=== PATIENT | male | born 1960 | race African-American/Black ===

== ENCOUNTER 2016-08-05 10:38 | Inpatient (IN) | payer MEDICARE, OTHER ==
[~2016-08-05] VITALS: Ht 167.6 cm; Wt 117.5 kg
[~2016-08-05 10:38] MED LIST: ALBUTEROL SULF8.5 GM INH; ALLOPURINOL100 M1 ORAL; AMLODIPINE BESYL5 MG ORAL; APRESOLINE10 MG ORAL; APRESOLINE50 MG ORAL; ASPIR 8181 MG ORAL; ASPIRIN81 MG ORAL; ATORVASTATIN CA40 MG ORAL; AZITHROMYCIN250 MG ORAL; BRETHINE5 MG ORAL; CATAPRES0.1 MG ORAL; CATAPRES0.2 MG ORAL; CLONIDINE0.1 MG ORAL; DULERA 100 MCG/13 GM INH; HYDROCHLOROTHIA25 MG ORAL; HYDROMORPHO2 MG/1 M5 IVP; IBUPROFEN600 MG ORAL; LEVAQUIN500 MG ORAL; LEVAQUIN750 MG ORAL; LIPITOR80 MG ORAL; MEDROL DOSEPAK4 MG ORAL; MONTELUKAST SOD10 MG ORAL; NORCO 5-325 TA1 EACH ORAL; NORVASC5 MG ORAL; PERCOCET 10-321 EACH ORAL; PREDNISONE20 MG ORAL; PREDNISONE50 MG ORAL; PRILOSEC20 MG ORAL; PROAIR HFA8.5 GM INH; SINGULAIR4 M2 ORAL; SPIRIVA18 MCG INH; THEOPHYLLINE A100 MG ORAL; VENTOLIN HFA18 GM INH; ZITHROMAX250 MG ORAL
[2016-08-05] MEDS ORDERED: Albuterol ud Inhalation ONE (10:48)
[2016-08-05 10:49] VITALS: BP 114/77
[2016-08-05] MEDS ORDERED: PredniSONE 20mg tab ORAL ONE (11:15)
[2016-08-05] MEDS: Albuterol ud Inhalation HHN SCH ×3 (11:16→12:08)
[2016-08-05] MEDS: Ipratropium 0.02% Inh Soln 2.5ml UD HHN SCH ×3 (11:16→12:08)
[2016-08-05] MEDS ORDERED: Azithromycin 500 MG in NS 250 ML IVPB STA (11:38)
[2016-08-05] MEDS ORDERED: Albuterol ud Inhalation HHN ONE (11:45)
[2016-08-05] MEDS ORDERED: Azithromycin Inj IV ONE ×2 (12:00→12:37)
[2016-08-05] MEDS ORDERED: NS 250 ML ONE (12:01)
[2016-08-05 12:05] LABS: BASOPHILS % (AUTO) 0.9 % (0.0-2.0); EOSINOPHILS % (AUTO) 0.3 % (0.0-3.0); LYMPHOCYTES % (AUTO) 11.7 % (20.0-45.0); MEAN CORPUSCULAR HEMOGLOBIN 28.8 PG (27.0-31.0); MEAN CORPUSCULAR VOLUME 93 FL (80-99); MEAN PLATELET VOLUME 9.3 FL (6.5-10.1); NEUTROPHILS % (AUTO) 79.1 % (45.0-75.0); PLATELET COUNT 229 K/UL (150-450); RED BLOOD COUNT 4.42 M/UL (4.70-6.10); RED CELL DISTRIBUTION WIDTH 14.3 % (11.6-14.8); WHITE BLOOD COUNT 8.7 K/UL (4.8-10.8)
[2016-08-05 12:32] LABS: ALBUMIN/GLOBULIN RATIO 1.8 (1.0-2.7); CALCIUM 9.3 mg/dL (8.6-10.2); CREATININE 1.9 mg/dL (0.7-1.2); GLOMERULAR FILTRATION RATE 44.8 mL/min (>60); POTASSIUM 4.2 mEQ/L (3.4-4.9); TOTAL PROTEIN 7.2 g/dL (6.6-8.7); TROPONIN I < 0.30 ng/mL (<=0.30)
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
[2016-08-05 12:43] LABS: CKMB 5.6 ng/mL (< 6.7)
[2016-08-05] MEDS ORDERED: LORazepam Inj 2mg/ml 1ml IV PRN (13:00)
[2016-08-05] MEDS ORDERED: Promethazine/Codeine 5ml UD ORAL PRN (13:00)
[2016-08-05] MEDS ORDERED: Ketorolac 30mg Inj IV PRN (13:00)
[2016-08-05] MEDS ORDERED: Morphine Sulfate 2mg/ml Inj IVP PRN (13:00)
[2016-08-05] MEDS ORDERED: Nitroglycerin Subl 0.4mg tab (Bottle Of 25) SL PRN (13:00)
--- NOTE | 2016-08-05 14:27 | Diagnostic Imaging Report ---
Indication: Chest pain Technique: One view of the chest Comparison: 06/11/2016 Findings: Inspiration is suboptimal. There is some atelectasis at the right lung base. Lungs and pleural spaces are otherwise clear. There is some central bronchial wall thickening. The heart size is upper limits of normal. Impression: Somewhat hypoventilatory exam with bibasilar atelectasis No definite acute process Mild central bronchial wall thickening, could indicate chronic bronchitis changes
[2016-08-05] MEDS: HydrALAZINE 10mg Tab ORAL SCH ×2 (14:57→21:55)
[2016-08-05] MEDS: NovoLOG Insulin Flexpen SUBQ SCH ×2 (15:56→22:03)
[2016-08-05 16:00] VITALS: BP 132/86
[2016-08-05] MEDS: DuoNeb 0.5-3(2.5)mg/3ml neb HHN PRN ×2 (16:11→21:14)
[2016-08-05] MEDS: Solu-MEDROL 125mg Inj IV SCH (17:39)
[2016-08-05] MEDS: HYDROmorphone 1mg/ml Carpuject IVP PRN ×2 (17:39→22:16)
[2016-08-05] MEDS ORDERED: Theophylline ER 100mg ORAL SCH (18:00)
[2016-08-05 20:14] VITALS: BP 150/91
[2016-08-05] MEDS: Theophylline ER 100mg ORAL SCH (21:55)
[2016-08-05] MEDS: Heparin 5000 units/ml inj SUBQ SCH (21:58)
[2016-08-06] VITALS (7 sets, daily range): BP systolic 144–169; BP diastolic 89–109
[2016-08-06] MEDS: Solu-MEDROL 125mg Inj IV SCH ×4 (00:25→18:17)
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
[2016-08-06] MEDS: HydrALAZINE 10mg Tab ORAL SCH ×2 (06:11→14:05)
[2016-08-06] MEDS: NovoLOG Insulin Flexpen SUBQ SCH ×4 (06:20→21:16)
[2016-08-06] MEDS: DuoNeb 0.5-3(2.5)mg/3ml neb HHN PRN ×2 (06:36→18:43)
[2016-08-06] MEDS: Theophylline ER 100mg ORAL SCH (09:05)
[2016-08-06] MEDS: Heparin 5000 units/ml inj SUBQ SCH ×2 (09:07→21:17)
--- NOTE | 2016-08-06 11:49 | Consultation ---
History of Present Illness General Date patient seen: Aug 06, 2016 Chief Complaint: Dyspnea/Respdistress Reason for Consultation: Dyspnea Present Illness HPI 55 year old male with hx of asthma, RHONDA, morbid obesity BIBA for acute asthma exacberation. SOB, chest tightness worse over 2 days associated with URI symptoms. Denies assoc fever/chills, chest pain, abd pain. No improvement with home albuterol. Patient was in respiratory failure in ER and was put on BIPAP and transferred to [facility]. Patient still seems short of breath. Allergies: Coded Allergies: MORPHINE (Unverified Allergy, Intermediate, Itching, 11/25/15) TETRACYCLINE (Verified Allergy, Unknown, 11/25/15) Medication History Scheduled Albuterol Sulfate (Ventolin Hfa), 2 PUFFS INH EVERY 6 HOURS, (Reported) Amlodipine Besylate (Norvasc), 5 MG ORAL BID Aspirin* (Aspirin*), 81 MG ORAL DAILY Azithromycin* (Zithromax*), 250 MG ORAL once daily Clonidine Hcl* (Catapres*), 0.1 MG ORAL Q8H Clonidine Hcl* (Catapres*), 0.2 MG ORAL Q8HR, (Reported) Hydralazine HCl (Hydralazine HCl), 10 MG ORAL EVERY 8 HOURS, (Reported) Hydralazine HCl (Hydralazine HCl), 100 MG ORAL Q8HR Hydrochlorothiazide* (Hydrochlorothiazide*), 100 MG ORAL BID, (Reported) Mometasone/Formoterol (Dulera 100 Mcg/5 Mcg Inhaler), 2 PUFFS INH EVERY 12 HOURS , (Reported) Montelukast Sodium (Singulair), 4 MG ORAL DAILY Omeprazole (Prilosec), 20 MG ORAL DAILY, (Reported) Prednisone* (Prednisone*), 60 MG ORAL DAILY Terbutaline Sulfate (Terbutaline Sulfate), 2.5 MG ORAL BID, (Reported) Theophylline (Theodur*), 100 MG ORAL TWICE A DAY, (Reported) Tiotropium Mcclure* (Spiriva*), 1 PUFF INH DAILY, (Reported) Scheduled PRN Clonidine HCl (Clonidine HCl), 0.1 MG ORAL Q6H PRN for SBP>160 Discontinued Medications Albuterol Sulfate* (Albuterol Sulfate Mdi*), 2 PUFF INH Q4H PRN for For Cough Discontinued Reason: Therapy completed Patient History Healthcare decision maker self Resuscitation status Full Code Advanced Directive on File Past Medical/Surgical History Past Medical/Surgical History: (1) Lumbar degenerative disc disease (2) Fibula fracture (3) Asthma (4) COPD (chronic obstructive pulmonary disease) (5) BPH (benign prostatic hyperplasia) (6) HTN (hypertension) Social History Social History: (1) Non-smoker Review of Systems All Other Systems: negative except mentioned in HPI Physical Exam General Appearance: morbidly obese Lines, tubes and drains: peripheral HEENT: normocephalic, atraumatic Neck: non-tender, normal alignment Respiratory/Chest: chest wall non-tender, lungs clear Cardiovascular/Chest: normal peripheral pulses, normal rate Abdomen: normal bowel sounds, non tender Genitourinary/Rectal: normal genital exam, heme negative stool Extremities: normal range of motion, normal inspection 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 normal, no motor/sensory deficits Last 24 Hour Vital Signs Date Time Temp Pulse Resp B/P Pulse Ox O2 Delivery O2 Flow Rate FiO2 08/06/16 09:06 94 144/97 08/06/16 08:00 97.0 94 20 144/97 94 Room Air 08/06/16 08:00 97 08/06/16 06:45 87 18 98 Room Air 21 08/06/16 06:34 21 08/06/16 06:34 95 25 Room Air 21 08/06/16 06:11 169/100 08/06/16 04:00 97.2 88 20 155/95 95 Room Air 08/06/16 03:51 82 08/06/16 01:00 87 17 99 Facial 30 08/06/16 00:00 97.7 93 20 150/90 92 Room Air 08/05/16 23:48 92 08/05/16 21:55 150/91 08/05/16 21:40 90 20 98 Room Air 21 08/05/16 21:14 21 08/05/16 21:14 90 20 95 Room Air 21 08/05/16 20:14 98.1 92 13 150/91 93 Room Air 08/05/16 20:00 92 08/05/16 18:11 97.9 08/05/16 17:38 132/86 08/05/16 16:22 89 08/05/16 16:21 88 18 98 Room Air 21 08/05/16 16:11 21 08/05/16 16:11 85 21 95 Room Air 21 08/05/16 16:00 97.9 93 15 132/86 96 Room Air 08/05/16 15:36 98.0 08/05/16 14:57 151/96 08/05/16 12:56 97.5 94 16 126/70 98 Bi-pap 30 08/05/16 12:10 85 16 99 Bi-pap 30 08/05/16 12:10 30 08/05/16 12:00 15 99 Facial 30 Intake and Output 08/05/16 08/06/16 19:00 07:00 Intake Total 150 ml 150 ml Output Total 600 ml Balance -450 ml 150 ml Intake Oral 0 ml IV Total 150 ml 150 ml Output Urine Total 600 ml # Voids 1 3 # Bowel Movements 1 Laboratory Tests Test 08/05/16 11:43 White Blood Count 8.7 K/UL (4.8-10.8) Red Blood Count 4.42 M/UL (4.70-6.10) L Hemoglobin 12.7 G/DL (14.2-18.0) L Hematocrit 41.0 % (42.0-52.0) L Mean Corpuscular Volume 93 FL (80-99) Mean Corpuscular Hemoglobin 28.8 PG (27.0-31.0) Mean Corpuscular Hemoglobin Concent 31.0 G/DL (32.0-36.0) L Red Cell Distribution Width 14.3 % (11.6-14.8) Platelet Count 229 K/UL (150-450) Mean Platelet Volume 9.3 FL (6.5-10.1) Neutrophils (%) (Auto) 79.1 % (45.0-75.0) H Lymphocytes (%) (Auto) 11.7 % (20.0-45.0) L Monocytes (%) (Auto) 8.0 % (1.0-10.0) Eosinophils (%) (Auto) 0.3 % (0.0-3.0) Basophils (%) (Auto) 0.9 % (0.0-2.0) Sodium Level 141 mEQ/L (135-145) Potassium Level 4.2 mEQ/L (3.4-4.9) Chloride Level 99 mEQ/L (98-107) Carbon Dioxide Level 26 mEQ/L (20-30) Anion Gap 16 (5-15) H Blood Urea Nitrogen 27 mg/dL (7-23) H Creatinine 1.9 mg/dL (0.7-1.2) H Estimat Glomerular Filtration Rate 44.8 mL/min (>60) Glucose Level 113 mg/dL (74-106) H Calcium Level 9.3 mg/dL (8.6-10.2) Total Bilirubin 0.2 mg/dL (0.0-1.2) Aspartate Amino Transf (AST/SGOT) 21 U/L (5-40) Alanine Aminotransferase (ALT/SGPT) 14 U/L (3-41) Alkaline Phosphatase 53 U/L (40-129) Total Creatine Kinase 401 U/L (38-174) H Creatine Kinase MB 5.6 ng/mL (< 6.7) Creatine Kinase MB Relative Index 1.3 Troponin I < 0.30 ng/mL (<=0.30) Total Protein 7.2 g/dL (6.6-8.7) Albumin 4.7 g/dL (3.5-5.2) Globulin 2.5 g/dL Albumin/Globulin Ratio 1.8 (1.0-2.7) Microbiology Date/Time Source Procedure Growth Status 08/05/16 16:00 Sputum Gram Stain - Final Resulted 08/05/16 16:00 Sputum Sputum Culture Pending Resulted Height (Feet): 5 Height (Inches): 6.00 Weight (Pounds): 259 Medications Current Medications Medications (Trade) Dose Ordered Sig/Alexis Route PRN Reason Start Time Stop Time Status Last Admin Dose Admin Albuterol/ Ipratropium (DuoNeb 0.5-3(2.5)mg/3ml) 3 ml EVERY 4 HOURS PRN HHN dyspnea 08/05/16 13:00 08/10/16 12:59 08/06/16 06:36 Amlodipine Besylate (Norvasc) 5 mg BID ORAL 08/05/16 18:00 09/04/16 17:59 08/06/16 09:06 Clonidine HCl (Catapres) 0.1 mg Q6H PRN ORAL SBP>160 08/05/16 13:00 09/04/16 12:59 Dextrose (Dextrose 50%) STAT PRN IV Hypoglycemia 08/05/16 13:00 09/04/16 12:59 Heparin Sodium (Porcine) (Heparin 5000 units/ml) 5,000 units EVERY 12 HOURS SUBQ 08/05/16 21:00 09/04/16 20:59 08/06/16 09:07 Hydralazine HCl (Apresoline) 10 mg EVERY 8 HOURS ORAL 08/05/16 14:00 09/04/16 13:59 08/06/16 06:11 Hydromorphone HCl (Dilaudid) 1 mg Q4H PRN IVP Severe Pain (Pain Scale 7-10) 08/05/16 17:00 08/12/16 16:59 08/05/16 22:16 Insulin Aspart (NovoLOG) BEFORE MEALS AND HS SUBQ 08/05/16 16:30 09/04/16 16:29 08/05/16 22:03 Ketorolac Tromethamine (Toradol 30mg) 30 mg EVERY 8 HOURS PRN IV moderate pain 4-6 08/05/16 13:00 08/10/16 12:59 08/05/16 14:59 Lorazepam (Ativan 2mg/ml 1ml) 0.5 mg Q4H PRN IV For Anxiety 08/05/16 13:00 08/12/16 12:59 Methylprednisolone Sodium Succinate (Solu-MEDROL) 60 mg EVERY 6 HOURS IV 08/05/16 18:00 09/04/16 17:59 08/06/16 06:13 Nitroglycerin (Ntg) 0.4 mg Q5M X 3 DOSES PRN SL Prn Chest Pain 08/05/16 13:00 09/04/16 12:59 Ondansetron HCl (Zofran) 4 mg Q6H PRN IVP Nausea & Vomiting 08/05/16 13:00 09/04/16 12:59 Piperacillin Sod/ Tazobactam Sod/ Dextrose (Zosyn/D5W 50ml) 50 ml @ 100 mls/hr EVERY 8 HOURS IV 08/05/16 14:00 08/10/16 13:59 08/06/16 06:10 Promethazine HCl/ Codeine (Phenergan with Codeine) 5 ml EVERY 6 HOURS PRN ORAL cough 08/05/16 13:00 09/04/16 12:59 Temazepam (Restoril) 15 mg HSPRN PRN ORAL Insomnia 08/05/16 13:00 08/12/16 12:59 Theophylline 100 mg 100 mg EVERY 12 HOURS ORAL 08/05/16 21:00 09/04/16 20:59 08/06/16 09:05 Assessment/Plan Problem List: (1) Acute asthma exacerbation ICD Codes: J45.901 - Asthma with exacerbation SNOMED: 392321492 Qualifiers: Qualified Codes: J45.51 - Severe persistent asthma with (acute) exacerbation (2) Respiratory distress ICD Codes: R06.00 - Dyspnea, unspecified SNOMED: 896444616 (3) COPD exacerbation ICD Codes: J44.1 - Obstructive chronic bronchitis with exacerbation SNOMED: 402249618 Assessment/Plan Iv steoids IV antibiotics respiratory treatmet bipap prn and night time ADDIS SANCHEZ Aug 06, 2016 11:49
[2016-08-06] MEDS: HYDROmorphone 1mg/ml Carpuject IVP PRN ×3 (11:58→21:12)
--- NOTE | 2016-08-06 13:15 | General Progress Note ---
Assessment/Plan Problem List: (1) Hypertension ICD Codes: I10 - Hypertension SNOMED: 87448209 (2) Lumbar spondylosis ICD Codes: M47.816 - Spondylosis without myelopathy or radiculopathy, lumbar region SNOMED: 798548060 (3) Anemia ICD Codes: D64.9 - Anemia, unspecified SNOMED: 334842239 (4) Asthma ICD Codes: J45.909 - Asthma SNOMED: 135722073 (5) Acute asthma exacerbation ICD Codes: J45.901 - Asthma with exacerbation SNOMED: 819237529 (6) Intractable back pain ICD Codes: M54.9 - Intractable back pain SNOMED: 439067689 (7) Dyspnea ICD Codes: R06.00 - Dyspnea, unspecified SNOMED: 905970352 (8) COPD (chronic obstructive pulmonary disease) ICD Codes: J44.9 - Chronic obstructive pulmonary disease, unspecified SNOMED: 07138812 Status: progressing Assessment/Plan afebrile vitals stable asthma exacerbation on nebs wheezing Subjective ROS Limited/Unobtainable: Yes Constitutional: Reports: no symptoms Allergies: Coded Allergies: MORPHINE (Unverified Allergy, Intermediate, Itching, 11/25/15) TETRACYCLINE (Verified Allergy, Unknown, 11/25/15) Objective Last 24 Hour Vital Signs Date Time Temp Pulse Resp B/P Pulse Ox O2 Delivery O2 Flow Rate FiO2 08/06/16 12:28 98.2 08/06/16 12:01 160/109 08/06/16 12:00 98.2 96 20 160/109 96 Nasal Cannula 2.0 08/06/16 09:06 94 144/97 08/06/16 08:00 97.0 94 20 144/97 94 Room Air 08/06/16 08:00 97 08/06/16 06:45 87 18 98 Room Air 21 08/06/16 06:34 21 08/06/16 06:34 95 25 Room Air 21 08/06/16 06:11 169/100 08/06/16 04:00 97.2 88 20 155/95 95 Room Air 08/06/16 03:51 82 08/06/16 01:00 87 17 99 Facial 30 08/06/16 00:00 97.7 93 20 150/90 92 Room Air 08/05/16 23:48 92 08/05/16 21:55 150/91 08/05/16 21:40 90 20 98 Room Air 21 08/05/16 21:14 21 08/05/16 21:14 90 20 95 Room Air 21 08/05/16 20:14 98.1 92 13 150/91 93 Room Air 08/05/16 20:00 92 08/05/16 17:38 132/86 08/05/16 16:22 89 08/05/16 16:21 88 18 98 Room Air 08/05/16 16:11 21 08/05/16 16:11 85 21 95 Room Air 21 08/05/16 16:00 97.9 93 15 132/86 96 Room Air 08/05/16 15:36 98.0 08/05/16 14:57 151/96 Intake and Output 08/05/16 08/06/16 19:00 07:00 Intake Total 150 ml 150 ml Output Total 600 ml Balance -450 ml 150 ml Intake Oral 0 ml IV Total 150 ml 150 ml Output Urine Total 600 ml # Voids 1 3 # Bowel Movements 1 Height (Feet): 5 Height (Inches): 6.00 Weight (Pounds): 259 EENT: PERRL/EOMI Neck: supple Cardiovascular: normal rate Respiratory/Chest: lungs clear Abdomen: soft Luis Botello MD Aug 06, 2016 13:15
--- NOTE | 2016-08-06 16:16 | Consultation ---
Consult Note Consult Note Chief Complaint: Dyspnea/Respdistress 55 YOM BIBEMS for acute asthma exacberation. SOB, chest tightness worse over 2 days associated with URI symptoms. Denies assoc fever/chills, chest pain, abd pain. No improvement with home albuterol. Allergies: Coded Allergies: MORPHINE (Unverified Allergy, Intermediate, Itching, 11/25/15) TETRACYCLINE (Verified Allergy, Unknown, 11/25/15) Patient interviewed and examined- Moderately short of breath Assessment/Plan Status; chronic renal insufficiency , Cr 1.9 acute asthma exacerbation COPD RHONDA accelerated HTN diastolic CHF morbid obesity mild anemia Plan: Steroids- Breathing treatment- BP control- Monitor renal parameters- Avoid nephrotoxics ELIEL MANRIQUE Aug 06, 2016 16:16
[2016-08-06] MEDS ORDERED: Nitroglycerin Subl 0.4mg tab (Bottle Of 25) SL PRN (18:00)
[2016-08-06] MEDS ORDERED: Promethazine/Codeine 5ml UD ORAL PRN (18:00)
[2016-08-06] MEDS ORDERED: LORazepam Inj 2mg/ml 1ml IV PRN (18:00)
[2016-08-06] MEDS ORDERED: Theophylline ER 100mg ORAL SCH (21:00)
[2016-08-06] MEDS: HydrALAZINE 25mg tab ORAL SCH (21:17)
[2016-08-06] MEDS ORDERED: HydrALAZINE 25mg tab ORAL SCH (22:00)
[2016-08-06 23:05] LABS: APPEARANCE,URINE CLEAR; KETONES,URINE NEGATIVE (NEGATIVE); LEUKOCYTE ESTERASE ,URINE 1+ (NEGATIVE); NITRITE,URINE NEGATIVE (NEGATIVE); PH,URINE 5 (4.5-8.0); PROTEIN,URINE 3+ (NEGATIVE); UROBILINOGEN,URINE NORMAL MG/DL (0.0-1.0)
[2016-08-07 00:14] VITALS: BP 163/99
[2016-08-07 00:16] LABS: BACTERIA,URINE OCCASIONAL /HPF; RBC,URINE 15-20 /HPF (0 - 0); SQUAMOUS EPITHELIAL CELL,UR OCCASIONAL /LPF (NONE/OCC)
[2016-08-07] MEDS: Solu-MEDROL 125mg Inj IV SCH ×4 (01:00→22:30)
[2016-08-07] MEDS: HYDROmorphone 1mg/ml Carpuject IVP PRN ×4 (01:12→23:53)
[2016-08-07 04:06] VITALS: BP 155/114
[2016-08-07] MEDS: NovoLOG Insulin Flexpen SUBQ SCH ×5 (06:18→22:31)
[2016-08-07] MEDS: HydrALAZINE 25mg tab ORAL SCH ×3 (06:19→22:48)
[2016-08-07] MEDS: DuoNeb 0.5-3(2.5)mg/3ml neb HHN PRN ×2 (07:36→14:47)
[2016-08-07 08:10] LABS: MEAN CORPUSCULAR HEMOGLOBIN 29.3 PG (27.0-31.0); MEAN CORPUSCULAR HGB CONC 31.3 G/DL (32.0-36.0); MEAN CORPUSCULAR VOLUME 94 FL (80-99); MEAN PLATELET VOLUME 9.2 FL (6.5-10.1); PLATELET COUNT 275 K/UL (150-450); RED BLOOD COUNT 4.33 M/UL (4.70-6.10); RED CELL DISTRIBUTION WIDTH 14.7 % (11.6-14.8)
[2016-08-07 08:19] LABS: CRP QUANT < 0.3 mg/dL (< 0.5); MAGNESIUM 2.3 mg/dL (1.7-2.5); URIC ACID 8.4 mg/dL (3.0-7.5)
[2016-08-07 08:30] VITALS: BP 149/87
[2016-08-07 08:35] LABS: CALCIUM 9.1 mg/dL (8.6-10.2); CHOLESTEROL/HDL RATIO 3.8 (3.3-4.4); CREATININE 2.1 mg/dL (0.7-1.2); POTASSIUM 5.5 mEQ/L (3.4-4.9); TOTAL PROTEIN 6.8 g/dL (6.6-8.7)
[2016-08-07 08:46] LABS: HEMOGLOBIN A1C 5.2 % (< 6.0)
[2016-08-07] MEDS: Heparin 5000 units/ml inj SUBQ SCH ×2 (09:30→11:43)
[2016-08-07 10:18] LABS: BAND NEUTROPHILS % (MANUAL) 1 % (0-8); BASOPHILS % (MANUAL) 0 % (0-2); EOSINOPHILS % (MANUAL) 0 % (0-3); LYMPHOCYTES % (MANUAL) 8 % (20-45); NEUTROPHILS % (MANUAL) 88 % (45-75); PLATELET ESTIMATE ADEQUATE; PLATELET MORPHOLOGY NORMAL; TOTAL CELLS COUNTED 100
[2016-08-07 10:20] LABS: ANISOCYTOSIS 1+
--- NOTE | 2016-08-07 11:26 | Pulmonology Progress Note ---
Assessment/Plan Problems: (1) Acute asthma exacerbation (2) Respiratory distress (3) COPD exacerbation Assessment/Plan decrease solumedrol to q 8 check sputum one dose of lasix continue antibiotics increase theophyline check K in am Subjective ROS Limited/Unobtainable: No Interval Events: still short of breath, uses bipap at night Allergies: Coded Allergies: MORPHINE (Unverified Allergy, Intermediate, Itching, 11/25/15) TETRACYCLINE (Verified Allergy, Unknown, 11/25/15) Objective Last 24 Hour Vital Signs Date Time Temp Pulse Resp B/P Pulse Ox O2 Delivery O2 Flow Rate FiO2 08/07/16 10:00 74 08/07/16 09:30 85 124/64 08/07/16 08:30 97.2 88 20 149/87 96 Nasal Cannula 2.0 08/07/16 07:46 89 18 98 Nasal Cannula 2.0 08/07/16 07:36 21 08/07/16 07:35 88 20 93 Room Air 08/07/16 07:35 88 20 Room Air 08/07/16 06:19 155/114 08/07/16 04:30 89 20 95 Facial 30 08/07/16 04:06 98.5 89 21 155/114 97 Bi-pap 08/07/16 04:00 85 08/07/16 01:10 89 27 95 Facial 30 08/07/16 00:14 98.2 86 20 163/99 96 Bi-pap 08/06/16 22:00 91 28 93 Facial 30 08/06/16 21:30 86 145/92 08/06/16 21:17 165/95 08/06/16 20:00 97.7 96 22 165/95 92 Nasal Cannula 2.0 08/06/16 20:00 95 08/06/16 19:21 87 18 98 Nasal Cannula 2.0 08/06/16 19:00 90 20 98 Nasal Cannula 2.0 08/06/16 18:18 94 153/89 08/06/16 17:00 2.0 08/06/16 16:01 97.9 94 14 153/89 90 Room Air 08/06/16 14:05 160/109 08/06/16 13:36 97 08/06/16 12:28 98.2 08/06/16 12:01 160/109 08/06/16 12:00 97 08/06/16 12:00 98.2 96 20 160/109 96 Nasal Cannula 2.0 Intake and Output 08/06/16 08/07/16 19:00 07:00 Intake Total 480 ml 580 ml Output Total 750 ml 350 ml Balance -270 ml 230 ml Intake Oral 430 ml 480 ml IV Total 50 ml 100 ml Output Urine Total 750 ml 350 ml # Voids 2 # Bowel Movements 1 General Appearance: WD/WN HEENT: normocephalic, atraumatic Respiratory/Chest: chest wall non-tender, lungs clear Cardiovascular: normal peripheral pulses, normal rate Abdomen: normal bowel sounds, soft, non tender Genitourinary: normal external genitalia Extremities: no cyanosis 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 Lymphatic: no neck adenopathy Microbiology Date/Time Source Procedure Growth Status 08/05/16 16:00 Sputum Gram Stain - Final Complete 08/05/16 16:00 Sputum Sputum Culture - Final NORMAL UPPER RESPIRATORY BEVERLY PRESENT Complete Laboratory Tests 08/06/16 21:30: Urine Color Pale yellow, Urine Appearance Clear, Urine pH 5, Urine Specific Prue 1.020, Urine Protein 3+H, Urine Glucose (UA) Negative, Urine Ketones Negative, Urine Occult Blood 4+H, Urine Nitrite Negative, Urine Bilirubin Negative, Urine Urobilinogen Normal, Urine Leukocyte Esterase 1+H, Urine RBC 15- 20H, Urine WBC 5-10H, Urine Squamous Epithelial Cells Occasional, Urine Bacteria Occasional 08/07/16 07:30: White Blood Count 13.0H, Red Blood Count 4.33L, Hemoglobin 12.7L, Hematocrit 40.4L, Mean Corpuscular Volume 94, Mean Corpuscular Hemoglobin 29.3, Mean Corpuscular Hemoglobin Concent 31.3L, Red Cell Distribution Width 14.7, Platelet Count 275, Mean Platelet Volume 9.2, Neutrophils (%) (Auto) , Lymphocytes (%) (Auto) , Monocytes (%) (Auto) , Eosinophils (%) (Auto) , Basophils (%) (Auto) , Differential Total Cells Counted 100, Neutrophils % ( Manual) 88H, Lymphocytes % (Manual) 8L, Monocytes % (Manual) 3, Eosinophils % ( Manual) 0, Basophils % (Manual) 0, Band Neutrophils 1, Platelet Estimate Adequate, Platelet Morphology Normal, Anisocytosis 1+, Sodium Level 141, Potassium Level 5.5H, Chloride Level 100, Carbon Dioxide Level 26, Anion Gap 15 , Blood Urea Nitrogen 37H, Creatinine 2.1H, Estimat Glomerular Filtration Rate 40.0, Glucose Level 140H, Hemoglobin A1c 5.2, Uric Acid 8.4H, Calcium Level 9.1 , Phosphorus Level 5.0H, Magnesium Level 2.3, Total Bilirubin 0.3, Gamma Glutamyl Transpeptidase 22, Aspartate Amino Transf (AST/SGOT) 18, Alanine Aminotransferase (ALT/SGPT) 15, Alkaline Phosphatase 50, Total Creatine Kinase 303H, C-Reactive Protein, Quantitative < 0.3, Pro-B-Type Natriuretic Peptide 176H, Total Protein 6.8, Albumin 4.6, Globulin 2.2, Albumin/Globulin Ratio 2.0, Triglycerides Level 133, Cholesterol Level 278H, LDL Cholesterol 178H, HDL Cholesterol 73H, Cholesterol/HDL Ratio 3.8 Current Medications Medications (Trade) Dose Ordered Sig/Alexis Route PRN Reason Start Time Stop Time Status Last Admin Dose Admin Albuterol/ Ipratropium (DuoNeb 0.5-3(2.5)mg/3ml) 3 ml Q4H PRN HHN dyspnea 08/06/16 18:00 08/11/16 17:59 08/07/16 07:36 Amlodipine Besylate (Norvasc) 5 mg BID ORAL 08/06/16 18:00 09/05/16 17:59 08/07/16 09:30 Clonidine HCl (Catapres) 0.1 mg Q4H PRN ORAL SBP>160 08/06/16 18:00 09/05/16 17:59 Dextrose (Dextrose 50%) STAT PRN IV Hypoglycemia 08/06/16 18:00 09/05/16 17:59 Heparin Sodium (Porcine) (Heparin 5000 units/ml) 5,000 units EVERY 12 HOURS SUBQ 08/06/16 21:00 09/05/16 20:59 08/07/16 09:30 Hydralazine HCl (Apresoline) 25 mg EVERY 8 HOURS ORAL 08/06/16 22:00 09/05/16 21:59 08/07/16 06:19 Hydromorphone HCl (Dilaudid) 1 mg Q4H PRN IVP Severe Pain (Pain Scale 7-10) 08/06/16 18:00 08/13/16 17:59 08/07/16 06:17 Insulin Aspart (NovoLOG) BEFORE MEALS AND HS SUBQ 08/06/16 21:00 09/05/16 20:59 08/07/16 06:18 Lorazepam (Ativan 2mg/ml 1ml) 0.5 mg Q4H PRN IV For Anxiety 08/06/16 18:00 08/13/16 17:59 Methylprednisolone Sodium Succinate (Solu-MEDROL) 60 mg EVERY 6 HOURS IV 08/06/16 18:00 09/05/16 17:59 08/07/16 06:18 Nitroglycerin (Ntg) 0.4 mg Q5M X 3 DOSES PRN SL Prn Chest Pain 08/06/16 18:00 09/05/16 17:59 Ondansetron HCl (Zofran) 4 mg Q6H PRN IVP Nausea & Vomiting 08/06/16 18:00 09/05/16 17:59 Piperacillin Sod/ Tazobactam Sod/ Dextrose (Zosyn/D5W 50ml) 50 ml @ 100 mls/hr EVERY 8 HOURS IV 08/06/16 22:00 08/11/16 21:59 08/07/16 06:17 Promethazine HCl/ Codeine (Phenergan with Codeine) 5 ml Q6H PRN ORAL cough 08/06/16 18:00 09/05/16 17:59 Temazepam (Restoril) 15 mg HSPRN PRN ORAL Insomnia 08/07/16 21:00 08/14/16 20:59 Theophylline (Oscar-Dur) 100 mg EVERY 12 HOURS ORAL 08/06/16 21:00 09/05/16 20:59 08/06/16 21:13 ADDIS SANCHEZ Aug 07, 2016 11:26
[2016-08-07 12:03] VITALS: BP 148/78
[2016-08-07] MEDS ORDERED: Tubing IV Secondary IV ONE (14:57)
[2016-08-07] MEDS ORDERED: NS 275ml ONE (14:57)
[2016-08-07 16:00] VITALS: BP 145/95
--- NOTE | 2016-08-07 16:26 | General Progress Note ---
Assessment/Plan Problem List: (1) Hypertension ICD Codes: I10 - Hypertension SNOMED: 30000816 (2) Lumbar spondylosis ICD Codes: M47.816 - Spondylosis without myelopathy or radiculopathy, lumbar region SNOMED: 781596303 (3) Anemia ICD Codes: D64.9 - Anemia, unspecified SNOMED: 135387042 (4) Asthma ICD Codes: J45.909 - Asthma SNOMED: 693180735 (5) Acute asthma exacerbation ICD Codes: J45.901 - Asthma with exacerbation SNOMED: 653443985 (6) Intractable back pain ICD Codes: M54.9 - Intractable back pain SNOMED: 750211862 (7) Dyspnea ICD Codes: R06.00 - Dyspnea, unspecified SNOMED: 803383846 (8) COPD (chronic obstructive pulmonary disease) ICD Codes: J44.9 - Chronic obstructive pulmonary disease, unspecified SNOMED: 76270768 Status: progressing Assessment/Plan still wheezing asthma exacerbation continue w present mangement Subjective HEENT: Reports: no symptoms Respiratory: Reports: SOB with excertion, wheezing Allergies: Coded Allergies: MORPHINE (Unverified Allergy, Intermediate, Itching, 11/25/15) TETRACYCLINE (Verified Allergy, Unknown, 11/25/15) Objective Last 24 Hour Vital Signs Date Time Temp Pulse Resp B/P Pulse Ox O2 Delivery O2 Flow Rate FiO2 08/07/16 16:00 98.1 86 22 145/95 95 Nasal Cannula 2.0 08/07/16 14:57 90 18 98 Nasal Cannula 2.0 08/07/16 14:47 28 08/07/16 14:46 87 18 Nasal Cannula 2.0 08/07/16 12:03 97.2 87 20 148/78 95 Nasal Cannula 2.0 08/07/16 10:00 74 08/07/16 09:30 85 124/64 08/07/16 08:30 97.2 88 20 149/87 96 Nasal Cannula 2.0 08/07/16 07:46 89 18 98 Nasal Cannula 2.0 08/07/16 07:36 21 08/07/16 07:35 88 20 93 Room Air 21 08/07/16 07:35 88 20 Room Air 21 08/07/16 06:19 155/114 08/07/16 04:30 89 20 95 Facial 30 08/07/16 04:06 98.5 89 21 155/114 97 Bi-pap 08/07/16 04:00 85 08/07/16 01:10 89 27 95 Facial 30 08/07/16 00:14 98.2 86 20 163/99 96 Bi-pap 08/06/16 22:00 91 28 93 Facial 30 08/06/16 21:30 86 145/92 08/06/16 21:17 165/95 08/06/16 20:00 97.7 96 22 165/95 92 Nasal Cannula 2.0 08/06/16 20:00 95 08/06/16 19:21 87 18 98 Nasal Cannula 2.0 28 08/06/16 19:00 90 20 98 Nasal Cannula 2.0 28 08/06/16 18:18 94 153/89 08/06/16 17:00 2.0 Intake and Output 08/06/16 08/07/16 19:00 07:00 Intake Total 480 ml 580 ml Output Total 750 ml 350 ml Balance -270 ml 230 ml Intake Oral 430 ml 480 ml IV Total 50 ml 100 ml Output Urine Total 750 ml 350 ml # Voids 2 # Bowel Movements 1 Laboratory Tests 08/06/16 21:30: Urine Color Pale yellow, Urine Appearance Clear, Urine pH 5, Urine Specific Gaffney 1.020, Urine Protein 3+H, Urine Glucose (UA) Negative, Urine Ketones Negative, Urine Occult Blood 4+H, Urine Nitrite Negative, Urine Bilirubin Negative, Urine Urobilinogen Normal, Urine Leukocyte Esterase 1+H, Urine RBC 15- 20H, Urine WBC 5-10H, Urine Squamous Epithelial Cells Occasional, Urine Bacteria Occasional 08/07/16 07:30: White Blood Count 13.0H, Red Blood Count 4.33L, Hemoglobin 12.7L, Hematocrit 40.4L, Mean Corpuscular Volume 94, Mean Corpuscular Hemoglobin 29.3, Mean Corpuscular Hemoglobin Concent 31.3L, Red Cell Distribution Width 14.7, Platelet Count 275, Mean Platelet Volume 9.2, Neutrophils (%) (Auto) , Lymphocytes (%) (Auto) , Monocytes (%) (Auto) , Eosinophils (%) (Auto) , Basophils (%) (Auto) , Differential Total Cells Counted 100, Neutrophils % ( Manual) 88H, Lymphocytes % (Manual) 8L, Monocytes % (Manual) 3, Eosinophils % ( Manual) 0, Basophils % (Manual) 0, Band Neutrophils 1, Platelet Estimate Adequate, Platelet Morphology Normal, Anisocytosis 1+, Sodium Level 141, Potassium Level 5.5H, Chloride Level 100, Carbon Dioxide Level 26, Anion Gap 15 , Blood Urea Nitrogen 37H, Creatinine 2.1H, Estimat Glomerular Filtration Rate 40.0, Glucose Level 140H, Hemoglobin A1c 5.2, Uric Acid 8.4H, Calcium Level 9.1 , Phosphorus Level 5.0H, Magnesium Level 2.3, Total Bilirubin 0.3, Gamma Glutamyl Transpeptidase 22, Aspartate Amino Transf (AST/SGOT) 18, Alanine Aminotransferase (ALT/SGPT) 15, Alkaline Phosphatase 50, Total Creatine Kinase 303H, C-Reactive Protein, Quantitative < 0.3, Pro-B-Type Natriuretic Peptide 176H, Total Protein 6.8, Albumin 4.6, Globulin 2.2, Albumin/Globulin Ratio 2.0, Triglycerides Level 133, Cholesterol Level 278H, LDL Cholesterol 178H, HDL Cholesterol 73H, Cholesterol/HDL Ratio 3.8 08/07/16 12:00: Urine Eosinophils None seen Height (Feet): 5 Height (Inches): 6.00 Weight (Pounds): 259 Neck: supple Cardiovascular: normal rate Respiratory/Chest: expiratory wheezing Luis Botello MD Aug 07, 2016 16:26
[2016-08-07] MEDS ORDERED: Sodium Polystyrene Sulfonate 15gm Powder ORAL ONE (17:00)
[2016-08-07 20:00] VITALS: BP 158/98
[2016-08-07] MEDS: Theophylline ER 100mg ORAL SCH (22:30)
[2016-08-08] VITALS: BP 114/74
[2016-08-08 04:00] VITALS: BP 137/76
[2016-08-08] MEDS: Solu-MEDROL 125mg Inj IV SCH ×3 (05:44→21:23)
[2016-08-08] MEDS: HydrALAZINE 25mg tab ORAL SCH ×3 (05:45→21:18)
[2016-08-08] MEDS: HYDROmorphone 1mg/ml Carpuject IVP PRN ×4 (05:49→20:50)
[2016-08-08] MEDS: NovoLOG Insulin Flexpen SUBQ SCH ×4 (06:02→21:17)
[2016-08-08 07:55] LABS: CALCIUM 8.7 mg/dL (8.6-10.2); CREATININE 2.2 mg/dL (0.7-1.2); GLOMERULAR FILTRATION RATE 37.8 mL/min (>60); POTASSIUM 4.6 mEQ/L (3.4-4.9)
[2016-08-08 08:00] VITALS: BP 171/99
[2016-08-08] MEDS: DuoNeb 0.5-3(2.5)mg/3ml neb HHN PRN ×3 (08:04→15:47)
[2016-08-08] MEDS: Theophylline ER 100mg ORAL SCH ×2 (08:24→21:17)
[2016-08-08] MEDS: Heparin 5000 units/ml inj SUBQ SCH ×2 (08:26→21:17)
[2016-08-08 12:00] VITALS: BP 136/80
--- NOTE | 2016-08-08 14:12 | Cardiology Report ---
APPROVED REPORT EKG Measurement Heart [id number] Normal sinus rhythm Normal ECG
--- NOTE | 2016-08-08 14:20 | Cardiology Report ---
APPROVED REPORT EXAM: Two-dimensional and M-mode echocardiogram with Doppler and color Doppler. M-Mode DIMENSIONS IVSd1.3 (0.7-1.1cm)Left Atrium (MM)4.0 (1.6-4.0cm) LVDd5.6 (3.5-5.6cm)Aortic Root3.7 (2.0-3.7cm) PWd1.3 (0.7-1.1cm)Aortic Cusp Exc.1.9 (1.5-2.0cm) LVDs2.8 (2.5-4.0cm) PWs2.1 cm Technically very difficult study due to poor acoustic windows, sleep apnea and rapid movement. Study quality precludes accurate assessment of regional wall motion. Left ventricular ejection fraction estimated to be 65%. No left ventricular hypertrophy. Mild Bi-atrial enlargment seen in 2D. Focal aortic valve sclerosis with adequate cusp excursion Mildy thickened mitral valve leaflets with normal excursion. Pulmonic valve not well visualized. Normal tricuspid valve structure. IVC dilated at 2.2cm with physiologic collapse. RAP 10mmHg. A color flow and spectral Doppler study was performed and revealed: No aortic regurgitation. Trace mitral regurgitation. Mitral inflow velocities indicates reduced left ventricular relaxation diastolic dysfunction. Grade one. Trace tricuspid regurgitation. Tricuspid systolic velocities suggests peak right ventricular systolic pressure of 26mmHg. No pulmonic regurgitation present.
--- NOTE | 2016-08-08 14:55 | Pulmonology Progress Note ---
Assessment/Plan Problems: (1) Acute asthma exacerbation (2) Respiratory distress (3) COPD exacerbation Assessment/Plan decrease solumedrol to q 12 check sputum renal work up continue antibiotics increase theophyline check K in am med/surg Subjective ROS Limited/Unobtainable: No Constitutional: Reports: no symptoms HEENT: Repors: no symptoms Respiratory: Reports: no symptoms Allergies: Coded Allergies: MORPHINE (Unverified Allergy, Intermediate, Itching, 11/25/15) TETRACYCLINE (Verified Allergy, Unknown, 11/25/15) Objective Last 24 Hour Vital Signs Date Time Temp Pulse Resp B/P Pulse Ox O2 Delivery O2 Flow Rate FiO2 08/08/16 13:54 136/80 08/08/16 12:00 90 08/08/16 12:00 97.9 86 18 136/80 93 Nasal Cannula 2.0 08/08/16 11:39 100 21 100 Nasal Cannula 2.0 28 08/08/16 11:24 98 22 95 Nasal Cannula 2.0 30 08/08/16 11:24 28 08/08/16 08:25 85 171/99 08/08/16 08:24 171/99 08/08/16 08:00 97.7 85 19 171/99 94 Nasal Cannula 2.0 08/08/16 08:00 87 08/08/16 05:45 137/76 08/08/16 04:00 84 08/08/16 04:00 97.3 63 16 137/76 96 Bi-pap 08/08/16 03:24 96 16 08/08/16 01:33 86 13 99 Facial 30 08/08/16 00:00 83 08/08/16 00:00 97.0 86 20 114/74 95 Bi-pap 08/07/16 22:58 88 16 99 Facial 30 08/07/16 22:48 158/98 08/07/16 20:00 97.9 89 22 158/98 95 Nasal Cannula 2.0 08/07/16 20:00 84 08/07/16 17:26 86 145/95 08/07/16 16:28 86 08/07/16 16:00 86 08/07/16 16:00 98.1 86 22 145/95 95 Nasal Cannula 2.0 08/07/16 15:00 140/97 08/07/16 14:57 90 18 98 Nasal Cannula 2.0 28 Intake and Output 08/07/16 08/08/16 19:00 07:00 Intake Total 360 ml 500 ml Output Total 100 ml Balance 260 ml 500 ml Intake Oral 360 ml 500 ml Output Urine Total 100 ml # Voids 1 1 General Appearance: WD/WN HEENT: normocephalic Respiratory/Chest: chest wall non-tender, lungs clear Cardiovascular: normal peripheral pulses, normal rate Abdomen: normal bowel sounds, soft, non tender Extremities: no cyanosis Skin: no lesions Microbiology Date/Time Source Procedure Growth Status 08/05/16 16:00 Sputum Gram Stain - Final Complete 08/05/16 16:00 Sputum Sputum Culture - Final NORMAL UPPER RESPIRATORY BEVERLY PRESENT Complete Laboratory Tests 08/08/16 05:43: Urine Eosinophils None seen 08/08/16 06:20: Sodium Level 139, Potassium Level 4.6, Chloride Level 98, Carbon Dioxide Level 28, Anion Gap 13, Blood Urea Nitrogen 42H, Creatinine 2.2H, Estimat Glomerular Filtration Rate 37.8, Glucose Level 128H, Calcium Level 8.7 Current Medications Medications (Trade) Dose Ordered Sig/Alexis Route PRN Reason Start Time Stop Time Status Last Admin Dose Admin Albuterol/ Ipratropium (DuoNeb 0.5-3(2.5)mg/3ml) 3 ml Q4H PRN HHN dyspnea 08/06/16 18:00 08/11/16 17:59 08/08/16 11:24 Amlodipine Besylate (Norvasc) 5 mg BID ORAL 08/06/16 18:00 09/05/16 17:59 08/08/16 08:25 Clonidine HCl (Catapres) 0.1 mg Q4H PRN ORAL SBP>160 08/06/16 18:00 09/05/16 17:59 08/08/16 08:24 Dextrose (Dextrose 50%) STAT PRN IV Hypoglycemia 08/06/16 18:00 09/05/16 17:59 Heparin Sodium (Porcine) (Heparin 5000 units/ml) 5,000 units EVERY 12 HOURS SUBQ 08/06/16 21:00 09/05/16 20:59 08/08/16 08:26 Hydralazine HCl (Apresoline) 25 mg EVERY 8 HOURS ORAL 08/06/16 22:00 09/05/16 21:59 08/08/16 13:54 Hydromorphone HCl (Dilaudid) 1 mg Q4H PRN IVP Severe Pain (Pain Scale 7-10) 08/06/16 18:00 08/13/16 17:59 08/08/16 10:10 Insulin Aspart (NovoLOG) BEFORE MEALS AND HS SUBQ 08/06/16 21:00 09/05/16 20:59 08/08/16 11:28 Lorazepam (Ativan 2mg/ml 1ml) 0.5 mg Q4H PRN IV For Anxiety 08/06/16 18:00 08/13/16 17:59 Methylprednisolone Sodium Succinate (Solu-MEDROL) 60 mg EVERY 12 HOURS IV 08/08/16 21:00 09/07/16 20:59 UNV Nitroglycerin (Ntg) 0.4 mg Q5M X 3 DOSES PRN SL Prn Chest Pain 08/06/16 18:00 09/05/16 17:59 Ondansetron HCl (Zofran) 4 mg Q6H PRN IVP Nausea & Vomiting 08/06/16 18:00 09/05/16 17:59 Piperacillin Sod/ Tazobactam Sod/ Dextrose (Zosyn/D5W 50ml) 50 ml @ 100 mls/hr EVERY 8 HOURS IV 08/06/16 22:00 08/11/16 21:59 08/08/16 13:54 Promethazine HCl/ Codeine (Phenergan with Codeine) 5 ml Q6H PRN ORAL cough 08/06/16 18:00 09/05/16 17:59 Temazepam (Restoril) 15 mg HSPRN PRN ORAL Insomnia 08/07/16 21:00 08/14/16 20:59 Theophylline (Oscar-Dur) 200 mg EVERY 12 HOURS ORAL 08/07/16 21:00 09/06/16 20:59 08/08/16 08:24 ADDIS SANCHEZ Aug 08, 2016 14:55
[2016-08-08 16:00] VITALS: BP 156/82
--- NOTE | 2016-08-08 16:18 | Nephrology Progress Note ---
Assessment/Plan Problem List: (1) CKD (chronic kidney disease) (2) CHF (congestive heart failure) (3) Hyperkalemia (4) COPD (chronic obstructive pulmonary disease) Plan cont as is follow BMP Subjective Subjective better Objective Objective Last 24 Hour Vital Signs Date Time Temp Pulse Resp B/P Pulse Ox O2 Delivery O2 Flow Rate FiO2 08/08/16 13:54 136/80 08/08/16 12:00 90 08/08/16 12:00 97.9 86 18 136/80 93 Nasal Cannula 2.0 08/08/16 11:39 100 21 100 Nasal Cannula 2.0 28 08/08/16 11:24 98 22 95 Nasal Cannula 2.0 30 08/08/16 11:24 28 08/08/16 08:25 85 171/99 08/08/16 08:24 171/99 08/08/16 08:00 97.7 85 19 171/99 94 Nasal Cannula 2.0 08/08/16 08:00 87 08/08/16 05:45 137/76 08/08/16 04:00 84 08/08/16 04:00 97.3 63 16 137/76 96 Bi-pap 08/08/16 03:24 96 16 08/08/16 01:33 86 13 99 Facial 30 08/08/16 00:00 83 08/08/16 00:00 97.0 86 20 114/74 95 Bi-pap 08/07/16 22:58 88 16 99 Facial 30 08/07/16 22:48 158/98 08/07/16 20:00 97.9 89 22 158/98 95 Nasal Cannula 2.0 08/07/16 20:00 84 08/07/16 17:26 86 145/95 08/07/16 16:28 86 Intake and Output 08/07/16 08/08/16 18:59 06:59 Intake Total 360 ml 500 ml Output Total 100 ml Balance 260 ml 500 ml Intake Oral 360 ml 500 ml Output Urine Total 100 ml # Voids 1 1 Laboratory Tests 08/08/16 05:43: Urine Eosinophils None seen 08/08/16 06:20: Sodium Level 139, Potassium Level 4.6, Chloride Level 98, Carbon Dioxide Level 28, Anion Gap 13, Blood Urea Nitrogen 42H, Creatinine 2.2H, Estimat Glomerular Filtration Rate 37.8, Glucose Level 128H, Calcium Level 8.7 Height (Feet): 5 Height (Inches): 6.00 Weight (Pounds): 259 Cardiovascular: normal rate Respiratory/Chest: expiratory wheezing Extremities: moderate edema SANCHEZ MERA Aug 08, 2016 16:18
--- NOTE | 2016-08-08 16:39 | General Progress Note ---
Assessment/Plan Problem List: (1) Hypertension ICD Codes: I10 - Hypertension SNOMED: 87698456 (2) Lumbar spondylosis ICD Codes: M47.816 - Spondylosis without myelopathy or radiculopathy, lumbar region SNOMED: 003713415 (3) Anemia ICD Codes: D64.9 - Anemia, unspecified SNOMED: 612039662 (4) Asthma ICD Codes: J45.909 - Asthma SNOMED: 493236408 (5) Acute asthma exacerbation ICD Codes: J45.901 - Asthma with exacerbation SNOMED: 799050363 (6) Intractable back pain ICD Codes: M54.9 - Intractable back pain SNOMED: 578786516 (7) Dyspnea ICD Codes: R06.00 - Dyspnea, unspecified SNOMED: 853225848 (8) COPD (chronic obstructive pulmonary disease) ICD Codes: J44.9 - Chronic obstructive pulmonary disease, unspecified SNOMED: 76759250 Status: progressing Assessment/Plan wheezing is improving afebrile vitals stable no acute events clinically improving continue nebs steroid per pulm Subjective ROS Limited/Unobtainable: Yes Allergies: Coded Allergies: MORPHINE (Unverified Allergy, Intermediate, Itching, 11/25/15) TETRACYCLINE (Verified Allergy, Unknown, 11/25/15) Objective Last 24 Hour Vital Signs Date Time Temp Pulse Resp B/P Pulse Ox O2 Delivery O2 Flow Rate FiO2 08/08/16 13:54 136/80 08/08/16 12:00 90 08/08/16 12:00 97.9 86 18 136/80 93 Nasal Cannula 2.0 08/08/16 11:39 100 21 100 Nasal Cannula 2.0 28 08/08/16 11:24 98 22 95 Nasal Cannula 2.0 30 08/08/16 11:24 28 08/08/16 08:25 85 171/99 08/08/16 08:24 171/99 08/08/16 08:00 97.7 85 19 171/99 94 Nasal Cannula 2.0 08/08/16 08:00 87 08/08/16 05:45 137/76 08/08/16 04:00 84 08/08/16 04:00 97.3 63 16 137/76 96 Bi-pap 08/08/16 03:24 96 16 08/08/16 01:33 86 13 99 Facial 30 08/08/16 00:00 83 08/08/16 00:00 97.0 86 20 114/74 95 Bi-pap 08/07/16 22:58 88 16 99 Facial 30 08/07/16 22:48 158/98 08/07/16 20:00 97.9 89 22 158/98 95 Nasal Cannula 2.0 08/07/16 20:00 84 08/07/16 17:26 86 145/95 Intake and Output 08/07/16 08/08/16 19:00 07:00 Intake Total 360 ml 500 ml Output Total 100 ml Balance 260 ml 500 ml Intake Oral 360 ml 500 ml Output Urine Total 100 ml # Voids 1 1 Laboratory Tests 08/08/16 05:43: Urine Eosinophils None seen 08/08/16 06:20: Sodium Level 139, Potassium Level 4.6, Chloride Level 98, Carbon Dioxide Level 28, Anion Gap 13, Blood Urea Nitrogen 42H, Creatinine 2.2H, Estimat Glomerular Filtration Rate 37.8, Glucose Level 128H, Calcium Level 8.7 Height (Feet): 5 Height (Inches): 6.00 Weight (Pounds): 259 EENT: PERRL/EOMI Neck: supple Cardiovascular: normal rate Respiratory/Chest: lungs clear Luis Botello MD Aug 08, 2016 16:39
[2016-08-08] MEDS ORDERED: Nitroglycerin Subl 0.4mg tab (Bottle Of 25) SL PRN (20:00)
[2016-08-08 20:30] VITALS: BP 165/91
[2016-08-08] MEDS ORDERED: Promethazine/Codeine 5ml UD ORAL PRN (20:30)
[2016-08-08] MEDS ORDERED: Solu-MEDROL 125mg Inj IV SCH (21:00)
[2016-08-08] MEDS ORDERED: DuoNeb 0.5-3(2.5)mg/3ml neb HHN PRN (22:00)
[2016-08-08] MEDS ORDERED: LORazepam Inj 2mg/ml 1ml IV PRN (22:00)
[2016-08-09] VITALS: BP 153/81
[2016-08-09] MEDS: HYDROmorphone 1mg/ml Carpuject IVP PRN ×5 (01:46→19:58)
[2016-08-09 04:00] VITALS: BP 157/97
[2016-08-09] MEDS: HydrALAZINE 25mg tab ORAL SCH ×3 (06:28→21:34)
[2016-08-09] MEDS: NovoLOG Insulin Flexpen SUBQ SCH ×4 (06:29→20:54)
[2016-08-09 08:00] VITALS: BP 183/95
[2016-08-09] MEDS: Solu-MEDROL 125mg Inj IV SCH ×2 (09:23→21:33)
[2016-08-09] MEDS: Theophylline ER 100mg ORAL SCH ×2 (09:24→21:33)
[2016-08-09] MEDS: Heparin 5000 units/ml inj SUBQ SCH ×2 (09:28→21:34)
[2016-08-09 12:00] VITALS: BP 167/98
--- NOTE | 2016-08-09 14:36 | Diagnostic Imaging Report ---
Indication: DYSPNEA Technique: One view of the chest Comparison: 08/05/2016 Findings: Body habitus limits evaluation. No definite acute infiltrates, effusions, or congestion. The heart is borderline enlarged. The aorta is tortuous. No significant interim change Impression: No definite acute process
--- NOTE | 2016-08-09 15:14 | General Progress Note ---
Assessment/Plan Problem List: (1) Hypertension ICD Codes: I10 - Hypertension SNOMED: 67818711 (2) Lumbar spondylosis ICD Codes: M47.816 - Spondylosis without myelopathy or radiculopathy, lumbar region SNOMED: 882939277 (3) Anemia ICD Codes: D64.9 - Anemia, unspecified SNOMED: 902055075 (4) Asthma ICD Codes: J45.909 - Asthma SNOMED: 353927638 (5) Acute asthma exacerbation ICD Codes: J45.901 - Asthma with exacerbation SNOMED: 642760436 (6) Intractable back pain ICD Codes: M54.9 - Intractable back pain SNOMED: 350234927 (7) Dyspnea ICD Codes: R06.00 - Dyspnea, unspecified SNOMED: 033349811 (8) COPD (chronic obstructive pulmonary disease) ICD Codes: J44.9 - Chronic obstructive pulmonary disease, unspecified SNOMED: 53179554 Status: progressing Assessment/Plan vitals stable asthma exacerbation no wheezing continue cpm steroids per pulmonary Subjective ROS Limited/Unobtainable: Yes Constitutional: Reports: no symptoms Allergies: Coded Allergies: MORPHINE (Unverified Allergy, Intermediate, Itching, 11/25/15) TETRACYCLINE (Verified Allergy, Unknown, 11/25/15) Objective Last 24 Hour Vital Signs Date Time Temp Pulse Resp B/P Pulse Ox O2 Delivery O2 Flow Rate FiO2 08/09/16 14:46 142/96 08/09/16 11:50 167/98 08/09/16 09:24 80 183/95 08/09/16 08:00 97.7 80 20 183/95 93 Room Air 08/09/16 06:28 157/97 08/09/16 04:00 96.3 82 20 157/97 91 Room Air 08/09/16 00:35 79 16 98 Facial 30 08/09/16 00:00 97.0 89 22 153/81 93 Room Air 08/08/16 23:14 16 08/08/16 22:09 16 08/08/16 21:20 98.2 08/08/16 21:18 165/91 08/08/16 20:30 98.2 84 20 165/91 94 Nasal Cannula 2.0 08/08/16 17:16 78 156/82 08/08/16 16:00 86 08/08/16 16:00 97.7 78 14 156/82 94 Nasal Cannula 2.0 08/08/16 15:59 95 22 96 Nasal Cannula 2.0 28 08/08/16 15:47 92 20 95 Nasal Cannula 2.0 28 08/08/16 15:47 28 Intake and Output 08/08/16 08/09/16 18:59 06:59 Intake Total 400 ml 1900 ml Output Total 200 ml Balance 200 ml 1900 ml Intake Oral 300 ml 1800 ml IV Total 100 ml 100 ml Output Urine Total 200 ml # Voids 2 4 # Bowel Movements 1 Laboratory Tests 08/09/16 03:20: Urine Eosinophils None seen Height (Feet): 5 Height (Inches): 6.00 Weight (Pounds): 259 Cardiovascular: normal rate Respiratory/Chest: lungs clear Abdomen: soft Luis Botello MD Aug 09, 2016 15:14
--- NOTE | 2016-08-09 15:39 | General Progress Note ---
Assessment/Plan Status: doing well - -clinically, unchanged - from renal stand Assessment/Plan chronic renal insufficiency , Cr higher acute asthma exacerbation COPD RHONDA accelerated HTN diastolic CHF morbid obesity mild anemia Plan: Steroids- to taper Breathing treatment- BP control- increase hydralazine Monitor renal parameters- Avoid nephrotoxics Subjective ROS Limited/Unobtainable: No Constitutional: Reports: malaise, weakness Respiratory: Reports: shortness of breath - - lessened Allergies: Coded Allergies: MORPHINE (Unverified Allergy, Intermediate, Itching, 11/25/15) TETRACYCLINE (Verified Allergy, Unknown, 11/25/15) Objective Last 24 Hour Vital Signs Date Time Temp Pulse Resp B/P Pulse Ox O2 Delivery O2 Flow Rate FiO2 08/09/16 14:46 142/96 08/09/16 11:50 167/98 08/09/16 09:24 80 183/95 08/09/16 08:00 97.7 80 20 183/95 93 Room Air 08/09/16 06:28 157/97 08/09/16 04:00 96.3 82 20 157/97 91 Room Air 08/09/16 00:35 79 16 98 Facial 30 08/09/16 00:00 97.0 89 22 153/81 93 Room Air 08/08/16 23:14 16 08/08/16 22:09 16 08/08/16 21:20 98.2 08/08/16 21:18 165/91 08/08/16 20:30 98.2 84 20 165/91 94 Nasal Cannula 2.0 08/08/16 17:16 78 156/82 08/08/16 16:00 86 08/08/16 16:00 97.7 78 14 156/82 94 Nasal Cannula 2.0 08/08/16 15:59 95 22 96 Nasal Cannula 2.0 28 08/08/16 15:47 92 20 95 Nasal Cannula 2.0 28 08/08/16 15:47 28 Intake and Output 08/08/16 08/09/16 19:00 07:00 Intake Total 400 ml 1900 ml Output Total 200 ml Balance 200 ml 1900 ml Intake Oral 300 ml 1800 ml IV Total 100 ml 100 ml Output Urine Total 200 ml # Voids 2 4 # Bowel Movements 1 Laboratory Tests 08/09/16 03:20: Urine Eosinophils None seen Height (Feet): 5 Height (Inches): 6.00 Weight (Pounds): 259 ELIEL MANRIQUE Aug 09, 2016 15:39
[2016-08-09 16:00] VITALS: BP 152/93
[2016-08-09 20:00] VITALS: BP 165/111
[2016-08-10] VITALS (7 sets, daily range): BP systolic 151–174; BP diastolic 90–107
[2016-08-10] MEDS: HydrALAZINE 25mg tab ORAL SCH ×3 (06:00→21:17)
[2016-08-10] MEDS: NovoLOG Insulin Flexpen SUBQ SCH ×4 (06:02→21:20)
[2016-08-10 07:55] LABS: BASOPHILS % (AUTO) 2.6 % (0.0-2.0); LYMPHOCYTES % (AUTO) 10.5 % (20.0-45.0); MEAN CORPUSCULAR HEMOGLOBIN 28.7 PG (27.0-31.0); MEAN CORPUSCULAR HGB CONC 30.8 G/DL (32.0-36.0); MEAN CORPUSCULAR VOLUME 93 FL (80-99); MEAN PLATELET VOLUME 8.3 FL (6.5-10.1); NEUTROPHILS % (AUTO) 80.9 % (45.0-75.0); PLATELET COUNT 280 K/UL (150-450); RED BLOOD COUNT 4.46 M/UL (4.70-6.10); RED CELL DISTRIBUTION WIDTH 14.3 % (11.6-14.8); WHITE BLOOD COUNT 14.2 K/UL (4.8-10.8)
[2016-08-10 08:13] LABS: ALANINE AMINOTRANSFERASE 20 U/L (3-41); ALBUMIN/GLOBULIN RATIO 1.5 (1.0-2.7); ANION GAP 9 (5-15); ASPARTATE AMINO TRANSFERASE 13 U/L (5-40); CALCIUM 8.6 mg/dL (8.6-10.2); CARBON DIOXIDE 30 mEQ/L (20-30); CHLORIDE 101 mEQ/L (98-107); CREATININE 1.9 mg/dL (0.7-1.2); CRP QUANT < 0.3 mg/dL (< 0.5); GLOMERULAR FILTRATION RATE 44.8 mL/min (>60); HEMOLYSIS 8; MAGNESIUM 2.2 mg/dL (1.7-2.5); PHOSPHORUS 3.3 mg/dL (2.5-4.8); POTASSIUM 4.8 mEQ/L (3.4-4.9); SODIUM 140 mEQ/L (135-145); TOTAL PROTEIN 6.2 g/dL (6.6-8.7); URIC ACID 5.7 mg/dL (3.0-7.5)
[2016-08-10] MEDS: Solu-MEDROL 125mg Inj IV SCH ×2 (08:36→21:17)
[2016-08-10] MEDS: Theophylline ER 100mg ORAL SCH ×2 (08:36→21:17)
[2016-08-10] MEDS: HYDROmorphone 1mg/ml Carpuject IVP PRN ×4 (08:37→21:17)
[2016-08-10] MEDS: Heparin 5000 units/ml inj SUBQ SCH ×2 (08:39→21:19)
--- NOTE | 2016-08-10 14:34 | Nephrology Progress Note ---
Assessment/Plan Problem List: (1) CKD (chronic kidney disease) Assessment: renal failure slightly better (2) CHF (congestive heart failure) (3) Hyperkalemia (4) COPD (chronic obstructive pulmonary disease) Plan Res treatments follow BMP Subjective Subjective In NAD Objective Objective Last 24 Hour Vital Signs Date Time Temp Pulse Resp B/P Pulse Ox O2 Delivery O2 Flow Rate FiO2 08/10/16 14:02 153/95 08/10/16 12:46 174/100 08/10/16 12:00 97.9 75 18 174/100 95 Room Air 2.0 30 08/10/16 08:36 84 154/90 08/10/16 08:00 97.6 78 18 158/92 97 Room Air 08/10/16 06:30 154/90 08/10/16 06:00 161/94 08/10/16 06:00 161/94 08/10/16 04:00 97.5 84 20 161/94 97 Room Air 08/10/16 01:20 81 18 98 Facial 30 08/10/16 00:00 97.5 79 20 152/101 98 Bi-pap 2.0 08/09/16 22:43 85 19 95 Facial 30 08/09/16 21:36 165/111 08/09/16 21:34 165/111 08/09/16 20:00 98.1 80 20 165/111 94 Room Air 08/09/16 17:19 86 152/93 08/09/16 16:00 97.9 86 20 152/93 94 Nasal Cannula 2.0 30 08/09/16 14:46 142/96 Intake and Output 08/09/16 08/10/16 19:00 07:00 Intake Total 1000 ml 125 ml Balance 1000 ml 125 ml Intake Oral 800 ml IV Total 200 ml 125 ml # Voids 3 3 # Bowel Movements 3 Laboratory Tests 08/10/16 07:05: White Blood Count 14.2H, Red Blood Count 4.46L, Hemoglobin 12.8L, Hematocrit 41.6L, Mean Corpuscular Volume 93, Mean Corpuscular Hemoglobin 28.7, Mean Corpuscular Hemoglobin Concent 30.8L, Red Cell Distribution Width 14.3, Platelet Count 280, Mean Platelet Volume 8.3, Neutrophils (%) (Auto) 80.9H, Lymphocytes (%) (Auto) 10.5L, Monocytes (%) (Auto) 6.0, Eosinophils (%) (Auto) 0.0, Basophils (%) (Auto) 2.6H, Sodium Level 140, Potassium Level 4.8, Chloride Level 101, Carbon Dioxide Level 30, Anion Gap 9, Blood Urea Nitrogen 31H, Creatinine 1.9H, Estimat Glomerular Filtration Rate 44.8, Glucose Level 126H, Uric Acid 5.7, Calcium Level 8.6, Phosphorus Level 3.3, Magnesium Level 2.2, Total Bilirubin 0.2, Aspartate Amino Transf (AST/SGOT) 13, Alanine Aminotransferase (ALT/SGPT) 20, Alkaline Phosphatase 40, C-Reactive Protein, Quantitative < 0.3, Pro-B-Type Natriuretic Peptide 193H, Total Protein 6.2L, Albumin 3.8, Globulin 2.4, Albumin/Globulin Ratio 1.5 Height (Feet): 5 Height (Inches): 6.00 Weight (Pounds): 259 Cardiovascular: normal rate Respiratory/Chest: rhonchi - bilaterally SANCHEZ MERA Aug 10, 2016 14:34
[2016-08-11] VITALS: BP 149/81
[2016-08-11] MEDS: HYDROmorphone 1mg/ml Carpuject IVP PRN ×6 (01:31→23:22)
[2016-08-11 04:00] VITALS: BP 143/93
[2016-08-11] MEDS: HydrALAZINE 25mg tab ORAL SCH ×3 (06:27→21:59)
[2016-08-11] MEDS: NovoLOG Insulin Flexpen SUBQ SCH ×4 (06:29→20:27)
[2016-08-11 08:00] VITALS: BP 144/93
[2016-08-11] MEDS: Theophylline ER 100mg ORAL SCH ×2 (09:29→20:28)
[2016-08-11] MEDS: Solu-MEDROL 125mg Inj IV SCH (09:30)
[2016-08-11] MEDS: Heparin 5000 units/ml inj SUBQ SCH ×2 (09:32→20:28)
--- NOTE | 2016-08-11 11:42 | General Progress Note ---
Assessment/Plan Problem List: (1) Hypertension ICD Codes: I10 - Hypertension SNOMED: 04329982 (2) Lumbar spondylosis ICD Codes: M47.816 - Spondylosis without myelopathy or radiculopathy, lumbar region SNOMED: 143419269 (3) Anemia ICD Codes: D64.9 - Anemia, unspecified SNOMED: 587832592 (4) Asthma ICD Codes: J45.909 - Asthma SNOMED: 573805743 (5) Acute asthma exacerbation ICD Codes: J45.901 - Asthma with exacerbation SNOMED: 661390809 (6) Intractable back pain ICD Codes: M54.9 - Intractable back pain SNOMED: 565459065 (7) Dyspnea ICD Codes: R06.00 - Dyspnea, unspecified SNOMED: 667326823 (8) COPD (chronic obstructive pulmonary disease) ICD Codes: J44.9 - Chronic obstructive pulmonary disease, unspecified SNOMED: 70293024 Status: progressing Assessment/Plan asthma exacerbation resp insuff vitals stable clinically improving Subjective Respiratory: Reports: SOB at rest, SOB with excertion Allergies: Coded Allergies: MORPHINE (Unverified Allergy, Intermediate, Itching, 11/25/15) TETRACYCLINE (Verified Allergy, Unknown, 11/25/15) Objective Last 24 Hour Vital Signs Date Time Temp Pulse Resp B/P Pulse Ox O2 Delivery O2 Flow Rate FiO2 08/11/16 09:29 70 144/93 08/11/16 08:00 97.7 70 20 144/93 95 Room Air 08/11/16 06:27 143/93 08/11/16 04:00 97.9 72 22 143/93 96 Bi-pap 08/11/16 00:00 98.2 79 20 149/81 95 Bi-pap 08/10/16 23:30 82 18 98 Facial 30 08/10/16 21:17 160/107 08/10/16 20:00 97.9 85 20 160/107 95 Room Air 08/10/16 16:56 91 151/95 08/10/16 16:00 98.1 91 20 151/95 94 Room Air 08/10/16 14:02 153/95 08/10/16 12:46 174/100 08/10/16 12:00 97.9 75 18 174/100 95 Room Air 2.0 30 Intake and Output 08/10/16 08/11/16 19:00 07:00 Intake Total 975 ml 1175 ml Output Total 2450 ml 100 ml Balance -1475 ml 1075 ml Intake Oral 800 ml 1100 ml IV Total 175 ml 75 ml Output Urine Total 2450 ml 100 ml # Voids 7 3 # Bowel Movements 2 Height (Feet): 5 Height (Inches): 6.00 Weight (Pounds): 259 EENT: PERRL/EOMI Neck: supple Cardiovascular: normal rate Respiratory/Chest: lungs clear Luis Botello MD Aug 11, 2016 11:42
--- NOTE | 2016-08-11 11:45 | General Progress Note ---
Assessment/Plan Status: stable Assessment/Plan chronic renal insufficiency , Cr higher acute asthma exacerbation COPD RHONDA accelerated HTN diastolic CHF morbid obesity mild anemia Plan: Steroids- to taper further Breathing treatment- BP control- increase hydralazine dose today Monitor renal parameters- Avoid nephrotoxics Subjective ROS Limited/Unobtainable: No Constitutional: Reports: malaise, other - breathing improved Allergies: Coded Allergies: MORPHINE (Unverified Allergy, Intermediate, Itching, 11/25/15) TETRACYCLINE (Verified Allergy, Unknown, 11/25/15) Objective Last 24 Hour Vital Signs Date Time Temp Pulse Resp B/P Pulse Ox O2 Delivery O2 Flow Rate FiO2 08/11/16 09:29 70 144/93 08/11/16 08:00 97.7 70 20 144/93 95 Room Air 08/11/16 06:27 143/93 08/11/16 04:00 97.9 72 22 143/93 96 Bi-pap 08/11/16 00:00 98.2 79 20 149/81 95 Bi-pap 08/10/16 23:30 82 18 98 Facial 30 08/10/16 21:17 160/107 08/10/16 20:00 97.9 85 20 160/107 95 Room Air 08/10/16 16:56 91 151/95 08/10/16 16:00 98.1 91 20 151/95 94 Room Air 08/10/16 14:02 153/95 08/10/16 12:46 174/100 08/10/16 12:00 97.9 75 18 174/100 95 Room Air 2.0 30 Intake and Output 08/10/16 08/11/16 19:00 07:00 Intake Total 975 ml 1175 ml Output Total 2450 ml 100 ml Balance -1475 ml 1075 ml Intake Oral 800 ml 1100 ml IV Total 175 ml 75 ml Output Urine Total 2450 ml 100 ml # Voids 7 3 # Bowel Movements 2 Height (Feet): 5 Height (Inches): 6.00 Weight (Pounds): 259 General Appearance: no apparent distress Cardiovascular: normal rate Respiratory/Chest: decreased breath sounds Abdomen: soft, distended Objective other PE not changed ELIEL MANRIQUE Aug 11, 2016 11:45
[2016-08-11 12:00] VITALS: BP 153/96
[2016-08-11 16:00] VITALS: BP 149/90
--- NOTE | 2016-08-11 16:23 | Pulmonology Progress Note ---
Assessment/Plan Problems: (1) Acute asthma exacerbation (2) Respiratory distress (3) COPD exacerbation Assessment/Plan stop IV solumedrol start prednisone PO sputum, was negative for any organism renal work up continue antibiotics Subjective ROS Limited/Unobtainable: No Interval Events: improving, less cough Allergies: Coded Allergies: MORPHINE (Unverified Allergy, Intermediate, Itching, 11/25/15) TETRACYCLINE (Verified Allergy, Unknown, 11/25/15) Objective Last 24 Hour Vital Signs Date Time Temp Pulse Resp B/P Pulse Ox O2 Delivery O2 Flow Rate FiO2 08/11/16 16:00 98.1 86 20 149/90 89 Room Air 08/11/16 13:28 153/96 08/11/16 12:00 97.3 83 20 153/96 95 Room Air 08/11/16 11:06 97.7 08/11/16 09:29 70 144/93 08/11/16 08:00 97.7 70 20 144/93 95 Room Air 08/11/16 06:27 143/93 08/11/16 04:00 97.9 72 22 143/93 96 Bi-pap 08/11/16 00:00 98.2 79 20 149/81 95 Bi-pap 08/10/16 23:30 82 18 98 Facial 30 08/10/16 21:17 160/107 08/10/16 20:00 97.9 85 20 160/107 95 Room Air 08/10/16 16:56 91 151/95 Intake and Output 08/10/16 08/11/16 19:00 07:00 Intake Total 975 ml 1175 ml Output Total 2450 ml 100 ml Balance -1475 ml 1075 ml Intake Oral 800 ml 1100 ml IV Total 175 ml 75 ml Output Urine Total 2450 ml 100 ml # Voids 7 3 # Bowel Movements 2 General Appearance: WD/WN, no acute distress Respiratory/Chest: chest wall non-tender, lungs clear Abdomen: normal bowel sounds Extremities: no cyanosis, no clubbing Skin: no lesions Lymphatic: no neck adenopathy Current Medications Medications (Trade) Dose Ordered Sig/Alexis Route PRN Reason Start Time Stop Time Status Last Admin Dose Admin Albuterol/ Ipratropium (DuoNeb 0.5-3(2.5)mg/3ml) 3 ml Q4H PRN HHN dyspnea 08/08/16 22:00 08/13/16 21:59 08/09/16 19:30 Amlodipine Besylate (Norvasc) 5 mg BID ORAL 08/09/16 09:00 09/08/16 08:59 08/11/16 09:29 Clonidine HCl (Catapres) 0.1 mg Q4H PRN ORAL SBP>160 08/08/16 20:30 09/07/16 20:29 08/10/16 12:46 Dextrose (Dextrose 50%) STAT PRN IV Hypoglycemia 08/08/16 20:30 09/07/16 20:29 Heparin Sodium (Porcine) (Heparin 5000 units/ml) 5,000 units EVERY 12 HOURS SUBQ 08/08/16 21:00 09/07/16 20:59 08/11/16 09:32 Hydralazine HCl (Apresoline) 75 mg EVERY 8 HOURS ORAL 08/11/16 14:00 09/10/16 13:59 08/11/16 13:28 Hydromorphone HCl (Dilaudid) 1 mg Q4H PRN IVP Severe Pain (Pain Scale 7-10) 08/08/16 20:30 08/15/16 20:29 08/11/16 15:16 Insulin Aspart (NovoLOG) BEFORE MEALS AND HS SUBQ 08/08/16 21:00 09/07/16 20:59 08/11/16 12:01 Lorazepam (Ativan 2mg/ml 1ml) 0.5 mg Q4H PRN IV For Anxiety 08/08/16 22:00 08/15/16 21:59 Methylprednisolone Sodium Succinate (Solu-MEDROL) 20 mg Q12HR IVP 08/11/16 21:00 09/10/16 20:59 Nitroglycerin (Ntg) 0.4 mg Q5M X 3 DOSES PRN SL Prn Chest Pain 08/08/16 20:00 09/07/16 19:59 Ondansetron HCl (Zofran) 4 mg Q6H PRN IVP Nausea & Vomiting 08/08/16 20:30 09/07/16 20:29 Piperacillin Sod/ Tazobactam Sod/ Sodium Chloride (Zosyn/Sodium Chloride 100ml bag) 100 ml @ 25 mls/hr EVERY 8 HOURS IVPB 08/08/16 22:00 08/15/16 21:59 08/11/16 13:27 Promethazine HCl/ Codeine (Phenergan with Codeine) 5 ml Q6H PRN ORAL cough 08/08/16 20:30 09/07/16 20:29 Temazepam (Restoril) 15 mg HSPRN PRN ORAL Insomnia 08/08/16 21:00 08/15/16 20:59 08/09/16 21:34 Theophylline (Oscar-Dur) 200 mg EVERY 12 HOURS ORAL 08/08/16 21:00 09/07/16 20:59 08/11/16 09:29 ADDIS SANCHEZ Aug 11, 2016 16:23
[2016-08-11 19:00] VITALS: BP 165/113
[2016-08-11] MEDS ORDERED: Solu-MEDROL 40mg Inj IVP SCH (21:00)
[2016-08-12] VITALS: BP 154/97
[2016-08-12] MEDS: HYDROmorphone 1mg/ml Carpuject IVP PRN ×4 (03:59→16:45)
[2016-08-12 04:00] VITALS: BP 151/61
[2016-08-12] MEDS: NovoLOG Insulin Flexpen SUBQ SCH ×3 (06:30→16:46)
[2016-08-12] MEDS: HydrALAZINE 25mg tab ORAL SCH ×2 (06:55→14:02)
[2016-08-12 07:27] LABS: BASOPHILS % (AUTO) 0.9 % (0.0-2.0); EOSINOPHILS % (AUTO) 0.1 % (0.0-3.0); LYMPHOCYTES % (AUTO) 21.4 % (20.0-45.0); MEAN CORPUSCULAR HEMOGLOBIN 28.7 PG (27.0-31.0); MEAN CORPUSCULAR HGB CONC 30.5 G/DL (32.0-36.0); MEAN CORPUSCULAR VOLUME 94 FL (80-99); MEAN PLATELET VOLUME 7.7 FL (6.5-10.1); MONOCYTES % (AUTO) 8.6 % (1.0-10.0); NEUTROPHILS % (AUTO) 68.9 % (45.0-75.0); PLATELET COUNT 308 K/UL (150-450); RED CELL DISTRIBUTION WIDTH 14.2 % (11.6-14.8); WHITE BLOOD COUNT 15.7 K/UL (4.8-10.8)
[2016-08-12 07:33] LABS: ALANINE AMINOTRANSFERASE 21 U/L (3-41); ALBUMIN/GLOBULIN RATIO 1.5 (1.0-2.7); ANION GAP 13 (5-15); ASPARTATE AMINO TRANSFERASE 20 U/L (5-40); CALCIUM 8.5 mg/dL (8.6-10.2); CARBON DIOXIDE 29 mEQ/L (20-30); CHLORIDE 98 mEQ/L (98-107); CREATININE 1.9 mg/dL (0.7-1.2); CRP QUANT < 0.3 mg/dL (< 0.5); GLOMERULAR FILTRATION RATE 44.8 mL/min (>60); HEMOLYSIS 8; MAGNESIUM 2.1 mg/dL (1.7-2.5); PHOSPHORUS 3.3 mg/dL (2.5-4.8); POTASSIUM 4.3 mEQ/L (3.4-4.9); SODIUM 140 mEQ/L (135-145); URIC ACID 5.7 mg/dL (3.0-7.5)
[2016-08-12 08:00] VITALS: BP 140/63
[2016-08-12] MEDS: Theophylline ER 100mg ORAL SCH (08:28)
[2016-08-12] MEDS: Heparin 5000 units/ml inj SUBQ SCH (08:30)
[2016-08-12] MEDS ORDERED: PredniSONE 20mg tab ORAL SCH (09:00)
[2016-08-12 12:00] VITALS: BP 155/99
--- NOTE | 2016-08-12 15:01 | General Progress Note ---
Assessment/Plan Problem List: (1) Hypertension ICD Codes: I10 - Hypertension SNOMED: 08444914 (2) Lumbar spondylosis ICD Codes: M47.816 - Spondylosis without myelopathy or radiculopathy, lumbar region SNOMED: 477418427 (3) Anemia ICD Codes: D64.9 - Anemia, unspecified SNOMED: 260564280 (4) Asthma ICD Codes: J45.909 - Asthma SNOMED: 625372817 (5) Acute asthma exacerbation ICD Codes: J45.901 - Asthma with exacerbation SNOMED: 924137767 (6) Intractable back pain ICD Codes: M54.9 - Intractable back pain SNOMED: 457700452 (7) Dyspnea ICD Codes: R06.00 - Dyspnea, unspecified SNOMED: 149641907 (8) COPD (chronic obstructive pulmonary disease) ICD Codes: J44.9 - Chronic obstructive pulmonary disease, unspecified SNOMED: 95309672 Status: progressing Assessment/Plan asthma exacerbation improving afebrile reviewed chart and labs and meds Subjective ROS Limited/Unobtainable: Yes Constitutional: Reports: no symptoms Allergies: Coded Allergies: MORPHINE (Unverified Allergy, Intermediate, Itching, 11/25/15) TETRACYCLINE (Verified Allergy, Unknown, 11/25/15) Objective Last 24 Hour Vital Signs Date Time Temp Pulse Resp B/P Pulse Ox O2 Delivery O2 Flow Rate FiO2 08/12/16 14:02 155/99 08/12/16 13:21 97.7 08/12/16 12:00 97.7 84 18 155/99 96 Room Air 08/12/16 08:28 87 140/63 08/12/16 08:00 97.7 87 18 140/63 100 Room Air 08/12/16 06:55 151/61 08/12/16 04:00 97.8 80 20 151/61 96 Room Air 08/12/16 00:00 97.3 78 20 154/97 98 Room Air 08/11/16 21:59 165/113 08/11/16 19:00 98.1 82 20 165/113 94 Room Air 08/11/16 17:33 86 149/90 08/11/16 16:00 98.1 86 20 149/90 89 Room Air Intake and Output 08/11/16 08/12/16 19:00 07:00 Intake Total 700 ml 675 ml Output Total 800 ml 250 ml Balance -100 ml 425 ml Intake Oral 500 ml 600 ml IV Total 200 ml 75 ml Output Urine Total 800 ml 250 ml # Voids 7 Laboratory Tests 08/12/16 05:30: White Blood Count 15.7H, Red Blood Count 4.50L, Hemoglobin 12.9L, Hematocrit 42.4, Mean Corpuscular Volume 94, Mean Corpuscular Hemoglobin 28.7, Mean Corpuscular Hemoglobin Concent 30.5L, Red Cell Distribution Width 14.2, Platelet Count 308, Mean Platelet Volume 7.7, Neutrophils (%) (Auto) 68.9, Lymphocytes (%) (Auto) 21.4, Monocytes (%) (Auto) 8.6, Eosinophils (%) (Auto) 0.1, Basophils (%) (Auto) 0.9, Sodium Level 140, Potassium Level 4.3, Chloride Level 98, Carbon Dioxide Level 29, Anion Gap 13, Blood Urea Nitrogen 30H, Creatinine 1.9H, Estimat Glomerular Filtration Rate 44.8, Glucose Level 92, Uric Acid 5.7, Calcium Level 8.5L, Phosphorus Level 3.3, Magnesium Level 2.1, Total Bilirubin 0.3, Aspartate Amino Transf (AST/SGOT) 20, Alanine Aminotransferase (ALT/SGPT) 21, Alkaline Phosphatase 36L, C-Reactive Protein, Quantitative < 0.3, Pro-B-Type Natriuretic Peptide 210H, Total Protein 6.0L, Albumin 3.6, Globulin 2.4, Albumin/Globulin Ratio 1.5 Height (Feet): 5 Height (Inches): 6.00 Weight (Pounds): 259 Neck: non-tender Cardiovascular: normal rate Respiratory/Chest: lungs clear Luis Botello MD Aug 12, 2016 15:01
--- NOTE | 2016-08-12 15:51 | General Progress Note ---
Assessment/Plan Status: doing well - from pulmonary stand, stable - from renal stand Assessment/Plan chronic renal insufficiency , Cr 1.9 stable acute asthma exacerbation COPD RHONDA accelerated HTN diastolic CHF morbid obesity mild anemia Plan: Steroids- to taper further Breathing treatment- BP control- increase hydralazine dose today Monitor renal parameters- Avoid nephrotoxics Subjective ROS Limited/Unobtainable: No Allergies: Coded Allergies: MORPHINE (Unverified Allergy, Intermediate, Itching, 11/25/15) TETRACYCLINE (Verified Allergy, Unknown, 11/25/15) Objective Last 24 Hour Vital Signs Date Time Temp Pulse Resp B/P Pulse Ox O2 Delivery O2 Flow Rate FiO2 08/12/16 14:02 155/99 08/12/16 13:21 97.7 08/12/16 12:00 97.7 84 18 155/99 96 Room Air 08/12/16 08:28 87 140/63 08/12/16 08:00 97.7 87 18 140/63 100 Room Air 08/12/16 06:55 151/61 08/12/16 04:00 97.8 80 20 151/61 96 Room Air 08/12/16 00:00 97.3 78 20 154/97 98 Room Air 08/11/16 21:59 165/113 08/11/16 19:00 98.1 82 20 165/113 94 Room Air 08/11/16 17:33 86 149/90 08/11/16 16:00 98.1 86 20 149/90 89 Room Air Intake and Output 08/11/16 08/12/16 18:59 06:59 Intake Total 700 ml 675 ml Output Total 800 ml 250 ml Balance -100 ml 425 ml Intake Oral 500 ml 600 ml IV Total 200 ml 75 ml Output Urine Total 800 ml 250 ml # Voids 7 Laboratory Tests 08/12/16 05:30: White Blood Count 15.7H, Red Blood Count 4.50L, Hemoglobin 12.9L, Hematocrit 42.4, Mean Corpuscular Volume 94, Mean Corpuscular Hemoglobin 28.7, Mean Corpuscular Hemoglobin Concent 30.5L, Red Cell Distribution Width 14.2, Platelet Count 308, Mean Platelet Volume 7.7, Neutrophils (%) (Auto) 68.9, Lymphocytes (%) (Auto) 21.4, Monocytes (%) (Auto) 8.6, Eosinophils (%) (Auto) 0.1, Basophils (%) (Auto) 0.9, Sodium Level 140, Potassium Level 4.3, Chloride Level 98, Carbon Dioxide Level 29, Anion Gap 13, Blood Urea Nitrogen 30H, Creatinine 1.9H, Estimat Glomerular Filtration Rate 44.8, Glucose Level 92, Uric Acid 5.7, Calcium Level 8.5L, Phosphorus Level 3.3, Magnesium Level 2.1, Total Bilirubin 0.3, Aspartate Amino Transf (AST/SGOT) 20, Alanine Aminotransferase (ALT/SGPT) 21, Alkaline Phosphatase 36L, C-Reactive Protein, Quantitative < 0.3, Pro-B-Type Natriuretic Peptide 210H, Total Protein 6.0L, Albumin 3.6, Globulin 2.4, Albumin/Globulin Ratio 1.5 Height (Feet): 5 Height (Inches): 6.00 Weight (Pounds): 259 General Appearance: no apparent distress Cardiovascular: regular rhythm Respiratory/Chest: decreased breath sounds Abdomen: soft Edema: no edema noted Arm (L), no edema noted Arm (R), no edema noted Leg (L), no edema noted Leg (R), no edema noted Pedal (L), no edema noted Pedal (R), no edema noted Generalized Objective other PE not changed ELIEL MANRIQUE Aug 12, 2016 15:51
[2016-08-12 16:00] VITALS: BP 145/96
[2016-08-12 17:22] VITALS: BP 145/96
--- NOTE | 2016-08-12 17:47 | Pulmonology Progress Note ---
Assessment/Plan Problems: (1) Acute asthma exacerbation (2) Respiratory distress (3) COPD exacerbation Assessment/Plan on prednisone PO sputum, was negative for any organism renal work up, stable for now may dc home if ok with other consultants Subjective ROS Limited/Unobtainable: No Interval Events: feeling much bettter, no short of breath, wants to go home Constitutional: Reports: no symptoms HEENT: Repors: no symptoms Allergies: Coded Allergies: MORPHINE (Unverified Allergy, Intermediate, Itching, 11/25/15) TETRACYCLINE (Verified Allergy, Unknown, 11/25/15) All Systems: reviewed and negative except above Objective Last 24 Hour Vital Signs Date Time Temp Pulse Resp B/P Pulse Ox O2 Delivery O2 Flow Rate FiO2 08/12/16 17:22 84 145/96 08/12/16 16:00 97.3 84 20 145/96 92 Room Air 08/12/16 14:02 155/99 08/12/16 13:21 97.7 08/12/16 12:00 97.7 84 18 155/99 96 Room Air 08/12/16 08:28 87 140/63 08/12/16 08:00 97.7 87 18 140/63 100 Room Air 08/12/16 06:55 151/61 08/12/16 04:00 97.8 80 20 151/61 96 Room Air 08/12/16 00:00 97.3 78 20 154/97 98 Room Air 08/11/16 21:59 165/113 08/11/16 19:00 98.1 82 20 165/113 94 Room Air Intake and Output 08/11/16 08/12/16 19:00 07:00 Intake Total 700 ml 675 ml Output Total 800 ml 250 ml Balance -100 ml 425 ml Intake Oral 500 ml 600 ml IV Total 200 ml 75 ml Output Urine Total 800 ml 250 ml # Voids 7 General Appearance: WD/WN HEENT: normocephalic, atraumatic Respiratory/Chest: chest wall non-tender, lungs clear Cardiovascular: normal peripheral pulses, normal rate Abdomen: normal bowel sounds, soft, non tender Skin: no rash Neurologic/Psychiatric: diamond grinder II-XII grossly normal, no motor/sensory deficits Lymphatic: no neck adenopathy Musculoskeletal: normal muscle bulk Laboratory Tests 08/12/16 05:30: White Blood Count 15.7H, Red Blood Count 4.50L, Hemoglobin 12.9L, Hematocrit 42.4, Mean Corpuscular Volume 94, Mean Corpuscular Hemoglobin 28.7, Mean Corpuscular Hemoglobin Concent 30.5L, Red Cell Distribution Width 14.2, Platelet Count 308, Mean Platelet Volume 7.7, Neutrophils (%) (Auto) 68.9, Lymphocytes (%) (Auto) 21.4, Monocytes (%) (Auto) 8.6, Eosinophils (%) (Auto) 0.1, Basophils (%) (Auto) 0.9, Sodium Level 140, Potassium Level 4.3, Chloride Level 98, Carbon Dioxide Level 29, Anion Gap 13, Blood Urea Nitrogen 30H, Creatinine 1.9H, Estimat Glomerular Filtration Rate 44.8, Glucose Level 92, Uric Acid 5.7, Calcium Level 8.5L, Phosphorus Level 3.3, Magnesium Level 2.1, Total Bilirubin 0.3, Aspartate Amino Transf (AST/SGOT) 20, Alanine Aminotransferase (ALT/SGPT) 21, Alkaline Phosphatase 36L, C-Reactive Protein, Quantitative < 0.3, Pro-B-Type Natriuretic Peptide 210H, Total Protein 6.0L, Albumin 3.6, Globulin 2.4, Albumin/Globulin Ratio 1.5 Current Medications Medications (Trade) Dose Ordered Sig/Alexis Route PRN Reason Start Time Stop Time Status Last Admin Dose Admin Albuterol/ Ipratropium (DuoNeb 0.5-3(2.5)mg/3ml) 3 ml Q4H PRN HHN dyspnea 08/08/16 22:00 08/13/16 21:59 08/09/16 19:30 Amlodipine Besylate (Norvasc) 5 mg BID ORAL 08/09/16 09:00 09/08/16 08:59 08/12/16 17:22 Clonidine HCl (Catapres) 0.1 mg Q4H PRN ORAL SBP>160 08/08/16 20:30 09/07/16 20:29 08/10/16 12:46 Dextrose (Dextrose 50%) STAT PRN IV Hypoglycemia 08/08/16 20:30 09/07/16 20:29 Heparin Sodium (Porcine) (Heparin 5000 units/ml) 5,000 units EVERY 12 HOURS SUBQ 08/08/16 21:00 09/07/16 20:59 08/12/16 08:30 Hydralazine HCl (Apresoline) 100 mg EVERY 8 HOURS ORAL 08/12/16 22:00 09/11/16 21:59 Hydromorphone HCl (Dilaudid) 1 mg Q4H PRN IVP Severe Pain (Pain Scale 7-10) 08/08/16 20:30 08/15/16 20:29 08/12/16 16:45 Insulin Aspart (NovoLOG) BEFORE MEALS AND HS SUBQ 08/08/16 21:00 09/07/16 20:59 08/12/16 16:46 Lorazepam (Ativan 2mg/ml 1ml) 0.5 mg Q4H PRN IV For Anxiety 08/08/16 22:00 08/15/16 21:59 Nitroglycerin (Ntg) 0.4 mg Q5M X 3 DOSES PRN SL Prn Chest Pain 08/08/16 20:00 09/07/16 19:59 Ondansetron HCl (Zofran) 4 mg Q6H PRN IVP Nausea & Vomiting 08/08/16 20:30 09/07/16 20:29 Piperacillin Sod/ Tazobactam Sod/ Sodium Chloride (Zosyn/Sodium Chloride 100ml bag) 100 ml @ 25 mls/hr EVERY 8 HOURS IVPB 08/08/16 22:00 08/15/16 21:59 08/12/16 14:03 Prednisone (predniSONE) 20 mg DAILY ORAL 08/12/16 09:00 09/11/16 08:59 08/12/16 08:28 Promethazine HCl/ Codeine (Phenergan with Codeine) 5 ml Q6H PRN ORAL cough 08/08/16 20:30 09/07/16 20:29 Temazepam (Restoril) 15 mg HSPRN PRN ORAL Insomnia 08/08/16 21:00 08/15/16 20:59 08/09/16 21:34 Theophylline (Oscar-Dur) 200 mg EVERY 12 HOURS ORAL 08/08/16 21:00 09/07/16 20:59 08/12/16 08:28 ADDIS SANCHEZ Aug 12, 2016 17:47
[2016-08-12] MEDS ORDERED: HydrALAZINE 50mg tab ORAL SCH (22:00)
--- NOTE | 2016-08-14 08:42 | Discharge Summary ---
Discharge Summary Hospital Course Date of Admission Aug 05, 2016 at 12:38 Date of Discharge Aug 12, 2016 at 19:45 Admitting Diagnosis COPD/asthma exac HPI Jean Pierre aMrks is a 55 year old male who was admitted on Aug 05, 2016 at 12:38 for Copd, Asthma Exacerbation Hospital Course [id number] Discharge Discharge Disposition Patient was discharged to Home (01) Discharge Diagnoses: Bethany Garcia NP Aug 14, 2016 08:42
--- NOTE | 2016-08-14 11:38 | Discharge Summary 2 SIG ---
DATE OF ADMISSION: 08/05/2016 DATE OF DISCHARGE: 08/12/2016 CONSULTANTS: 1. Johnathan Palacios M.D. 2. Niki Card M.D. BRIEF HOSPITAL COURSE: The patient is a 55-year-old male with history of COPD and asthma, came in with acute asthma exacerbation for the past three days. He was in respiratory failure at ED and was placed on BiPAP and was transferred to [facility]. He was given IV steroids, IV antibiotics, and respiratory treatment. Dr. Palacios was consulted. The patient has chronic renal insufficiency, creatinine of 1.9. Renal parameters were monitored. The patient is breathing better and was tolerating well on room air. Steroids were switched to prednisone p.o. Renal workups had been stable. Sputum culture showed normal respiratory joe. The patient was eventually discharged home. FINAL DIAGNOSES: 1. Acute asthma exacerbation. 2. Chronic obstructive pulmonary disease exacerbation. 3. Acute respiratory failure, resolved. 4. Chronic renal insufficiency. 5. Obstructive sleep apnea. 6. Accelerated hypertension. 7. Morbid obesity. 8. Mild anemia. 9. Chronic diastolic congestive heart failure. Luis Botello M.D. I have been assigned to dictate discharge summary on this account and I was not involved in the patient's management. Bethany Garcia N.P. DR: Carlo JOB#: [id number] CC:
== END 2016-08-12 19:45 | disposition home or self-care (01) | DRG 190 ==
LOC: EMR 11:28 → EDBEDREQSVC 12:24 → EDBEDREQ 12:24 → 2W 12:38 → 2E 08-06 16:54 → 4E 08-08 20:26
PROC: 5A09357 Assistance with Respiratory Ventilation, Less than 24 Consecutive Hours, Continuous Positive Airway Pressure (ICD-10-PCS; principal; 2016-08-05)
DX: J44.1 Chronic obstructive pulmonary disease with (acute) exacerbation (principal); J96.00 Acute respiratory failure, unspecified whether with hypoxia or hypercapnia; Z68.41 Body mass index [BMI] 40.0-44.9, adult; J45.901 Unspecified asthma with (acute) exacerbation; E87.5 Hyperkalemia; I50.32 Chronic diastolic (congestive) heart failure; E66.01 Morbid (severe) obesity due to excess calories; I12.9 Hypertensive chronic kidney disease with stage 1 through stage 4 chronic kidney disease, or unspecified chronic kidney disease; N18.9 Chronic kidney disease, unspecified; D64.9 Anemia, unspecified; G47.33 Obstructive sleep apnea (adult) (pediatric); Z88.6 Allergy status to analgesic agent; Z88.8 Allergy status to other drugs, medicaments and biological substances; N40.0 Benign prostatic hyperplasia without lower urinary tract symptoms; M51.36 Other intervertebral disc degeneration, lumbar region; M47.896 Other spondylosis, lumbar region
CPT/HCPCS: 36415; 71010; 80048; 80053; 80061; 81001; 82550; 82553; 82962; 82977; 83036; 83735; 83880; 84100; 84484; 84550; 85007; 85025; 86140; 87070; 87205; 89050; 93005; 93306; 94640; 94660; 94664; J1815; J7620

== ENCOUNTER 2017-01-15 09:00 | Inpatient (IN) | payer MEDICARE, OTHER ==
[~2017-01-15] VITALS: Ht 170.2 cm; Wt 353.8 kg
[2017-01-15] VITALS (7 sets, daily range): BP systolic 143–167; BP diastolic 82–100
[2017-01-15] MEDS ORDERED: EPINEPHrine 1mg/1ml Amp ONE (09:12)
[2017-01-15] MEDS ORDERED: Terbutaline 1mg/ml Inj SUBQ ONE (09:15)
[2017-01-15] MEDS ORDERED: EPINEPHrine 1mg/1ml Amp IM ONE (09:15)
[2017-01-15] MEDS: Albuterol ud Inhalation HHN SCH ×2 (09:29→09:30)
[2017-01-15] MEDS: Ipratropium 0.02% Inh Soln 2.5ml UD HHN SCH ×2 (09:29→09:30)
[2017-01-15 09:47] LABS: BASOPHILS % (AUTO) 1.1 % (0.0-2.0); EOSINOPHILS % (AUTO) 5.2 % (0.0-3.0); LYMPHOCYTES % (AUTO) 25.4 % (20.0-45.0); MEAN CORPUSCULAR HEMOGLOBIN 27.6 PG (27.0-31.0); MEAN CORPUSCULAR HGB CONC 30.5 G/DL (32.0-36.0); MEAN CORPUSCULAR VOLUME 90 FL (80-99); MEAN PLATELET VOLUME 9.2 FL (6.5-10.1); MONOCYTES % (AUTO) 7.6 % (1.0-10.0); NEUTROPHILS % (AUTO) 60.7 % (45.0-75.0); PLATELET COUNT 245 K/UL (150-450); RED BLOOD COUNT 5.42 M/UL (4.70-6.10); RED CELL DISTRIBUTION WIDTH 14.6 % (11.6-14.8); WHITE BLOOD COUNT 6.7 K/UL (4.8-10.8)
[2017-01-15 10:03] LABS: TROPONIN I < 0.30 ng/mL (<=0.30)
[2017-01-15 10:06] LABS: ALBUMIN/GLOBULIN RATIO 1.4 (1.0-2.7); CALCIUM 9.5 mg/dL (8.6-10.2); GLOMERULAR FILTRATION RATE 42.1 mL/min (>60); POTASSIUM 3.7 mEQ/L (3.4-4.9); TOTAL PROTEIN 7.2 g/dL (6.6-8.7)
[2017-01-15] MEDS ORDERED: Azithromycin 500 MG in D5W 275 ML IVPB STA (10:13)
[2017-01-15] MEDS ORDERED: Cefepime HCl 1 GM in D5W 55 ML IVPB ONE (10:15)
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
[2017-01-15 10:17] LABS: CKMB 9.6 ng/mL (< 6.7)
[2017-01-15] MEDS ORDERED: Cefepime 1gm vial ONE (10:31)
[2017-01-15] MEDS ORDERED: LORazepam Inj 2mg/ml 1ml IV PRN (10:45)
[2017-01-15] MEDS ORDERED: Promethazine/Codeine 5ml UD ORAL PRN (10:45)
[2017-01-15] MEDS ORDERED: DuoNeb 0.5-3(2.5)mg/3ml neb HHN PRN (10:45)
[2017-01-15] MEDS ORDERED: Nitroglycerin Subl 0.4mg tab (Bottle Of 25) SL PRN (10:45)
[2017-01-15] MEDS ORDERED: Azithromycin Inj IV ONE ×2 (11:26→11:40)
[2017-01-15 12:16] LABS: ABG ALLEN TEST POSITIVE; ABG PCO2 51.7 mmHg (35.0-45.0)
--- NOTE | 2017-01-15 12:24 | Diagnostic Imaging Report ---
Indication: SOB Technique: One view of the chest Comparison: 08/07/2016 Findings: The heart is enlarged. Lungs and pleural spaces are clear. Aorta is ectatic. No definite significant interim change Impression: Cardiomegaly. No definite acute process
[2017-01-15] MEDS: Solu-MEDROL 125mg Inj IV SCH ×3 (13:25→23:18)
[2017-01-15] MEDS ORDERED: Piperacillin/Tazobactam 2.25 GM in D5W 55 ML IV SCH (14:00)
[2017-01-15] MEDS: Zosyn 3.375gm q8h **Extended infusion IVPB SCH ×4 (14:28→21:08)
[2017-01-15] MEDS: HydrALAZINE 10mg Tab ORAL SCH ×2 (14:28→22:52)
[2017-01-15] MEDS: Ketorolac 30mg Inj IV PRN (14:41)
[2017-01-15] MEDS: Theophylline ER 100mg ORAL SCH (17:27)
--- NOTE | 2017-01-15 18:13 | General Progress Note ---
Assessment/Plan Assessment/Plan (1) Multiple joint pain (2) Lumbar degenerative disc disease (3) Lumbar spondylosis (4) Asthma exacerbation (5) Herniated nucleus pulposus, lumbar (6) Multiple joint osteoarthritis Pt will be continued on Toradol, we will start Lidoderm patch Q12Hon and [id number] and Robaxin 500mg Q8H PRN muscle spasm. Pt was d/w Dr. Neal and he concurred. Subjective Date patient seen: Jan 15, 2017 Time patient seen: 04:15 - am Allergies: Coded Allergies: MORPHINE (Unverified Allergy, Intermediate, Itching, 11/25/15) TETRACYCLINE (Verified Allergy, Unknown, 11/25/15) Subjective Constitutional: Denies: chills, diaphoresis, fever, malaise, weakness HEENT: Denies: blurred vision, double vision, ear discharge, ear pain, eye pain , mouth pain, mouth swelling, nose congestion, nose pain, other, tearing, throat pain, throat swelling Cardiovascular: Denies: chest pain, edema, irregular heart rate, lightheadedness, palpitations, syncope Respiratory: Complaining of: SOB at rest, wheezing Gastrointestinal/Abdominal: Denies: abdomen distended, abdominal pain, black stools, blood in stool, constipated, diarrhea, difficulty swallowing, nausea, poor appetite, poor fluid intake, rectal bleeding, tarry stools, vomiting Genitourinary: Denies: burning, discharge, flank pain, frequency, hematuria, incontinence, pain, urgency Neurologic/Psychiatric: Complaining of: weakness Endocrine: Denies: excessive sweating, flushing, increased hunger, increased thirst, increased urine, intolerance to cold, intolerance to heat, unexplained weight gain, unexplained weight loss Hematologic/Lymphatic: Denies: anemia, easy bleeding, easy bruising Subjective Patient is a known pt from prior admission and has been admitted due to SOB and asthma exacerbation. He c/o chronic back pain. I explained to patient that at this time narcotic medication would be demential to his health and when he is more stable we will reassess for possible narcotic use. Patient understands and agrees. Objective Last 24 Hour Vital Signs Date Time Temp Pulse Resp B/P Pulse Ox O2 Delivery O2 Flow Rate FiO2 01/15/17 17:29 92 20 95 3.0 32 01/15/17 16:00 98.5 84 28 154/84 98 Nasal Cannula 3.0 01/15/17 16:00 84 01/15/17 15:19 90 20 98 3.0 32 01/15/17 14:28 167/100 01/15/17 13:25 88 167/100 01/15/17 13:10 97.3 86 17 167/100 99 Bi-pap 10.0 30 01/15/17 12:36 88 18 97 Facial 30 01/15/17 12:35 89 17 156/84 99 Bi-pap 10.0 30 89 01/15/17 12:17 97.1 89 17 156/84 99 Bi-pap 10.0 30 01/15/17 11:14 90 12 95 Facial 30 01/15/17 10:45 97.4 91 21 157/100 99 Room Air 10.0 30 01/15/17 09:15 97.0 84 19 143/82 100 Bi-pap 10.0 30 01/15/17 09:15 84 19 Bi-pap 10.0 30 01/15/17 09:10 84 20 98 Facial 30 01/15/17 09:10 84 20 Bi-pap 30 01/15/17 09:08 97.2 87 25 144/86 98 Room Air Laboratory Tests 01/15/17 09:20: White Blood Count 6.7, Red Blood Count 5.42, Hemoglobin 14.9, Hematocrit 49.0, Mean Corpuscular Volume 90, Mean Corpuscular Hemoglobin 27.6, Mean Corpuscular Hemoglobin Concent 30.5L, Red Cell Distribution Width 14.6, Platelet Count 245, Mean Platelet Volume 9.2, Neutrophils (%) (Auto) 60.7, Lymphocytes (%) (Auto) 25.4, Monocytes (%) (Auto) 7.6, Eosinophils (%) (Auto) 5.2H, Basophils (%) (Auto ) 1.1, Sodium Level 140, Potassium Level 3.7, Chloride Level 96L, Carbon Dioxide Level 29, Anion Gap 15, Blood Urea Nitrogen 18, Creatinine 2.0H, Estimat Glomerular Filtration Rate 42.1, Glucose Level 107H, Calcium Level 9.5, Total Bilirubin 0.2, Aspartate Amino Transf (AST/SGOT) 25, Alanine Aminotransferase (ALT/SGPT) 18, Alkaline Phosphatase 59, Total Creatine Kinase 648H, Creatine Kinase MB 9.6H, Creatine Kinase MB Relative Index 1.4, Troponin I < 0.30, Pro-B-Type Natriuretic Peptide 100, Total Protein 7.2, Albumin 4.3, Globulin 2.9, Albumin/Globulin Ratio 1.4 01/15/17 12:10: Arterial Blood pH 7.346L, Arterial Blood Partial Pressure CO2 51.7H, Arterial Blood Partial Pressure O2 98.9, Arterial Blood HCO3 27.6H, Arterial Blood Oxygen Saturation 97.3, Arterial Blood Base Excess 1.0, Kendrick Test Positive Height (Feet): 5 Height (Inches): 7.00 Weight (Pounds): 780 Objective General Appearance: alert, oriented x 3 EENT: PERRL/EOMI Neck: supple, normal inspection Cardiovascular: normal rate, regular rhythm Respiratory/Chest: decreased breath sounds Abdomen: non tender, soft Extremities: reduced range of motion due to patient pain and conation Edema: trace edema Skin: warm/dry KRIS CURTIS Jan 15, 2017 18:13
[2017-01-15] MEDS ORDERED: Methocarbamol 500mg tab ORAL PRN (18:15)
[2017-01-15] MEDS: Heparin 5000 units/ml inj SUBQ SCH (20:23)
[2017-01-15] MEDS ORDERED: Theophylline ER 100mg ORAL SCH (21:00)
[2017-01-16] VITALS: BP 144/78
[2017-01-16] MEDS: Ketorolac 30mg Inj IV PRN (02:35)
[2017-01-16 03:38] LABS: MEAN CORPUSCULAR HEMOGLOBIN 28.3 PG (27.0-31.0); MEAN CORPUSCULAR HGB CONC 31.4 G/DL (32.0-36.0); MEAN CORPUSCULAR VOLUME 90 FL (80-99); MEAN PLATELET VOLUME 10.4 FL (6.5-10.1); PLATELET COUNT 237 K/UL (150-450); RED BLOOD COUNT 5.09 M/UL (4.70-6.10); RED CELL DISTRIBUTION WIDTH 14.6 % (11.6-14.8); WHITE BLOOD COUNT 10.1 K/UL (4.8-10.8)
[2017-01-16 03:56] LABS: CALCIUM 9.4 mg/dL (8.6-10.2); CREATININE 2.2 mg/dL (0.7-1.2); GLOMERULAR FILTRATION RATE 37.7 mL/min (>60); POTASSIUM 4.4 mEQ/L (3.4-4.9)
[2017-01-16 04:00] VITALS: BP 146/72
--- NOTE | 2017-01-16 04:00 | History and Physical Report ---
DATE OF ADMISSION: 01/15/2017 Time: At 04:00 p.m. CONSULTANTS: 1. Niki Card M.D. 2. Khoi Neal M.D. CHIEF COMPLAINT: Asthma exacerbation and excruciating low back pain. BRIEF HISTORY: This is a 56-year-old male, a week ago saw me in my office, apparently the patient became very short of breath, for two days getting worse, back pain, tense as well, /10. The patient came to [facility], diagnosed with above, admitted to [facility] for further care. Initially, he was on BiPAP and now on O2 nasal cannula. Currently slightly anxious in bed, oriented x3, no acute distress. PAST MEDICAL HISTORY: Includes hypertension, obesity, and asthma. PAST SURGICAL HISTORY: Unknown. MEDICATIONS: Heparin, Restoril, Oscar-Dur, Apresoline, Zosyn, Norvasc, Solu-Medrol, DuoNeb, Toradol, and Ativan. ALLERGIES: Morphine and tetracycline. SOCIAL HISTORY: No smoking. No alcohol. No intravenous drug abuse. FAMILY HISTORY: Noncontributory. PHYSICAL EXAMINATION: GENERAL: Calm, slightly anxious, and oriented x3, in no acute distress. VITAL SIGNS: Show temperature is 98 degrees, pulse 84, respirations 20, and blood pressure 154/84. CARDIOVASCULAR: No murmurs. LUNGS: Poor air exchange. Slight wheeze bilaterally. ABDOMEN: Positive bowel sounds. Soft, nontender, and nondistended. EXTREMITIES: No cyanosis, clubbing, or edema. LABORATORY DATA: CBC is normal. BMP shows chloride 96, creatinine 2, and glucose 107. CK is 648 and MB 9.6. ASSESSMENT: 1. Asthma exacerbation. 2. Obesity. 3. Hypertension. 4. Chronic obstructive pulmonary disease. 5. Renal insufficiency. 6. Low back pain. PLAN: Continue premedications. Occupational therapy and physical therapy. Dietary evaluation. Resume home medications. Pain control. O2 as needed. Dr. Card, Dr. Neal, and Dr. Zambrano to consult. We will continue to follow the patient medically. Jason Ivy D.O. DR: Klaudia JOB#: [id number] CC:
[2017-01-16] MEDS: HydrALAZINE 10mg Tab ORAL SCH ×3 (05:20→21:19)
[2017-01-16] MEDS: Zosyn 3.375gm q8h **Extended infusion IVPB SCH ×6 (05:20→21:14)
[2017-01-16] MEDS: Solu-MEDROL 125mg Inj IV SCH ×4 (05:21→23:10)
[2017-01-16 07:58] LABS: ANISOCYTOSIS 1+; BAND NEUTROPHILS % (MANUAL) 0 % (0-8); BASOPHILS % (MANUAL) 0 % (0-2); EOSINOPHILS % (MANUAL) 0 % (0-3); LYMPHOCYTES % (MANUAL) 6 % (20-45); NEUTROPHILS % (MANUAL) 94 % (45-75); PLATELET ESTIMATE ADEQUATE; PLATELET MORPHOLOGY NORMAL; TOTAL CELLS COUNTED 100
[2017-01-16 08:00] VITALS: BP 164/93
[2017-01-16] MEDS: Theophylline ER 100mg ORAL SCH ×2 (09:24→18:59)
[2017-01-16] MEDS: Heparin 5000 units/ml inj SUBQ SCH ×2 (09:27→20:22)
--- NOTE | 2017-01-16 09:56 | General Progress Note ---
Assessment/Plan Assessment/Plan (1) Multiple joint pain (2) Lumbar degenerative disc disease (3) Lumbar spondylosis (4) Asthma exacerbation (5) Herniated nucleus pulposus, lumbar (6) Multiple joint osteoarthritis Pt will be continued on Toradol, and Robaxin. We will start Percocet 10/325mg PO 1 tab Q4H PRN severe pain. Pt was d/w Dr. Neal and he concurred. Subjective Date patient seen: Jan 16, 2017 Time patient seen: 09:45 - am Constitutional: Reports: no symptoms HEENT: Reports: no symptoms Cardiovascular: Reports: no symptoms Respiratory: Reports: no symptoms, wheezing Gastrointestinal/Abdominal: Reports: no symptoms Genitourinary: Reports: no symptoms Neurologic/Psychiatric: Reports: no symptoms Endocrine: Reports: no symptoms Hematologic/Lymphatic: Reports: no symptoms Allergies: Coded Allergies: MORPHINE (Unverified Allergy, Intermediate, Itching, 11/25/15) TETRACYCLINE (Verified Allergy, Unknown, 11/25/15) Subjective Patient reports that he is feeling better and his breathing has improved. As an outpt he is taking Percocet 10/325mg three times a day. At this time he says that the Toradol is not helping. Objective Last 24 Hour Vital Signs Date Time Temp Pulse Resp B/P Pulse Ox O2 Delivery O2 Flow Rate FiO2 01/16/17 09:24 93 164/93 01/16/17 08:00 98.1 93 20 164/93 97 Nasal Cannula 3.0 01/16/17 07:20 Nasal Cannula 3.0 32 01/16/17 07:20 97 Nasal Cannula 3.0 32 01/16/17 05:20 148/76 01/16/17 04:00 83 01/16/17 04:00 84 01/16/17 04:00 97.9 82 20 146/72 95 Nasal Cannula 3.0 01/16/17 00:00 83 01/16/17 00:00 98.2 82 22 144/78 98 Nasal Cannula 3.0 01/15/17 22:52 146/84 01/15/17 22:30 88 146/84 01/15/17 20:22 94 156/82 01/15/17 20:00 89 01/15/17 20:00 98.1 89 28 156/82 98 Nasal Cannula 3.0 6/8/17 19:31 97 Nasal Cannula 3.0 32 01/15/17 19:31 Nasal Cannula 3.0 32 01/15/17 17:29 92 20 95 3.0 32 01/15/17 16:00 98.5 84 28 154/84 98 Nasal Cannula 3.0 01/15/17 16:00 84 01/15/17 15:19 90 20 98 3.0 32 01/15/17 14:28 167/100 01/15/17 13:25 88 167/100 01/15/17 13:10 97.3 86 17 167/100 99 Bi-pap 10.0 30 01/15/17 12:36 88 18 97 Facial 30 01/15/17 12:35 89 17 156/84 99 Bi-pap 10.0 30 89 01/15/17 12:17 97.1 89 17 156/84 99 Bi-pap 10.0 30 01/15/17 11:14 90 12 95 Facial 30 01/15/17 10:45 97.4 91 21 157/100 99 Room Air 10.0 30 Intake and Output 01/15/17 01/16/17 19:00 07:00 Intake Total 330 ml 110.0 ml Output Total 200 ml 1000 ml Balance 130 ml -890.0 ml Intake Oral 230 ml IV Total 100 ml 110.0 ml Output Urine Total 200 ml 1000 ml # Voids 1 Laboratory Tests 01/15/17 12:10: Arterial Blood pH 7.346L, Arterial Blood Partial Pressure CO2 51.7H, Arterial Blood Partial Pressure O2 98.9, Arterial Blood HCO3 27.6H, Arterial Blood Oxygen Saturation 97.3, Arterial Blood Base Excess 1.0, Kendrick Test Positive 01/16/17 03:05: White Blood Count 10.1#, Red Blood Count 5.09, Hemoglobin 14.4, Hematocrit 45.9 , Mean Corpuscular Volume 90, Mean Corpuscular Hemoglobin 28.3, Mean Corpuscular Hemoglobin Concent 31.4L, Red Cell Distribution Width 14.6, Platelet Count 237, Mean Platelet Volume 10.4H, Neutrophils (%) (Auto) , Lymphocytes (%) (Auto) , Monocytes (%) (Auto) , Eosinophils (%) (Auto) , Basophils (%) (Auto) , Differential Total Cells Counted 100, Neutrophils % ( Manual) 94H, Lymphocytes % (Manual) 6L, Monocytes % (Manual) 0L, Eosinophils % ( Manual) 0, Basophils % (Manual) 0, Band Neutrophils 0, Platelet Estimate Adequate, Platelet Morphology Normal, Anisocytosis 1+, Sodium Level 137, Potassium Level 4.4, Chloride Level 97L, Carbon Dioxide Level 23, Anion Gap 17H , Blood Urea Nitrogen 25H, Creatinine 2.2H, Estimat Glomerular Filtration Rate 37.7, Glucose Level 206#H, Calcium Level 9.4 Height (Feet): 5 Height (Inches): 7.00 Weight (Pounds): 780 Objective General Appearance: alert, oriented x 3 EENT: PERRL/EOMI Neck: supple, normal inspection Cardiovascular: normal rate, regular rhythm Respiratory/Chest: decreased breath sounds Abdomen: non tender, soft Extremities: reduced range of motion due to patient pain and conation Edema: trace edema Skin: warm/dry KRIS CURTIS Jan 16, 2017 09:56
--- NOTE | 2017-01-16 10:43 | Consultation ---
History of Present Illness General Date patient seen: Jan 15, 2017 Chief Complaint: Dyspnea/Respdistress Reason for Consultation: dypnsea Present Illness HPI 56 year old male with hx of morbid obesity, COPD, CHF, walk-in with for 2 days severe asthma exacerbation associated with cough. No improvement on home nebs. Denies fever/chills. C/o SOB, chest pain. He was started on BIPAP and transferred to [facility]. Currently he looks more comfortable on BIPAP> Allergies: Coded Allergies: MORPHINE (Unverified Allergy, Intermediate, Itching, 11/25/15) TETRACYCLINE (Verified Allergy, Unknown, 11/25/15) Medication History Scheduled Albuterol Sulfate (Ventolin Hfa), 2 PUFFS INH EVERY 6 HOURS, (Reported) Amlodipine Besylate (Norvasc), 5 MG ORAL BID Aspirin* (Aspirin*), 81 MG ORAL DAILY Azithromycin* (Zithromax*), 250 MG ORAL once daily Clonidine Hcl* (Catapres*), 0.1 MG ORAL Q8H Clonidine Hcl* (Catapres*), 0.2 MG ORAL Q8HR, (Reported) Hydralazine HCl (Hydralazine HCl), 10 MG ORAL EVERY 8 HOURS, (Reported) Hydralazine HCl (Hydralazine HCl), 100 MG ORAL Q8HR Hydrochlorothiazide* (Hydrochlorothiazide*), 100 MG ORAL BID, (Reported) Mometasone/Formoterol (Dulera 100 Mcg/5 Mcg Inhaler), 2 PUFFS INH EVERY 12 HOURS , (Reported) Montelukast Sodium (Singulair), 4 MG ORAL DAILY Omeprazole (Prilosec), 20 MG ORAL DAILY, (Reported) Prednisone* (Prednisone*), 60 MG ORAL DAILY Terbutaline Sulfate (Terbutaline Sulfate), 2.5 MG ORAL BID, (Reported) Theophylline (Theodur*), 100 MG ORAL TWICE A DAY, (Reported) Tiotropium Carlton* (Spiriva*), 1 PUFF INH DAILY, (Reported) Scheduled PRN Clonidine HCl (Clonidine HCl), 0.1 MG ORAL Q6H PRN for SBP>160 Patient History Healthcare decision maker Resuscitation status Full Code Advanced Directive on File No Past Medical/Surgical History Past Medical/Surgical History: (1) CKD (chronic kidney disease) (2) Intractable back pain (3) Asthma (4) Hypertension Review of Systems Respiratory: Reports: shortness of breath, wheezing Physical Exam General Appearance: morbidly obese Lines, tubes and drains: peripheral HEENT: normocephalic, atraumatic Neck: non-tender, normal alignment Respiratory/Chest: chest wall non-tender, decreased breath sounds, expiratory wheezing Cardiovascular/Chest: normal peripheral pulses, normal rate Abdomen: normal bowel sounds Genitourinary/Rectal: normal genital exam Extremities: normal range of motion 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 II-XII grossly normal, no motor/sensory deficits Last 24 Hour Vital Signs Date Time Temp Pulse Resp B/P Pulse Ox O2 Delivery O2 Flow Rate FiO2 01/16/17 09:24 93 164/93 01/16/17 08:00 98.1 93 20 164/93 97 Nasal Cannula 3.0 01/16/17 07:20 Nasal Cannula 3.0 32 01/16/17 07:20 97 Nasal Cannula 3.0 32 01/16/17 05:20 148/76 01/16/17 04:00 83 01/16/17 04:00 84 01/16/17 04:00 97.9 82 20 146/72 95 Nasal Cannula 3.0 01/16/17 00:00 83 01/16/17 00:00 98.2 82 22 144/78 98 Nasal Cannula 3.0 01/15/17 22:52 146/84 01/15/17 22:30 88 146/84 01/15/17 20:22 94 156/82 01/15/17 20:00 89 01/15/17 20:00 98.1 89 28 156/82 98 Nasal Cannula 3.0 01/15/17 19:31 97 Nasal Cannula 3.0 32 01/15/17 19:31 Nasal Cannula 3.0 32 01/15/17 17:29 92 20 95 3.0 32 01/15/17 16:00 98.5 84 28 154/84 98 Nasal Cannula 3.0 01/15/17 16:00 84 01/15/17 15:19 90 20 98 3.0 32 01/15/17 14:28 167/100 01/15/17 13:25 88 167/100 01/15/17 13:10 97.3 86 17 167/100 99 Bi-pap 10.0 30 01/15/17 12:36 88 18 97 Facial 30 01/15/17 12:35 89 17 156/84 99 Bi-pap 10.0 30 89 01/15/17 12:17 97.1 89 17 156/84 99 Bi-pap 10.0 30 01/15/17 11:14 90 12 95 Facial 30 01/15/17 10:45 97.4 91 21 157/100 99 Room Air 10.0 30 Intake and Output 01/15/17 01/16/17 19:00 07:00 Intake Total 330 ml 110.0 ml Output Total 200 ml 1000 ml Balance 130 ml -890.0 ml Intake Oral 230 ml IV Total 100 ml 110.0 ml Output Urine Total 200 ml 1000 ml # Voids 1 Laboratory Tests Test 01/15/17 12:10 01/16/17 03:05 Arterial Blood pH 7.346 (7.350-7.450) Arterial Blood Partial Pressure CO2 51.7 mmHg (35.0-45.0) H Arterial Blood Partial Pressure O2 98.9 mmHg (75.0-100.0) Arterial Blood HCO3 27.6 mmol/L (22.0-26.0) H Arterial Blood Oxygen Saturation 97.3 % (92.0-98.0) Arterial Blood Base Excess 1.0 Kendrick Test Positive White Blood Count 10.1 K/UL (4.8-10.8) # Red Blood Count 5.09 M/UL (4.70-6.10) Hemoglobin 14.4 G/DL (14.2-18.0) Hematocrit 45.9 % (42.0-52.0) Mean Corpuscular Volume 90 FL (80-99) Mean Corpuscular Hemoglobin 28.3 PG (27.0-31.0) Mean Corpuscular Hemoglobin Concent 31.4 G/DL (32.0-36.0) L Red Cell Distribution Width 14.6 % (11.6-14.8) Platelet Count 237 K/UL (150-450) Mean Platelet Volume 10.4 FL (6.5-10.1) H Neutrophils (%) (Auto) % (45.0-75.0) Lymphocytes (%) (Auto) % (20.0-45.0) Monocytes (%) (Auto) % (1.0-10.0) Eosinophils (%) (Auto) % (0.0-3.0) Basophils (%) (Auto) % (0.0-2.0) Differential Total Cells Counted 100 Neutrophils % (Manual) 94 % (45-75) H Lymphocytes % (Manual) 6 % (20-45) L Monocytes % (Manual) 0 % (1-10) L Eosinophils % (Manual) 0 % (0-3) Basophils % (Manual) 0 % (0-2) Band Neutrophils 0 % (0-8) Platelet Estimate Adequate Platelet Morphology Normal Anisocytosis 1+ Sodium Level 137 mEQ/L (135-145) Potassium Level 4.4 mEQ/L (3.4-4.9) Chloride Level 97 mEQ/L (98-107) L Carbon Dioxide Level 23 mEQ/L (20-30) Anion Gap 17 (5-15) H Blood Urea Nitrogen 25 mg/dL (7-23) H Creatinine 2.2 mg/dL (0.7-1.2) H Estimat Glomerular Filtration Rate 37.7 mL/min (>60) Glucose Level 206 mg/dL (74-106) #H Calcium Level 9.4 mg/dL (8.6-10.2) Height (Feet): 5 Height (Inches): 7.00 Weight (Pounds): 780 Medications Current Medications Medications (Trade) Dose Ordered Sig/Alexis Route PRN Reason Start Time Stop Time Status Last Admin Dose Admin Albuterol/ Ipratropium (DuoNeb 0.5-3(2.5)mg/3ml) 3 ml Q4H PRN HHN dyspnea 01/15/17 10:45 01/20/17 10:44 Amlodipine Besylate (Norvasc) 5 mg Q12HR ORAL 01/15/17 13:00 02/14/17 12:59 01/16/17 09:24 Dextrose STAT PRN IV Hypoglycemia 01/15/17 10:45 02/14/17 10:44 Heparin Sodium (Porcine) (Heparin 5000 units/ml) 5,000 units EVERY 12 HOURS SUBQ 01/15/17 21:00 02/14/17 20:59 01/16/17 09:27 Hydralazine HCl (Apresoline) 10 mg EVERY 8 HOURS ORAL 01/15/17 14:00 02/14/17 13:59 01/16/17 05:20 Ketorolac Tromethamine (Toradol 30mg) 30 mg Q8H PRN IV moderate pain 4-6 01/15/17 10:45 01/20/17 10:44 01/16/17 02:35 Lidocaine (Lidoderm 5% PATCH) 1 patch DAILY TDERMAL 01/16/17 09:00 02/15/17 08:59 01/16/17 09:25 Lorazepam (Ativan 2mg/ml 1ml) 0.5 mg Q4H PRN IV For Anxiety 01/15/17 10:45 01/22/17 10:44 Methocarbamol (Robaxin) 500 mg Q8H PRN ORAL muscle spasm 01/15/17 18:15 02/14/17 18:14 Methylprednisolone Sodium Succinate (Solu-MEDROL) 60 mg EVERY 6 HOURS IV 01/15/17 13:00 02/14/17 12:59 01/16/17 05:21 Nitroglycerin (Ntg) 0.4 mg Q5M X 3 DOSES PRN SL Prn Chest Pain 01/15/17 10:45 02/14/17 10:44 Ondansetron HCl (Zofran) 4 mg Q6H PRN IVP Nausea & Vomiting 01/15/17 10:45 02/14/17 10:44 Oxycodone/ Acetaminophen (Percocet 10/325) 1 tab Q4H PRN ORAL Severe Pain (Pain Scale 7-10) 01/16/17 10:15 01/23/17 10:14 Piperacillin Sod/ Tazobactam Sod/ Dextrose (Zosyn/D5W) 110 ml @ 27.5 mls/hr EVERY 8 HOURS IVPB 01/15/17 14:00 01/20/17 13:59 01/16/17 05:20 Promethazine HCl/ Codeine (Phenergan with Codeine) 5 ml Q6H PRN ORAL cough 01/15/17 10:45 02/14/17 10:44 Temazepam (Restoril) 15 mg HSPRN PRN ORAL Insomnia 01/15/17 20:00 01/22/17 19:59 Theophylline (Oscar-Dur) 100 mg TWICE A DAY ORAL 01/15/17 18:00 02/14/17 17:59 01/16/17 09:24 Assessment/Plan Problem List: (1) Acute asthma exacerbation ICD Codes: J45.901 - Asthma with exacerbation SNOMED: 755426998 (2) CKD (chronic kidney disease) ICD Codes: N18.9 - Chronic kidney disease SNOMED: 419604276 Qualifiers: Qualified Codes: N18.9 - Chronic kidney disease, unspecified (3) Hypertension ICD Codes: I10 - Hypertension SNOMED: 31197698 (4) Intractable back pain ICD Codes: M54.9 - Intractable back pain SNOMED: 826944184 Assessment/Plan respiratory treatment IV steroids iv antibiotics check sputum dvt prophylaxis cxr bnp in am taper of bipap ADDIS SANCHEZ Jan 16, 2017 10:43
--- NOTE | 2017-01-16 10:51 | Pulmonology Progress Note ---
Assessment/Plan Problems: (1) Acute asthma exacerbation (2) CKD (chronic kidney disease) (3) Hypertension (4) Intractable back pain Assessment/Plan continue steroids continue abx check sputum titrate fio2 to sat of 92% bipap on hold dvt prophylaxis Subjective ROS Limited/Unobtainable: No Interval Events: off bipap sitting on the chair, feels better Constitutional: Reports: no symptoms HEENT: Repors: no symptoms Respiratory: Reports: no symptoms, shortness of breath Allergies: Coded Allergies: MORPHINE (Unverified Allergy, Intermediate, Itching, 11/25/15) TETRACYCLINE (Verified Allergy, Unknown, 11/25/15) Objective Last 24 Hour Vital Signs Date Time Temp Pulse Resp B/P Pulse Ox O2 Delivery O2 Flow Rate FiO2 01/16/17 09:24 93 164/93 01/16/17 08:00 98.1 93 20 164/93 97 Nasal Cannula 3.0 01/16/17 07:20 Nasal Cannula 3.0 32 01/16/17 07:20 97 Nasal Cannula 3.0 32 01/16/17 05:20 148/76 01/16/17 04:00 83 01/16/17 04:00 84 01/16/17 04:00 97.9 82 20 146/72 95 Nasal Cannula 3.0 01/16/17 00:00 83 01/16/17 00:00 98.2 82 22 144/78 98 Nasal Cannula 3.0 01/15/17 22:52 146/84 01/15/17 22:30 88 146/84 01/15/17 20:22 94 156/82 01/15/17 20:00 89 01/15/17 20:00 98.1 89 28 156/82 98 Nasal Cannula 3.0 01/15/17 19:31 97 Nasal Cannula 3.0 32 01/15/17 19:31 Nasal Cannula 3.0 32 01/15/17 17:29 92 20 95 3.0 32 01/15/17 16:00 98.5 84 28 154/84 98 Nasal Cannula 3.0 01/15/17 16:00 84 01/15/17 15:19 90 20 98 3.0 32 01/15/17 14:28 167/100 01/15/17 13:25 88 167/100 01/15/17 13:10 97.3 86 17 167/100 99 Bi-pap 10.0 30 01/15/17 12:36 88 18 97 Facial 30 01/15/17 12:35 89 17 156/84 99 Bi-pap 10.0 30 89 01/15/17 12:17 97.1 89 17 156/84 99 Bi-pap 10.0 30 01/15/17 11:14 90 12 95 Facial 30 Intake and Output 01/15/17 01/16/17 19:00 07:00 Intake Total 330 ml 110.0 ml Output Total 200 ml 1000 ml Balance 130 ml -890.0 ml Intake Oral 230 ml IV Total 100 ml 110.0 ml Output Urine Total 200 ml 1000 ml # Voids 1 General Appearance: WD/WN HEENT: normocephalic, anicteric Respiratory/Chest: chest wall non-tender, lungs clear, chest wall tender Cardiovascular: normal peripheral pulses Abdomen: normal bowel sounds, soft, non tender Extremities: no cyanosis, no clubbing 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 Lymphatic: no neck adenopathy Laboratory Tests 01/15/17 12:10: Arterial Blood pH 7.346L, Arterial Blood Partial Pressure CO2 51.7H, Arterial Blood Partial Pressure O2 98.9, Arterial Blood HCO3 27.6H, Arterial Blood Oxygen Saturation 97.3, Arterial Blood Base Excess 1.0, Kendrick Test Positive 01/16/17 03:05: White Blood Count 10.1#, Red Blood Count 5.09, Hemoglobin 14.4, Hematocrit 45.9 , Mean Corpuscular Volume 90, Mean Corpuscular Hemoglobin 28.3, Mean Corpuscular Hemoglobin Concent 31.4L, Red Cell Distribution Width 14.6, Platelet Count 237, Mean Platelet Volume 10.4H, Neutrophils (%) (Auto) , Lymphocytes (%) (Auto) , Monocytes (%) (Auto) , Eosinophils (%) (Auto) , Basophils (%) (Auto) , Differential Total Cells Counted 100, Neutrophils % ( Manual) 94H, Lymphocytes % (Manual) 6L, Monocytes % (Manual) 0L, Eosinophils % ( Manual) 0, Basophils % (Manual) 0, Band Neutrophils 0, Platelet Estimate Adequate, Platelet Morphology Normal, Anisocytosis 1+, Sodium Level 137, Potassium Level 4.4, Chloride Level 97L, Carbon Dioxide Level 23, Anion Gap 17H , Blood Urea Nitrogen 25H, Creatinine 2.2H, Estimat Glomerular Filtration Rate 37.7, Glucose Level 206#H, Calcium Level 9.4 Current Medications Medications (Trade) Dose Ordered Sig/Alexis Route PRN Reason Start Time Stop Time Status Last Admin Dose Admin Albuterol/ Ipratropium (DuoNeb 0.5-3(2.5)mg/3ml) 3 ml Q4H PRN HHN dyspnea 01/15/17 10:45 01/20/17 10:44 Amlodipine Besylate (Norvasc) 5 mg Q12HR ORAL 01/15/17 13:00 02/14/17 12:59 01/16/17 09:24 Dextrose STAT PRN IV Hypoglycemia 01/15/17 10:45 02/14/17 10:44 Heparin Sodium (Porcine) (Heparin 5000 units/ml) 5,000 units EVERY 12 HOURS SUBQ 01/15/17 21:00 02/14/17 20:59 01/16/17 09:27 Hydralazine HCl (Apresoline) 10 mg EVERY 8 HOURS ORAL 01/15/17 14:00 02/14/17 13:59 01/16/17 05:20 Ketorolac Tromethamine (Toradol 30mg) 30 mg Q8H PRN IV moderate pain 4-6 01/15/17 10:45 01/20/17 10:44 01/16/17 02:35 Lidocaine (Lidoderm 5% PATCH) 1 patch DAILY TDERMAL 01/16/17 09:00 02/15/17 08:59 01/16/17 09:25 Lorazepam (Ativan 2mg/ml 1ml) 0.5 mg Q4H PRN IV For Anxiety 01/15/17 10:45 01/22/17 10:44 Methocarbamol (Robaxin) 500 mg Q8H PRN ORAL muscle spasm 01/15/17 18:15 02/14/17 18:14 Methylprednisolone Sodium Succinate (Solu-MEDROL) 60 mg EVERY 6 HOURS IV 01/15/17 13:00 02/14/17 12:59 01/16/17 05:21 Nitroglycerin (Ntg) 0.4 mg Q5M X 3 DOSES PRN SL Prn Chest Pain 01/15/17 10:45 02/14/17 10:44 Ondansetron HCl (Zofran) 4 mg Q6H PRN IVP Nausea & Vomiting 01/15/17 10:45 02/14/17 10:44 Oxycodone/ Acetaminophen (Percocet 10/325) 1 tab Q4H PRN ORAL Severe Pain (Pain Scale 7-10) 01/16/17 10:15 01/23/17 10:14 Piperacillin Sod/ Tazobactam Sod/ Dextrose (Zosyn/D5W) 110 ml @ 27.5 mls/hr EVERY 8 HOURS IVPB 01/15/17 14:00 01/20/17 13:59 01/16/17 05:20 Promethazine HCl/ Codeine (Phenergan with Codeine) 5 ml Q6H PRN ORAL cough 01/15/17 10:45 02/14/17 10:44 Temazepam (Restoril) 15 mg HSPRN PRN ORAL Insomnia 01/15/17 20:00 01/22/17 19:59 Theophylline (Oscar-Dur) 100 mg TWICE A DAY ORAL 01/15/17 18:00 02/14/17 17:59 01/16/17 09:24 ADDIS SANCHEZ Jan 16, 2017 10:51
[2017-01-16 12:00] VITALS: BP 146/89
--- NOTE | 2017-01-16 13:41 | Physician Query ---
PLEASE COMPLETE THE FORM BEFORE SIGNING Dear Dr. ADDIS SANCHEZ Date JANUARY 16, 2017 Equipment Mechanic/CDS JESUS ALBERTO ROBERTSON/ANABELL Equipment Mechanic/CDS Phone #: [phone] Exercise your independent professional judgment when responding to query. Questions asked do not imply particular answer is desired or expected. We greatly appreciate your clarification on this issue. Clinical Documentation States: "ACUTE ASTHMA EXACERBATION" -- DOCUMENTED ON ED & H&P ED PE (RESPIRATORY) = "DECREASED BREATH SOUNDS, ACCESSORY MUSCLE USE" - documented in ED Report Clinical Findings Show: ABG: pH 7.346, pCO2 51.7, p02 98.9, pHCO3 27.6, O2sat 97.3 --- PT WAS ON BiPAP (Fi02 30%) RR: 25/MIN PLACED ON BiPAP Please clarify if the patient had any of the following conditions based on the above clinical findings: Respiratory Failure [] Acute Respiratory Failure [] Chronic Respiratory Failure (on home O2) [] Acute on Chronic Respiratory Failure [] Acute Respiratory Distress [] Acute Respiratory Insufficiency [] Respiratory failure due to trauma [] Respiratory insufficiency due to trauma [] Unable to determine [] Other: Condition Present on Admission: [] Yes [] No []Clinically Undeterminable Please also document in your Progress Notes and/or Discharge Summary and indicate if the condition was present on admission. MTDD
--- NOTE | 2017-01-16 14:04 | General Progress Note ---
Assessment/Plan Problem List: (1) Acute exacerbation of chronic low back pain ICD Codes: M54.5 - Low back pain; G89.29 - Other chronic pain SNOMED: 217727814 (2) Asthma ICD Codes: J45.909 - Asthma SNOMED: 046822078 (3) COPD (chronic obstructive pulmonary disease) ICD Codes: J44.9 - Chronic obstructive pulmonary disease, unspecified SNOMED: 03632752 (4) HTN (hypertension) ICD Codes: I10 - Essential (primary) hypertension SNOMED: 71029304 (5) Intractable back pain ICD Codes: M54.9 - Intractable back pain SNOMED: 756647024 (6) Dyspnea ICD Codes: R06.00 - Dyspnea, unspecified SNOMED: 414382036 Status: stable, progressing, tolerating diet Assessment/Plan o2 pulm tx ot pt diet pain control cbc bmp am dc plan Subjective Constitutional: Reports: weakness Respiratory: Reports: shortness of breath Allergies: Coded Allergies: MORPHINE (Unverified Allergy, Intermediate, Itching, 11/25/15) TETRACYCLINE (Verified Allergy, Unknown, 11/25/15) All Systems: reviewed and negative except above Subjective sl sob Objective Last 24 Hour Vital Signs Date Time Temp Pulse Resp B/P Pulse Ox O2 Delivery O2 Flow Rate FiO2 01/16/17 12:00 98.4 94 19 146/89 94 Room Air 01/16/17 09:24 93 164/93 01/16/17 08:00 98.1 93 20 164/93 97 Nasal Cannula 3.0 01/16/17 08:00 98 01/16/17 07:20 Nasal Cannula 3.0 32 01/16/17 07:20 97 Nasal Cannula 3.0 32 01/16/17 05:20 148/76 01/16/17 04:00 83 01/16/17 04:00 84 01/16/17 04:00 97.9 82 20 146/72 95 Nasal Cannula 3.0 01/16/17 00:00 83 01/16/17 00:00 98.2 82 22 144/78 98 Nasal Cannula 3.0 01/15/17 22:52 146/84 01/15/17 22:30 88 146/84 01/15/17 20:22 94 156/82 01/15/17 20:00 89 01/15/17 20:00 98.1 89 28 156/82 98 Nasal Cannula 3.0 01/15/17 19:31 97 Nasal Cannula 3.0 32 01/15/17 19:31 Nasal Cannula 3.0 32 01/15/17 17:29 92 20 95 3.0 32 01/15/17 16:00 98.5 84 28 154/84 98 Nasal Cannula 3.0 01/15/17 16:00 84 01/15/17 15:19 90 20 98 3.0 32 01/15/17 14:28 167/100 Intake and Output 01/15/17 01/16/17 19:00 07:00 Intake Total 330 ml 110.0 ml Output Total 200 ml 1000 ml Balance 130 ml -890.0 ml Intake Oral 230 ml IV Total 100 ml 110.0 ml Output Urine Total 200 ml 1000 ml # Voids 1 Laboratory Tests 01/16/17 03:05: White Blood Count 10.1#, Red Blood Count 5.09, Hemoglobin 14.4, Hematocrit 45.9 , Mean Corpuscular Volume 90, Mean Corpuscular Hemoglobin 28.3, Mean Corpuscular Hemoglobin Concent 31.4L, Red Cell Distribution Width 14.6, Platelet Count 237, Mean Platelet Volume 10.4H, Neutrophils (%) (Auto) , Lymphocytes (%) (Auto) , Monocytes (%) (Auto) , Eosinophils (%) (Auto) , Basophils (%) (Auto) , Differential Total Cells Counted 100, Neutrophils % ( Manual) 94H, Lymphocytes % (Manual) 6L, Monocytes % (Manual) 0L, Eosinophils % ( Manual) 0, Basophils % (Manual) 0, Band Neutrophils 0, Platelet Estimate Adequate, Platelet Morphology Normal, Anisocytosis 1+, Sodium Level 137, Potassium Level 4.4, Chloride Level 97L, Carbon Dioxide Level 23, Anion Gap 17H , Blood Urea Nitrogen 25H, Creatinine 2.2H, Estimat Glomerular Filtration Rate 37.7, Glucose Level 206#H, Calcium Level 9.4 Height (Feet): 5 Height (Inches): 7.00 Weight (Pounds): 780 General Appearance: alert EENT: normal ENT inspection Neck: normal alignment Cardiovascular: normal peripheral pulses, normal rate, regular rhythm Respiratory/Chest: chest wall non-tender, lungs clear, decreased breath sounds Abdomen: normal bowel sounds, non tender, soft Extremities: normal inspection Edema: no edema noted Arm (L), no edema noted Arm (R), no edema noted Leg (L), no edema noted Leg (R), no edema noted Pedal (L), no edema noted Pedal (R), no edema noted Generalized Neurologic: responsive, motor weakness Skin: normal pigmentation, warm/dry KADIE SO Jan 16, 2017 14:04
--- NOTE | 2017-01-16 14:11 | Consultation ---
History of Present Illness General Chief Complaint: Dyspnea/Respdistress Reason for Consultation: ARF on CKD Present Illness HPI This is a 56-year-old male with a PMHx significant for HTN, obesity and asthma, who presented with a two day history of SOB which worsened, with severe back pain. He was then admitted for evaluation and placed on BIPAP, now on o2 via nc. Consult was requested due to elevated creatinine of 2.2 Allergies: Coded Allergies: MORPHINE (Unverified Allergy, Intermediate, Itching, 11/25/15) TETRACYCLINE (Verified Allergy, Unknown, 11/25/15) Medication History Scheduled Albuterol Sulfate (Ventolin Hfa), 2 PUFFS INH EVERY 6 HOURS, (Reported) Amlodipine Besylate (Norvasc), 5 MG ORAL BID Aspirin* (Aspirin*), 81 MG ORAL DAILY Azithromycin* (Zithromax*), 250 MG ORAL once daily Clonidine Hcl* (Catapres*), 0.1 MG ORAL Q8H Clonidine Hcl* (Catapres*), 0.2 MG ORAL Q8HR, (Reported) Hydralazine HCl (Hydralazine HCl), 10 MG ORAL EVERY 8 HOURS, (Reported) Hydralazine HCl (Hydralazine HCl), 100 MG ORAL Q8HR Hydrochlorothiazide* (Hydrochlorothiazide*), 100 MG ORAL BID, (Reported) Mometasone/Formoterol (Dulera 100 Mcg/5 Mcg Inhaler), 2 PUFFS INH EVERY 12 HOURS , (Reported) Montelukast Sodium (Singulair), 4 MG ORAL DAILY Omeprazole (Prilosec), 20 MG ORAL DAILY, (Reported) Prednisone* (Prednisone*), 60 MG ORAL DAILY Terbutaline Sulfate (Terbutaline Sulfate), 2.5 MG ORAL BID, (Reported) Theophylline (Theodur*), 100 MG ORAL TWICE A DAY, (Reported) Tiotropium [place]* (Spiriva*), 1 PUFF INH DAILY, (Reported) Scheduled PRN Clonidine HCl (Clonidine HCl), 0.1 MG ORAL Q6H PRN for SBP>160 Patient History History Provided By: Patient Healthcare decision maker pt A&Ox4 Resuscitation status Full Code Advanced Directive on File No Social History Social History: (1) No illicit drug use (2) No history of alcohol use (3) Non-smoker Review of Systems All Other Systems: negative except mentioned in HPI Physical Exam General Appearance: no apparent distress, alert Lines, tubes and drains: peripheral HEENT: normocephalic, atraumatic Neck: non-tender, normal alignment, supple, normal inspection Respiratory/Chest: decreased breath sounds Cardiovascular/Chest: normal rate, regular rhythm, no JVD Abdomen: soft, no organomegaly, no mass Extremities: non-tender Skin Exam: normal pigmentation, warm/dry Neurologic: alert, responsive, normal mood/affect Last 24 Hour Vital Signs Date Time Temp Pulse Resp B/P Pulse Ox O2 Delivery O2 Flow Rate FiO2 01/16/17 12:00 98.4 94 19 146/89 94 Room Air 01/16/17 09:24 93 164/93 01/16/17 08:00 98.1 93 20 164/93 97 Nasal Cannula 3.0 01/16/17 08:00 98 01/16/17 07:20 Nasal Cannula 3.0 32 01/16/17 07:20 97 Nasal Cannula 3.0 32 01/16/17 05:20 148/76 01/16/17 04:00 83 01/16/17 04:00 84 01/16/17 04:00 97.9 82 20 146/72 95 Nasal Cannula 3.0 01/16/17 00:00 83 01/16/17 00:00 98.2 82 22 144/78 98 Nasal Cannula 3.0 01/15/17 22:52 146/84 01/15/17 22:30 88 146/84 01/15/17 20:22 94 156/82 01/15/17 20:00 89 01/15/17 20:00 98.1 89 28 156/82 98 Nasal Cannula 3.0 01/15/17 19:31 97 Nasal Cannula 3.0 32 01/15/17 19:31 Nasal Cannula 3.0 32 01/15/17 17:29 92 20 95 3.0 32 01/15/17 16:00 98.5 84 28 154/84 98 Nasal Cannula 3.0 01/15/17 16:00 84 01/15/17 15:19 90 20 98 3.0 32 01/15/17 14:28 167/100 Intake and Output 01/15/17 01/16/17 19:00 07:00 Intake Total 330 ml 110.0 ml Output Total 200 ml 1000 ml Balance 130 ml -890.0 ml Intake Oral 230 ml IV Total 100 ml 110.0 ml Output Urine Total 200 ml 1000 ml # Voids 1 Laboratory Tests Test 01/16/17 03:05 White Blood Count 10.1 K/UL (4.8-10.8) # Red Blood Count 5.09 M/UL (4.70-6.10) Hemoglobin 14.4 G/DL (14.2-18.0) Hematocrit 45.9 % (42.0-52.0) Mean Corpuscular Volume 90 FL (80-99) Mean Corpuscular Hemoglobin 28.3 PG (27.0-31.0) Mean Corpuscular Hemoglobin Concent 31.4 G/DL (32.0-36.0) L Red Cell Distribution Width 14.6 % (11.6-14.8) Platelet Count 237 K/UL (150-450) Mean Platelet Volume 10.4 FL (6.5-10.1) H Neutrophils (%) (Auto) % (45.0-75.0) Lymphocytes (%) (Auto) % (20.0-45.0) Monocytes (%) (Auto) % (1.0-10.0) Eosinophils (%) (Auto) % (0.0-3.0) Basophils (%) (Auto) % (0.0-2.0) Differential Total Cells Counted 100 Neutrophils % (Manual) 94 % (45-75) H Lymphocytes % (Manual) 6 % (20-45) L Monocytes % (Manual) 0 % (1-10) L Eosinophils % (Manual) 0 % (0-3) Basophils % (Manual) 0 % (0-2) Band Neutrophils 0 % (0-8) Platelet Estimate Adequate Platelet Morphology Normal Anisocytosis 1+ Sodium Level 137 mEQ/L (135-145) Potassium Level 4.4 mEQ/L (3.4-4.9) Chloride Level 97 mEQ/L (98-107) L Carbon Dioxide Level 23 mEQ/L (20-30) Anion Gap 17 (5-15) H Blood Urea Nitrogen 25 mg/dL (7-23) H Creatinine 2.2 mg/dL (0.7-1.2) H Estimat Glomerular Filtration Rate 37.7 mL/min (>60) Glucose Level 206 mg/dL (74-106) #H Calcium Level 9.4 mg/dL (8.6-10.2) Height (Feet): 5 Height (Inches): 7.00 Weight (Pounds): 780 Medications Current Medications Medications (Trade) Dose Ordered Sig/Alexis Route PRN Reason Start Time Stop Time Status Last Admin Dose Admin Albuterol/ Ipratropium (DuoNeb 0.5-3(2.5)mg/3ml) 3 ml Q4H PRN HHN dyspnea 01/15/17 10:45 01/20/17 10:44 Amlodipine Besylate (Norvasc) 5 mg Q12HR ORAL 01/15/17 13:00 02/14/17 12:59 01/16/17 09:24 Dextrose STAT PRN IV Hypoglycemia 01/15/17 10:45 02/14/17 10:44 Heparin Sodium (Porcine) (Heparin 5000 units/ml) 5,000 units EVERY 12 HOURS SUBQ 01/15/17 21:00 02/14/17 20:59 01/16/17 09:27 Hydralazine HCl (Apresoline) 10 mg EVERY 8 HOURS ORAL 01/15/17 14:00 02/14/17 13:59 01/16/17 05:20 Ketorolac Tromethamine (Toradol 30mg) 30 mg Q8H PRN IV moderate pain 4-6 01/15/17 10:45 01/20/17 10:44 01/16/17 02:35 Lidocaine (Lidoderm 5% PATCH) 1 patch DAILY TDERMAL 01/16/17 09:00 02/15/17 08:59 01/16/17 09:25 Lorazepam (Ativan 2mg/ml 1ml) 0.5 mg Q4H PRN IV For Anxiety 01/15/17 10:45 01/22/17 10:44 Methocarbamol (Robaxin) 500 mg Q8H PRN ORAL muscle spasm 01/15/17 18:15 02/14/17 18:14 Methylprednisolone Sodium Succinate (Solu-MEDROL) 60 mg EVERY 6 HOURS IV 01/15/17 13:00 02/14/17 12:59 01/16/17 05:21 Nitroglycerin (Ntg) 0.4 mg Q5M X 3 DOSES PRN SL Prn Chest Pain 01/15/17 10:45 02/14/17 10:44 Ondansetron HCl (Zofran) 4 mg Q6H PRN IVP Nausea & Vomiting 01/15/17 10:45 02/14/17 10:44 Oxycodone/ Acetaminophen (Percocet 10/325) 1 tab Q4H PRN ORAL Severe Pain (Pain Scale 7-10) 01/16/17 10:15 01/23/17 10:14 Piperacillin Sod/ Tazobactam Sod/ Dextrose (Zosyn/D5W) 110 ml @ 27.5 mls/hr EVERY 8 HOURS IVPB 01/15/17 14:00 01/20/17 13:59 01/16/17 05:20 Promethazine HCl/ Codeine (Phenergan with Codeine) 5 ml Q6H PRN ORAL cough 01/15/17 10:45 02/14/17 10:44 Temazepam (Restoril) 15 mg HSPRN PRN ORAL Insomnia 01/15/17 20:00 01/22/17 19:59 Theophylline (Oscar-Dur) 100 mg TWICE A DAY ORAL 01/15/17 18:00 02/14/17 17:59 01/16/17 09:24 Assessment/Plan Problem List: (1) Acute asthma exacerbation ICD Codes: J45.901 - Asthma with exacerbation SNOMED: 975562767 (2) HTN (hypertension) ICD Codes: I10 - Essential (primary) hypertension SNOMED: 63644847 (3) CKD (chronic kidney disease) ICD Codes: N18.9 - Chronic kidney disease SNOMED: 755812114 Qualifiers: Qualified Codes: N18.9 - Chronic kidney disease, unspecified Assessment/Plan Monitor renal function Monitor intake and output Monitor lytes, correct as needed Renal Ultrasound Bladder scan Avoid nephrotoxic agents Continue O2 therapy Continue neb treatment Continue BIPAP at night Pulmo following AM labs Jenny Gonzalez N.P. Jan 16, 2017 14:11
[2017-01-16 16:00] VITALS: BP 133/93
[2017-01-16 20:00] VITALS: BP 158/88
[2017-01-17] VITALS: BP 142/76
[2017-01-17 04:00] VITALS: BP 136/84
[2017-01-17] MEDS: Solu-MEDROL 125mg Inj IV SCH ×4 (05:14→20:55)
[2017-01-17] MEDS: HydrALAZINE 10mg Tab ORAL SCH ×3 (05:14→21:58)
[2017-01-17] MEDS: Zosyn 3.375gm q8h **Extended infusion IVPB SCH ×6 (05:15→21:06)
[2017-01-17 06:01] LABS: MEAN CORPUSCULAR HEMOGLOBIN 29.5 PG (27.0-31.0); MEAN CORPUSCULAR HGB CONC 32.5 G/DL (32.0-36.0); MEAN CORPUSCULAR VOLUME 91 FL (80-99); PLATELET COUNT 229 K/UL (150-450); RED BLOOD COUNT 4.67 M/UL (4.70-6.10); RED CELL DISTRIBUTION WIDTH 14.6 % (11.6-14.8); WHITE BLOOD COUNT 15.5 K/UL (4.8-10.8)
[2017-01-17 06:05] LABS: MAGNESIUM 2.1 mg/dL (1.7-2.5); PHOSPHORUS 4.4 mg/dL (2.5-4.8)
[2017-01-17 06:07] LABS: CALCIUM 9.9 mg/dL (8.6-10.2); CREATININE 2.7 mg/dL (0.7-1.2); GLOMERULAR FILTRATION RATE 29.8 mL/min (>60); POTASSIUM 4.7 mEQ/L (3.4-4.9)
[2017-01-17 08:00] VITALS: BP 151/108
--- NOTE | 2017-01-17 08:11 | General Progress Note ---
Assessment/Plan Problem List: (1) Acute exacerbation of chronic low back pain ICD Codes: M54.5 - Low back pain; G89.29 - Other chronic pain SNOMED: 240044784 (2) Asthma ICD Codes: J45.909 - Asthma SNOMED: 606045888 (3) COPD (chronic obstructive pulmonary disease) ICD Codes: J44.9 - Chronic obstructive pulmonary disease, unspecified SNOMED: 37730885 (4) HTN (hypertension) ICD Codes: I10 - Essential (primary) hypertension SNOMED: 23536194 (5) Intractable back pain ICD Codes: M54.9 - Intractable back pain SNOMED: 213021256 (6) Dyspnea ICD Codes: R06.00 - Dyspnea, unspecified SNOMED: 086751168 Status: stable, progressing, tolerating diet Assessment/Plan o2 pulm tx ot pt diet pain control cbc bmp am dc plan Subjective Constitutional: Reports: weakness Allergies: Coded Allergies: MORPHINE (Unverified Allergy, Intermediate, Itching, 11/25/15) TETRACYCLINE (Verified Allergy, Unknown, 11/25/15) All Systems: reviewed and negative except above Subjective sl sob Objective Last 24 Hour Vital Signs Date Time Temp Pulse Resp B/P Pulse Ox O2 Delivery O2 Flow Rate FiO2 01/17/17 06:34 94 Room Air 21 01/17/17 06:34 Room Air 01/17/17 05:14 152/86 01/17/17 04:00 98.8 82 18 136/84 98 Room Air 01/17/17 04:00 91 01/17/17 00:13 98.2 01/17/17 00:00 94 01/17/17 00:00 98.7 88 18 142/76 98 Room Air 01/16/17 21:19 156/84 01/16/17 20:23 100 158/99 01/16/17 20:00 98.2 98 20 158/88 97 Room Air 01/16/17 20:00 95 01/16/17 18:54 Room Air 01/16/17 18:53 95 Room Air 01/16/17 16:00 98.1 95 19 133/93 94 Room Air 01/16/17 16:00 98 01/16/17 14:45 146/89 01/16/17 12:00 98.4 94 19 146/89 94 Room Air 01/16/17 12:00 97 01/16/17 09:24 93 164/93 Intake and Output 01/16/17 01/17/17 19:00 07:00 Intake Total 840 ml 82.5 ml Output Total 350 ml 850 ml Balance 490 ml -767.5 ml Intake Oral 840 ml IV Total 82.5 ml Output Urine Total 350 ml 850 ml # Voids 3 # Bowel Movements 2 Laboratory Tests 01/17/17 05:00: White Blood Count 15.5#H, Red Blood Count 4.67L, Hemoglobin 13.8L, Hematocrit 42.4, Mean Corpuscular Volume 91, Mean Corpuscular Hemoglobin 29.5, Mean Corpuscular Hemoglobin Concent 32.5, Red Cell Distribution Width 14.6, Platelet Count 229, Mean Platelet Volume 9.0, Neutrophils (%) (Auto) , Lymphocytes (%) ( Auto) , Monocytes (%) (Auto) , Eosinophils (%) (Auto) , Basophils (%) (Auto) , Neutrophils % (Manual) [Pending], Lymphocytes % (Manual) [Pending], Platelet Estimate [Pending], Platelet Morphology [Pending], Sodium Level 138, Potassium Level 4.7, Chloride Level 96L, Carbon Dioxide Level 24, Anion Gap 18H, Blood Urea Nitrogen 44H, Creatinine 2.7H, Estimat Glomerular Filtration Rate 29.8, Glucose Level 191H, Calcium Level 9.9, Phosphorus Level 4.4, Magnesium Level 2.1 Height (Feet): 5 Height (Inches): 7.00 Weight (Pounds): 780 General Appearance: lethargic EENT: normal ENT inspection Neck: normal alignment Cardiovascular: normal peripheral pulses, normal rate, regular rhythm Respiratory/Chest: chest wall non-tender, lungs clear, normal breath sounds Abdomen: normal bowel sounds, non tender, soft Extremities: normal inspection Edema: no edema noted Arm (L), no edema noted Arm (R), no edema noted Leg (L), no edema noted Leg (R), no edema noted Pedal (L), no edema noted Pedal (R), no edema noted Generalized Neurologic: responsive, motor weakness Skin: normal pigmentation, warm/dry KADIE SO Jan 17, 2017 08:11
--- NOTE | 2017-01-17 09:05 | Diagnostic Imaging Report ---
Indication:Elevated Bun and Creatinine. Technique: Grayscale and duplex Doppler imaging of the kidneys performed. Comparison: None Findings: The size, contour, and echogenicity of both kidneys are within normal limits. There are bilateral renal cysts. On the right there is a 1.6 cm mid pole cyst and smaller cysts as well. The left kidney there is a 1.5 cm cyst noted. The right kidney measures 11.7 cm. Left kidney 13.2 cm. There is no hydronephrosis. The IVC and urinary bladder are unremarkable. Impression: Bilateral renal cysts.
[2017-01-17] MEDS ORDERED: NS 275ml ONE (09:13)
[2017-01-17] MEDS: Theophylline ER 100mg ORAL SCH ×2 (09:28→17:40)
[2017-01-17] MEDS: Heparin 5000 units/ml inj SUBQ SCH ×2 (09:30→20:56)
[2017-01-17 11:44] LABS: EOSINOPHILS % (MANUAL) 1 % (0-3); LYMPHOCYTES % (MANUAL) 11 % (20-45); NEUTROPHILS % (MANUAL) 87 % (45-75); TOTAL CELLS COUNTED 100
[2017-01-17 11:45] LABS: BAND NEUTROPHILS % (MANUAL) 0 % (0-8); BASOPHILS % (MANUAL) 0 % (0-2); PLATELET ESTIMATE ADEQUATE; PLATELET MORPHOLOGY NORMAL
[2017-01-17 12:00] VITALS: BP 158/101
[2017-01-17 16:00] VITALS: BP 158/100
[2017-01-17 20:00] VITALS: BP 156/89
--- NOTE | 2017-01-17 20:13 | Pulmonology Progress Note ---
Assessment/Plan Problems: (1) Acute asthma exacerbation (2) CKD (chronic kidney disease) (3) Hypertension (4) Intractable back pain Assessment/Plan taper steroids continue abx check sputum titrate fio2 to sat of 92% bipap on hold dvt prophylaxis all reviewed, labs in am Subjective ROS Limited/Unobtainable: No Interval Events: less short of breath Allergies: Coded Allergies: MORPHINE (Unverified Allergy, Intermediate, Itching, 11/25/15) TETRACYCLINE (Verified Allergy, Unknown, 11/25/15) Objective Last 24 Hour Vital Signs Date Time Temp Pulse Resp B/P Pulse Ox O2 Delivery O2 Flow Rate FiO2 01/17/17 19:14 92 22 Room Air 21 01/17/17 19:13 94 Room Air 21 01/17/17 19:13 Room Air 01/17/17 16:00 97 01/17/17 16:00 97.7 20 158/100 94 Room Air 01/17/17 14:28 158/108 01/17/17 12:00 92 01/17/17 12:00 97.5 89 20 158/101 95 Room Air 01/17/17 09:28 88 151/108 01/17/17 08:00 94 01/17/17 08:00 97.2 88 12 151/108 98 Room Air 01/17/17 06:34 94 Room Air 21 01/17/17 06:34 Room Air 21 01/17/17 05:14 152/86 01/17/17 04:00 98.8 82 18 136/84 98 Room Air 01/17/17 04:00 91 01/17/17 00:13 98.2 01/17/17 00:00 94 01/17/17 00:00 98.7 88 18 142/76 98 Room Air 01/16/17 21:19 156/84 01/16/17 20:23 100 158/99 Intake and Output 01/16/17 01/17/17 19:00 07:00 Intake Total 840 ml 82.5 ml Output Total 350 ml 850 ml Balance 490 ml -767.5 ml Intake Oral 840 ml IV Total 82.5 ml Output Urine Total 350 ml 850 ml # Voids 3 # Bowel Movements 2 General Appearance: WD/WN HEENT: normocephalic, atraumatic Respiratory/Chest: chest wall non-tender, lungs clear Cardiovascular: normal peripheral pulses, normal rate Abdomen: soft, non tender, no mass Extremities: pedal pulses normal Microbiology Date/Time Source Procedure Growth Status 01/15/17 08:56 Blood Blood Culture - Preliminary NO GROWTH AFTER 24 HOURS Resulted 01/15/17 08:40 Blood Blood Culture - Preliminary NO GROWTH AFTER 24 HOURS Resulted Laboratory Tests 01/17/17 05:00: White Blood Count 15.5#H, Red Blood Count 4.67L, Hemoglobin 13.8L, Hematocrit 42.4, Mean Corpuscular Volume 91, Mean Corpuscular Hemoglobin 29.5, Mean Corpuscular Hemoglobin Concent 32.5, Red Cell Distribution Width 14.6, Platelet Count 229, Mean Platelet Volume 9.0, Neutrophils (%) (Auto) , Lymphocytes (%) ( Auto) , Monocytes (%) (Auto) , Eosinophils (%) (Auto) , Basophils (%) (Auto) , Differential Total Cells Counted 100, Neutrophils % (Manual) 87H, Lymphocytes % (Manual) 11L, Monocytes % (Manual) 1, Eosinophils % (Manual) 1, Basophils % ( Manual) 0, Band Neutrophils 0, Platelet Estimate Adequate, Platelet Morphology Normal, Red Blood Cell Morphology Normal, Sodium Level 138, Potassium Level 4.7 , Chloride Level 96L, Carbon Dioxide Level 24, Anion Gap 18H, Blood Urea Nitrogen 44H, Creatinine 2.7H, Estimat Glomerular Filtration Rate 29.8, Glucose Level 191H, Calcium Level 9.9, Phosphorus Level 4.4, Magnesium Level 2.1 Current Medications Medications (Trade) Dose Ordered Sig/Alexis Route PRN Reason Start Time Stop Time Status Last Admin Dose Admin Albuterol/ Ipratropium (DuoNeb 0.5-3(2.5)mg/3ml) 3 ml Q4H PRN HHN dyspnea 01/15/17 10:45 01/20/17 10:44 Amlodipine Besylate (Norvasc) 5 mg Q12HR ORAL 01/15/17 13:00 02/14/17 12:59 01/17/17 09:28 Dextrose STAT PRN IV Hypoglycemia 01/15/17 10:45 02/14/17 10:44 Finasteride (Proscar) 5 mg DAILY ORAL 01/17/17 09:00 02/16/17 08:59 01/17/17 09:28 Heparin Sodium (Porcine) (Heparin 5000 units/ml) 5,000 units EVERY 12 HOURS SUBQ 01/15/17 21:00 02/14/17 20:59 01/17/17 09:30 Hydralazine HCl (Apresoline) 10 mg EVERY 8 HOURS ORAL 01/15/17 14:00 02/14/17 13:59 01/17/17 14:28 Ketorolac Tromethamine (Toradol 30mg) 30 mg Q8H PRN IV moderate pain 4-6 01/15/17 10:45 01/20/17 10:44 01/16/17 02:35 Lidocaine (Lidoderm 5% PATCH) 1 patch DAILY TDERMAL 01/16/17 09:00 02/15/17 08:59 01/17/17 09:28 Lorazepam (Ativan 2mg/ml 1ml) 0.5 mg Q4H PRN IV For Anxiety 01/15/17 10:45 01/22/17 10:44 Methocarbamol (Robaxin) 500 mg Q8H PRN ORAL muscle spasm 01/15/17 18:15 02/14/17 18:14 Methylprednisolone Sodium Succinate (Solu-MEDROL) 60 mg EVERY 6 HOURS IV 01/15/17 13:00 02/14/17 12:59 01/17/17 17:40 Nitroglycerin (Ntg) 0.4 mg Q5M X 3 DOSES PRN SL Prn Chest Pain 01/15/17 10:45 02/14/17 10:44 Ondansetron HCl (Zofran) 4 mg Q6H PRN IVP Nausea & Vomiting 01/15/17 10:45 02/14/17 10:44 Oxycodone/ Acetaminophen (Percocet 10/325) 1 tab Q4H PRN ORAL Severe Pain (Pain Scale 7-10) 01/16/17 10:15 01/23/17 10:14 01/17/17 18:34 Piperacillin Sod/ Tazobactam Sod/ Dextrose (Zosyn/D5W) 110 ml @ 27.5 mls/hr EVERY 8 HOURS IVPB 01/15/17 14:00 01/20/17 13:59 01/17/17 14:28 Promethazine HCl/ Codeine (Phenergan with Codeine) 5 ml Q6H PRN ORAL cough 6/8/17 10:45 02/14/17 10:44 Tamsulosin HCl (Flomax) 0.4 mg BEDTIME ORAL 01/17/17 21:00 02/16/17 20:59 Temazepam (Restoril) 15 mg HSPRN PRN ORAL Insomnia 01/15/17 20:00 01/22/17 19:59 Theophylline (Oscar-Dur) 100 mg TWICE A DAY ORAL 01/15/17 18:00 02/14/17 17:59 01/17/17 17:40 ADDIS SANCHEZ Jan 17, 2017 20:13
[2017-01-17] MEDS ORDERED: Tamsulosin 0.4mg cap ORAL SCH (21:00)
--- NOTE | 2017-01-17 22:54 | Nephrology Progress Note ---
Subjective Subjective late entry for 01/16 - Objective Objective Last 24 Hour Vital Signs Date Time Temp Pulse Resp B/P Pulse Ox O2 Delivery O2 Flow Rate FiO2 01/17/17 21:58 154/86 01/17/17 20:55 82 158/88 01/17/17 20:00 98.6 88 18 156/89 98 Room Air 01/17/17 20:00 98 01/17/17 19:14 92 22 Room Air 21 01/17/17 19:13 94 Room Air 21 01/17/17 19:13 Room Air 01/17/17 16:00 97 01/17/17 16:00 97.7 20 158/100 94 Room Air 01/17/17 14:28 158/108 01/17/17 12:00 92 01/17/17 12:00 97.5 89 20 158/101 95 Room Air 01/17/17 09:28 88 151/108 01/17/17 08:00 94 01/17/17 08:00 97.2 88 12 151/108 98 Room Air 01/17/17 06:34 94 Room Air 21 01/17/17 06:34 Room Air 21 01/17/17 05:14 152/86 01/17/17 04:00 98.8 82 18 136/84 98 Room Air 01/17/17 04:00 91 01/17/17 00:13 98.2 01/17/17 00:00 94 01/17/17 00:00 98.7 88 18 142/76 98 Room Air Intake and Output 01/16/17 01/17/17 19:00 07:00 Intake Total 840 ml 82.5 ml Output Total 350 ml 850 ml Balance 490 ml -767.5 ml Intake Oral 840 ml IV Total 82.5 ml Output Urine Total 350 ml 850 ml # Voids 3 # Bowel Movements 2 Laboratory Tests 01/17/17 05:00: White Blood Count 15.5#H, Red Blood Count 4.67L, Hemoglobin 13.8L, Hematocrit 42.4, Mean Corpuscular Volume 91, Mean Corpuscular Hemoglobin 29.5, Mean Corpuscular Hemoglobin Concent 32.5, Red Cell Distribution Width 14.6, Platelet Count 229, Mean Platelet Volume 9.0, Neutrophils (%) (Auto) , Lymphocytes (%) ( Auto) , Monocytes (%) (Auto) , Eosinophils (%) (Auto) , Basophils (%) (Auto) , Differential Total Cells Counted 100, Neutrophils % (Manual) 87H, Lymphocytes % (Manual) 11L, Monocytes % (Manual) 1, Eosinophils % (Manual) 1, Basophils % ( Manual) 0, Band Neutrophils 0, Platelet Estimate Adequate, Platelet Morphology Normal, Red Blood Cell Morphology Normal, Sodium Level 138, Potassium Level 4.7 , Chloride Level 96L, Carbon Dioxide Level 24, Anion Gap 18H, Blood Urea Nitrogen 44H, Creatinine 2.7H, Estimat Glomerular Filtration Rate 29.8, Glucose Level 191H, Calcium Level 9.9, Phosphorus Level 4.4, Magnesium Level 2.1 Height (Feet): 5 Height (Inches): 7.00 Weight (Pounds): 780 HI LIZARRAGA Jan 17, 2017 22:54
[2017-01-18] VITALS (7 sets, daily range): BP systolic 143–168; BP diastolic 84–113
[2017-01-18] MEDS: HydrALAZINE 10mg Tab ORAL SCH ×2 (05:12→13:02)
[2017-01-18] MEDS: Zosyn 3.375gm q8h **Extended infusion IVPB SCH ×4 (05:13→13:08)
[2017-01-18 06:34] LABS: MEAN CORPUSCULAR HEMOGLOBIN 29.2 PG (27.0-31.0); MEAN CORPUSCULAR HGB CONC 32.1 G/DL (32.0-36.0); MEAN CORPUSCULAR VOLUME 91 FL (80-99); PLATELET COUNT 236 K/UL (150-450); RED BLOOD COUNT 4.55 M/UL (4.70-6.10); RED CELL DISTRIBUTION WIDTH 15.1 % (11.6-14.8); WHITE BLOOD COUNT 13.9 K/UL (4.8-10.8)
[2017-01-18 07:30] LABS: ALANINE AMINOTRANSFERASE 19 U/L (3-41); ALBUMIN/GLOBULIN RATIO 1.5 (1.0-2.7); ANION GAP 17 (5-15); ASPARTATE AMINO TRANSFERASE 21 U/L (5-40); CALCIUM 9.6 mg/dL (8.6-10.2); CARBON DIOXIDE 25 mEQ/L (20-30); CHLORIDE 99 mEQ/L (98-107); CREATININE 2.2 mg/dL (0.7-1.2); GLOMERULAR FILTRATION RATE 37.7 mL/min (>60); HEMOLYSIS 11; POTASSIUM 4.7 mEQ/L (3.4-4.9); SODIUM 141 mEQ/L (135-145); TOTAL PROTEIN 6.7 g/dL (6.6-8.7)
[2017-01-18] MEDS: Solu-MEDROL 125mg Inj IV SCH (08:01)
[2017-01-18] MEDS: Theophylline ER 100mg ORAL SCH ×2 (08:02→17:39)
[2017-01-18] MEDS: Heparin 5000 units/ml inj SUBQ SCH ×2 (08:06→21:29)
[2017-01-18 08:10] LABS: ANISOCYTOSIS 1+; BAND NEUTROPHILS % (MANUAL) 0 % (0-8); BASOPHILS % (MANUAL) 0 % (0-2); EOSINOPHILS % (MANUAL) 0 % (0-3); LYMPHOCYTES % (MANUAL) 7 % (20-45); NEUTROPHILS % (MANUAL) 90 % (45-75); PLATELET ESTIMATE ADEQUATE; PLATELET MORPHOLOGY NORMAL; TOTAL CELLS COUNTED 100
--- NOTE | 2017-01-18 08:26 | General Progress Note ---
Assessment/Plan Problem List: (1) Acute exacerbation of chronic low back pain ICD Codes: M54.5 - Low back pain; G89.29 - Other chronic pain SNOMED: 843084639 (2) Asthma ICD Codes: J45.909 - Asthma SNOMED: 721783697 (3) COPD (chronic obstructive pulmonary disease) ICD Codes: J44.9 - Chronic obstructive pulmonary disease, unspecified SNOMED: 55944495 (4) HTN (hypertension) ICD Codes: I10 - Essential (primary) hypertension SNOMED: 15442813 (5) Intractable back pain ICD Codes: M54.9 - Intractable back pain SNOMED: 375389681 (6) Dyspnea ICD Codes: R06.00 - Dyspnea, unspecified SNOMED: 375679066 Status: stable, progressing, tolerating diet Assessment/Plan o2 pulm tx ot pt diet pain control cbc bmp am dc plan w hh Subjective Constitutional: Reports: weakness Allergies: Coded Allergies: MORPHINE (Unverified Allergy, Intermediate, Itching, 11/25/15) TETRACYCLINE (Verified Allergy, Unknown, 11/25/15) All Systems: reviewed and negative except above Subjective sl sob Objective Last 24 Hour Vital Signs Date Time Temp Pulse Resp B/P Pulse Ox O2 Delivery O2 Flow Rate FiO2 01/18/17 08:02 84 167/103 01/18/17 07:26 Room Air 01/18/17 07:26 88 20 Room Air 01/18/17 07:26 95 Room Air 01/18/17 05:12 148/88 01/18/17 04:00 96 01/18/17 04:00 98.9 88 20 143/85 98 Room Air 01/18/17 00:00 97.6 92 20 148/84 98 Room Air 01/18/17 00:00 95 01/17/17 21:58 154/86 01/17/17 20:55 82 158/88 01/17/17 20:00 98.6 88 18 156/89 98 Room Air 01/17/17 20:00 98 01/17/17 19:14 92 22 Room Air 01/17/17 19:13 94 Room Air 21 01/17/17 19:13 Room Air 01/17/17 16:00 97 01/17/17 16:00 97.7 20 158/100 94 Room Air 01/17/17 14:28 158/108 01/17/17 12:00 92 01/17/17 12:00 97.5 89 20 158/101 95 Room Air 01/17/17 09:28 88 151/108 Intake and Output 01/17/17 01/18/17 19:00 07:00 Intake Total 980 ml 110.0 ml Output Total 452 ml 650 ml Balance 528 ml -540.0 ml Intake Oral 980 ml IV Total 110.0 ml Output Urine Total 450 ml 650 ml Stool Total 2 ml # Voids 4 3 # Bowel Movements 2 6 Laboratory Tests 01/18/17 05:43: White Blood Count 13.9H, Red Blood Count 4.55L, Hemoglobin 13.3L, Hematocrit 41.4L, Mean Corpuscular Volume 91, Mean Corpuscular Hemoglobin 29.2, Mean Corpuscular Hemoglobin Concent 32.1, Red Cell Distribution Width 15.1H, Platelet Count 236, Mean Platelet Volume 10.0, Neutrophils (%) (Auto) , Lymphocytes (%) (Auto) , Monocytes (%) (Auto) , Eosinophils (%) (Auto) , Basophils (%) (Auto) , Differential Total Cells Counted 100, Neutrophils % ( Manual) 90H, Lymphocytes % (Manual) 7L, Monocytes % (Manual) 3, Eosinophils % ( Manual) 0, Basophils % (Manual) 0, Band Neutrophils 0, Platelet Estimate Adequate, Platelet Morphology Normal, Anisocytosis 1+, Sodium Level 141, Potassium Level 4.7, Chloride Level 99, Carbon Dioxide Level 25, Anion Gap 17H, Blood Urea Nitrogen 40H, Creatinine 2.2H, Estimat Glomerular Filtration Rate 37.7, Glucose Level 178H, Calcium Level 9.6, Total Bilirubin < 0.2, Aspartate Amino Transf (AST/SGOT) 21, Alanine Aminotransferase (ALT/SGPT) 19, Alkaline Phosphatase 48, Pro-B-Type Natriuretic Peptide 280H, Total Protein 6.7, Albumin 4.1, Globulin 2.6, Albumin/Globulin Ratio 1.5 Height (Feet): 5 Height (Inches): 7.00 Weight (Pounds): 780 General Appearance: lethargic EENT: normal ENT inspection Neck: normal alignment Cardiovascular: normal peripheral pulses, normal rate, regular rhythm Respiratory/Chest: chest wall non-tender, lungs clear, normal breath sounds Abdomen: normal bowel sounds, non tender, soft Edema: no edema noted Arm (L), no edema noted Arm (R), no edema noted Leg (L), no edema noted Leg (R), no edema noted Pedal (L), no edema noted Pedal (R), no edema noted Generalized Neurologic: responsive, motor weakness Skin: normal pigmentation, warm/dry KADIE SO Jan 18, 2017 08:26
--- NOTE | 2017-01-18 16:10 | General Progress Note ---
Assessment/Plan Assessment/Plan (1) Multiple joint pain (2) Lumbar degenerative disc disease (3) Lumbar spondylosis (4) Asthma exacerbation (5) Herniated nucleus pulposus, lumbar (6) Multiple joint osteoarthritis Pt will be continued on Toradol, Percocet and Robaxin. Pt was d/w Dr. Neal and he concurred. Subjective Date patient seen: Jan 18, 2017 Time patient seen: 03:15 - pm Allergies: Coded Allergies: MORPHINE (Unverified Allergy, Intermediate, Itching, 11/25/15) TETRACYCLINE (Verified Allergy, Unknown, 11/25/15) Subjective Constitutional: Denies: chills, diaphoresis, fever, malaise, weakness HEENT: Denies: blurred vision, double vision, ear discharge, ear pain, eye pain , mouth pain, mouth swelling, nose congestion, nose pain, other, tearing, throat pain, throat swelling Cardiovascular: Denies: chest pain, edema, irregular heart rate, lightheadedness, palpitations, syncope Respiratory: Denies: SOB Gastrointestinal/Abdominal: Denies: abdomen distended, abdominal pain, black stools, blood in stool, constipated, diarrhea, difficulty swallowing, nausea, poor appetite, poor fluid intake, rectal bleeding, tarry stools, vomiting Genitourinary: Denies: burning, discharge, flank pain, frequency, hematuria, incontinence, pain, urgency Neurologic/Psychiatric: Complaining of: weakness Endocrine: Denies: excessive sweating, flushing, increased hunger, increased thirst, increased urine, intolerance to cold, intolerance to heat, unexplained weight gain, unexplained weight loss Hematologic/Lymphatic: Denies: anemia, easy bleeding, easy bruising Subjective Pt is in chair in no acute distress and pain is tolerated on the Percocet. Objective Last 24 Hour Vital Signs Date Time Temp Pulse Resp B/P Pulse Ox O2 Delivery O2 Flow Rate FiO2 01/18/17 14:00 155/103 01/18/17 13:02 148/102 01/18/17 12:00 96 01/18/17 12:00 98.2 89 25 168/109 94 Room Air 01/18/17 09:02 98.9 01/18/17 08:02 84 167/103 01/18/17 08:00 98.0 91 24 162/103 97 Room Air 01/18/17 08:00 111 01/18/17 07:26 Room Air 21 01/18/17 07:26 88 20 Room Air 21 01/18/17 07:26 95 Room Air 21 01/18/17 05:12 148/88 01/18/17 04:00 96 01/18/17 04:00 98.9 88 20 143/85 98 Room Air 01/18/17 00:00 97.6 92 20 148/84 98 Room Air 01/18/17 00:00 95 01/17/17 21:58 154/86 01/17/17 20:55 82 158/88 01/17/17 20:00 98.6 88 18 156/89 98 Room Air 01/17/17 20:00 98 01/17/17 19:14 92 22 Room Air 01/17/17 19:13 94 Room Air 01/17/17 19:13 Room Air Intake and Output 01/17/17 01/18/17 19:00 07:00 Intake Total 980 ml 110.0 ml Output Total 452 ml 650 ml Balance 528 ml -540.0 ml Intake Oral 980 ml IV Total 110.0 ml Output Urine Total 450 ml 650 ml Stool Total 2 ml # Voids 4 3 # Bowel Movements 2 6 Laboratory Tests 01/18/17 05:43: White Blood Count 13.9H, Red Blood Count 4.55L, Hemoglobin 13.3L, Hematocrit 41.4L, Mean Corpuscular Volume 91, Mean Corpuscular Hemoglobin 29.2, Mean Corpuscular Hemoglobin Concent 32.1, Red Cell Distribution Width 15.1H, Platelet Count 236, Mean Platelet Volume 10.0, Neutrophils (%) (Auto) , Lymphocytes (%) (Auto) , Monocytes (%) (Auto) , Eosinophils (%) (Auto) , Basophils (%) (Auto) , Differential Total Cells Counted 100, Neutrophils % ( Manual) 90H, Lymphocytes % (Manual) 7L, Monocytes % (Manual) 3, Eosinophils % ( Manual) 0, Basophils % (Manual) 0, Band Neutrophils 0, Platelet Estimate Adequate, Platelet Morphology Normal, Anisocytosis 1+, Sodium Level 141, Potassium Level 4.7, Chloride Level 99, Carbon Dioxide Level 25, Anion Gap 17H, Blood Urea Nitrogen 40H, Creatinine 2.2H, Estimat Glomerular Filtration Rate 37.7, Glucose Level 178H, Calcium Level 9.6, Total Bilirubin < 0.2, Aspartate Amino Transf (AST/SGOT) 21, Alanine Aminotransferase (ALT/SGPT) 19, Alkaline Phosphatase 48, Pro-B-Type Natriuretic Peptide 280H, Total Protein 6.7, Albumin 4.1, Globulin 2.6, Albumin/Globulin Ratio 1.5 Height (Feet): 5 Height (Inches): 7.00 Weight (Pounds): 780 Objective General Appearance: alert, oriented x 3 EENT: PERRL/EOMI Neck: supple, normal inspection Cardiovascular: normal rate, regular rhythm Respiratory/Chest: decreased breath sounds Abdomen: non tender, soft Extremities: reduced range of motion due to patient pain and conation Edema: trace edema Skin: warm/dry KRIS CURTIS. Jan 18, 2017 16:10
[2017-01-18] MEDS ORDERED: Nitroglycerin Subl 0.4mg tab (Bottle Of 25) SL PRN (16:15)
[2017-01-18] MEDS ORDERED: Ketorolac 30mg Inj IV PRN (16:30)
[2017-01-18] MEDS ORDERED: DuoNeb 0.5-3(2.5)mg/3ml neb HHN PRN (16:30)
[2017-01-18] MEDS ORDERED: Methocarbamol 500mg tab ORAL PRN (16:30)
[2017-01-18] MEDS ORDERED: LORazepam Inj 2mg/ml 1ml IV PRN (16:30)
[2017-01-18] MEDS ORDERED: Promethazine/Codeine 5ml UD ORAL PRN (16:45)
--- NOTE | 2017-01-18 16:56 | Pulmonology Progress Note ---
Assessment/Plan Problems: (1) Acute asthma exacerbation (2) CKD (chronic kidney disease) (3) Hypertension (4) Intractable back pain Assessment/Plan taper steroids continue abx check sputum titrate fio2 to sat of 92% bipap on hold dvt prophylaxis all reviewed, labs and cxr in am dc planning soon Subjective ROS Limited/Unobtainable: No Interval Events: less short of breath Allergies: Coded Allergies: MORPHINE (Unverified Allergy, Intermediate, Itching, 11/25/15) TETRACYCLINE (Verified Allergy, Unknown, 11/25/15) Objective Last 24 Hour Vital Signs Date Time Temp Pulse Resp B/P Pulse Ox O2 Delivery O2 Flow Rate FiO2 01/18/17 14:00 155/103 01/18/17 13:02 148/102 01/18/17 12:00 96 01/18/17 12:00 98.2 89 25 168/109 94 Room Air 01/18/17 09:02 98.9 01/18/17 08:02 84 167/103 01/18/17 08:00 98.0 91 24 162/103 97 Room Air 01/18/17 08:00 111 01/18/17 07:26 Room Air 21 01/18/17 07:26 88 20 Room Air 21 01/18/17 07:26 95 Room Air 21 01/18/17 05:12 148/88 01/18/17 04:00 96 01/18/17 04:00 98.9 88 20 143/85 98 Room Air 01/18/17 00:00 97.6 92 20 148/84 98 Room Air 01/18/17 00:00 95 01/17/17 21:58 154/86 01/17/17 20:55 82 158/88 01/17/17 20:00 98.6 88 18 156/89 98 Room Air 01/17/17 20:00 98 01/17/17 19:14 92 22 Room Air 21 01/17/17 19:13 94 Room Air 21 01/17/17 19:13 Room Air Intake and Output 01/17/17 01/18/17 19:00 07:00 Intake Total 980 ml 110.0 ml Output Total 452 ml 650 ml Balance 528 ml -540.0 ml Intake Oral 980 ml IV Total 110.0 ml Output Urine Total 450 ml 650 ml Stool Total 2 ml # Voids 4 3 # Bowel Movements 2 6 General Appearance: WD/WN HEENT: normocephalic Respiratory/Chest: chest wall non-tender, lungs clear Cardiovascular: normal peripheral pulses, normal rate Abdomen: normal bowel sounds, soft, non tender Genitourinary: normal external genitalia Extremities: no cyanosis Skin: no rash Laboratory Tests 01/18/17 05:43: White Blood Count 13.9H, Red Blood Count 4.55L, Hemoglobin 13.3L, Hematocrit 41.4L, Mean Corpuscular Volume 91, Mean Corpuscular Hemoglobin 29.2, Mean Corpuscular Hemoglobin Concent 32.1, Red Cell Distribution Width 15.1H, Platelet Count 236, Mean Platelet Volume 10.0, Neutrophils (%) (Auto) , Lymphocytes (%) (Auto) , Monocytes (%) (Auto) , Eosinophils (%) (Auto) , Basophils (%) (Auto) , Differential Total Cells Counted 100, Neutrophils % ( Manual) 90H, Lymphocytes % (Manual) 7L, Monocytes % (Manual) 3, Eosinophils % ( Manual) 0, Basophils % (Manual) 0, Band Neutrophils 0, Platelet Estimate Adequate, Platelet Morphology Normal, Anisocytosis 1+, Sodium Level 141, Potassium Level 4.7, Chloride Level 99, Carbon Dioxide Level 25, Anion Gap 17H, Blood Urea Nitrogen 40H, Creatinine 2.2H, Estimat Glomerular Filtration Rate 37.7, Glucose Level 178H, Calcium Level 9.6, Total Bilirubin < 0.2, Aspartate Amino Transf (AST/SGOT) 21, Alanine Aminotransferase (ALT/SGPT) 19, Alkaline Phosphatase 48, Pro-B-Type Natriuretic Peptide 280H, Total Protein 6.7, Albumin 4.1, Globulin 2.6, Albumin/Globulin Ratio 1.5 Current Medications Medications (Trade) Dose Ordered Sig/Alexis Route PRN Reason Start Time Stop Time Status Last Admin Dose Admin Albuterol/ Ipratropium (DuoNeb 0.5-3(2.5)mg/3ml) 3 ml Q4H PRN HHN dyspnea 01/18/17 16:30 01/23/17 16:29 Amlodipine Besylate (Norvasc) 5 mg Q12HR ORAL 01/18/17 21:00 02/17/17 20:59 Dextrose (Dextrose 50%) STAT PRN IV Hypoglycemia 01/18/17 16:30 02/17/17 16:29 Finasteride (Proscar) 5 mg DAILY ORAL 01/19/17 09:00 02/18/17 08:59 Heparin Sodium (Porcine) (Heparin 5000 units/ml) 5,000 units EVERY 12 HOURS SUBQ 01/18/17 21:00 02/17/17 20:59 Hydralazine HCl (Apresoline) 25 mg EVERY 8 HOURS ORAL 01/18/17 22:00 02/17/17 21:59 Ketorolac Tromethamine (Toradol 30mg) 30 mg Q8H PRN IV Moderate Pain (Pain Scale 4-6) 01/18/17 16:30 01/23/17 16:29 Lidocaine (Lidoderm 5% PATCH) 1 patch DAILY TDERMAL 01/19/17 09:00 02/18/17 08:59 Lorazepam (Ativan 2mg/ml 1ml) 0.5 mg Q4H PRN IV For Anxiety 01/18/17 16:30 01/25/17 16:29 Methocarbamol (Robaxin) 500 mg Q8H PRN ORAL muscle spasm 01/18/17 16:30 02/17/17 16:29 Methylprednisolone Sodium Succinate (Solu-MEDROL) 60 mg EVERY 12 HOURS IV 01/18/17 21:00 02/17/17 20:59 Nitroglycerin (Ntg) 0.4 mg Q5M X 3 DOSES PRN SL Prn Chest Pain 01/18/17 16:15 02/17/17 16:14 Ondansetron HCl (Zofran) 4 mg Q6H PRN IVP Nausea & Vomiting 01/18/17 16:45 02/17/17 16:44 Oxycodone/ Acetaminophen (Percocet 10/325) 1 tab Q4H PRN ORAL Severe Pain (Pain Scale 7-10) 01/18/17 18:15 01/25/17 18:14 Piperacillin Sod/ Tazobactam Sod/ Dextrose (Zosyn/D5W) 110 ml @ 27.5 mls/hr EVERY 8 HOURS IVPB 01/18/17 22:00 01/25/17 21:59 Promethazine HCl/ Codeine (Phenergan with Codeine) 5 ml Q6H PRN ORAL cough 01/18/17 16:45 02/17/17 16:44 Tamsulosin HCl (Flomax) 0.4 mg BEDTIME ORAL 01/18/17 21:00 02/17/17 20:59 Temazepam (Restoril) 15 mg HSPRN PRN ORAL Insomnia 01/18/17 21:00 01/25/17 20:59 Theophylline (Oscar-Dur) 100 mg TWICE A DAY ORAL 01/18/17 18:00 02/17/17 17:59 ADDIS SANCHEZ Jan 18, 2017 16:56
[2017-01-18] MEDS ORDERED: Solu-MEDROL 125mg Inj IV SCH (21:00)
[2017-01-18] MEDS: HydrALAZINE 25mg tab ORAL SCH (21:30)
[2017-01-18] MEDS: Tamsulosin 0.4mg cap ORAL SCH (21:30)
[2017-01-18] MEDS ORDERED: HydrALAZINE 10mg Tab ORAL SCH (22:00)
[2017-01-18] MEDS: Piperacillin/Tazobactam 3.375 GM in D5W 110 ML IVPB SCH (22:04)
--- NOTE | 2017-01-18 22:29 | Nephrology Progress Note ---
Assessment/Plan Problem List: (1) HTN (hypertension) (2) Acute asthma exacerbation (3) CKD (chronic kidney disease) Assessment: acute on chronic. 2/2 steroids. Plan renal function improving. cont to monitor. d/c planning. Subjective Subjective events noted. patient refusing HH for discharge. Objective Objective Last 24 Hour Vital Signs Date Time Temp Pulse Resp B/P Pulse Ox O2 Delivery O2 Flow Rate FiO2 01/18/17 21:30 160/105 01/18/17 21:30 90 160/105 01/18/17 20:00 97.7 90 22 160/113 100 Room Air 01/18/17 20:00 91 01/18/17 16:00 97.6 95 24 150/104 96 Room Air 01/18/17 16:00 100 01/18/17 14:00 155/103 01/18/17 13:02 148/102 01/18/17 12:00 96 01/18/17 12:00 98.2 89 25 168/109 94 Room Air 01/18/17 09:02 98.9 01/18/17 08:02 84 167/103 01/18/17 08:00 98.0 91 24 162/103 97 Room Air 01/18/17 08:00 111 01/18/17 07:26 Room Air 21 01/18/17 07:26 88 20 Room Air 21 01/18/17 07:26 95 Room Air 21 01/18/17 05:12 148/88 01/18/17 04:00 96 01/18/17 04:00 98.9 88 20 143/85 98 Room Air 01/18/17 00:00 97.6 92 20 148/84 98 Room Air 01/18/17 00:00 95 Intake and Output 01/17/17 01/18/17 19:00 07:00 Intake Total 980 ml 110.0 ml Output Total 452 ml 650 ml Balance 528 ml -540.0 ml Intake Oral 980 ml IV Total 110.0 ml Output Urine Total 450 ml 650 ml Stool Total 2 ml # Voids 4 3 # Bowel Movements 2 6 Laboratory Tests 01/18/17 05:43: White Blood Count 13.9H, Red Blood Count 4.55L, Hemoglobin 13.3L, Hematocrit 41.4L, Mean Corpuscular Volume 91, Mean Corpuscular Hemoglobin 29.2, Mean Corpuscular Hemoglobin Concent 32.1, Red Cell Distribution Width 15.1H, Platelet Count 236, Mean Platelet Volume 10.0, Neutrophils (%) (Auto) , Lymphocytes (%) (Auto) , Monocytes (%) (Auto) , Eosinophils (%) (Auto) , Basophils (%) (Auto) , Differential Total Cells Counted 100, Neutrophils % ( Manual) 90H, Lymphocytes % (Manual) 7L, Monocytes % (Manual) 3, Eosinophils % ( Manual) 0, Basophils % (Manual) 0, Band Neutrophils 0, Platelet Estimate Adequate, Platelet Morphology Normal, Anisocytosis 1+, Sodium Level 141, Potassium Level 4.7, Chloride Level 99, Carbon Dioxide Level 25, Anion Gap 17H, Blood Urea Nitrogen 40H, Creatinine 2.2H, Estimat Glomerular Filtration Rate 37.7, Glucose Level 178H, Calcium Level 9.6, Total Bilirubin < 0.2, Aspartate Amino Transf (AST/SGOT) 21, Alanine Aminotransferase (ALT/SGPT) 19, Alkaline Phosphatase 48, Pro-B-Type Natriuretic Peptide 280H, Total Protein 6.7, Albumin 4.1, Globulin 2.6, Albumin/Globulin Ratio 1.5 Height (Feet): 5 Height (Inches): 7.00 Weight (Pounds): 780 General Appearance: no apparent distress Cardiovascular: normal rate, regular rhythm Respiratory/Chest: decreased breath sounds Abdomen: non tender, soft HI LIZARRAGA 11, 2017 22:29
[2017-01-19] VITALS: BP 147/96
[2017-01-19 04:00] VITALS: BP 153/103
[2017-01-19] MEDS: Piperacillin/Tazobactam 3.375 GM in D5W 110 ML IVPB SCH ×3 (05:36→21:30)
[2017-01-19] MEDS: HydrALAZINE 25mg tab ORAL SCH ×3 (05:37→21:22)
[2017-01-19 07:39] LABS: BASOPHILS % (AUTO) 2.2 % (0.0-2.0); LYMPHOCYTES % (AUTO) 11.8 % (20.0-45.0); MEAN CORPUSCULAR HEMOGLOBIN 30.1 PG (27.0-31.0); MEAN CORPUSCULAR HGB CONC 32.6 G/DL (32.0-36.0); MEAN CORPUSCULAR VOLUME 93 FL (80-99); MEAN PLATELET VOLUME 9.4 FL (6.5-10.1); MONOCYTES % (AUTO) 7.7 % (1.0-10.0); NEUTROPHILS % (AUTO) 78.3 % (45.0-75.0); PLATELET COUNT 196 K/UL (150-450); RED BLOOD COUNT 4.27 M/UL (4.70-6.10); RED CELL DISTRIBUTION WIDTH 14.5 % (11.6-14.8); WHITE BLOOD COUNT 11.6 K/UL (4.8-10.8)
[2017-01-19 07:52] VITALS: BP 146/93
[2017-01-19 08:04] LABS: ALANINE AMINOTRANSFERASE 21 U/L (3-41); ALBUMIN/GLOBULIN RATIO 1.8 (1.0-2.7); ANION GAP 17 (5-15); ASPARTATE AMINO TRANSFERASE 24 U/L (5-40); CALCIUM 9.3 mg/dL (8.6-10.2); CARBON DIOXIDE 25 mEQ/L (20-30); CHLORIDE 100 mEQ/L (98-107); CREATININE 2.2 mg/dL (0.7-1.2); GLOMERULAR FILTRATION RATE 37.7 mL/min (>60); HEMOLYSIS 11; POTASSIUM 4.3 mEQ/L (3.4-4.9); SODIUM 142 mEQ/L (135-145); TOTAL PROTEIN 6.3 g/dL (6.6-8.7)
[2017-01-19] MEDS: Theophylline ER 100mg ORAL SCH ×2 (08:28→17:12)
[2017-01-19] MEDS: Heparin 5000 units/ml inj SUBQ SCH ×2 (08:30→21:20)
--- NOTE | 2017-01-19 08:46 | General Progress Note ---
Assessment/Plan Assessment/Plan (1) Multiple joint pain (2) Lumbar degenerative disc disease (3) Lumbar spondylosis (4) Asthma exacerbation (5) Herniated nucleus pulposus, lumbar (6) Multiple joint osteoarthritis Pt will be continued on Toradol, Percocet and Robaxin. Pt was d/w Dr. Neal and he concurred. Subjective Date patient seen: Jan 19, 2017 Time patient seen: 06:30 - am Allergies: Coded Allergies: MORPHINE (Unverified Allergy, Intermediate, Itching, 11/25/15) TETRACYCLINE (Verified Allergy, Unknown, 11/25/15) Subjective Constitutional: Denies: chills, diaphoresis, fever, malaise, weakness HEENT: Denies: blurred vision, double vision, ear discharge, ear pain, eye pain , mouth pain, mouth swelling, nose congestion, nose pain, other, tearing, throat pain, throat swelling Cardiovascular: Denies: chest pain, edema, irregular heart rate, lightheadedness, palpitations, syncope Respiratory: Denies: SOB Gastrointestinal/Abdominal: Denies: abdomen distended, abdominal pain, black stools, blood in stool, constipated, diarrhea, difficulty swallowing, nausea, poor appetite, poor fluid intake, rectal bleeding, tarry stools, vomiting Genitourinary: Denies: burning, discharge, flank pain, frequency, hematuria, incontinence, pain, urgency Neurologic/Psychiatric: Complaining of: weakness Endocrine: Denies: excessive sweating, flushing, increased hunger, increased thirst, increased urine, intolerance to cold, intolerance to heat, unexplained weight gain, unexplained weight loss Hematologic/Lymphatic: Denies: anemia, easy bleeding, easy bruising Subjective Pain is tolerated on the Percocet which is at a moderate level at this time. Objective Last 24 Hour Vital Signs Date Time Temp Pulse Resp B/P Pulse Ox O2 Delivery O2 Flow Rate FiO2 01/19/17 08:29 95 146/93 01/19/17 07:52 98.7 95 18 146/93 98 Nasal Cannula 2.0 01/19/17 07:40 98 Nasal Cannula 3.0 32 01/19/17 07:40 Nasal Cannula 3.0 32 01/19/17 07:39 92 20 Nasal Cannula 3.0 32 01/19/17 05:37 150/103 01/19/17 04:00 89 01/19/17 04:00 97.7 88 20 153/103 93 Room Air 01/19/17 00:00 95 01/19/17 00:00 97.9 94 22 147/96 95 Room Air 01/18/17 22:00 86 20 Room Air 21 01/18/17 21:30 160/105 01/18/17 21:30 90 160/105 01/18/17 20:00 97.7 90 22 160/113 100 Room Air 01/18/17 20:00 91 01/18/17 19:00 95 Room Air 21 01/18/17 19:00 Room Air 21 01/18/17 16:00 97.6 95 24 150/104 96 Room Air 01/18/17 16:00 100 01/18/17 14:00 155/103 01/18/17 13:02 148/102 01/18/17 12:00 96 01/18/17 12:00 98.2 89 25 168/109 94 Room Air 01/18/17 09:02 98.9 Intake and Output 01/18/17 01/19/17 19:00 07:00 Intake Total 510.0 ml 377.5 ml Output Total 400 ml Balance 110.0 ml 377.5 ml Intake Oral 400 ml 240 ml IV Total 110.0 ml 137.5 ml Output Urine Total 400 ml # Voids 4 4 # Bowel Movements 2 Laboratory Tests 01/19/17 06:15: White Blood Count 11.6H, Red Blood Count 4.27L, Hemoglobin 12.9L, Hematocrit 39.5L, Mean Corpuscular Volume 93, Mean Corpuscular Hemoglobin 30.1, Mean Corpuscular Hemoglobin Concent 32.6, Red Cell Distribution Width 14.5, Platelet Count 196, Mean Platelet Volume 9.4, Neutrophils (%) (Auto) 78.3H, Lymphocytes ( %) (Auto) 11.8L, Monocytes (%) (Auto) 7.7, Eosinophils (%) (Auto) 0.0, Basophils (%) (Auto) 2.2H, Sodium Level 142, Potassium Level 4.3, Chloride Level 100, Carbon Dioxide Level 25, Anion Gap 17H, Blood Urea Nitrogen 35H, Creatinine 2.2H, Estimat Glomerular Filtration Rate 37.7, Glucose Level 111H, Calcium Level 9.3, Total Bilirubin < 0.2, Aspartate Amino Transf (AST/SGOT) 24, Alanine Aminotransferase (ALT/SGPT) 21, Alkaline Phosphatase 46, Pro-B-Type Natriuretic Peptide 190H, Total Protein 6.3L, Albumin 4.1, Globulin 2.2, Albumin /Globulin Ratio 1.8 Height (Feet): 5 Height (Inches): 7.00 Weight (Pounds): 780 Objective General Appearance: alert, oriented x 3 EENT: PERRL/EOMI Neck: supple, normal inspection Cardiovascular: normal rate, regular rhythm Respiratory/Chest: decreased breath sounds Abdomen: non tender, soft Extremities: reduced range of motion due to patient pain and conation Edema: trace edema Skin: warm/dry KRIS CURTIS Jan 19, 2017 08:46
--- NOTE | 2017-01-19 09:11 | Diagnostic Imaging Report ---
Indication: Dyspnea Comparison: 01/15/17 A single view chest radiograph was obtained. Findings: Heart is enlarged. Bones are unremarkable. No significant change is appreciated. Impression: No acute disease
[2017-01-19 11:38] VITALS: BP 159/97
--- NOTE | 2017-01-19 12:59 | General Progress Note ---
Assessment/Plan Problem List: (1) Spondylolisthesis of lumbar region ICD Codes: M43.16 - Spondylolisthesis, lumbar region SNOMED: 661464625 (2) Renal failure syndrome (3) Cephalalgia ICD Codes: R51 - Headache SNOMED: 36092241 (4) Renal hypertension (5) COPD exacerbation ICD Codes: J44.1 - Obstructive chronic bronchitis with exacerbation SNOMED: 964721612 (6) Anemia ICD Codes: D64.9 - Anemia, unspecified SNOMED: 606228944 (7) Hypertension ICD Codes: I10 - Hypertension SNOMED: 85568468 (8) Lumbar spondylosis ICD Codes: M47.816 - Spondylosis without myelopathy or radiculopathy, lumbar region SNOMED: 096630101 (9) CHF (congestive heart failure) ICD Codes: I50.9 - Heart failure, unspecified SNOMED: 97070943 (10) Asthma ICD Codes: J45.909 - Asthma SNOMED: 128906660 (11) Acute asthma exacerbation ICD Codes: J45.901 - Asthma with exacerbation SNOMED: 460065639 Status: progressing Assessment/Plan asthma exac treatment per pulm no wheezing today afebrile reviewed chart and labs Subjective ROS Limited/Unobtainable: Yes Allergies: Coded Allergies: MORPHINE (Unverified Allergy, Intermediate, Itching, 11/25/15) TETRACYCLINE (Verified Allergy, Unknown, 11/25/15) Objective Last 24 Hour Vital Signs Date Time Temp Pulse Resp B/P Pulse Ox O2 Delivery O2 Flow Rate FiO2 01/19/17 11:38 98.2 82 20 159/97 98 Room Air 01/19/17 08:29 95 146/93 01/19/17 08:00 93 01/19/17 07:52 98.7 95 18 146/93 98 Nasal Cannula 2.0 01/19/17 07:40 98 Nasal Cannula 3.0 32 01/19/17 07:40 Nasal Cannula 3.0 32 01/19/17 07:39 92 20 Nasal Cannula 3.0 32 01/19/17 05:37 150/103 01/19/17 04:00 89 01/19/17 04:00 97.7 88 20 153/103 93 Room Air 01/19/17 00:00 95 01/19/17 00:00 97.9 94 22 147/96 95 Room Air 01/18/17 22:00 86 20 Room Air 21 01/18/17 21:30 160/105 01/18/17 21:30 90 160/105 01/18/17 20:00 97.7 90 22 160/113 100 Room Air 01/18/17 20:00 91 01/18/17 19:00 95 Room Air 21 01/18/17 19:00 Room Air 21 01/18/17 16:00 97.6 95 24 150/104 96 Room Air 01/18/17 16:00 100 01/18/17 14:00 155/103 01/18/17 13:02 148/102 Intake and Output 01/18/17 01/19/17 19:00 07:00 Intake Total 510.0 ml 377.5 ml Output Total 400 ml Balance 110.0 ml 377.5 ml Intake Oral 400 ml 240 ml IV Total 110.0 ml 137.5 ml Output Urine Total 400 ml # Voids 4 4 # Bowel Movements 2 Laboratory Tests 01/19/17 06:15: White Blood Count 11.6H, Red Blood Count 4.27L, Hemoglobin 12.9L, Hematocrit 39.5L, Mean Corpuscular Volume 93, Mean Corpuscular Hemoglobin 30.1, Mean Corpuscular Hemoglobin Concent 32.6, Red Cell Distribution Width 14.5, Platelet Count 196, Mean Platelet Volume 9.4, Neutrophils (%) (Auto) 78.3H, Lymphocytes ( %) (Auto) 11.8L, Monocytes (%) (Auto) 7.7, Eosinophils (%) (Auto) 0.0, Basophils (%) (Auto) 2.2H, Sodium Level 142, Potassium Level 4.3, Chloride Level 100, Carbon Dioxide Level 25, Anion Gap 17H, Blood Urea Nitrogen 35H, Creatinine 2.2H, Estimat Glomerular Filtration Rate 37.7, Glucose Level 111H, Calcium Level 9.3, Total Bilirubin < 0.2, Aspartate Amino Transf (AST/SGOT) 24, Alanine Aminotransferase (ALT/SGPT) 21, Alkaline Phosphatase 46, Pro-B-Type Natriuretic Peptide 190H, Total Protein 6.3L, Albumin 4.1, Globulin 2.2, Albumin /Globulin Ratio 1.8 Height (Feet): 5 Height (Inches): 7.00 Weight (Pounds): 780 Neck: supple Cardiovascular: normal rate Respiratory/Chest: lungs clear Abdomen: soft Luis Botello MD Jan 19, 2017 12:59
--- NOTE | 2017-01-19 14:59 | Pulmonology Progress Note ---
Assessment/Plan Problems: (1) Acute asthma exacerbation (2) CKD (chronic kidney disease) (3) Hypertension (4) Intractable back pain Assessment/Plan off steroids continue abx check sputum, nothing available yet titrate fio2 to sat of 92% dvt prophylaxis all reviewed, labs and cxr in am dc planning probably for tomorrow Subjective ROS Limited/Unobtainable: No Interval Events: less short of breath, improving Allergies: Coded Allergies: MORPHINE (Unverified Allergy, Intermediate, Itching, 11/25/15) TETRACYCLINE (Verified Allergy, Unknown, 11/25/15) Objective Last 24 Hour Vital Signs Date Time Temp Pulse Resp B/P Pulse Ox O2 Delivery O2 Flow Rate FiO2 01/19/17 14:04 159/97 01/19/17 11:38 98.2 82 20 159/97 98 Room Air 01/19/17 08:29 95 146/93 01/19/17 08:00 93 01/19/17 07:52 98.7 95 18 146/93 98 Nasal Cannula 2.0 01/19/17 07:40 98 Nasal Cannula 3.0 32 01/19/17 07:40 Nasal Cannula 3.0 32 01/19/17 07:39 92 20 Nasal Cannula 3.0 32 01/19/17 05:37 150/103 01/19/17 04:00 89 01/19/17 04:00 97.7 88 20 153/103 93 Room Air 01/19/17 00:00 95 01/19/17 00:00 97.9 94 22 147/96 95 Room Air 01/18/17 22:00 86 20 Room Air 21 01/18/17 21:30 160/105 01/18/17 21:30 90 160/105 01/18/17 20:00 97.7 90 22 160/113 100 Room Air 01/18/17 20:00 91 01/18/17 19:00 95 Room Air 21 01/18/17 19:00 Room Air 21 01/18/17 16:00 97.6 95 24 150/104 96 Room Air 01/18/17 16:00 100 Intake and Output 01/18/17 01/19/17 19:00 07:00 Intake Total 510.0 ml 377.5 ml Output Total 400 ml Balance 110.0 ml 377.5 ml Intake Oral 400 ml 240 ml IV Total 110.0 ml 137.5 ml Output Urine Total 400 ml # Voids 4 4 # Bowel Movements 2 General Appearance: WD/WN HEENT: normocephalic, atraumatic Respiratory/Chest: chest wall non-tender, lungs clear Cardiovascular: normal peripheral pulses, normal rate Abdomen: normal bowel sounds, soft, non tender Genitourinary: normal external genitalia Extremities: no clubbing Skin: no ulcers 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 Lymphatic: no neck adenopathy, no groin adenopathy Laboratory Tests 01/19/17 06:15: White Blood Count 11.6H, Red Blood Count 4.27L, Hemoglobin 12.9L, Hematocrit 39.5L, Mean Corpuscular Volume 93, Mean Corpuscular Hemoglobin 30.1, Mean Corpuscular Hemoglobin Concent 32.6, Red Cell Distribution Width 14.5, Platelet Count 196, Mean Platelet Volume 9.4, Neutrophils (%) (Auto) 78.3H, Lymphocytes ( %) (Auto) 11.8L, Monocytes (%) (Auto) 7.7, Eosinophils (%) (Auto) 0.0, Basophils (%) (Auto) 2.2H, Sodium Level 142, Potassium Level 4.3, Chloride Level 100, Carbon Dioxide Level 25, Anion Gap 17H, Blood Urea Nitrogen 35H, Creatinine 2.2H, Estimat Glomerular Filtration Rate 37.7, Glucose Level 111H, Calcium Level 9.3, Total Bilirubin < 0.2, Aspartate Amino Transf (AST/SGOT) 24, Alanine Aminotransferase (ALT/SGPT) 21, Alkaline Phosphatase 46, Pro-B-Type Natriuretic Peptide 190H, Total Protein 6.3L, Albumin 4.1, Globulin 2.2, Albumin /Globulin Ratio 1.8 Current Medications Medications (Trade) Dose Ordered Sig/Alexis Route PRN Reason Start Time Stop Time Status Last Admin Dose Admin Albuterol/ Ipratropium (DuoNeb 0.5-3(2.5)mg/3ml) 3 ml Q4H PRN HHN dyspnea 01/18/17 16:30 01/23/17 16:29 Amlodipine Besylate (Norvasc) 5 mg Q12HR ORAL 01/18/17 21:00 02/17/17 20:59 01/19/17 08:29 Dextrose (Dextrose 50%) STAT PRN IV Hypoglycemia 01/18/17 16:30 02/17/17 16:29 Finasteride (Proscar) 5 mg DAILY ORAL 01/19/17 09:00 02/18/17 08:59 01/19/17 08:28 Heparin Sodium (Porcine) (Heparin 5000 units/ml) 5,000 units EVERY 12 HOURS SUBQ 01/18/17 21:00 02/17/17 20:59 01/19/17 08:30 Hydralazine HCl (Apresoline) 25 mg EVERY 8 HOURS ORAL 01/18/17 22:00 02/17/17 21:59 01/19/17 14:04 Lidocaine (Lidoderm 5% PATCH) 1 patch DAILY TDERMAL 01/19/17 09:00 02/18/17 08:59 01/19/17 08:29 Lorazepam (Ativan 2mg/ml 1ml) 0.5 mg Q4H PRN IV For Anxiety 01/18/17 16:30 01/25/17 16:29 Methocarbamol (Robaxin) 500 mg Q8H PRN ORAL muscle spasm 01/18/17 16:30 02/17/17 16:29 Nitroglycerin (Ntg) 0.4 mg Q5M X 3 DOSES PRN SL Prn Chest Pain 01/18/17 16:15 02/17/17 16:14 Ondansetron HCl (Zofran) 4 mg Q6H PRN IVP Nausea & Vomiting 01/18/17 16:45 02/17/17 16:44 Oxycodone/ Acetaminophen (Percocet 10/325) 1 tab Q4H PRN ORAL Severe Pain (Pain Scale 7-10) 01/18/17 18:15 01/25/17 18:14 01/18/17 21:35 Piperacillin Sod/ Tazobactam Sod/ Dextrose (Zosyn/D5W) 110 ml @ 27.5 mls/hr EVERY 8 HOURS IVPB 01/18/17 22:00 01/25/17 21:59 01/19/17 14:03 Promethazine HCl/ Codeine (Phenergan with Codeine) 5 ml Q6H PRN ORAL cough 01/18/17 16:45 02/17/17 16:44 Tamsulosin HCl (Flomax) 0.4 mg BEDTIME ORAL 01/18/17 21:00 02/17/17 20:59 01/18/17 21:30 Temazepam (Restoril) 15 mg HSPRN PRN ORAL Insomnia 01/18/17 21:00 01/25/17 20:59 Theophylline (Oscar-Dur) 100 mg TWICE A DAY ORAL 01/18/17 18:00 02/17/17 17:59 01/19/17 08:28 ADDIS SANCHEZ Jan 19, 2017 14:59
[2017-01-19 15:35] VITALS: BP 144/105
[2017-01-19 20:22] VITALS: BP 154/122
[2017-01-19] MEDS: Tamsulosin 0.4mg cap ORAL SCH (21:21)
--- NOTE | 2017-01-19 21:52 | Nephrology Progress Note ---
Assessment/Plan Problem List: (1) Acute asthma exacerbation (2) HTN (hypertension) (3) CKD (chronic kidney disease) Plan Monitor renal function Avoid nephrotoxic agents Monitor intake and output Continue abx AM labs Subjective Subjective In bed, distress noted on mild exertion Objective Objective Last 24 Hour Vital Signs Date Time Temp Pulse Resp B/P Pulse Ox O2 Delivery O2 Flow Rate FiO2 01/19/17 21:22 154/110 01/19/17 21:22 89 154/110 01/19/17 20:22 98.6 89 21 154/122 97 Room Air 01/19/17 20:06 Room Air 01/19/17 20:06 95 Room Air 01/19/17 20:05 95 20 Room Air 21 01/19/17 16:00 81 01/19/17 15:35 98.2 91 20 144/105 98 Nasal Cannula 2.0 01/19/17 14:04 159/97 01/19/17 12:00 96 01/19/17 11:38 98.2 82 20 159/97 98 Room Air 01/19/17 08:29 95 146/93 01/19/17 08:00 93 01/19/17 07:52 98.7 95 18 146/93 98 Nasal Cannula 2.0 01/19/17 07:40 98 Nasal Cannula 3.0 32 01/19/17 07:40 Nasal Cannula 3.0 32 01/19/17 07:39 92 20 Nasal Cannula 3.0 32 01/19/17 05:37 150/103 01/19/17 04:00 89 01/19/17 04:00 97.7 88 20 153/103 93 Room Air 01/19/17 00:00 95 01/19/17 00:00 97.9 94 22 147/96 95 Room Air 01/18/17 22:00 86 20 Room Air 21 Intake and Output 01/18/17 01/19/17 19:00 07:00 Intake Total 510.0 ml 377.5 ml Output Total 400 ml Balance 110.0 ml 377.5 ml Intake Oral 400 ml 240 ml IV Total 110.0 ml 137.5 ml Output Urine Total 400 ml # Voids 4 4 # Bowel Movements 2 Laboratory Tests 01/19/17 06:15: White Blood Count 11.6H, Red Blood Count 4.27L, Hemoglobin 12.9L, Hematocrit 39.5L, Mean Corpuscular Volume 93, Mean Corpuscular Hemoglobin 30.1, Mean Corpuscular Hemoglobin Concent 32.6, Red Cell Distribution Width 14.5, Platelet Count 196, Mean Platelet Volume 9.4, Neutrophils (%) (Auto) 78.3H, Lymphocytes ( %) (Auto) 11.8L, Monocytes (%) (Auto) 7.7, Eosinophils (%) (Auto) 0.0, Basophils (%) (Auto) 2.2H, Sodium Level 142, Potassium Level 4.3, Chloride Level 100, Carbon Dioxide Level 25, Anion Gap 17H, Blood Urea Nitrogen 35H, Creatinine 2.2H, Estimat Glomerular Filtration Rate 37.7, Glucose Level 111H, Calcium Level 9.3, Total Bilirubin < 0.2, Aspartate Amino Transf (AST/SGOT) 24, Alanine Aminotransferase (ALT/SGPT) 21, Alkaline Phosphatase 46, Pro-B-Type Natriuretic Peptide 190H, Total Protein 6.3L, Albumin 4.1, Globulin 2.2, Albumin /Globulin Ratio 1.8 Height (Feet): 5 Height (Inches): 7.00 Weight (Pounds): 780 General Appearance: no apparent distress, alert EENT: normal ENT inspection Neck: non-tender, normal alignment Cardiovascular: normal rate Respiratory/Chest: decreased breath sounds Abdomen: non tender, other - obesity Neurologic: alert, oriented x 3, responsive, normal mood/affect Jenny Gonzalez N.P. Jan 19, 2017 21:52
[2017-01-20 00:10] VITALS: BP 147/100
[2017-01-20 03:58] VITALS: BP 134/81
[2017-01-20] MEDS: Piperacillin/Tazobactam 3.375 GM in D5W 110 ML IVPB SCH (05:36)
[2017-01-20] MEDS: HydrALAZINE 25mg tab ORAL SCH (05:36)
--- NOTE | 2017-01-20 07:07 | Cardiology Progress Note ---
Assessment/Plan Assessment/Plan The patient is seen and examined, full consult note is dictated. Objective Last 24 Hour Vital Signs Date Time Temp Pulse Resp B/P Pulse Ox O2 Delivery O2 Flow Rate FiO2 01/20/17 05:36 135/85 01/20/17 04:00 84 01/20/17 03:58 98.4 90 21 134/81 96 Room Air 01/20/17 00:10 98.3 87 20 147/100 98 Room Air 01/20/17 00:00 91 01/19/17 21:22 154/110 01/19/17 21:22 89 154/110 01/19/17 20:22 98.6 89 21 154/122 97 Room Air 01/19/17 20:06 Room Air 01/19/17 20:06 95 Room Air 01/19/17 20:05 95 20 Room Air 21 01/19/17 20:00 88 01/19/17 16:00 81 01/19/17 15:35 98.2 91 20 144/105 98 Nasal Cannula 2.0 01/19/17 14:04 159/97 01/19/17 12:00 96 01/19/17 11:38 98.2 82 20 159/97 98 Room Air 01/19/17 08:29 95 146/93 01/19/17 08:00 93 01/19/17 07:52 98.7 95 18 146/93 98 Nasal Cannula 2.0 01/19/17 07:40 98 Nasal Cannula 3.0 32 01/19/17 07:40 Nasal Cannula 3.0 32 01/19/17 07:39 92 20 Nasal Cannula 3.0 32 Intake and Output 01/19/17 01/20/17 19:00 07:00 Intake Total 942.5 ml 110.0 ml Balance 942.5 ml 110.0 ml Intake Oral 750 ml IV Total 192.5 ml 110.0 ml # Voids 4 3 # Bowel Movements 2 LORETTA MENDOZA 13, 2017 07:07
[2017-01-20 08:00] VITALS: BP 146/76
[2017-01-20] MEDS: Theophylline ER 100mg ORAL SCH (08:21)
[2017-01-20] MEDS: Heparin 5000 units/ml inj SUBQ SCH (08:22)
--- NOTE | 2017-01-20 08:55 | General Progress Note ---
Assessment/Plan Assessment/Plan (1) Multiple joint pain (2) Lumbar degenerative disc disease (3) Lumbar spondylosis (4) Asthma exacerbation (5) Herniated nucleus pulposus, lumbar (6) Multiple joint osteoarthritis Pt will be continued on Toradol, Percocet and Robaxin. Pt was d/w Dr. Neal and he concurred. Subjective Date patient seen: Jan 20, 2017 Time patient seen: 08:30 - am Allergies: Coded Allergies: MORPHINE (Unverified Allergy, Intermediate, Itching, 11/25/15) TETRACYCLINE (Verified Allergy, Unknown, 11/25/15) Subjective Constitutional: Denies: chills, diaphoresis, fever, malaise, weakness HEENT: Denies: blurred vision, double vision, ear discharge, ear pain, eye pain , mouth pain, mouth swelling, nose congestion, nose pain, other, tearing, throat pain, throat swelling Cardiovascular: Denies: chest pain, edema, irregular heart rate, lightheadedness, palpitations, syncope Respiratory: Denies: SOB Gastrointestinal/Abdominal: Denies: abdomen distended, abdominal pain, black stools, blood in stool, constipated, diarrhea, difficulty swallowing, nausea, poor appetite, poor fluid intake, rectal bleeding, tarry stools, vomiting Genitourinary: Denies: burning, discharge, flank pain, frequency, hematuria, incontinence, pain, urgency Neurologic/Psychiatric: Complaining of: weakness Endocrine: Denies: excessive sweating, flushing, increased hunger, increased thirst, increased urine, intolerance to cold, intolerance to heat, unexplained weight gain, unexplained weight loss Hematologic/Lymphatic: Denies: anemia, easy bleeding, easy bruising Subjective His pain has been tolerated on the Percocet. Objective Last 24 Hour Vital Signs Date Time Temp Pulse Resp B/P Pulse Ox O2 Delivery O2 Flow Rate FiO2 01/20/17 08:20 90 135/85 01/20/17 08:00 96.6 89 18 146/76 96 Room Air 01/20/17 07:44 90 22 99 Nasal Cannula 2.0 28 01/20/17 07:43 Nasal Cannula 2.0 01/20/17 07:34 88 24 Room Air 21 01/20/17 07:33 88 24 95 Room Air 21 01/20/17 07:30 95 Room Air 01/20/17 05:36 135/85 01/20/17 04:00 84 01/20/17 03:58 98.4 90 21 134/81 96 Room Air 01/20/17 00:10 98.3 87 20 147/100 98 Room Air 01/20/17 00:00 91 01/19/17 21:22 154/110 01/19/17 21:22 89 154/110 01/19/17 20:22 98.6 89 21 154/122 97 Room Air 01/19/17 20:06 Room Air 01/19/17 20:06 95 Room Air 01/19/17 20:05 95 20 Room Air 21 01/19/17 20:00 88 01/19/17 16:00 81 01/19/17 15:35 98.2 91 20 144/105 98 Nasal Cannula 2.0 01/19/17 14:04 159/97 01/19/17 12:00 96 01/19/17 11:38 98.2 82 20 159/97 98 Room Air Intake and Output 01/19/17 01/20/17 19:00 07:00 Intake Total 942.5 ml 137.5 ml Balance 942.5 ml 137.5 ml Intake Oral 750 ml IV Total 192.5 ml 137.5 ml # Voids 4 3 # Bowel Movements 2 Height (Feet): 5 Height (Inches): 7.00 Weight (Pounds): 780 Objective General Appearance: alert, oriented x 3 EENT: PERRL/EOMI Neck: supple, normal inspection Cardiovascular: normal rate, regular rhythm Respiratory/Chest: decreased breath sounds Abdomen: non tender, soft Extremities: reduced range of motion due to patient pain and conation Edema: trace edema Skin: warm/dry KRIS CURTIS Jan 20, 2017 08:55
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
--- NOTE | 2017-01-20 10:37 | Diagnostic Imaging Report ---
Indication: DYSPNEA Technique: One view of the chest Comparison: 01/18/2017 Findings: The heart remains borderline enlarged. Lungs and pleural spaces are clear. Findings are unchanged Impression: Unchanged, over one day, findings as above.
[2017-01-20 12:00] VITALS: BP 139/87
--- NOTE | 2017-01-20 13:06 | General Progress Note ---
Assessment/Plan Problem List: (1) Spondylolisthesis of lumbar region ICD Codes: M43.16 - Spondylolisthesis, lumbar region SNOMED: 809567790 (2) Renal failure syndrome (3) Cephalalgia ICD Codes: R51 - Headache SNOMED: 76615994 (4) Renal hypertension (5) COPD exacerbation ICD Codes: J44.1 - Obstructive chronic bronchitis with exacerbation SNOMED: 246283858 (6) Anemia ICD Codes: D64.9 - Anemia, unspecified SNOMED: 843686465 (7) Hypertension ICD Codes: I10 - Hypertension SNOMED: 10370956 (8) Lumbar spondylosis ICD Codes: M47.816 - Spondylosis without myelopathy or radiculopathy, lumbar region SNOMED: 890974362 (9) CHF (congestive heart failure) ICD Codes: I50.9 - Heart failure, unspecified SNOMED: 46177716 (10) Asthma ICD Codes: J45.909 - Asthma SNOMED: 413739289 (11) Acute asthma exacerbation ICD Codes: J45.901 - Asthma with exacerbation SNOMED: 288580216 Status: progressing Assessment/Plan asthma exac treatment per pulm no wheezing today no change reviewed meds Subjective ROS Limited/Unobtainable: Yes Constitutional: Reports: no symptoms Allergies: Coded Allergies: MORPHINE (Unverified Allergy, Intermediate, Itching, 11/25/15) TETRACYCLINE (Verified Allergy, Unknown, 11/25/15) Objective Last 24 Hour Vital Signs Date Time Temp Pulse Resp B/P Pulse Ox O2 Delivery O2 Flow Rate FiO2 01/20/17 12:00 89 01/20/17 08:20 90 135/85 01/20/17 08:00 89 01/20/17 08:00 96.6 89 18 146/76 96 Room Air 01/20/17 07:44 90 22 99 Nasal Cannula 2.0 28 01/20/17 07:43 Nasal Cannula 2.0 01/20/17 07:34 88 24 Room Air 21 01/20/17 07:33 88 24 95 Room Air 21 01/20/17 07:30 95 Room Air 01/20/17 05:36 135/85 01/20/17 04:00 84 01/20/17 03:58 98.4 90 21 134/81 96 Room Air 01/20/17 00:10 98.3 87 20 147/100 98 Room Air 01/20/17 00:00 91 01/19/17 21:22 154/110 01/19/17 21:22 89 154/110 01/19/17 20:22 98.6 89 21 154/122 97 Room Air 01/19/17 20:06 Room Air 01/19/17 20:06 95 Room Air 01/19/17 20:05 95 20 Room Air 21 01/19/17 20:00 88 01/19/17 16:00 81 01/19/17 15:35 98.2 91 20 144/105 98 Nasal Cannula 2.0 01/19/17 14:04 159/97 Intake and Output 01/19/17 01/20/17 19:00 07:00 Intake Total 942.5 ml 137.5 ml Balance 942.5 ml 137.5 ml Intake Oral 750 ml IV Total 192.5 ml 137.5 ml # Voids 4 3 # Bowel Movements 2 Height (Feet): 5 Height (Inches): 7.00 Weight (Pounds): 780 EENT: PERRL/EOMI Neck: supple Cardiovascular: normal rate Respiratory/Chest: lungs clear Abdomen: soft Luis Botello MD Jan 20, 2017 13:06
--- NOTE | 2017-01-20 19:37 | Pulmonology Progress Note ---
Assessment/Plan Problems: (1) Acute asthma exacerbation (2) CKD (chronic kidney disease) (3) Hypertension (4) Intractable back pain Assessment/Plan off steroids continue abx check sputum, nothing available yet titrate fio2 to sat of 92% dvt prophylaxis all reviewed, dc home today with close outpatient f/u Subjective ROS Limited/Unobtainable: No Interval Events: seen earlier today, doing much better Allergies: Coded Allergies: MORPHINE (Unverified Allergy, Intermediate, Itching, 11/25/15) TETRACYCLINE (Verified Allergy, Unknown, 11/25/15) Objective Last 24 Hour Vital Signs Date Time Temp Pulse Resp B/P Pulse Ox O2 Delivery O2 Flow Rate FiO2 01/20/17 12:00 89 01/20/17 12:00 97.5 87 18 139/87 95 Room Air 01/20/17 08:20 90 135/85 01/20/17 08:00 89 01/20/17 08:00 96.6 89 18 146/76 96 Room Air 01/20/17 07:44 90 22 99 Nasal Cannula 2.0 28 01/20/17 07:43 Nasal Cannula 2.0 01/20/17 07:34 88 24 Room Air 21 01/20/17 07:33 88 24 95 Room Air 21 01/20/17 07:30 95 Room Air 01/20/17 05:36 135/85 01/20/17 04:00 84 01/20/17 03:58 98.4 90 21 134/81 96 Room Air 01/20/17 00:10 98.3 87 20 147/100 98 Room Air 01/20/17 00:00 91 01/19/17 21:22 154/110 01/19/17 21:22 89 154/110 01/19/17 20:22 98.6 89 21 154/122 97 Room Air 01/19/17 20:06 Room Air 01/19/17 20:06 95 Room Air 01/19/17 20:05 95 20 Room Air 21 01/19/17 20:00 88 Intake and Output 01/19/17 01/20/17 19:00 07:00 Intake Total 942.5 ml 137.5 ml Balance 942.5 ml 137.5 ml Intake Oral 750 ml IV Total 192.5 ml 137.5 ml # Voids 4 3 # Bowel Movements 2 General Appearance: WD/WN HEENT: normocephalic, atraumatic Respiratory/Chest: chest wall non-tender, lungs clear Cardiovascular: normal peripheral pulses, normal rate Abdomen: normal bowel sounds, soft, non tender Genitourinary: normal external genitalia Extremities: no cyanosis, no clubbing Skin: no rash ADDIS SANCHEZ Jan 20, 2017 19:37
--- NOTE | 2017-01-21 18:24 | Discharge Summary ---
Discharge Summary Hospital Course Date of Admission Jan 15, 2017 at 10:00 Date of Discharge Jan 20, 2017 at 14:10 Admitting Diagnosis Asthma exac HPI Jean Pierre Marks is a 56 year old male who was admitted on Jan 15, 2017 at 10:00 for Asthma Exacerbration Hospital Course [id number] Discharge Discharge Disposition Patient was discharged to Home (01) Discharge Diagnoses: Bethany Garcia NP Jan 21, 2017 18:24
--- NOTE | 2017-01-22 03:30 | Discharge Summary 2 SIG ---
DATE OF ADMISSION: 01/15/2017 DATE OF DISCHARGE: 01/20/2017 CONSULTANTS: 1. Niki Card M.D. 2. Alvino Gamble M.D. 3. Khoi Neal M.D. 4. Lopez Zambrano M.D. BRIEF HOSPITAL COURSE: The patient is a 56-year-old male, who presented to ED for two days of shortness of breath. The patient has severe asthma exacerbation with cough and had been using home nebulizations, but with no improvement. On evaluation at ED, chest x-ray showed questionable blunting on the left diaphragmatic angle, possible left lower lobe infiltrate and cardiomegaly. His breathing improved with the BiPAP. He was given nebulizer treatments and was started on IV steroids and antibiotics. He was then admitted to [facility] for further evaluation and management of acute respiratory distress. He was seen by Dr. Card. The patient was more comfortable with the BiPAP. He was given heparin for DVT prophylaxis. Dr. Zambrano was also consulted for evaluation of acute renal failure on chronic kidney disease. Creatinine level on admission was 2.0. Renal ultrasound done showed bilateral renal cysts. Negative for hydronephrosis. He was followed by pain management and was given Toradol, Percocet and Robaxin. He had pain on the back. Dr. Gamble was consulted for evaluation of hypertension and dyspnea. A 12-lead echocardiogram showed sinus rhythm at rate of 82 with left axis deviation, but no evidence of left ventricular hypertrophy or acute ST to T-wave abnormalities. He had an echocardiogram done on 10/2015 with normal left ventricular ejection fraction. There was mild pulmonary hypertension, but no wall motion abnormalities noted. Hypertension was treated with amlodipine and hydralazine. Blood pressure improved. Subsequent chest x-rays showed stable exam. Steroids were discontinued. The patient was discharged home. FINAL DIAGNOSES: 1. Acute respiratory failure requiring BiPAP. 2. Acute asthma exacerbation. 3. Acute renal failure on chronic kidney disease. 4. Hypertension. 5. Anemia. 6. Lumbar spondylosis. 7. Obstructive sleep apnea. 8. Intractable back pain. Ali Hadadz, M.D. I have been assigned to dictate discharge summary on this account and I was not involved in the patient's management. Bethany Garcia N.P. DR: KENDRA JOB#: [id number] CC:
== END 2017-01-20 14:10 | disposition home or self-care (01) | DRG 189 ==
LOC: EMR 09:48 → EDBEDREQ 09:51 → 2W 10:00 → EDBEDREQ 10:25 → 2E 01-18 17:31
PROC: 5A09357 Assistance with Respiratory Ventilation, Less than 24 Consecutive Hours, Continuous Positive Airway Pressure (ICD-10-PCS; principal; 2017-01-15)
DX: J96.00 Acute respiratory failure, unspecified whether with hypoxia or hypercapnia (principal); N17.9 Acute kidney failure, unspecified; J45.901 Unspecified asthma with (acute) exacerbation; I13.0 Hypertensive heart and chronic kidney disease with heart failure and stage 1 through stage 4 chronic kidney disease, or unspecified chronic kidney disease; I50.30 Unspecified diastolic (congestive) heart failure; I27.2 Other secondary pulmonary hypertension; J44.9 Chronic obstructive pulmonary disease, unspecified; Z68.41 Body mass index [BMI] 40.0-44.9, adult; E66.01 Morbid (severe) obesity due to excess calories; E66.9 Obesity, unspecified; D64.9 Anemia, unspecified; G47.33 Obstructive sleep apnea (adult) (pediatric); M47.896 Other spondylosis, lumbar region; Z88.6 Allergy status to analgesic agent; Z88.8 Allergy status to other drugs, medicaments and biological substances; N18.9 Chronic kidney disease, unspecified; M51.36 Other intervertebral disc degeneration, lumbar region; M15.9 Polyosteoarthritis, unspecified
CPT/HCPCS: 36415; 36600; 71010; 76775; 80048; 80053; 82550; 82553; 82803; 83735; 83880; 84100; 84484; 85007; 85025; 87040; 93005; 94640; 94660; 94664; 94760; 97803; J7620

== ENCOUNTER 2017-03-23 10:54 | Outpatient (CLI) | payer MEDICARE, OTHER ==
[2017-03-23 11:14] LABS: APPEARANCE,URINE SLIGHTLY CLOUDY; KETONES,URINE NEGATIVE (NEGATIVE); LEUKOCYTE ESTERASE ,URINE 1+ (NEGATIVE); NITRITE,URINE NEGATIVE (NEGATIVE); PH,URINE 5 (4.5-8.0); PROTEIN,URINE 4+ (NEGATIVE); UROBILINOGEN,URINE NORMAL MG/DL (0.0-1.0)
[2017-03-23 11:15] LABS: BASOPHILS % (AUTO) 0.9 % (0.0-2.0); EOSINOPHILS % (AUTO) 0.7 % (0.0-3.0); LYMPHOCYTES % (AUTO) 29.9 % (20.0-45.0); MEAN CORPUSCULAR HEMOGLOBIN 28.9 PG (27.0-31.0); MEAN CORPUSCULAR HGB CONC 31.3 G/DL (32.0-36.0); MEAN CORPUSCULAR VOLUME 92 FL (80-99); MEAN PLATELET VOLUME 7.6 FL (6.5-10.1); NEUTROPHILS % (AUTO) 60.4 % (45.0-75.0); PLATELET COUNT 257 K/UL (150-450); RED BLOOD COUNT 4.55 M/UL (4.70-6.10); RED CELL DISTRIBUTION WIDTH 15.6 % (11.6-14.8); WHITE BLOOD COUNT 10.3 K/UL (4.8-10.8)
[2017-03-23 11:21] LABS: BACTERIA,URINE OCCASIONAL /HPF; MUCUS,URINE OCCASIONAL /LPF (NONE/OCC); SQUAMOUS EPITHELIAL CELL,UR OCCASIONAL /LPF (NONE/OCC)
[2017-03-23 11:51] LABS: PSA TOTAL 0.4 ng/mL (< 3.5); THYROID STIMULATING HORMONE 2.17 uIU/mL (0.300-4.500)
[2017-03-23 12:03] LABS: ALBUMIN/GLOBULIN RATIO 1.6 (1.0-2.7); CALCIUM 9.3 mg/dL (8.6-10.2); CHOLESTEROL/HDL RATIO 2.2 (3.3-4.4); CREATININE 2.2 mg/dL (0.7-1.2); GLOMERULAR FILTRATION RATE 37.7 mL/min (>60); POTASSIUM 3.7 mEQ/L (3.4-4.9)
--- NOTE | 2017-03-23 12:55 | Diagnostic Imaging Report ---
Indication: Cough, shortness of breath Technique: One view of the chest Comparison: 01/19/2017 Findings: Lungs and pleural spaces remain clear. Heart is borderline enlarged. No significant change Impression: Negative
--- NOTE | 2017-03-24 16:50 | Cardiology Report ---
APPROVED REPORT EKG Measurement Heart [id number] Normal sinus rhythm Left axis deviation Abnormal ECG
== END 2017-03-23 12:54 | disposition home or self-care (01) ==
LOC: RAD 10:54
DX: R05 Cough (principal); R06.02 Shortness of breath; I10 Essential (primary) hypertension
CPT/HCPCS: 36415; 71020; 80053; 80061; 81003; 84153; 84443; 85025; 93005

== ENCOUNTER 2017-03-23 11:45 | Inpatient (IN) | payer MEDICARE, OTHER ==
[~2017-03-23] VITALS: Ht 170.2 cm; Wt 127.0 kg
[2017-03-23] MEDS ORDERED: Ipratropium 0.02% Inh Soln 2.5ml UD HHN ONE (12:15)
[2017-03-23] MEDS ORDERED: Hydromorphone 0.5mg/0.5ml inj IVP ONE ×2 (12:15→14:30)
[2017-03-23] MEDS: Albuterol ud Inhalation HHN SCH ×3 (12:21→13:17)
[2017-03-23 12:56] LABS: BASOPHILS % (AUTO) 1.1 % (0.0-2.0); EOSINOPHILS % (AUTO) 0.8 % (0.0-3.0); LYMPHOCYTES % (AUTO) 31.4 % (20.0-45.0); MEAN CORPUSCULAR HGB CONC 32.7 G/DL (32.0-36.0); MEAN CORPUSCULAR VOLUME 92 FL (80-99); MEAN PLATELET VOLUME 8.7 FL (6.5-10.1); MONOCYTES % (AUTO) 6.8 % (1.0-10.0); NEUTROPHILS % (AUTO) 59.9 % (45.0-75.0); PLATELET COUNT 223 K/UL (150-450); RED BLOOD COUNT 4.08 M/UL (4.70-6.10); RED CELL DISTRIBUTION WIDTH 15.3 % (11.6-14.8); WHITE BLOOD COUNT 9.5 K/UL (4.8-10.8)
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
[2017-03-23 13:07] LABS: INR 0.9 (0.9-1.1); PROTHROMBIN TIME 9.7 SEC (9.30-11.50)
[2017-03-23 13:13] LABS: ALANINE AMINOTRANSFERASE 18 U/L (3-41); ALBUMIN/GLOBULIN RATIO 1.5 (1.0-2.7); ANION GAP 13 (5-15); ASPARTATE AMINO TRANSFERASE 31 U/L (5-40); CALCIUM 9.1 mg/dL (8.6-10.2); CARBON DIOXIDE 25 mEQ/L (20-30); CHLORIDE 100 mEQ/L (98-107); CREATININE 2.1 mg/dL (0.7-1.2); GLOMERULAR FILTRATION RATE 39.8 mL/min (>60); HEMOLYSIS 209; LIPASE 28 U/L (< 60); POTASSIUM 4.6 mEQ/L (3.4-4.9); SODIUM 138 mEQ/L (135-145); TOTAL PROTEIN 6.6 g/dL (6.6-8.7)
[2017-03-23 13:24] VITALS: BP 137/86
[2017-03-23 14:25] LABS: TROPONIN I < 0.30 ng/mL (<=0.30)
--- NOTE | 2017-03-23 15:01 | Diagnostic Imaging Report ---
Indication: Abdominal pain Technique: Spiral acquisitions obtained through the abdomen and pelvis. Patient given oral contrast. No IV contrast utilized, per referring physician request.. Multiplanar reconstructions were generated. Total dose length product 1235 mGycm. CTDIvol(s) 23 mGy. Dose reduction achieved using automated exposure control Comparison: 10/02/2009 Findings: There are surgical clips seen in the right lower quadrant, not evident previously. As before, the appendix is not definitely visualized. There is no evidence of diverticulosis or diverticulitis. No small bowel distention or small bowel wall thickening. The distal esophagus, stomach, duodenum are unremarkable. No free or loculated intraperitoneal air or fluid. Again demonstrated is a small fat-containing ventral hernia. Again demonstrated are small fat-containing bilateral inguinal hernias. Lack of IV contrast limits assessment of solid organs. The liver is hypoattenuating diffusely, although slightly less so than on the prior study, consistent with fatty change. No definite focal abnormality. The gallbladder, bile ducts, pancreas, spleen, adrenals are unremarkable. Previously demonstrated hyperdense anterior left region renal lesion has increased in size but now demonstrates fluid attenuation. 3.3 cm left upper pole cyst is increased in size clearly demonstrates fluid attenuation. Left interpolar region 2.2 cm cyst is likewise increased in size with clearly cystic. Previously demonstrated left intrarenal calyceal calculus is no longer evident. The right kidney demonstrates a 1.5 cm interpolar region cyst which was not evident previously. No hydronephrosis or hydroureter. Bladder and seminal vesicles are unremarkable. The prostate is not enlarged but demonstrates a calcification. The bones demonstrate bilateral L5 spondylolysis, grade 1 L5 on S1 spondylolisthesis, and secondary degenerative change. The included lung bases demonstrate posterior dependent atelectatic changes. There is trace anterior wall pericardial thickening versus fluid Impression: No acute abnormalities demonstrated Evidence of intra-or quadrant surgery Hepatic fatty change, slightly decreased from prior study 10/02/2009 Bilateral renal fluid attenuation lesions, larger or more numerous than on previous study, but documented on a recent 01/16/2017 renal ultrasound represent benign several cysts Bilateral L5 spondylolysis, with grade 1 L5 on S1 spondylolisthesis Bilateral basilar pulmonary parenchymal atelectatic changes. Trace anterior wall pericardial thickening versus fluid Incidental findings as noted, including small fat-containing ventral and bilateral inguinal hernias, prostatic calcification The CT scanner at [facility] is accredited by the [employer] and the scans are performed using protocols designed to limit radiation exposure to as low as reasonably achievable to attain images of sufficient resolution adequate for diagnostic evaluation.
[2017-03-23 15:02] VITALS: BP 121/68
--- NOTE | 2017-03-23 15:04 | General Progress Note ---
Progress Note Progress Note [id number] full note consult RILEY RAMIREZ Mar 23, 2017 15:04
[2017-03-23] MEDS ORDERED: Ketorolac 30mg Inj IV PRN (15:30)
[2017-03-23] MEDS ORDERED: Nitroglycerin Subl 0.4mg tab (Bottle Of 25) SL PRN (15:30)
[2017-03-23] MEDS ORDERED: LORazepam Inj 2mg/ml 1ml IV PRN (15:30)
[2017-03-23] MEDS ORDERED: DuoNeb 0.5-3(2.5)mg/3ml neb HHN PRN (15:30)
--- NOTE | 2017-03-23 15:58 | Diagnostic Imaging Report ---
Indication: DYSPNEA Technique: One view of the chest Comparison: One hour earlier Findings: Lungs and pleural spaces are clear. The heart is enlarged. No significant change Impression: No acute process
[2017-03-23 16:50] VITALS: BP 151/81
[2017-03-23 17:11] LABS: APPEARANCE,URINE CLEAR; KETONES,URINE NEGATIVE (NEGATIVE); LEUKOCYTE ESTERASE ,URINE 1+ (NEGATIVE); NITRITE,URINE NEGATIVE (NEGATIVE); PH,URINE 5 (4.5-8.0); PROTEIN,URINE 4+ (NEGATIVE); UROBILINOGEN,URINE NORMAL MG/DL (0.0-1.0)
[2017-03-23 17:20] LABS: SQUAMOUS EPITHELIAL CELL,UR FEW /LPF (NONE/OCC)
[2017-03-23 17:21] LABS: BACTERIA,URINE FEW /HPF
[2017-03-23 17:30] LABS: CREATININE, RANDOM URINE 210.5 mg/dL
[2017-03-23] MEDS: Zosyn 3.375gm q8h **Extended infusion IVPB SCH ×2 (17:34)
[2017-03-23] MEDS: Solu-MEDROL 125mg Inj IV SCH (17:35)
[2017-03-23] MEDS ORDERED: Theophylline ER 100mg ORAL SCH (18:00)
--- NOTE | 2017-03-23 18:15 | History and Physical Report ---
DATE OF ADMISSION: 03/23/2017 TIME SEEN: 2 p.m. CONSULTANTS: 1. Mane Begum M.D. 2. Niki Card M.D. 3. Alvino Gamble M.D. 4. Edilma Summers M.D. CHIEF COMPLAINT: Shortness of breath, asthma exacerbation, and left inguinal hernia. HISTORY OF PRESENT ILLNESS: The patient is a 56-year-old male, who lives at home, comes to my office regularly, presents to [place] [facility] with increased shortness of breath for two days. He does have a history of COPD and occasionally, he will get short of breath. He was also found to have left inguinal hernia, non-reducible. Currently, getting CT per ER. PAST MEDICAL HISTORY: Includes renal failure, COPD, and hypertension. PAST SURGICAL HISTORY: Unknown. MEDICATIONS: Includes Dilaudid, Zofran, Proventil, and Atrovent. ALLERGIES: Morphine and tetracycline. SOCIAL HISTORY: No smoking, no alcohol, and no intravenous drug abuse. FAMILY HISTORY: Noncontributory. REVIEW OF SYSTEMS: No chest pain. Slightly short of breath. No nausea, vomiting, or diarrhea. PHYSIAL EXAMINATION: GENERAL: Calm in bed, oriented x3, and slightly short of breath. VITAL SIGNS: Temperature is 98 degrees, pulse 85, respirations 14, and blood pressure 137/86. CARDIOVASCULAR: No murmur. LUNGS: Poor air exchange. ABDOMEN: Bowel sounds positive. Soft, nontender, and nondistended. EXTREMITIES: No cyanosis, clubbing, or edema. Left inguinal area has slight protrusion, non-reducible hernia possibly. NEUROLOGIC: Cranial nerves II through XII are grossly intact. Deep tendon reflexes are +2. Muscle strength is 5/5. LABORATORY DATA: Lab exam shows hemoglobin 12.3, otherwise CBC is normal. BMP shows creatinine of 2.1, otherwise BMP is normal. INR is 0.9. PTT is 26. ASSESSMENT: 1. Shortness of breath. 2. Asthma exacerbation. 3. Left inguinal hernia. 4. Renal failure. 5. Chronic obstructive pulmonary edema. 6. Hypertension. 7. Anemia. PLAN: 1. O2 and pulmonary treatment. 2. OT, PT, and dietary evaluation. 3. CBC and BMP in the morning. 4. Resume home medications. 5. Pain control. 6. Dr. Pan, Dr. Card, Dr. Gamble, and Dr. Summers to consult. 7. We will continue to follow this patient. Jason Ivy D.O. DR: PATRICIA JOB#: [id number] CC:
--- NOTE | 2017-03-23 18:55 | Consultation ---
History of Present Illness General Date patient seen: Mar 23, 2017 Chief Complaint: Dyspnea/Respdistress Referring physician: Dr. Ivy Reason for Consultation: dyspnea Present Illness HPI 56-year-old male with hx of COPD/Asthma, RHONDA,, came from home came in to ED for complaints of shortness of breath and elevated BP. Today he felt more short of breath and presented to ED. He was also c/o of Left groin pain/ hernia. Allergies: Coded Allergies: MORPHINE (Unverified Allergy, Intermediate, Itching, 11/25/15) TETRACYCLINE (Verified Allergy, Unknown, 11/25/15) Uncoded Allergies: dairy products (Allergy, Intermediate, Shortness of Breath, 03/23/17) Medication History Scheduled Albuterol Sulfate (Ventolin Hfa), 2 PUFFS INH EVERY 6 HOURS, (Reported) Amlodipine Besylate (Norvasc), 5 MG ORAL BID Aspirin* (Aspirin*), 81 MG ORAL DAILY Azithromycin* (Zithromax*), 250 MG ORAL once daily Clonidine Hcl* (Catapres*), 0.1 MG ORAL Q8H Clonidine Hcl* (Catapres*), 0.2 MG ORAL Q8HR, (Reported) Hydralazine HCl (Hydralazine HCl), 10 MG ORAL EVERY 8 HOURS, (Reported) Hydralazine HCl (Hydralazine HCl), 100 MG ORAL Q8HR Hydrochlorothiazide* (Hydrochlorothiazide*), 100 MG ORAL BID, (Reported) Mometasone/Formoterol (Dulera 100 Mcg/5 Mcg Inhaler), 2 PUFFS INH EVERY 12 HOURS , (Reported) Montelukast Sodium (Singulair), 4 MG ORAL DAILY Omeprazole (Prilosec), 20 MG ORAL DAILY, (Reported) Prednisone* (Prednisone*), 60 MG ORAL DAILY Terbutaline Sulfate (Terbutaline Sulfate), 2.5 MG ORAL BID, (Reported) Theophylline (Theodur*), 100 MG ORAL TWICE A DAY, (Reported) Tiotropium [place]* (Spiriva*), 1 PUFF INH DAILY, (Reported) Scheduled PRN Clonidine HCl (Clonidine HCl), 0.1 MG ORAL Q6H PRN for SBP>160 Patient History Healthcare decision maker N Resuscitation status Full Code Advanced Directive on File Past Medical/Surgical History Past Medical/Surgical History: (1) Obstructive sleep apnea (2) Hypertension (3) Asthma (4) Intractable back pain (5) HTN (hypertension) (6) CHF (congestive heart failure) Review of Systems All Other Systems: negative except mentioned in HPI Physical Exam General Appearance: WD/WN, no apparent distress Lines, tubes and drains: peripheral HEENT: normocephalic, atraumatic Neck: non-tender, normal alignment Respiratory/Chest: chest wall non-tender, lungs clear Breasts: no masses Cardiovascular/Chest: normal rate Abdomen: normal bowel sounds, non tender, soft Genitourinary/Rectal: normal genital exam, normal rectal exam Last 24 Hour Vital Signs Date Time Temp Pulse Resp B/P Pulse Ox O2 Delivery O2 Flow Rate FiO2 03/23/17 18:01 89 22 99 Nasal Cannula 2.0 03/23/17 17:59 86 22 96 Nasal Cannula 2.0 03/23/17 16:50 98.1 88 20 151/81 97 Nasal Cannula 4.0 03/23/17 15:02 98.3 93 15 121/68 98 Room Air 2.0 03/23/17 13:35 85 14 99 Room Air 2.0 03/23/17 13:25 95 22 Room Air 21 03/23/17 13:24 98.3 96 17 137/86 97 Room Air 03/23/17 13:07 98.3 03/23/17 13:07 98.3 03/23/17 12:21 21 03/23/17 12:21 95 22 96 Room Air 21 03/23/17 12:21 95 22 Room Air 03/23/17 11:51 98.1 87 18 159/97 96 Room Air Laboratory Tests Test 03/23/17 12:37 03/23/17 16:20 White Blood Count 9.5 K/UL (4.8-10.8) Red Blood Count 4.08 M/UL (4.70-6.10) L Hemoglobin 12.3 G/DL (14.2-18.0) L Hematocrit 37.5 % (42.0-52.0) L Mean Corpuscular Volume 92 FL (80-99) Mean Corpuscular Hemoglobin 30.0 PG (27.0-31.0) Mean Corpuscular Hemoglobin Concent 32.7 G/DL (32.0-36.0) Red Cell Distribution Width 15.3 % (11.6-14.8) H Platelet Count 223 K/UL (150-450) Mean Platelet Volume 8.7 FL (6.5-10.1) Neutrophils (%) (Auto) 59.9 % (45.0-75.0) Lymphocytes (%) (Auto) 31.4 % (20.0-45.0) Monocytes (%) (Auto) 6.8 % (1.0-10.0) Eosinophils (%) (Auto) 0.8 % (0.0-3.0) Basophils (%) (Auto) 1.1 % (0.0-2.0) Prothrombin Time 9.7 SEC (9.30-11.50) Prothromb Time International Ratio 0.9 (0.9-1.1) Activated Partial Thromboplast Time 26 SEC (23-33) Sodium Level 138 mEQ/L (135-145) Potassium Level 4.6 mEQ/L (3.4-4.9) Chloride Level 100 mEQ/L (98-107) Carbon Dioxide Level 25 mEQ/L (20-30) Anion Gap 13 (5-15) Blood Urea Nitrogen 20 mg/dL (7-23) Creatinine 2.1 mg/dL (0.7-1.2) H Estimat Glomerular Filtration Rate 39.8 mL/min (>60) Glucose Level 100 mg/dL (74-106) Lactic Acid Level 1.70 mmol/L (0.66-2.22) Calcium Level 9.1 mg/dL (8.6-10.2) Total Bilirubin < 0.2 mg/dL (0.0-1.2) Aspartate Amino Transf (AST/SGOT) 31 U/L (5-40) Alanine Aminotransferase (ALT/SGPT) 18 U/L (3-41) Alkaline Phosphatase 48 U/L (40-129) Troponin I < 0.30 ng/mL (<=0.30) Total Protein 6.6 g/dL (6.6-8.7) Albumin 4.0 g/dL (3.5-5.2) Globulin 2.6 g/dL Albumin/Globulin Ratio 1.5 (1.0-2.7) Lipase 28 U/L (< 60) Urine Color Yellow Urine Appearance Clear Urine pH 5 (4.5-8.0) Urine Specific [place] 1.020 (1.005-1.035) Urine Protein 4+ (NEGATIVE) H Urine Glucose (UA) Negative (NEGATIVE) Urine Ketones Negative (NEGATIVE) Urine Occult Blood Negative (NEGATIVE) Urine Nitrite Negative (NEGATIVE) Urine Bilirubin Negative (NEGATIVE) Urine Urobilinogen Normal MG/DL (0.0-1.0) Urine Leukocyte Esterase 1+ (NEGATIVE) H Urine RBC 2-4 /HPF (0 - 0) H Urine WBC 10-15 /HPF (0 - 0) H Urine Squamous Epithelial Cells Few /LPF (NONE/OCC) Urine Bacteria Few /HPF (NONE) Urine Eosinophils None seen Urine Random Creatinine Pending Urine Random Microalbumin Pending Urine Random Total Protein > 183 mg/dL Urine Random Sodium 41 mmol/L Urine Creatinine 210.5 mg/dL Urine Microalbumin/Creatinine Ratio Pending Height (Feet): 5 Height (Inches): 7.00 Weight (Pounds): 280 Medications Current Medications Medications (Trade) Dose Ordered Sig/Alexis Route PRN Reason Start Time Stop Time Status Last Admin Dose Admin Albuterol/ Ipratropium (DuoNeb 0.5-3(2.5)mg/3ml) 3 ml Q4H PRN HHN dyspnea 03/23/17 15:30 03/28/17 15:29 03/23/17 17:54 Albuterol/ Ipratropium (DuoNeb 0.5-3(2.5)mg/3ml) 3 ml Q6HRT HHN 03/23/17 19:00 03/28/17 18:59 UNV Amlodipine Besylate (Norvasc) 5 mg Q12HR ORAL 03/23/17 21:00 04/22/17 20:59 Aspirin (ASA) 81 mg DAILY ORAL 03/24/17 09:00 04/23/17 08:59 Clonidine HCl (Catapres) 0.1 mg Q6H PRN ORAL SBP>160 03/23/17 15:30 04/22/17 15:29 Dextrose STAT PRN IV Hypoglycemia 03/23/17 15:30 04/22/17 15:29 Heparin Sodium (Porcine) (Heparin 5000 units/ml) 5,000 units EVERY 12 HOURS SUBQ 03/23/17 21:00 04/22/17 20:59 Hydralazine HCl (Apresoline) 10 mg EVERY 8 HOURS ORAL 03/23/17 22:00 04/22/17 21:59 Hydromorphone HCl (Dilaudid) 1 mg Q4H PRN IVP For Pain 03/23/17 18:45 03/30/17 18:44 UNV Ketorolac Tromethamine (Toradol 30mg) 30 mg Q8H PRN IV Moderate Pain (Pain Scale 4-6) 03/23/17 15:30 03/28/17 15:29 Lorazepam (Ativan 2mg/ml 1ml) 0.5 mg Q4H PRN IV For Anxiety 03/23/17 15:30 03/30/17 15:29 Methylprednisolone Sodium Succinate (Solu-MEDROL) 60 mg EVERY 6 HOURS IV 03/23/17 18:00 04/22/17 17:59 03/23/17 17:35 Nitroglycerin (Ntg) 0.4 mg Q5M X 3 DOSES PRN SL Prn Chest Pain 03/23/17 15:30 04/22/17 15:29 Ondansetron HCl (Zofran) 4 mg Q6H PRN IVP Nausea & Vomiting 03/23/17 15:30 04/22/17 15:29 Piperacillin Sod/ Tazobactam Sod/ Dextrose (Zosyn/D5W) 110 ml @ 27.5 mls/hr EVERY 8 HOURS IVPB 03/23/17 18:00 03/28/17 17:59 03/23/17 17:34 Temazepam (Restoril) 15 mg HSPRN PRN ORAL Insomnia 03/23/17 21:00 03/30/17 20:59 Theophylline (Oscar-Dur) 100 mg EVERY 12 HOURS ORAL 03/23/17 21:00 04/22/17 20:59 Assessment/Plan Problem List: (1) Acute asthma exacerbation ICD Codes: J45.901 - Asthma with exacerbation SNOMED: 394828052 (2) CKD (chronic kidney disease) ICD Codes: N18.9 - Chronic kidney disease SNOMED: 532939631 (3) COPD (chronic obstructive pulmonary disease) ICD Codes: J44.9 - Chronic obstructive pulmonary disease, unspecified SNOMED: 07951906 (4) Hypertension ICD Codes: I10 - Hypertension SNOMED: 82581538 Assessment/Plan check sputum respiratory treatment iv abx IV steroids pain management DVT prophylaxis renal w/u ADDIS SANCHEZ Mar 23, 2017 18:55
[2017-03-23] MEDS: DuoNeb 0.5-3(2.5)mg/3ml neb HHN SCH (19:00)
[2017-03-23 20:17] VITALS: BP 149/79
--- NOTE | 2017-03-23 21:00 | Consultation ---
DATE OF CONSULTATION: 03/23/2017 NEPHROLOGY CONSULTATION CONSULTING PHYSICIAN: Edilma Summers M.D. REFERRING PHYSICIAN: Jason Ivy D.O. REASON FOR CONSULTATION: Acute versus chronic renal failure. HISTORY OF PRESENT ILLNESS: The patient is a pleasant 56-year-old male with a past medical history significant for history of hypertension, history of dyslipidemia, CAD, history of asthma, and unknown baseline creatinine. He presented to emergency room for worsening of his shortness of breath and wheezing and cough for the past couple of days. While he was coughing, actually he felt not coming out of the , which is causing to be painful and found to have a non-reducible hernia. Consequently, the patient had a complete workup in the ER. In the ER, the patient had a temperature of 98 degrees and blood pressure was 159/56. His respiratory rate was 18 and had a low O2 saturation. The patient received a breathing treatment and found to have a creatinine of 2.1. The patient was admitted for asthma exacerbation and nonreducible left inguinal hernia. In the hospital, I was called for management of renal disease and electrolyte imbalance. PAST MEDICAL HISTORY: 1. Hypertension. 2. History of CAD. 3. History of asthma. 4. History of chronic obstructive pulmonary disease. HOME MEDICATION: 1. Albuterol p.r.n. 2. Amlodipine 5 mg. 3. Aspirin 81 mg p.o. daily. 4. Clonidine 0.1 mg p.r.n. 5. Hydralazine 10 mg p.o. daily. 6. Hydrochlorothiazide 25 mg p.o. daily. 7. Dulera two puffs b.i.d. 8. Singular 4 mg p.o. daily. 9. Omeprazole 20 mg p.o. daily. 10. Prednisone 20 mg p.o. daily. 11. Terbutaline 5 mg p.r.n. 12. Theophylline 100 mg p.o. daily. 13. Spiriva 2 puffs b.i.d. ALLERGIES: He is allergic to morphine and tetracycline. SOCIAL HISTORY: He lives at home with his . There is no current history of tobacco, alcohol, or drug use. FAMILY HISTORY: Negative for history of chronic kidney disease and dialysis dependent in the family. REVIEW OF SYSTEMS: General: He complained of generalized weakness. He denied any fever, chills, or night sweats. Head And Neck: Denies any dysphagia, odynophagia, blurry vision, or neck stiffness, although patient is on BiPAP at home. Cardiovascular: Denies any chest pain or palpitations. Pulmonary: He complained of shortness of breath, cough, yellow sputum, and wheezing. Gastrointestinal: Denies any nausea, vomiting, diarrhea, hematemesis, or hematochezia. Genitourinary: Denies any dysuria, frequency, or hematuria. Complained of left inguinal hernia pain, which is at this point is smaller, but has not completely reduced and is painful. PHYSICAL EXAMINATION: VITAL SIGNS: The patient had a temperature of 98 degrees, blood pressure of 140/75, pulse rate of 80, and respiratory rate of 18. HEAD AND NECK: Unable to assess JVP due to the patient's body habitus. No LAD. Extraocular movement intact. Pupils are reactive to light and accommodation. LUNGS: He has bilateral wheezing. CARDIAC: Regular rate and rhythm. S1 and S2. No murmur. No rub. ABDOMEN: Obese, nontender, and nondistended. EXTREMITIES: Trace edema. No clubbing. No cyanosis. LABORATORY DATA: The patient has sodium 138, potassium 4.6, 100 chloride, 25 bicarb, BUN of 20, creatinine of 2.1, and glucose of 100. Calcium of 9.1. AST of 31, ALT of 18, and alkaline phosphatase of 48. Total protein of 6.6. There is no UA. INR is 0.9. CBC revealed WBC count of 9.5, hemoglobin of 12.3, hematocrit of 37, and platelet count of 230,000. The patient had a chest x-ray, which was read as a negative. ASSESSMENT: 1. Acute versus chronic kidney disease. Etiology of acute renal failure are including acute tubular necrosis due to unstable hemodynamics versus prerenal azotemia. 2. Chronic kidney disease due to hypertensive nephrosclerosis. 3. Asthma exacerbation. 4. Morbid obesity. 5. Chronic obstructive pulmonary disease exacerbation. 6. Uncontrolled hypertension. 7. Non-reducible left inguinal hernia. PLAN: 1. Plan for the patient is to obtain a UA. 2. Check the random urine protein creatinine ratio to calculate the proteinuria. 3. Check the urine sodium and creatinine to calculate fractional excretion of sodium. 4. Start the patient on breathing treatment and respiratory treatment to optimize respiratory status. 5. Check the urine eosinophils and avoid any NSAID or nephrotoxic. Goal of blood pressure less than 130/75. Again, I would like to thank Dr. Jason Ivy for allowing me to participate in the care of this patient. Edilma Summers M.D. DR: RUBI JOB#: [id number] CC:
[2017-03-23] MEDS: HYDROmorphone 1mg/ml Carpuject IVP PRN (21:06)
[2017-03-23] MEDS: HydrALAZINE 10mg Tab ORAL SCH (21:06)
[2017-03-23] MEDS: Theophylline ER 100mg ORAL SCH (21:06)
[2017-03-23] MEDS: Heparin 5000 units/ml inj SUBQ SCH (21:08)
[2017-03-23] MEDS ORDERED: Piperacillin/Tazobactam 2.25 GM in D5W 55 ML IV SCH (22:00)
[2017-03-24] MEDS: Solu-MEDROL 125mg Inj IV SCH ×5 (00:14→23:48)
[2017-03-24 00:16] VITALS: BP 140/92
[2017-03-24] MEDS: HYDROmorphone 1mg/ml Carpuject IVP PRN ×3 (01:25→20:59)
[2017-03-24] MEDS: DuoNeb 0.5-3(2.5)mg/3ml neb HHN SCH ×4 (02:07→19:38)
[2017-03-24] MEDS: HydrALAZINE 10mg Tab ORAL SCH ×3 (05:16→21:15)
[2017-03-24] MEDS: Zosyn 3.375gm q8h **Extended infusion IVPB SCH ×4 (05:16→14:47)
[2017-03-24 05:29] VITALS: BP 152/103
[2017-03-24 08:19] VITALS: BP 151/83
--- NOTE | 2017-03-24 08:40 | Cardiology Progress Note ---
Assessment/Plan Assessment/Plan The patient is seen and examined, full consult note will be dictated. Objective Last 24 Hour Vital Signs Date Time Temp Pulse Resp B/P Pulse Ox O2 Delivery O2 Flow Rate FiO2 03/24/17 08:19 97.0 86 22 151/83 95 Nasal Cannula 3.0 03/24/17 07:18 90 20 99 Nasal Cannula 2.0 28 03/24/17 07:10 89 20 97 Nasal Cannula 2.0 03/24/17 07:10 89 20 Nasal Cannula 2.0 03/24/17 07:10 97 Nasal Cannula 2.0 03/24/17 07:10 Nasal Cannula 2.0 28 03/24/17 07:10 28 03/24/17 05:29 97.7 89 20 152/103 93 Nasal Cannula 2.0 03/24/17 05:16 140/92 03/24/17 04:00 85 03/24/17 01:55 98.8 03/24/17 01:45 88 20 99 Nasal Cannula 2.0 03/24/17 01:30 84 20 97 Nasal Cannula 2.0 03/24/17 00:16 98.8 89 20 140/92 94 Room Air 03/24/17 00:00 85 03/23/17 21:06 149/79 03/23/17 21:06 80 149/79 03/23/17 20:17 97.9 80 20 149/79 94 Room Air 03/23/17 20:00 83 03/23/17 19:30 94 Nasal Cannula 2.0 03/23/17 19:30 Nasal Cannula 2.0 03/23/17 19:30 90 20 Nasal Cannula 2.0 03/23/17 18:01 89 22 99 Nasal Cannula 2.0 03/23/17 17:59 86 22 96 Nasal Cannula 2.0 03/23/17 16:50 98.1 88 20 151/81 97 Nasal Cannula 4.0 03/23/17 16:20 98.3 93 15 121/68 98 Room Air 2.0 03/23/17 15:02 98.3 93 15 121/68 98 Room Air 2.0 03/23/17 13:35 85 14 99 Room Air 2.0 03/23/17 13:25 95 22 Room Air 03/23/17 13:24 98.3 96 17 137/86 97 Room Air 21 03/23/17 13:07 98.3 03/23/17 13:07 98.3 03/23/17 12:21 21 03/23/17 12:21 95 22 96 Room Air 21 03/23/17 12:21 95 22 Room Air 21 03/23/17 11:51 98.1 87 18 159/97 96 Room Air Intake and Output 03/23/17 03/24/17 19:00 07:00 Output Total 1600 ml Balance -1600 ml Output Urine Total 1600 ml # Voids 3 Laboratory Tests Test 03/23/17 12:37 03/23/17 16:20 White Blood Count 9.5 K/UL (4.8-10.8) Red Blood Count 4.08 M/UL (4.70-6.10) L Hemoglobin 12.3 G/DL (14.2-18.0) L Hematocrit 37.5 % (42.0-52.0) L Mean Corpuscular Volume 92 FL (80-99) Mean Corpuscular Hemoglobin 30.0 PG (27.0-31.0) Mean Corpuscular Hemoglobin Concent 32.7 G/DL (32.0-36.0) Red Cell Distribution Width 15.3 % (11.6-14.8) H Platelet Count 223 K/UL (150-450) Mean Platelet Volume 8.7 FL (6.5-10.1) Neutrophils (%) (Auto) 59.9 % (45.0-75.0) Lymphocytes (%) (Auto) 31.4 % (20.0-45.0) Monocytes (%) (Auto) 6.8 % (1.0-10.0) Eosinophils (%) (Auto) 0.8 % (0.0-3.0) Basophils (%) (Auto) 1.1 % (0.0-2.0) Prothrombin Time 9.7 SEC (9.30-11.50) Prothromb Time International Ratio 0.9 (0.9-1.1) Activated Partial Thromboplast Time 26 SEC (23-33) Sodium Level 138 mEQ/L (135-145) Potassium Level 4.6 mEQ/L (3.4-4.9) Chloride Level 100 mEQ/L (98-107) Carbon Dioxide Level 25 mEQ/L (20-30) Anion Gap 13 (5-15) Blood Urea Nitrogen 20 mg/dL (7-23) Creatinine 2.1 mg/dL (0.7-1.2) H Estimat Glomerular Filtration Rate 39.8 mL/min (>60) Glucose Level 100 mg/dL (74-106) Lactic Acid Level 1.70 mmol/L (0.66-2.22) Calcium Level 9.1 mg/dL (8.6-10.2) Total Bilirubin < 0.2 mg/dL (0.0-1.2) Aspartate Amino Transf (AST/SGOT) 31 U/L (5-40) Alanine Aminotransferase (ALT/SGPT) 18 U/L (3-41) Alkaline Phosphatase 48 U/L (40-129) Troponin I < 0.30 ng/mL (<=0.30) Total Protein 6.6 g/dL (6.6-8.7) Albumin 4.0 g/dL (3.5-5.2) Globulin 2.6 g/dL Albumin/Globulin Ratio 1.5 (1.0-2.7) Lipase 28 U/L (< 60) Urine Color Yellow Urine Appearance Clear Urine pH 5 (4.5-8.0) Urine Specific [place] 1.020 (1.005-1.035) Urine Protein 4+ (NEGATIVE) H Urine Glucose (UA) Negative (NEGATIVE) Urine Ketones Negative (NEGATIVE) Urine Occult Blood Negative (NEGATIVE) Urine Nitrite Negative (NEGATIVE) Urine Bilirubin Negative (NEGATIVE) Urine Urobilinogen Normal MG/DL (0.0-1.0) Urine Leukocyte Esterase 1+ (NEGATIVE) H Urine RBC 2-4 /HPF (0 - 0) H Urine WBC 10-15 /HPF (0 - 0) H Urine Squamous Epithelial Cells Few /LPF (NONE/OCC) Urine Bacteria Few /HPF (NONE) Urine Eosinophils None seen Urine Random Creatinine Pending Urine Random Microalbumin Pending Urine Random Total Protein > 183 mg/dL Urine Random Sodium 41 mmol/L Urine Creatinine 210.5 mg/dL Urine Microalbumin/Creatinine Ratio Pending LORETTA MENDOZA Mar 24, 2017 08:40
[2017-03-24 08:57] LABS: MEAN CORPUSCULAR HEMOGLOBIN 29.6 PG (27.0-31.0); MEAN CORPUSCULAR HGB CONC 31.5 G/DL (32.0-36.0); MEAN CORPUSCULAR VOLUME 94 FL (80-99); PLATELET COUNT 238 K/UL (150-450); RED BLOOD COUNT 4.45 M/UL (4.70-6.10); RED CELL DISTRIBUTION WIDTH 15.6 % (11.6-14.8); WHITE BLOOD COUNT 10.1 K/UL (4.8-10.8)
[2017-03-24] MEDS: Theophylline ER 100mg ORAL SCH ×2 (09:00→20:48)
[2017-03-24] MEDS: Heparin 5000 units/ml inj SUBQ SCH ×2 (09:00→20:52)
[2017-03-24 09:11] LABS: CALCIUM 9.5 mg/dL (8.6-10.2); CREATININE 2.3 mg/dL (0.7-1.2); GLOMERULAR FILTRATION RATE 35.9 mL/min (>60); POTASSIUM 5.6 mEQ/L (3.4-4.9)
[2017-03-24] MEDS: Aspirin Baby 81mg ORAL SCH (10:29)
[2017-03-24 10:30] LABS: BAND NEUTROPHILS % (MANUAL) 1 % (0-8); BASOPHILS % (MANUAL) 0 % (0-2); EOSINOPHILS % (MANUAL) 0 % (0-3); LYMPHOCYTES % (MANUAL) 12 % (20-45); NEUTROPHILS % (MANUAL) 83 % (45-75); PLATELET ESTIMATE ADEQUATE; PLATELET MORPHOLOGY NORMAL; TOTAL CELLS COUNTED 100
[2017-03-24 10:31] LABS: ANISOCYTOSIS 1+
[2017-03-24 11:13] LABS: MICROALBUMIN/CREATININE RATIO 1489.3 mg/g creat (0.0-30.0)
[2017-03-24 12:00] VITALS: BP 158/96
--- NOTE | 2017-03-24 12:26 | Pulmonology Progress Note ---
Assessment/Plan Problems: (1) Acute asthma exacerbation (2) CKD (chronic kidney disease) (3) COPD (chronic obstructive pulmonary disease) (4) Hypertension (5) Left groin pain (6) Inguinal hernia (7) Obstructive sleep apnea Assessment/Plan check sputum respiratory treatment iv abx IV steroids pain management DVT prophylaxis renal w/u\ all labs and meds reviewed. Subjective ROS Limited/Unobtainable: No Interval Events: doing better Allergies: Coded Allergies: MORPHINE (Unverified Allergy, Intermediate, Itching, 11/25/15) TETRACYCLINE (Verified Allergy, Unknown, 11/25/15) Uncoded Allergies: dairy products (Allergy, Intermediate, Shortness of Breath, 03/23/17) Objective Last 24 Hour Vital Signs Date Time Temp Pulse Resp B/P Pulse Ox O2 Delivery O2 Flow Rate FiO2 03/24/17 09:00 90 155/83 03/24/17 08:19 97.0 86 22 151/83 95 Nasal Cannula 3.0 03/24/17 07:18 90 20 99 Nasal Cannula 2.0 28 03/24/17 07:10 89 20 97 Nasal Cannula 2.0 28 03/24/17 07:10 89 20 Nasal Cannula 2.0 28 03/24/17 07:10 97 Nasal Cannula 2.0 28 03/24/17 07:10 Nasal Cannula 2.0 28 03/24/17 07:10 28 03/24/17 05:29 97.7 89 20 152/103 93 Nasal Cannula 2.0 03/24/17 05:16 140/92 03/24/17 04:00 85 03/24/17 01:55 98.8 03/24/17 01:45 88 20 99 Nasal Cannula 2.0 28 03/24/17 01:30 84 20 97 Nasal Cannula 2.0 28 03/24/17 00:16 98.8 89 20 140/92 94 Room Air 03/24/17 00:00 85 03/23/17 21:06 149/79 03/23/17 21:06 80 149/79 03/23/17 20:17 97.9 80 20 149/79 94 Room Air 03/23/17 20:00 83 03/23/17 19:30 94 Nasal Cannula 2.0 28 03/23/17 19:30 Nasal Cannula 2.0 28 03/23/17 19:30 90 20 Nasal Cannula 2.0 28 03/23/17 18:01 89 22 99 Nasal Cannula 2.0 03/23/17 17:59 86 22 96 Nasal Cannula 2.0 03/23/17 16:50 98.1 88 20 151/81 97 Nasal Cannula 4.0 03/23/17 16:20 98.3 93 15 121/68 98 Room Air 2.0 21 03/23/17 15:02 98.3 93 15 121/68 98 Room Air 2.0 21 03/23/17 13:35 85 14 99 Room Air 2.0 21 03/23/17 13:25 95 22 Room Air 21 03/23/17 13:24 98.3 96 17 137/86 97 Room Air 21 03/23/17 13:07 98.3 03/23/17 13:07 98.3 Intake and Output 03/23/17 03/24/17 19:00 07:00 Output Total 1600 ml Balance -1600 ml Output Urine Total 1600 ml # Voids 3 General Appearance: WD/WN HEENT: normocephalic, atraumatic Respiratory/Chest: chest wall non-tender, lungs clear Cardiovascular: normal peripheral pulses, normal rate Abdomen: normal bowel sounds, soft, non tender Genitourinary: normal external genitalia Extremities: no cyanosis Skin: no rash 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 Lymphatic: no neck adenopathy Laboratory Tests 03/23/17 12:37: White Blood Count 9.5, Red Blood Count 4.08L, Hemoglobin 12.3L, Hematocrit 37.5L , Mean Corpuscular Volume 92, Mean Corpuscular Hemoglobin 30.0, Mean Corpuscular Hemoglobin Concent 32.7, Red Cell Distribution Width 15.3H, Platelet Count 223, Mean Platelet Volume 8.7, Neutrophils (%) (Auto) 59.9, Lymphocytes (%) (Auto) 31.4, Monocytes (%) (Auto) 6.8, Eosinophils (%) (Auto) 0.8, Basophils (%) (Auto) 1.1, Prothrombin Time 9.7, Prothromb Time International Ratio 0.9, Activated Partial Thromboplast Time 26, Sodium Level 138, Potassium Level 4.6, Chloride Level 100, Carbon Dioxide Level 25, Anion Gap 13, Blood Urea Nitrogen 20, Creatinine 2.1H, Estimat Glomerular Filtration Rate 39.8, Glucose Level 100, Lactic Acid Level 1.70, Calcium Level 9.1, Total Bilirubin < 0.2, Aspartate Amino Transf (AST/SGOT) 31, Alanine Aminotransferase (ALT/SGPT) 18, Alkaline Phosphatase 48, Troponin I < 0.30, Total Protein 6.6, Albumin 4.0, Globulin 2.6, Albumin/Globulin Ratio 1.5, Lipase 28 03/23/17 16:20: Urine Color Yellow, Urine Appearance Clear, Urine pH 5, Urine Specific [place] 1.020, Urine Protein 4+H, Urine Glucose (UA) Negative, Urine Ketones Negative, Urine Occult Blood Negative, Urine Nitrite Negative, Urine Bilirubin Negative, Urine Urobilinogen Normal, Urine Leukocyte Esterase 1+H, Urine RBC 2-4H, Urine WBC 10-15H, Urine Squamous Epithelial Cells Few, Urine Bacteria Few, Urine Eosinophils None seen, Urine Random Creatinine 205.0, Urine Random Microalbumin 3053.1, Urine Random Total Protein > 183, Urine Random Sodium 41, Urine Creatinine 210.5, Urine Microalbumin/Creatinine Ratio 1489.3H 03/24/17 08:05: White Blood Count 10.1, Red Blood Count 4.45L, Hemoglobin 13.2L, Hematocrit 41.8L, Mean Corpuscular Volume 94, Mean Corpuscular Hemoglobin 29.6, Mean Corpuscular Hemoglobin Concent 31.5L, Red Cell Distribution Width 15.6H, Platelet Count 238, Mean Platelet Volume 9.0, Neutrophils (%) (Auto) , Lymphocytes (%) (Auto) , Monocytes (%) (Auto) , Eosinophils (%) (Auto) , Basophils (%) (Auto) , Sodium Level 136, Potassium Level 5.6H, Chloride Level 97L, Carbon Dioxide Level 26, Anion Gap 13, Blood Urea Nitrogen 26H, Creatinine 2.3H, Estimat Glomerular Filtration Rate 35.9, Glucose Level 224#H, Calcium Level 9.5, Differential Total Cells Counted 100, Neutrophils % (Manual) 83H, Lymphocytes % (Manual) 12L, Monocytes % (Manual) 4, Eosinophils % (Manual) 0, Basophils % (Manual) 0, Band Neutrophils 1, Platelet Estimate Adequate, Platelet Morphology Normal, Anisocytosis 1+ Current Medications Medications (Trade) Dose Ordered Sig/Alexis Route PRN Reason Start Time Stop Time Status Last Admin Dose Admin Albuterol/ Ipratropium (DuoNeb 0.5-3(2.5)mg/3ml) 3 ml Q4H PRN HHN dyspnea 03/23/17 15:30 03/28/17 15:29 03/23/17 17:54 Albuterol/ Ipratropium (DuoNeb 0.5-3(2.5)mg/3ml) 3 ml Q6HRT HHN 03/23/17 19:00 03/28/17 18:59 03/24/17 07:12 Amlodipine Besylate (Norvasc) 5 mg Q12HR ORAL 03/23/17 21:00 04/22/17 20:59 03/24/17 09:00 Aspirin (ASA) 81 mg DAILY ORAL 03/24/17 09:00 04/23/17 08:59 03/24/17 10:29 Clonidine HCl (Catapres) 0.1 mg Q6H PRN ORAL SBP>160 03/23/17 15:30 04/22/17 15:29 Dextrose STAT PRN IV Hypoglycemia 03/23/17 15:30 04/22/17 15:29 Heparin Sodium (Porcine) (Heparin 5000 units/ml) 5,000 units EVERY 12 HOURS SUBQ 03/23/17 21:00 04/22/17 20:59 03/24/17 09:00 Hydralazine HCl (Apresoline) 10 mg EVERY 8 HOURS ORAL 03/23/17 22:00 04/22/17 21:59 03/24/17 05:16 Hydromorphone HCl (Dilaudid) 1 mg Q4H PRN IVP Severe Pain (Pain Scale 7-10) 03/23/17 18:45 03/30/17 18:44 03/24/17 01:25 Ketorolac Tromethamine (Toradol 30mg) 30 mg Q8H PRN IV Moderate Pain (Pain Scale 4-6) 03/23/17 15:30 03/28/17 15:29 Lorazepam (Ativan 2mg/ml 1ml) 0.5 mg Q4H PRN IV For Anxiety 03/23/17 15:30 03/30/17 15:29 Methylprednisolone Sodium Succinate (Solu-MEDROL) 60 mg EVERY 6 HOURS IV 03/23/17 18:00 04/22/17 17:59 03/24/17 05:16 Nitroglycerin (Ntg) 0.4 mg Q5M X 3 DOSES PRN SL Prn Chest Pain 03/23/17 15:30 04/22/17 15:29 Ondansetron HCl (Zofran) 4 mg Q6H PRN IVP Nausea & Vomiting 03/23/17 15:30 04/22/17 15:29 Piperacillin Sod/ Tazobactam Sod/ Dextrose (Zosyn/D5W) 110 ml @ 27.5 mls/hr EVERY 8 HOURS IVPB 03/23/17 18:00 03/28/17 17:59 03/24/17 05:16 Temazepam (Restoril) 15 mg HSPRN PRN ORAL Insomnia 03/23/17 21:00 03/30/17 20:59 Theophylline (Oscar-Dur) 100 mg EVERY 12 HOURS ORAL 03/23/17 21:00 04/22/17 20:59 03/24/17 09:00 ADDIS SANCHEZ Mar 24, 2017 12:26
--- NOTE | 2017-03-24 14:23 | General Progress Note ---
Assessment/Plan Problem List: (1) Acute asthma exacerbation ICD Codes: J45.901 - Asthma with exacerbation SNOMED: 151223076 (2) Inguinal hernia ICD Codes: K40.90 - Unilateral inguinal hernia, without obstruction or gangrene , not specified as recurrent SNOMED: 744773739 (3) Renal failure syndrome (4) COPD (chronic obstructive pulmonary disease) ICD Codes: J44.9 - Chronic obstructive pulmonary disease, unspecified SNOMED: 56519668 (5) HTN (hypertension) ICD Codes: I10 - Essential (primary) hypertension SNOMED: 14849481 (6) Anemia ICD Codes: D64.9 - Anemia, unspecified SNOMED: 784681473 Status: stable, progressing, tolerating diet Assessment/Plan o2 pulm tx sx follow up pain pain control cbc bmp am Subjective Constitutional: Reports: weakness Allergies: Coded Allergies: MORPHINE (Unverified Allergy, Intermediate, Itching, 11/25/15) TETRACYCLINE (Verified Allergy, Unknown, 11/25/15) Uncoded Allergies: dairy products (Allergy, Intermediate, Shortness of Breath, 03/23/17) All Systems: reviewed and negative except above Subjective calm in bed Objective Last 24 Hour Vital Signs Date Time Temp Pulse Resp B/P Pulse Ox O2 Delivery O2 Flow Rate FiO2 03/24/17 13:38 86 20 99 Nasal Cannula 2.0 03/24/17 13:30 28 03/24/17 13:30 81 20 95 Nasal Cannula 2.0 28 03/24/17 12:00 97.0 88 22 158/96 95 Nasal Cannula 3.0 03/24/17 12:00 82 03/24/17 09:00 90 155/83 03/24/17 08:19 97.0 86 22 151/83 95 Nasal Cannula 3.0 03/24/17 08:00 16 03/24/17 07:18 90 20 99 Nasal Cannula 2.0 28 03/24/17 07:10 89 20 97 Nasal Cannula 2.0 28 03/24/17 07:10 89 20 Nasal Cannula 2.0 28 03/24/17 07:10 97 Nasal Cannula 2.0 28 03/24/17 07:10 Nasal Cannula 2.0 28 03/24/17 07:10 28 03/24/17 05:29 97.7 89 20 152/103 93 Nasal Cannula 2.0 03/24/17 05:16 140/92 03/24/17 04:00 85 03/24/17 01:55 98.8 03/24/17 01:45 88 20 99 Nasal Cannula 2.0 28 03/24/17 01:30 84 20 97 Nasal Cannula 2.0 28 03/24/17 00:16 98.8 89 20 140/92 94 Room Air 03/24/17 00:00 85 03/23/17 21:06 149/79 03/23/17 21:06 80 149/79 03/23/17 20:17 97.9 80 20 149/79 94 Room Air 03/23/17 20:00 83 03/23/17 19:30 94 Nasal Cannula 2.0 28 03/23/17 19:30 Nasal Cannula 2.0 28 03/23/17 19:30 90 20 Nasal Cannula 2.0 03/23/17 18:01 89 22 99 Nasal Cannula 2.0 03/23/17 17:59 86 22 96 Nasal Cannula 2.0 03/23/17 16:50 98.1 88 20 151/81 97 Nasal Cannula 4.0 03/23/17 16:20 98.3 93 15 121/68 98 Room Air 2.0 21 03/23/17 15:02 98.3 93 15 121/68 98 Room Air 2.0 21 Intake and Output 03/23/17 03/24/17 19:00 07:00 Output Total 1600 ml Balance -1600 ml Output Urine Total 1600 ml # Voids 3 Laboratory Tests 03/23/17 16:20: Urine Color Yellow, Urine Appearance Clear, Urine pH 5, Urine Specific [place] 1.020, Urine Protein 4+H, Urine Glucose (UA) Negative, Urine Ketones Negative, Urine Occult Blood Negative, Urine Nitrite Negative, Urine Bilirubin Negative, Urine Urobilinogen Normal, Urine Leukocyte Esterase 1+H, Urine RBC 2-4H, Urine WBC 10-15H, Urine Squamous Epithelial Cells Few, Urine Bacteria Few, Urine Eosinophils None seen, Urine Random Creatinine 205.0, Urine Random Microalbumin 3053.1, Urine Random Total Protein > 183, Urine Random Sodium 41, Urine Creatinine 210.5, Urine Microalbumin/Creatinine Ratio 1489.3H 03/24/17 08:05: White Blood Count 10.1, Red Blood Count 4.45L, Hemoglobin 13.2L, Hematocrit 41.8L, Mean Corpuscular Volume 94, Mean Corpuscular Hemoglobin 29.6, Mean Corpuscular Hemoglobin Concent 31.5L, Red Cell Distribution Width 15.6H, Platelet Count 238, Mean Platelet Volume 9.0, Neutrophils (%) (Auto) , Lymphocytes (%) (Auto) , Monocytes (%) (Auto) , Eosinophils (%) (Auto) , Basophils (%) (Auto) , Differential Total Cells Counted 100, Neutrophils % ( Manual) 83H, Lymphocytes % (Manual) 12L, Monocytes % (Manual) 4, Eosinophils % ( Manual) 0, Basophils % (Manual) 0, Band Neutrophils 1, Platelet Estimate Adequate, Platelet Morphology Normal, Anisocytosis 1+, Sodium Level 136, Potassium Level 5.6H, Chloride Level 97L, Carbon Dioxide Level 26, Anion Gap 13 , Blood Urea Nitrogen 26H, Creatinine 2.3H, Estimat Glomerular Filtration Rate 35.9, Glucose Level 224#H, Calcium Level 9.5 Height (Feet): 5 Height (Inches): 7.00 Weight (Pounds): 280 General Appearance: alert EENT: normal ENT inspection Neck: normal alignment Cardiovascular: normal peripheral pulses, normal rate, regular rhythm Respiratory/Chest: chest wall non-tender, lungs clear, normal breath sounds Abdomen: normal bowel sounds, non tender, soft Extremities: normal inspection Edema: no edema noted Arm (L), no edema noted Arm (R), no edema noted Leg (L), no edema noted Leg (R), no edema noted Pedal (L), no edema noted Pedal (R), no edema noted Generalized Neurologic: responsive, motor weakness Skin: normal pigmentation, warm/dry KADIE SO Mar 24, 2017 14:23
--- NOTE | 2017-03-24 14:47 | Infectious Diseases Prog Note ---
Assessment/Plan Problems: (1) Acute asthma exacerbation Assessment & Plan: will start levaquin empiric treatment for bronchitis , no need for zosyn, continue inhalers, taper steroids (2) UTI (urinary tract infection) Assessment & Plan: will send urine culture and start levaquin (3) COPD (chronic obstructive pulmonary disease) Assessment & Plan: continue inhalers and taper steroids (4) Acute respiratory failure Assessment & Plan: due to the above, improving, continue inhalers, and oxygen, taper steroids (5) CKD (chronic kidney disease) Assessment & Plan: monitor UOP, and renal function , avoid nephrotoxic meds . consult renal Subjective Allergies: Coded Allergies: MORPHINE (Unverified Allergy, Intermediate, Itching, 11/25/15) TETRACYCLINE (Verified Allergy, Unknown, 11/25/15) Uncoded Allergies: dairy products (Allergy, Intermediate, Shortness of Breath, 03/23/17) Objective Vital Signs Last 24 Hour Vital Signs Date Time Temp Pulse Resp B/P Pulse Ox O2 Delivery O2 Flow Rate FiO2 03/24/17 14:39 155/98 03/24/17 13:38 86 20 99 Nasal Cannula 2.0 28 03/24/17 13:30 28 03/24/17 13:30 81 20 95 Nasal Cannula 2.0 28 03/24/17 12:00 97.0 88 22 158/96 95 Nasal Cannula 3.0 03/24/17 12:00 82 03/24/17 09:00 90 155/83 03/24/17 08:19 97.0 86 22 151/83 95 Nasal Cannula 3.0 03/24/17 08:00 16 03/24/17 07:18 90 20 99 Nasal Cannula 2.0 28 03/24/17 07:10 89 20 97 Nasal Cannula 2.0 28 03/24/17 07:10 89 20 Nasal Cannula 2.0 28 03/24/17 07:10 97 Nasal Cannula 2.0 28 03/24/17 07:10 Nasal Cannula 2.0 28 03/24/17 07:10 28 03/24/17 05:29 97.7 89 20 152/103 93 Nasal Cannula 2.0 03/24/17 05:16 140/92 03/24/17 04:00 85 03/24/17 01:55 98.8 03/24/17 01:45 88 20 99 Nasal Cannula 2.0 28 03/24/17 01:30 84 20 97 Nasal Cannula 2.0 28 03/24/17 00:16 98.8 89 20 140/92 94 Room Air 03/24/17 00:00 85 03/23/17 21:06 149/79 03/23/17 21:06 80 149/79 03/23/17 20:17 97.9 80 20 149/79 94 Room Air 03/23/17 20:00 83 03/23/17 19:30 94 Nasal Cannula 2.0 28 03/23/17 19:30 Nasal Cannula 2.0 28 03/23/17 19:30 90 20 Nasal Cannula 2.0 28 03/23/17 18:01 89 22 99 Nasal Cannula 2.0 03/23/17 17:59 86 22 96 Nasal Cannula 2.0 03/23/17 16:50 98.1 88 20 151/81 97 Nasal Cannula 4.0 03/23/17 16:20 98.3 93 15 121/68 98 Room Air 2.0 21 03/23/17 15:02 98.3 93 15 121/68 98 Room Air 2.0 21 Height (Feet): 5 Height (Inches): 7.00 Weight (Pounds): 280 Laboratory Tests Test 03/23/17 16:20 03/24/17 08:05 Urine Color Yellow Urine Appearance Clear Urine pH 5 (4.5-8.0) Urine Specific [place] 1.020 (1.005-1.035) Urine Protein 4+ (NEGATIVE) H Urine Glucose (UA) Negative (NEGATIVE) Urine Ketones Negative (NEGATIVE) Urine Occult Blood Negative (NEGATIVE) Urine Nitrite Negative (NEGATIVE) Urine Bilirubin Negative (NEGATIVE) Urine Urobilinogen Normal MG/DL (0.0-1.0) Urine Leukocyte Esterase 1+ (NEGATIVE) H Urine RBC 2-4 /HPF (0 - 0) H Urine WBC 10-15 /HPF (0 - 0) H Urine Squamous Epithelial Cells Few /LPF (NONE/OCC) Urine Bacteria Few /HPF (NONE) Urine Eosinophils None seen Urine Random Creatinine 205.0 mg/dL (Not Estab.) Urine Random Microalbumin 3053.1 ug/mL (Not Estab.) Urine Random Total Protein > 183 mg/dL Urine Random Sodium 41 mmol/L Urine Creatinine 210.5 mg/dL Urine Microalbumin/Creatinine Ratio 1489.3 mg/g creat White Blood Count 10.1 K/UL (4.8-10.8) Red Blood Count 4.45 M/UL (4.70-6.10) L Hemoglobin 13.2 G/DL (14.2-18.0) L Hematocrit 41.8 % (42.0-52.0) L Mean Corpuscular Volume 94 FL (80-99) Mean Corpuscular Hemoglobin 29.6 PG (27.0-31.0) Mean Corpuscular Hemoglobin Concent 31.5 G/DL (32.0-36.0) L Red Cell Distribution Width 15.6 % (11.6-14.8) H Platelet Count 238 K/UL (150-450) Mean Platelet Volume 9.0 FL (6.5-10.1) Neutrophils (%) (Auto) % (45.0-75.0) Lymphocytes (%) (Auto) % (20.0-45.0) Monocytes (%) (Auto) % (1.0-10.0) Eosinophils (%) (Auto) % (0.0-3.0) Basophils (%) (Auto) % (0.0-2.0) Differential Total Cells Counted 100 Neutrophils % (Manual) 83 % (45-75) H Lymphocytes % (Manual) 12 % (20-45) L Monocytes % (Manual) 4 % (1-10) Eosinophils % (Manual) 0 % (0-3) Basophils % (Manual) 0 % (0-2) Band Neutrophils 1 % (0-8) Platelet Estimate Adequate Platelet Morphology Normal Anisocytosis 1+ Sodium Level 136 mEQ/L (135-145) Potassium Level 5.6 mEQ/L (3.4-4.9) H Chloride Level 97 mEQ/L (98-107) L Carbon Dioxide Level 26 mEQ/L (20-30) Anion Gap 13 (5-15) Blood Urea Nitrogen 26 mg/dL (7-23) H Creatinine 2.3 mg/dL (0.7-1.2) H Estimat Glomerular Filtration Rate 35.9 mL/min (>60) Glucose Level 224 mg/dL (74-106) #H Calcium Level 9.5 mg/dL (8.6-10.2) Current Medications Medications (Trade) Dose Ordered Sig/Alexis Route PRN Reason Start Time Stop Time Status Last Admin Dose Admin Albuterol/ Ipratropium (DuoNeb 0.5-3(2.5)mg/3ml) 3 ml Q4H PRN HHN dyspnea 03/23/17 15:30 03/28/17 15:29 03/23/17 17:54 Albuterol/ Ipratropium (DuoNeb 0.5-3(2.5)mg/3ml) 3 ml Q6HRT HHN 03/23/17 19:00 03/28/17 18:59 03/24/17 13:30 Amlodipine Besylate (Norvasc) 5 mg Q12HR ORAL 03/23/17 21:00 04/22/17 20:59 03/24/17 09:00 Aspirin (ASA) 81 mg DAILY ORAL 03/24/17 09:00 04/23/17 08:59 03/24/17 10:29 Clonidine HCl (Catapres) 0.1 mg Q6H PRN ORAL SBP>160 03/23/17 15:30 04/22/17 15:29 Dextrose STAT PRN IV Hypoglycemia 03/23/17 15:30 04/22/17 15:29 Heparin Sodium (Porcine) (Heparin 5000 units/ml) 5,000 units EVERY 12 HOURS SUBQ 03/23/17 21:00 04/22/17 20:59 03/24/17 09:00 Hydralazine HCl (Apresoline) 10 mg EVERY 8 HOURS ORAL 03/23/17 22:00 04/22/17 21:59 03/24/17 14:39 Hydromorphone HCl (Dilaudid) 1 mg Q4H PRN IVP Severe Pain (Pain Scale 7-10) 03/23/17 18:45 03/30/17 18:44 03/24/17 01:25 Ketorolac Tromethamine (Toradol 30mg) 30 mg Q8H PRN IV Moderate Pain (Pain Scale 4-6) 03/23/17 15:30 03/28/17 15:29 Lorazepam (Ativan 2mg/ml 1ml) 0.5 mg Q4H PRN IV For Anxiety 03/23/17 15:30 03/30/17 15:29 Methylprednisolone Sodium Succinate (Solu-MEDROL) 60 mg EVERY 6 HOURS IV 03/23/17 18:00 04/22/17 17:59 03/24/17 12:18 Nitroglycerin (Ntg) 0.4 mg Q5M X 3 DOSES PRN SL Prn Chest Pain 03/23/17 15:30 04/22/17 15:29 Ondansetron HCl (Zofran) 4 mg Q6H PRN IVP Nausea & Vomiting 03/23/17 15:30 04/22/17 15:29 Piperacillin Sod/ Tazobactam Sod/ Dextrose (Zosyn/D5W) 110 ml @ 27.5 mls/hr EVERY 8 HOURS IVPB 03/23/17 18:00 03/28/17 17:59 03/24/17 05:16 Temazepam (Restoril) 15 mg HSPRN PRN ORAL Insomnia 03/23/17 21:00 03/30/17 20:59 Theophylline (Oscar-Dur) 100 mg EVERY 12 HOURS ORAL 03/23/17 21:00 04/22/17 20:59 03/24/17 09:00 Mihir Pan M.D. Mar 24, 2017 14:47
[2017-03-24 16:30] VITALS: BP 155/99
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
--- NOTE | 2017-03-24 16:49 | Nephrology Progress Note ---
Assessment/Plan Assessment 1. Acute versus 2. Chronic kidney with 3 gr of proteinuria (need nephrotic syndrome w/u ) 3. Asthma exacerbation. 4. hyperkalemia 5. Chronic obstructive pulmonary disease exacerbation. 6. Uncontrolled hypertension. 7. Non-reducible left inguinal hernia. Plan plan nephrotic syndrome w/u low k diet avoid NSAID or SAMIR replace monitoring electrolyte Subjective Constitutional: Reports: malaise, weakness HEENT: Reports: no symptoms Genitourinary: Reports: no symptoms Neurologic/Psychiatric: Reports: no symptoms Subjective alert and awake feeling better today less sob Objective Objective Last 24 Hour Vital Signs Date Time Temp Pulse Resp B/P Pulse Ox O2 Delivery O2 Flow Rate FiO2 03/24/17 16:30 97.0 88 20 155/99 94 Nasal Cannula 3.0 03/24/17 14:39 155/98 03/24/17 13:38 86 20 99 Nasal Cannula 2.0 03/24/17 13:30 28 03/24/17 13:30 81 20 95 Nasal Cannula 2.0 03/24/17 12:00 97.0 88 22 158/96 95 Nasal Cannula 3.0 03/24/17 12:00 82 03/24/17 09:00 90 155/83 03/24/17 08:19 97.0 86 22 151/83 95 Nasal Cannula 3.0 03/24/17 08:00 16 03/24/17 07:18 90 20 99 Nasal Cannula 2.0 03/24/17 07:10 89 20 97 Nasal Cannula 2.0 03/24/17 07:10 89 20 Nasal Cannula 2.0 03/24/17 07:10 97 Nasal Cannula 2.0 03/24/17 07:10 Nasal Cannula 2.0 03/24/17 07:10 28 03/24/17 05:29 97.7 89 20 152/103 93 Nasal Cannula 2.0 03/24/17 05:16 140/92 03/24/17 04:00 85 03/24/17 01:55 98.8 03/24/17 01:45 88 20 99 Nasal Cannula 2.0 03/24/17 01:30 84 20 97 Nasal Cannula 2.0 03/24/17 00:16 98.8 89 20 140/92 94 Room Air 03/24/17 00:00 85 03/23/17 21:06 149/79 03/23/17 21:06 80 149/79 03/23/17 20:17 97.9 80 20 149/79 94 Room Air 03/23/17 20:00 83 03/23/17 19:30 94 Nasal Cannula 2.0 28 03/23/17 19:30 Nasal Cannula 2.0 28 03/23/17 19:30 90 20 Nasal Cannula 2.0 28 03/23/17 18:01 89 22 99 Nasal Cannula 2.0 03/23/17 17:59 86 22 96 Nasal Cannula 2.0 03/23/17 16:50 98.1 88 20 151/81 97 Nasal Cannula 4.0 Intake and Output 03/23/17 03/24/17 19:00 07:00 Output Total 1600 ml Balance -1600 ml Output Urine Total 1600 ml # Voids 3 Laboratory Tests 03/24/17 08:05: White Blood Count 10.1, Red Blood Count 4.45L, Hemoglobin 13.2L, Hematocrit 41.8L, Mean Corpuscular Volume 94, Mean Corpuscular Hemoglobin 29.6, Mean Corpuscular Hemoglobin Concent 31.5L, Red Cell Distribution Width 15.6H, Platelet Count 238, Mean Platelet Volume 9.0, Neutrophils (%) (Auto) , Lymphocytes (%) (Auto) , Monocytes (%) (Auto) , Eosinophils (%) (Auto) , Basophils (%) (Auto) , Differential Total Cells Counted 100, Neutrophils % ( Manual) 83H, Lymphocytes % (Manual) 12L, Monocytes % (Manual) 4, Eosinophils % ( Manual) 0, Basophils % (Manual) 0, Band Neutrophils 1, Platelet Estimate Adequate, Platelet Morphology Normal, Anisocytosis 1+, Sodium Level 136, Potassium Level 5.6H, Chloride Level 97L, Carbon Dioxide Level 26, Anion Gap 13 , Blood Urea Nitrogen 26H, Creatinine 2.3H, Estimat Glomerular Filtration Rate 35.9, Glucose Level 224#H, Calcium Level 9.5 Height (Feet): 5 Height (Inches): 7.00 Weight (Pounds): 280 Objective HEAD AND NECK: Unable to assess JVP due to the patient's body habitus. No LAD. Extraocular movement intact. Pupils are reactive to light and accommodation. LUNGS: He has bilateral wheezing. CARDIAC: Regular rate and rhythm. S1 and S2. No murmur. No rub. ABDOMEN: Obese, nontender, and nondistended. EXTREMITIES: Trace edema. No clubbing. No cyanosis. RILEY RAMIREZ Mar 24, 2017 16:49
--- NOTE | 2017-03-24 16:50 | Cardiology Report ---
APPROVED REPORT EKG Measurement Heart [id number] [place] [id number] Normal sinus rhythm Septal infarct, age undetermined Cannot rule out Inferior infarct, age undetermined Abnormal ECG
[2017-03-24 20:16] VITALS: BP 164/93
--- NOTE | 2017-03-24 23:15 | Consultation ---
DATE OF CONSULTATION: INFECTIOUS DISEASE CONSULTATION CONSULTING PHYSICIAN: Mihir Pan M.D. REQUESTING PHYSICIAN: Jason Ivy D.O. REASON FOR CONSULTATION: Asthma exacerbation and acute bronchitis. Recommendation for antibiotics treatment. HISTORY OF PRESENT ILLNESS: The patient is a 56-year-old male with past medical history of asthma, chronic obstructive pulmonary disease, hypertension and coronary artery disease was here at [facility] for some laboratory test. He developed sudden shortness of breath while he was in the elevator with difficulty in breathing. The patient had asthma and he is normally on steroid and he took his inhalers before coming to the hospital but his shortness of breath get worse, which prompted him to go to the emergency room. He had productive cough of whitish phlegm, but no fever or chills. No chest pain. No syncope. The patient had temperature of 98.1 in the emergency room with O2 saturation of 96% on room air. He had diffuse wheezing on both side of his lungs. He received steroid and started on antibiotics and was consulted by the primary provider for antibiotics treatment and further management. The patient today feels better with 75% improvement in his symptoms compare to yesterday. PAST MEDICAL HISTORY: Significant for coronary artery disease, hypertension, asthma, chronic obstructive pulmonary disease, head traumatic injury, and chronic headache. PAST SURGICAL HISTORY: Negative. SOCIAL HISTORY: The patient is . Lives with his . He is unemployed. Denied using any drugs, tobacco, or alcohol. FAMILY HISTORY: Not contributory. ALLERGIES: He is allergic to tetracycline and morphine. MEDICATIONS: He was started on Zosyn and Solu-Medrol. For the rest of his medications please refer to MAR. LABORATORY DATA: Showed white count of 10.1, hemoglobin of 13.2, and platelet count of 238,000. BUN of 26 and creatinine of 2.3. Urinalysis showed +4 protein, +1 leukocyte esterase, WBC 10 to 15, and few bacteria. IMAGING: Chest x-ray showed no acute process. Abdominal pelvis CT scan showed no acute abnormality is demonstrated. There is also bilateral basilar pulmonary parenchymal atelectatic changes, bilateral L5 spondylolysis with grade 1 L5 on S1 spondylosis. REVIEW OF SYSTEMS: A 14-point of system reviewed were all negative apart from the one I mentioned above in my History and Physical. PHYSICAL EXAMINATION: VITAL SIGNS: Temperature 97 degrees, pulse 86, respiration 20, blood pressure 155/98, and saturation 99% on two liters nasal cannula. GENERAL: A middle-aged male, obese, lying in bed, awake, alert, breathing okay, and not in distress. HEENT: Normocephalic and atraumatic. Pupils are reactive to light. Moist oral mucosa. No exudate. NECK: Supple. Obese. No lymphadenopathy. CARDIOVASCULAR: Regular rate and rhythm. No murmur or gallop. LUNGS: He had a fine wheezing at the bases with diminished breathing sound and poor air entry to both lung whitten. Normal breathing efforts. ABDOMEN: Soft, obese, nontender and nondistended. Positive bowel sounds. No hepatosplenomegaly. No ascites. EXTREMITIES: Edema +1. No cyanosis. SKIN: No rash. No hives. MUSCULOSKELETAL: No joint swelling or muscle tenderness. ASSESSMENT AND RECOMMENDATION: 1. Acute asthma exacerbation due to bronchitis. We will start patient empirically on Levaquin treatment for his bronchitis. No need for Zosyn at this point. Continue inhalers and taper steroid as needed. 2. Urinary tract infection. We will send urine culture and start patient on Levaquin. 3. Chronic obstructive pulmonary disease with acute exacerbation due to the above continue inhalers and taper steroid. 4. Acute respiratory failure due to the above improved. Continue inhalers, nebulizer treatment and oxygen. Taper steroids. 5. Chronic kidney disease. Monitor urine output and renal function. Avoid nephrotoxic medicine. Consult Renal. Mihir Pan M.D. DR: BRITTNEY JOB#: [id number] CC:
[2017-03-25] MEDS: HYDROmorphone 1mg/ml Carpuject IVP PRN ×5 (01:13→21:21)
[2017-03-25] MEDS: DuoNeb 0.5-3(2.5)mg/3ml neb HHN SCH ×4 (02:00→19:43)
[2017-03-25 04:25] VITALS: BP 161/100
[2017-03-25] MEDS: HydrALAZINE 10mg Tab ORAL SCH (06:00)
[2017-03-25] MEDS: Solu-MEDROL 125mg Inj IV SCH ×3 (06:00→21:19)
[2017-03-25 08:25] VITALS: BP 149/70
[2017-03-25] MEDS: Aspirin Baby 81mg ORAL SCH (08:41)
[2017-03-25] MEDS: Theophylline ER 100mg ORAL SCH ×2 (08:41→21:20)
[2017-03-25] MEDS: Heparin 5000 units/ml inj SUBQ SCH ×2 (08:44→21:23)
[2017-03-25 09:07] LABS: CALCIUM 11.4 mg/dL (8.6-10.2); GLOMERULAR FILTRATION RATE 42.1 mL/min (>60); POTASSIUM 4.8 mEQ/L (3.4-4.9)
[2017-03-25 09:20] LABS: MEAN CORPUSCULAR HEMOGLOBIN 28.5 PG (27.0-31.0); MEAN CORPUSCULAR HGB CONC 30.5 G/DL (32.0-36.0); MEAN CORPUSCULAR VOLUME 93 FL (80-99); MEAN PLATELET VOLUME 8.6 FL (6.5-10.1); PLATELET COUNT 252 K/UL (150-450); RED BLOOD COUNT 4.56 M/UL (4.70-6.10); RED CELL DISTRIBUTION WIDTH 15.7 % (11.6-14.8); WHITE BLOOD COUNT 15.3 K/UL (4.8-10.8)
[2017-03-25 10:09] LABS: BAND NEUTROPHILS % (MANUAL) 1 % (0-8); LYMPHOCYTES % (MANUAL) 5 % (20-45); NEUTROPHILS % (MANUAL) 91 % (45-75); TOTAL CELLS COUNTED 100
[2017-03-25 10:10] LABS: BASOPHILS % (MANUAL) 0 % (0-2); EOSINOPHILS % (MANUAL) 0 % (0-3); PLATELET ESTIMATE ADEQUATE; PLATELET MORPHOLOGY NORMAL
[2017-03-25 10:11] LABS: ANISOCYTOSIS 1+; HYPOCHROMASIA 1+
[2017-03-25 12:11] VITALS: BP 163/90
--- NOTE | 2017-03-25 14:18 | Cardiology Progress Note ---
Assessment/Plan Assessment/Plan 1. Dyspnea, most likely due to acute asthma exacerbation, form the cardiac standpoint, echo reveals normal LV systolic function with LVEF of about 65%, with normal intracardiac filling pressure. 2. Obesity, hypoventilation syndrome with normal pulmonary artery pressure determined in July 2016. 3. Clear from the cardiology standpoint for left inguinal hernia repair, if planned, with estimated risk of coronary artery events less than 1%. 4. Accelerated HTN, continue amlodipine, increase hydralazine to 25mg po tid. Subjective Subjective Sinus rhythm at 82. Denies chest pain. Objective Last 24 Hour Vital Signs Date Time Temp Pulse Resp B/P Pulse Ox O2 Delivery O2 Flow Rate FiO2 03/25/17 13:07 81 20 100 Nasal Cannula 2.0 28 03/25/17 12:55 81 18 95 Nasal Cannula 2.0 28 03/25/17 12:11 97.2 90 20 163/90 95 Nasal Cannula 2.0 03/25/17 12:00 86 03/25/17 08:44 75 22 100 Nasal Cannula 2.0 28 03/25/17 08:41 94 149/70 03/25/17 08:38 Nasal Cannula 2.0 03/25/17 08:38 75 20 Nasal Cannula 2.0 28 03/25/17 08:38 95 Nasal Cannula 2.0 28 03/25/17 08:38 75 20 95 Nasal Cannula 2.0 28 03/25/17 08:25 97.0 94 20 149/70 97 Nasal Cannula 2.0 03/25/17 08:00 81 03/25/17 06:00 168/100 03/25/17 04:25 97.0 85 20 161/100 95 Nasal Cannula 03/25/17 04:00 90 03/25/17 01:45 84 20 97 Nasal Cannula 2.0 28 03/25/17 01:43 97.7 03/25/17 01:30 82 20 95 Nasal Cannula 2.0 28 03/25/17 00:00 85 03/24/17 21:15 164/93 03/24/17 20:49 83 164/93 03/24/17 20:16 97.7 83 24 164/93 95 Nasal Cannula 2.0 03/24/17 20:00 82 03/24/17 19:44 99 Room Air 21 03/24/17 19:44 Nasal Cannula 2.0 03/24/17 19:42 83 21 99 Room Air 03/24/17 19:42 83 21 Room Air 03/24/17 19:40 83 20 99 Room Air 03/24/17 16:30 97.0 88 20 155/99 94 Nasal Cannula 3.0 03/24/17 14:39 155/98 Intake and Output 03/24/17 03/25/17 19:00 07:00 Intake Total 600 ml Output Total 350 ml Balance 250 ml Intake Oral 600 ml Output Urine Total 350 ml # Voids 3 2 # Bowel Movements 1 Laboratory Tests Test 03/25/17 07:55 White Blood Count 15.3 K/UL (4.8-10.8) #H Red Blood Count 4.56 M/UL (4.70-6.10) L Hemoglobin 13.0 G/DL (14.2-18.0) L Hematocrit 42.5 % (42.0-52.0) Mean Corpuscular Volume 93 FL (80-99) Mean Corpuscular Hemoglobin 28.5 PG (27.0-31.0) Mean Corpuscular Hemoglobin Concent 30.5 G/DL (32.0-36.0) L Red Cell Distribution Width 15.7 % (11.6-14.8) H Platelet Count 252 K/UL (150-450) Mean Platelet Volume 8.6 FL (6.5-10.1) Neutrophils (%) (Auto) % (45.0-75.0) Lymphocytes (%) (Auto) % (20.0-45.0) Monocytes (%) (Auto) % (1.0-10.0) Eosinophils (%) (Auto) % (0.0-3.0) Basophils (%) (Auto) % (0.0-2.0) Differential Total Cells Counted 100 Neutrophils % (Manual) 91 % (45-75) H Lymphocytes % (Manual) 5 % (20-45) L Monocytes % (Manual) 3 % (1-10) Eosinophils % (Manual) 0 % (0-3) Basophils % (Manual) 0 % (0-2) Band Neutrophils 1 % (0-8) Platelet Estimate Adequate Platelet Morphology Normal Hypochromasia 1+ Anisocytosis 1+ Sodium Level 136 mEQ/L (135-145) Potassium Level 4.8 mEQ/L (3.4-4.9) Chloride Level 96 mEQ/L (98-107) L Carbon Dioxide Level 26 mEQ/L (20-30) Anion Gap 14 (5-15) Blood Urea Nitrogen 30 mg/dL (7-23) H Creatinine 2.0 mg/dL (0.7-1.2) H Estimat Glomerular Filtration Rate 42.1 mL/min (>60) Glucose Level 130 mg/dL (74-106) H Calcium Level 11.4 mg/dL (8.6-10.2) H Microbiology Date/Time Source Procedure Growth Status 03/23/17 16:20 Urine,Clean Catch Urine Culture - Preliminary NO GROWTH Resulted Objective HEENT: Atraumatic and normocephalic. Anicteric. Pupils are equal, round, and reactive to light and accommodation. Extraocular muscles intact. NECK: Very short, cannot assess JVP. CARDIOVASCULAR: Normal S1 and S2. Regular rate and rhythm. No murmurs, gallops, or rubs. PMI is at fourth intercostal space in the midclavicular line. LUNGS: Diminished breath sounds in both lungs. ABDOMEN: Soft. Distended due to obesity. No hepatosplenomegaly. Positive bowel sounds. EXTREMITIES: Trace bilateral pulmonary edema. LORETTA MENDOZA Mar 25, 2017 14:18
[2017-03-25] MEDS ORDERED: HydrALAZINE 25mg tab ORAL SCH (15:00)
--- NOTE | 2017-03-25 15:07 | Pulmonology Progress Note ---
Assessment/Plan Problems: (1) Acute asthma exacerbation (2) CKD (chronic kidney disease) (3) COPD (chronic obstructive pulmonary disease) (4) Hypertension (5) Left groin pain (6) Inguinal hernia (7) Obstructive sleep apnea Assessment/Plan improving check sputum respiratory treatment iv abx taper IV steroids pain management DVT prophylaxis renal w/u\ all labs and meds reviewed. Subjective ROS Limited/Unobtainable: No Constitutional: Reports: no symptoms HEENT: Repors: no symptoms Respiratory: Reports: no symptoms Allergies: Coded Allergies: MORPHINE (Unverified Allergy, Intermediate, Itching, 11/25/15) TETRACYCLINE (Verified Allergy, Unknown, 11/25/15) Uncoded Allergies: dairy products (Allergy, Intermediate, Shortness of Breath, 03/23/17) Objective Last 24 Hour Vital Signs Date Time Temp Pulse Resp B/P Pulse Ox O2 Delivery O2 Flow Rate FiO2 03/25/17 13:07 81 20 100 Nasal Cannula 2.0 03/25/17 12:55 81 18 95 Nasal Cannula 2.0 03/25/17 12:11 97.2 90 20 163/90 95 Nasal Cannula 2.0 03/25/17 12:00 86 03/25/17 08:44 75 22 100 Nasal Cannula 2.0 28 03/25/17 08:41 94 149/70 03/25/17 08:38 Nasal Cannula 2.0 03/25/17 08:38 75 20 Nasal Cannula 2.0 28 03/25/17 08:38 95 Nasal Cannula 2.0 28 03/25/17 08:38 75 20 95 Nasal Cannula 2.0 03/25/17 08:25 97.0 94 20 149/70 97 Nasal Cannula 2.0 03/25/17 08:00 81 03/25/17 06:00 168/100 03/25/17 04:25 97.0 85 20 161/100 95 Nasal Cannula 03/25/17 04:00 90 03/25/17 01:45 84 20 97 Nasal Cannula 2.0 03/25/17 01:43 97.7 03/25/17 01:30 82 20 95 Nasal Cannula 2.0 03/25/17 00:00 85 03/24/17 21:15 164/93 03/24/17 20:49 83 164/93 8/15/17 20:16 97.7 83 24 164/93 95 Nasal Cannula 2.0 03/24/17 20:00 82 03/24/17 19:44 99 Room Air 21 03/24/17 19:44 Nasal Cannula 2.0 03/24/17 19:42 83 21 99 Room Air 03/24/17 19:42 83 21 Room Air 03/24/17 19:40 83 20 99 Room Air 03/24/17 16:30 97.0 88 20 155/99 94 Nasal Cannula 3.0 Intake and Output 03/24/17 03/25/17 19:00 07:00 Intake Total 600 ml Output Total 350 ml Balance 250 ml Intake Oral 600 ml Output Urine Total 350 ml # Voids 3 2 # Bowel Movements 1 General Appearance: WD/WN HEENT: normocephalic Respiratory/Chest: chest wall non-tender, lungs clear Cardiovascular: normal peripheral pulses, normal rate Abdomen: normal bowel sounds, soft, non tender Extremities: no cyanosis Skin: no rash Lymphatic: no neck adenopathy Microbiology Date/Time Source Procedure Growth Status 03/23/17 16:20 Urine,Clean Catch Urine Culture - Preliminary NO GROWTH Resulted Laboratory Tests 03/25/17 07:55: White Blood Count 15.3#H, Red Blood Count 4.56L, Hemoglobin 13.0L, Hematocrit 42.5, Mean Corpuscular Volume 93, Mean Corpuscular Hemoglobin 28.5, Mean Corpuscular Hemoglobin Concent 30.5L, Red Cell Distribution Width 15.7H, Platelet Count 252, Mean Platelet Volume 8.6, Neutrophils (%) (Auto) , Lymphocytes (%) (Auto) , Monocytes (%) (Auto) , Eosinophils (%) (Auto) , Basophils (%) (Auto) , Differential Total Cells Counted 100, Neutrophils % ( Manual) 91H, Lymphocytes % (Manual) 5L, Monocytes % (Manual) 3, Eosinophils % ( Manual) 0, Basophils % (Manual) 0, Band Neutrophils 1, Platelet Estimate Adequate, Platelet Morphology Normal, Hypochromasia 1+, Anisocytosis 1+, Sodium Level 136, Potassium Level 4.8, Chloride Level 96L, Carbon Dioxide Level 26, Anion Gap 14, Blood Urea Nitrogen 30H, Creatinine 2.0H, Estimat Glomerular Filtration Rate 42.1, Glucose Level 130H, Calcium Level 11.4H Current Medications Medications (Trade) Dose Ordered Sig/Alexis Route PRN Reason Start Time Stop Time Status Last Admin Dose Admin Albuterol/ Ipratropium (DuoNeb 0.5-3(2.5)mg/3ml) 3 ml Q4H PRN HHN dyspnea 03/23/17 15:30 03/28/17 15:29 03/23/17 17:54 Albuterol/ Ipratropium 3 ml 3 ml Q6HRT HHN 03/23/17 19:00 03/28/17 18:59 03/25/17 12:55 Amlodipine Besylate (Norvasc) 5 mg Q12HR ORAL 03/23/17 21:00 04/22/17 20:59 03/25/17 08:41 Aspirin (ASA) 81 mg DAILY ORAL 03/24/17 09:00 04/23/17 08:59 03/25/17 08:41 Clonidine HCl (Catapres) 0.1 mg Q6H PRN ORAL SBP>160 03/23/17 15:30 04/22/17 15:29 Dextrose (Dextrose 50%) STAT PRN IV Hypoglycemia 03/23/17 15:30 04/22/17 15:29 Heparin Sodium (Porcine) (Heparin 5000 units/ml) 5,000 units EVERY 12 HOURS SUBQ 03/23/17 21:00 04/22/17 20:59 03/25/17 08:44 Hydralazine HCl (Apresoline) 25 mg EVERY 8 HOURS ORAL 03/25/17 15:00 04/24/17 14:59 Hydromorphone HCl (Dilaudid) 1 mg Q4H PRN IVP Severe Pain (Pain Scale 7-10) 03/23/17 18:45 03/30/17 18:44 03/25/17 11:36 Ketorolac Tromethamine (Toradol 30mg) 30 mg Q8H PRN IV Moderate Pain (Pain Scale 4-6) 03/23/17 15:30 03/28/17 15:29 Levofloxacin (Levaquin) 100 ml @ 100 mls/hr Q24H IVPB 03/24/17 16:00 03/31/17 15:59 03/24/17 17:48 Lorazepam (Ativan 2mg/ml 1ml) 0.5 mg Q4H PRN IV For Anxiety 03/23/17 15:30 03/30/17 15:29 Methylprednisolone Sodium Succinate (Solu-MEDROL) 60 mg EVERY 6 HOURS IV 03/23/17 18:00 04/22/17 17:59 03/25/17 12:34 Nitroglycerin (Ntg) 0.4 mg Q5M X 3 DOSES PRN SL Prn Chest Pain 03/23/17 15:30 04/22/17 15:29 Ondansetron HCl (Zofran) 4 mg Q6H PRN IVP Nausea & Vomiting 03/23/17 15:30 04/22/17 15:29 Temazepam (Restoril) 15 mg HSPRN PRN ORAL Insomnia 03/23/17 21:00 03/30/17 20:59 Theophylline (Oscar-Dur) 100 mg EVERY 12 HOURS ORAL 03/23/17 21:00 04/22/17 20:59 03/25/17 08:41 ADDIS SANCHEZ Mar 25, 2017 15:07
--- NOTE | 2017-03-25 15:30 | Infectious Diseases Prog Note ---
Assessment/Plan Problems: (1) Acute asthma exacerbation Assessment & Plan: on levaquin empiric treatment for bronchitis , continue inhalers, taper steroids (2) UTI (urinary tract infection) Assessment & Plan: await urine culture and continue levaquin empirically (3) COPD (chronic obstructive pulmonary disease) Assessment & Plan: continue inhalers and taper steroids (4) Acute respiratory failure Assessment & Plan: due to the above, improving, continue inhalers, and oxygen, taper steroids (5) CKD (chronic kidney disease) Assessment & Plan: monitor UOP, and renal function , avoid nephrotoxic meds . consult renal (6) Leukocytosis Assessment & Plan: suspect due to steroids , recommend to taper Subjective Constitutional: Reports: no symptoms HEENT: Reports: no symptoms Respiratory: Reports: dry cough Breasts: Reports: no symptoms Cardiovascular: Reports: no symptoms Gastrointestinal/Abdominal: Reports: no symptoms Genitourinary: Reports: other - inguinal hernia Neurologic: Reports: no symptoms Psychiatric: Reports: no symptoms Skin: Reports: no symptoms Endocrine: Reports: no symptoms Hematologic: Reports: no symptoms Musculoskeletal: Reports: no symptoms Allergies: Coded Allergies: MORPHINE (Unverified Allergy, Intermediate, Itching, 11/25/15) TETRACYCLINE (Verified Allergy, Unknown, 11/25/15) Uncoded Allergies: dairy products (Allergy, Intermediate, Shortness of Breath, 03/23/17) Objective Vital Signs Last 24 Hour Vital Signs Date Time Temp Pulse Resp B/P Pulse Ox O2 Delivery O2 Flow Rate FiO2 03/25/17 13:07 81 20 100 Nasal Cannula 2.0 03/25/17 12:55 81 18 95 Nasal Cannula 2.0 03/25/17 12:11 97.2 90 20 163/90 95 Nasal Cannula 2.0 03/25/17 12:00 86 03/25/17 08:44 75 22 100 Nasal Cannula 2.0 03/25/17 08:41 94 149/70 03/25/17 08:38 Nasal Cannula 2.0 03/25/17 08:38 75 20 Nasal Cannula 2.0 28 03/25/17 08:38 95 Nasal Cannula 2.0 28 03/25/17 08:38 75 20 95 Nasal Cannula 2.0 03/25/17 08:25 97.0 94 20 149/70 97 Nasal Cannula 2.0 03/25/17 08:00 81 03/25/17 06:00 168/100 03/25/17 04:25 97.0 85 20 161/100 95 Nasal Cannula 03/25/17 04:00 90 03/25/17 01:45 84 20 97 Nasal Cannula 2.0 28 03/25/17 01:43 97.7 03/25/17 01:30 82 20 95 Nasal Cannula 2.0 28 03/25/17 00:00 85 03/24/17 21:15 164/93 03/24/17 20:49 83 164/93 03/24/17 20:16 97.7 83 24 164/93 95 Nasal Cannula 2.0 03/24/17 20:00 82 03/24/17 19:44 99 Room Air 21 03/24/17 19:44 Nasal Cannula 2.0 03/24/17 19:42 83 21 99 Room Air 03/24/17 19:42 83 21 Room Air 03/24/17 19:40 83 20 99 Room Air 03/24/17 16:30 97.0 88 20 155/99 94 Nasal Cannula 3.0 Height (Feet): 5 Height (Inches): 7.00 Weight (Pounds): 280 General Appearance: WD/WN, no acute distress HEENT: normocephalic, atraumatic, anicteric, mucous membranes moist Respiratory/Chest: chest wall non-tender, no respiratory distress, no accessory muscle use, decreased breath sounds, expiratory wheezing Cardiovascular: normal peripheral pulses, normal rate, regular rhythm, no gallop/murmur, no JVD Abdomen: normal bowel sounds, soft, non tender, no organomegaly, non distended , no mass, no scars Extremities: no cyanosis, no clubbing Skin: no rash, no lesions, ulcers Neurologic/Psychiatric: alert, oriented x 3 Lymphatic: no neck adenopathy Musculoskeletal: normal muscle bulk, no effusion Microbiology Date/Time Source Procedure Growth Status 03/23/17 16:20 Urine,Clean Catch Urine Culture - Preliminary NO GROWTH Resulted Laboratory Tests Test 03/25/17 07:55 White Blood Count 15.3 K/UL (4.8-10.8) #H Red Blood Count 4.56 M/UL (4.70-6.10) L Hemoglobin 13.0 G/DL (14.2-18.0) L Hematocrit 42.5 % (42.0-52.0) Mean Corpuscular Volume 93 FL (80-99) Mean Corpuscular Hemoglobin 28.5 PG (27.0-31.0) Mean Corpuscular Hemoglobin Concent 30.5 G/DL (32.0-36.0) L Red Cell Distribution Width 15.7 % (11.6-14.8) H Platelet Count 252 K/UL (150-450) Mean Platelet Volume 8.6 FL (6.5-10.1) Neutrophils (%) (Auto) % (45.0-75.0) Lymphocytes (%) (Auto) % (20.0-45.0) Monocytes (%) (Auto) % (1.0-10.0) Eosinophils (%) (Auto) % (0.0-3.0) Basophils (%) (Auto) % (0.0-2.0) Differential Total Cells Counted 100 Neutrophils % (Manual) 91 % (45-75) H Lymphocytes % (Manual) 5 % (20-45) L Monocytes % (Manual) 3 % (1-10) Eosinophils % (Manual) 0 % (0-3) Basophils % (Manual) 0 % (0-2) Band Neutrophils 1 % (0-8) Platelet Estimate Adequate Platelet Morphology Normal Hypochromasia 1+ Anisocytosis 1+ Sodium Level 136 mEQ/L (135-145) Potassium Level 4.8 mEQ/L (3.4-4.9) Chloride Level 96 mEQ/L (98-107) L Carbon Dioxide Level 26 mEQ/L (20-30) Anion Gap 14 (5-15) Blood Urea Nitrogen 30 mg/dL (7-23) H Creatinine 2.0 mg/dL (0.7-1.2) H Estimat Glomerular Filtration Rate 42.1 mL/min (>60) Glucose Level 130 mg/dL (74-106) H Calcium Level 11.4 mg/dL (8.6-10.2) H Current Medications Medications (Trade) Dose Ordered Sig/Alexis Route PRN Reason Start Time Stop Time Status Last Admin Dose Admin Albuterol/ Ipratropium (DuoNeb 0.5-3(2.5)mg/3ml) 3 ml Q4H PRN HHN dyspnea 03/23/17 15:30 03/28/17 15:29 03/23/17 17:54 Albuterol/ Ipratropium (DuoNeb 0.5-3(2.5)mg/3ml) 3 ml Q6HRT HHN 03/23/17 19:00 03/28/17 18:59 03/25/17 12:55 Amlodipine Besylate (Norvasc) 5 mg Q12HR ORAL 03/23/17 21:00 04/22/17 20:59 03/25/17 08:41 Aspirin (ASA) 81 mg DAILY ORAL 03/24/17 09:00 04/23/17 08:59 03/25/17 08:41 Clonidine HCl (Catapres) 0.1 mg Q6H PRN ORAL SBP>160 03/23/17 15:30 04/22/17 15:29 Dextrose (Dextrose 50%) STAT PRN IV Hypoglycemia 03/23/17 15:30 04/22/17 15:29 Heparin Sodium (Porcine) (Heparin 5000 units/ml) 5,000 units EVERY 12 HOURS SUBQ 03/23/17 21:00 04/22/17 20:59 03/25/17 08:44 Hydralazine HCl (Apresoline) 25 mg EVERY 8 HOURS ORAL 03/25/17 15:00 04/24/17 14:59 Hydromorphone HCl (Dilaudid) 1 mg Q4H PRN IVP Severe Pain (Pain Scale 7-10) 03/23/17 18:45 03/30/17 18:44 03/25/17 11:36 Ketorolac Tromethamine (Toradol 30mg) 30 mg Q8H PRN IV Moderate Pain (Pain Scale 4-6) 03/23/17 15:30 03/28/17 15:29 Levofloxacin (Levaquin) 50 ml @ 50 mls/hr Q24H IVPB 03/25/17 16:00 04/01/17 15:59 Lorazepam (Ativan 2mg/ml 1ml) 0.5 mg Q4H PRN IV For Anxiety 03/23/17 15:30 03/30/17 15:29 Methylprednisolone Sodium Succinate 60 mg 60 mg EVERY 12 HOURS IV 03/25/17 21:00 04/24/17 20:59 Nitroglycerin (Ntg) 0.4 mg Q5M X 3 DOSES PRN SL Prn Chest Pain 03/23/17 15:30 04/22/17 15:29 Ondansetron HCl (Zofran) 4 mg Q6H PRN IVP Nausea & Vomiting 03/23/17 15:30 04/22/17 15:29 Temazepam (Restoril) 15 mg HSPRN PRN ORAL Insomnia 03/23/17 21:00 03/30/17 20:59 Theophylline (Oscar-Dur) 100 mg EVERY 12 HOURS ORAL 03/23/17 21:00 04/22/17 20:59 03/25/17 08:41 Mihir Pan M.D. Mar 25, 2017 15:30
[2017-03-25 15:37] VITALS: BP 147/98
--- NOTE | 2017-03-25 15:40 | Nephrology Progress Note ---
Assessment/Plan Assessment 1. Acute versus chronic kidney disease. 2. Chronic kidney disease due to hypertensive nephrosclerosis. 3. Asthma exacerbation. 4. hyperkalemia 5. Chronic obstructive pulmonary disease exacerbation. 6. Uncontrolled hypertension. 7. Non-reducible left inguinal hernia. Plan plan fallow up with urine study and renal us low k diet avoid NSAID or SAMIR replace monitoring electrolyte Subjective Subjective alert and awake c/o mild sob Objective Objective Last 24 Hour Vital Signs Date Time Temp Pulse Resp B/P Pulse Ox O2 Delivery O2 Flow Rate FiO2 03/25/17 15:37 97.0 86 20 147/98 95 Nasal Cannula 2.0 03/25/17 13:07 81 20 100 Nasal Cannula 2.0 28 03/25/17 12:55 81 18 95 Nasal Cannula 2.0 28 03/25/17 12:11 97.2 90 20 163/90 95 Nasal Cannula 2.0 03/25/17 12:00 86 03/25/17 08:44 75 22 100 Nasal Cannula 2.0 28 03/25/17 08:41 94 149/70 03/25/17 08:38 Nasal Cannula 2.0 03/25/17 08:38 75 20 Nasal Cannula 2.0 28 03/25/17 08:38 95 Nasal Cannula 2.0 28 03/25/17 08:38 75 20 95 Nasal Cannula 2.0 28 03/25/17 08:25 97.0 94 20 149/70 97 Nasal Cannula 2.0 03/25/17 08:00 81 03/25/17 06:00 168/100 03/25/17 04:25 97.0 85 20 161/100 95 Nasal Cannula 03/25/17 04:00 90 03/25/17 01:45 84 20 97 Nasal Cannula 2.0 28 03/25/17 01:43 97.7 03/25/17 01:30 82 20 95 Nasal Cannula 2.0 28 03/25/17 00:00 85 03/24/17 21:15 164/93 03/24/17 20:49 83 164/93 03/24/17 20:16 97.7 83 24 164/93 95 Nasal Cannula 2.0 03/24/17 20:00 82 03/24/17 19:44 99 Room Air 21 03/24/17 19:44 Nasal Cannula 2.0 03/24/17 19:42 83 21 99 Room Air 03/24/17 19:42 83 21 Room Air 03/24/17 19:40 83 20 99 Room Air 03/24/17 16:30 97.0 88 20 155/99 94 Nasal Cannula 3.0 Intake and Output 03/24/17 03/25/17 19:00 07:00 Intake Total 600 ml Output Total 350 ml Balance 250 ml Intake Oral 600 ml Output Urine Total 350 ml # Voids 3 2 # Bowel Movements 1 Laboratory Tests 03/25/17 07:55: White Blood Count 15.3#H, Red Blood Count 4.56L, Hemoglobin 13.0L, Hematocrit 42.5, Mean Corpuscular Volume 93, Mean Corpuscular Hemoglobin 28.5, Mean Corpuscular Hemoglobin Concent 30.5L, Red Cell Distribution Width 15.7H, Platelet Count 252, Mean Platelet Volume 8.6, Neutrophils (%) (Auto) , Lymphocytes (%) (Auto) , Monocytes (%) (Auto) , Eosinophils (%) (Auto) , Basophils (%) (Auto) , Differential Total Cells Counted 100, Neutrophils % ( Manual) 91H, Lymphocytes % (Manual) 5L, Monocytes % (Manual) 3, Eosinophils % ( Manual) 0, Basophils % (Manual) 0, Band Neutrophils 1, Platelet Estimate Adequate, Platelet Morphology Normal, Hypochromasia 1+, Anisocytosis 1+, Sodium Level 136, Potassium Level 4.8, Chloride Level 96L, Carbon Dioxide Level 26, Anion Gap 14, Blood Urea Nitrogen 30H, Creatinine 2.0H, Estimat Glomerular Filtration Rate 42.1, Glucose Level 130H, Calcium Level 11.4H Height (Feet): 5 Height (Inches): 7.00 Weight (Pounds): 280 Objective HEAD AND NECK: Unable to assess JVP due to the patient's body habitus. No LAD. Extraocular movement intact. Pupils are reactive to light and accommodation. LUNGS: He has bilateral wheezing. CARDIAC: Regular rate and rhythm. S1 and S2. No murmur. No rub. ABDOMEN: Obese, nontender, and nondistended. EXTREMITIES: Trace edema. No clubbing. No cyanosis. RILEY RAMIREZ Mar 25, 2017 15:40
[2017-03-25] MEDS ORDERED: Levofloxacin 250mg/D5W 50ml IVPB SCH (16:00)
--- NOTE | 2017-03-25 16:10 | General Progress Note ---
Assessment/Plan Problem List: (1) Acute asthma exacerbation ICD Codes: J45.901 - Asthma with exacerbation SNOMED: 634700525 (2) Inguinal hernia ICD Codes: K40.90 - Unilateral inguinal hernia, without obstruction or gangrene , not specified as recurrent SNOMED: 199991256 (3) Renal failure syndrome (4) COPD (chronic obstructive pulmonary disease) ICD Codes: J44.9 - Chronic obstructive pulmonary disease, unspecified SNOMED: 87072173 (5) HTN (hypertension) ICD Codes: I10 - Essential (primary) hypertension SNOMED: 89408137 (6) Anemia ICD Codes: D64.9 - Anemia, unspecified SNOMED: 019933240 Status: stable, progressing, tolerating diet Assessment/Plan o2 pulm tx sx follow up pain pain control cbc bmp am possible hernia sx Subjective Constitutional: Reports: weakness Respiratory: Reports: shortness of breath Allergies: Coded Allergies: MORPHINE (Unverified Allergy, Intermediate, Itching, 11/25/15) TETRACYCLINE (Verified Allergy, Unknown, 11/25/15) Uncoded Allergies: dairy products (Allergy, Intermediate, Shortness of Breath, 03/23/17) All Systems: reviewed and negative except above Subjective calm in bed Objective Last 24 Hour Vital Signs Date Time Temp Pulse Resp B/P Pulse Ox O2 Delivery O2 Flow Rate FiO2 03/25/17 15:46 147/98 03/25/17 15:37 97.0 86 20 147/98 95 Nasal Cannula 2.0 03/25/17 13:07 81 20 100 Nasal Cannula 2.0 03/25/17 12:55 81 18 95 Nasal Cannula 2.0 03/25/17 12:11 97.2 90 20 163/90 95 Nasal Cannula 2.0 03/25/17 12:00 86 03/25/17 08:44 75 22 100 Nasal Cannula 2.0 28 03/25/17 08:41 94 149/70 03/25/17 08:38 Nasal Cannula 2.0 03/25/17 08:38 75 20 Nasal Cannula 2.0 28 03/25/17 08:38 95 Nasal Cannula 2.0 28 03/25/17 08:38 75 20 95 Nasal Cannula 2.0 28 03/25/17 08:25 97.0 94 20 149/70 97 Nasal Cannula 2.0 03/25/17 08:00 81 03/25/17 06:00 168/100 03/25/17 04:25 97.0 85 20 161/100 95 Nasal Cannula 03/25/17 04:00 90 03/25/17 01:45 84 20 97 Nasal Cannula 2.0 28 03/25/17 01:43 97.7 03/25/17 01:30 82 20 95 Nasal Cannula 2.0 28 03/25/17 00:00 85 03/24/17 21:15 164/93 03/24/17 20:49 83 164/93 03/24/17 20:16 97.7 83 24 164/93 95 Nasal Cannula 2.0 03/24/17 20:00 82 03/24/17 19:44 99 Room Air 21 03/24/17 19:44 Nasal Cannula 2.0 03/24/17 19:42 83 21 99 Room Air 03/24/17 19:42 83 21 Room Air 03/24/17 19:40 83 20 99 Room Air 03/24/17 16:30 97.0 88 20 155/99 94 Nasal Cannula 3.0 Intake and Output 03/24/17 03/25/17 19:00 07:00 Intake Total 600 ml Output Total 350 ml Balance 250 ml Intake Oral 600 ml Output Urine Total 350 ml # Voids 3 2 # Bowel Movements 1 Laboratory Tests 03/25/17 07:55: White Blood Count 15.3#H, Red Blood Count 4.56L, Hemoglobin 13.0L, Hematocrit 42.5, Mean Corpuscular Volume 93, Mean Corpuscular Hemoglobin 28.5, Mean Corpuscular Hemoglobin Concent 30.5L, Red Cell Distribution Width 15.7H, Platelet Count 252, Mean Platelet Volume 8.6, Neutrophils (%) (Auto) , Lymphocytes (%) (Auto) , Monocytes (%) (Auto) , Eosinophils (%) (Auto) , Basophils (%) (Auto) , Differential Total Cells Counted 100, Neutrophils % ( Manual) 91H, Lymphocytes % (Manual) 5L, Monocytes % (Manual) 3, Eosinophils % ( Manual) 0, Basophils % (Manual) 0, Band Neutrophils 1, Platelet Estimate Adequate, Platelet Morphology Normal, Hypochromasia 1+, Anisocytosis 1+, Sodium Level 136, Potassium Level 4.8, Chloride Level 96L, Carbon Dioxide Level 26, Anion Gap 14, Blood Urea Nitrogen 30H, Creatinine 2.0H, Estimat Glomerular Filtration Rate 42.1, Glucose Level 130H, Calcium Level 11.4H Height (Feet): 5 Height (Inches): 7.00 Weight (Pounds): 280 General Appearance: lethargic EENT: normal ENT inspection Neck: normal alignment Cardiovascular: normal peripheral pulses, normal rate, regular rhythm Respiratory/Chest: chest wall non-tender, lungs clear, decreased breath sounds Abdomen: normal bowel sounds, non tender, soft Extremities: normal inspection Edema: no edema noted Arm (L), no edema noted Arm (R), no edema noted Leg (L), no edema noted Leg (R), no edema noted Pedal (L), no edema noted Pedal (R), no edema noted Generalized Neurologic: responsive, motor weakness Skin: normal pigmentation, warm/dry KADIE SO Mar 25, 2017 16:10
[2017-03-25 20:00] VITALS: BP 163/108
[2017-03-25] MEDS ORDERED: Nitroglycerin Subl 0.4mg tab (Bottle Of 25) SL PRN (20:45)
[2017-03-25] MEDS ORDERED: DuoNeb 0.5-3(2.5)mg/3ml neb HHN PRN (21:00)
[2017-03-25] MEDS ORDERED: Solu-MEDROL 125mg Inj IV SCH (21:00)
[2017-03-25] MEDS ORDERED: LORazepam Inj 2mg/ml 1ml IV PRN (21:00)
[2017-03-25] MEDS: HydrALAZINE 25mg tab ORAL SCH (21:21)
[2017-03-25] MEDS ORDERED: Ketorolac 30mg Inj IV PRN (21:30)
[2017-03-26] VITALS: BP 176/101
[2017-03-26] MEDS: DuoNeb 0.5-3(2.5)mg/3ml neb HHN SCH ×4 (00:39→20:45)
[2017-03-26] MEDS: HYDROmorphone 1mg/ml Carpuject IVP PRN ×4 (02:25→20:08)
[2017-03-26 04:00] VITALS: BP 133/108
[2017-03-26] MEDS: HydrALAZINE 25mg tab ORAL SCH ×3 (05:52→22:21)
[2017-03-26 07:18] LABS: CALCIUM 9.5 mg/dL (8.6-10.2); CREATININE 2.2 mg/dL (0.7-1.2); GLOMERULAR FILTRATION RATE 37.7 mL/min (>60); POTASSIUM 5.4 mEQ/L (3.4-4.9)
[2017-03-26 07:33] LABS: MEAN CORPUSCULAR HGB CONC 30.8 G/DL (32.0-36.0); MEAN CORPUSCULAR VOLUME 94 FL (80-99); MEAN PLATELET VOLUME 9.3 FL (6.5-10.1); PLATELET COUNT 246 K/UL (150-450); RED BLOOD COUNT 4.53 M/UL (4.70-6.10); RED CELL DISTRIBUTION WIDTH 15.6 % (11.6-14.8); WHITE BLOOD COUNT 14.5 K/UL (4.8-10.8)
[2017-03-26 08:00] VITALS: BP 143/113
[2017-03-26] MEDS: Aspirin Baby 81mg ORAL SCH (08:38)
[2017-03-26] MEDS: Solu-MEDROL 125mg Inj IV SCH ×2 (08:38→20:07)
[2017-03-26] MEDS: Theophylline ER 100mg ORAL SCH ×2 (08:39→20:05)
[2017-03-26] MEDS: Heparin 5000 units/ml inj SUBQ SCH ×2 (08:45→20:11)
--- NOTE | 2017-03-26 09:32 | Nephrology Progress Note ---
Assessment/Plan Assessment 1. Acute versus 2. Chronic kidney with 3 gr of proteinuria (need nephrotic syndrome w/u ) 3. Asthma exacerbation. 4. hyperkalemia 5. Chronic obstructive pulmonary disease exacerbation. 6. Uncontrolled hypertension. 7. Non-reducible left inguinal hernia. Plan plan give micaxlate nephrotic syndrome w/u low k diet avoid NSAID or SAMIR replace monitoring electrolyte Subjective Constitutional: Reports: no symptoms HEENT: Reports: no symptoms Genitourinary: Reports: no symptoms Neurologic/Psychiatric: Reports: no symptoms Subjective alert and awake feeling better today Objective Objective Last 24 Hour Vital Signs Date Time Temp Pulse Resp B/P Pulse Ox O2 Delivery O2 Flow Rate FiO2 03/26/17 08:39 77 143/113 03/26/17 08:12 77 20 99 Room Air 03/26/17 08:00 97.5 82 20 143/113 95 Room Air 03/26/17 08:00 99 Room Air 03/26/17 08:00 Room Air 03/26/17 07:57 75 20 99 Room Air 03/26/17 05:52 133/101 03/26/17 04:00 97.0 83 20 133/108 94 Room Air 03/26/17 03:05 84 16 98 Facial 40 03/26/17 01:00 Room Air 03/26/17 01:00 Room Air 03/26/17 00:33 80 18 99 Facial 40 03/26/17 00:06 176/101 03/26/17 00:00 97.7 88 20 176/101 93 Room Air 03/25/17 21:21 170/105 03/25/17 21:20 92 170/105 03/25/17 21:03 97.7 89 20 93 Room Air 03/25/17 20:00 85 20 96 Room Air 21 03/25/17 20:00 97.0 88 24 163/108 93 Room Air 03/25/17 19:52 Room Air 03/25/17 19:52 95 Room Air 03/25/17 19:51 87 20 95 Room Air 21 03/25/17 16:00 82 03/25/17 15:46 147/98 03/25/17 15:37 97.0 86 20 147/98 95 Nasal Cannula 2.0 03/25/17 13:07 81 20 100 Nasal Cannula 2.0 28 03/25/17 12:55 81 18 95 Nasal Cannula 2.0 28 03/25/17 12:11 97.2 90 20 163/90 95 Nasal Cannula 2.0 03/25/17 12:00 86 Intake and Output 03/25/17 03/26/17 19:00 07:00 Intake Total 530 ml 540 ml Output Total 350 ml Balance 180 ml 540 ml Intake Oral 480 ml 540 ml IV Total 50 ml Output Urine Total 350 ml # Voids 1 1 Laboratory Tests 03/26/17 05:40: White Blood Count 14.5H, Red Blood Count 4.53L, Hemoglobin 13.2L, Hematocrit 42.7, Mean Corpuscular Volume 94, Mean Corpuscular Hemoglobin 29.0, Mean Corpuscular Hemoglobin Concent 30.8L, Red Cell Distribution Width 15.6H, Platelet Count 246, Mean Platelet Volume 9.3, Neutrophils (%) (Auto) , Lymphocytes (%) (Auto) , Monocytes (%) (Auto) , Eosinophils (%) (Auto) , Basophils (%) (Auto) , Neutrophils % (Manual) [Pending], Lymphocytes % (Manual) [Pending], Platelet Estimate [Pending], Platelet Morphology [Pending], Sodium Level 139, Potassium Level 5.4H, Chloride Level 99, Carbon Dioxide Level 30, Anion Gap 10, Blood Urea Nitrogen 38H, Creatinine 2.2H, Estimat Glomerular Filtration Rate 37.7, Glucose Level 147H, Calcium Level 9.5 Height (Feet): 5 Height (Inches): 7.00 Weight (Pounds): 280 Objective HEAD AND NECK: Unable to assess JVP due to the patient's body habitus. No LAD. Extraocular movement intact. Pupils are reactive to light and accommodation. LUNGS: He has bilateral wheezing. CARDIAC: Regular rate and rhythm. S1 and S2. No murmur. No rub. ABDOMEN: Obese, nontender, and nondistended. EXTREMITIES: Trace edema. No clubbing. No cyanosis. RILEY RAMIREZ Mar 26, 2017 09:32
[2017-03-26 10:04] LABS: BAND NEUTROPHILS % (MANUAL) 2 % (0-8); LYMPHOCYTES % (MANUAL) 5 % (20-45); NEUTROPHILS % (MANUAL) 83 % (45-75); PLATELET MORPHOLOGY NORMAL; TOTAL CELLS COUNTED 100
[2017-03-26 10:05] LABS: ANISOCYTOSIS 1+; BASOPHILS % (MANUAL) 0 % (0-2); EOSINOPHILS % (MANUAL) 0 % (0-3); PLATELET ESTIMATE ADEQUATE
[2017-03-26] MEDS ORDERED: Sodium Polystyrene Sulfonate 15gm Powder ORAL ONE (10:30)
[2017-03-26 12:00] VITALS: BP 160/100
--- NOTE | 2017-03-26 15:16 | General Progress Note ---
Assessment/Plan Problem List: (1) Acute asthma exacerbation ICD Codes: J45.901 - Asthma with exacerbation SNOMED: 070310252 (2) Inguinal hernia ICD Codes: K40.90 - Unilateral inguinal hernia, without obstruction or gangrene , not specified as recurrent SNOMED: 859235218 (3) Renal failure syndrome (4) COPD (chronic obstructive pulmonary disease) ICD Codes: J44.9 - Chronic obstructive pulmonary disease, unspecified SNOMED: 88010946 (5) HTN (hypertension) ICD Codes: I10 - Essential (primary) hypertension SNOMED: 02546390 (6) Anemia ICD Codes: D64.9 - Anemia, unspecified SNOMED: 710751780 Status: stable, progressing, tolerating diet Assessment/Plan o2 pulm tx sx follow up pain pain control cbc bmp am possible hernia sx vs dc plan Subjective Constitutional: Reports: weakness Allergies: Coded Allergies: MORPHINE (Unverified Allergy, Intermediate, Itching, 11/25/15) TETRACYCLINE (Verified Allergy, Unknown, 11/25/15) Uncoded Allergies: dairy products (Allergy, Intermediate, Shortness of Breath, 03/23/17) All Systems: reviewed and negative except above Subjective calm in bed Objective Last 24 Hour Vital Signs Date Time Temp Pulse Resp B/P Pulse Ox O2 Delivery O2 Flow Rate FiO2 03/26/17 14:04 160/100 03/26/17 12:42 82 22 96 Room Air 03/26/17 12:32 94 22 96 Room Air 03/26/17 12:00 97.7 84 20 160/100 93 Room Air 03/26/17 10:57 97.5 03/26/17 08:39 77 143/113 03/26/17 08:12 77 20 99 Room Air 03/26/17 08:00 97.5 82 20 143/113 95 Room Air 03/26/17 08:00 99 Room Air 03/26/17 08:00 Room Air 03/26/17 07:57 75 20 99 Room Air 03/26/17 05:52 133/101 03/26/17 04:00 97.0 83 20 133/108 94 Room Air 03/26/17 03:05 84 16 98 Facial 40 03/26/17 01:00 Room Air 03/26/17 01:00 Room Air 03/26/17 00:33 80 18 99 Facial 40 03/26/17 00:06 176/101 03/26/17 00:00 97.7 88 20 176/101 93 Room Air 03/25/17 21:21 170/105 03/25/17 21:20 92 170/105 03/25/17 21:03 97.7 89 20 93 Room Air 03/25/17 20:00 85 20 96 Room Air 21 03/25/17 20:00 97.0 88 24 163/108 93 Room Air 03/25/17 19:52 Room Air 03/25/17 19:52 95 Room Air 03/25/17 19:51 87 20 95 Room Air 21 03/25/17 16:00 82 03/25/17 15:46 147/98 03/25/17 15:37 97.0 86 20 147/98 95 Nasal Cannula 2.0 Intake and Output 03/25/17 03/26/17 19:00 07:00 Intake Total 530 ml 540 ml Output Total 350 ml Balance 180 ml 540 ml Intake Oral 480 ml 540 ml IV Total 50 ml Output Urine Total 350 ml # Voids 1 1 Laboratory Tests 03/26/17 05:40: White Blood Count 14.5H, Red Blood Count 4.53L, Hemoglobin 13.2L, Hematocrit 42.7, Mean Corpuscular Volume 94, Mean Corpuscular Hemoglobin 29.0, Mean Corpuscular Hemoglobin Concent 30.8L, Red Cell Distribution Width 15.6H, Platelet Count 246, Mean Platelet Volume 9.3, Neutrophils (%) (Auto) , Lymphocytes (%) (Auto) , Monocytes (%) (Auto) , Eosinophils (%) (Auto) , Basophils (%) (Auto) , Differential Total Cells Counted 100, Neutrophils % ( Manual) 83H, Lymphocytes % (Manual) 5L, Monocytes % (Manual) 10, Eosinophils % ( Manual) 0, Basophils % (Manual) 0, Band Neutrophils 2, Platelet Estimate Adequate, Platelet Morphology Normal, Anisocytosis 1+, Sodium Level 139, Potassium Level 5.4H, Chloride Level 99, Carbon Dioxide Level 30, Anion Gap 10, Blood Urea Nitrogen 38H, Creatinine 2.2H, Estimat Glomerular Filtration Rate 37.7, Glucose Level 147H, Calcium Level 9.5 Height (Feet): 5 Height (Inches): 7.00 Weight (Pounds): 280 General Appearance: alert EENT: normal ENT inspection Neck: normal alignment Cardiovascular: normal peripheral pulses, normal rate, regular rhythm Respiratory/Chest: chest wall non-tender, lungs clear, normal breath sounds Abdomen: normal bowel sounds, non tender, soft Extremities: normal inspection Edema: no edema noted Arm (L), no edema noted Arm (R), no edema noted Leg (L), no edema noted Leg (R), no edema noted Pedal (L), no edema noted Pedal (R), no edema noted Generalized Neurologic: responsive, motor weakness Skin: normal pigmentation, warm/dry KADIE SO Mar 26, 2017 15:16
--- NOTE | 2017-03-26 15:55 | Infectious Diseases Prog Note ---
Assessment/Plan Problems: (1) Acute asthma exacerbation Assessment & Plan: improving , on levaquin empiric treatment for bronchitis , continue inhalers, and taper steroids (2) UTI (urinary tract infection) Assessment & Plan: await urine culture and continue levaquin empirically (3) COPD (chronic obstructive pulmonary disease) Assessment & Plan: continue inhalers and taper steroids (4) Acute respiratory failure Assessment & Plan: due to the above, improving, continue inhalers, and oxygen, taper steroids (5) CKD (chronic kidney disease) Assessment & Plan: monitor UOP, and renal function , avoid nephrotoxic meds . consult renal (6) Leukocytosis Assessment & Plan: got worse, suspect due to steroids , recommend to taper steroids Subjective Constitutional: Reports: no symptoms HEENT: Reports: no symptoms Respiratory: Reports: shortness of breath Breasts: Reports: no symptoms Cardiovascular: Reports: no symptoms Gastrointestinal/Abdominal: Reports: no symptoms Genitourinary: Reports: no symptoms Neurologic: Reports: no symptoms Psychiatric: Reports: no symptoms Skin: Reports: no symptoms Endocrine: Reports: no symptoms Hematologic: Reports: no symptoms Allergies: Coded Allergies: MORPHINE (Unverified Allergy, Intermediate, Itching, 11/25/15) TETRACYCLINE (Verified Allergy, Unknown, 11/25/15) Uncoded Allergies: dairy products (Allergy, Intermediate, Shortness of Breath, 03/23/17) Objective Vital Signs Last 24 Hour Vital Signs Date Time Temp Pulse Resp B/P Pulse Ox O2 Delivery O2 Flow Rate FiO2 03/26/17 14:04 160/100 03/26/17 12:42 82 22 96 Room Air 03/26/17 12:32 94 22 96 Room Air 03/26/17 12:00 97.7 84 20 160/100 93 Room Air 03/26/17 10:57 97.5 03/26/17 08:39 77 143/113 03/26/17 08:12 77 20 99 Room Air 03/26/17 08:00 97.5 82 20 143/113 95 Room Air 03/26/17 08:00 99 Room Air 03/26/17 08:00 Room Air 03/26/17 07:57 75 20 99 Room Air 03/26/17 05:52 133/101 03/26/17 04:00 97.0 83 20 133/108 94 Room Air 03/26/17 03:05 84 16 98 Facial 40 03/26/17 01:00 Room Air 03/26/17 01:00 Room Air 03/26/17 00:33 80 18 99 Facial 40 03/26/17 00:06 176/101 03/26/17 00:00 97.7 88 20 176/101 93 Room Air 03/25/17 21:21 170/105 03/25/17 21:20 92 170/105 03/25/17 21:03 97.7 89 20 93 Room Air 03/25/17 20:00 85 20 96 Room Air 21 03/25/17 20:00 97.0 88 24 163/108 93 Room Air 03/25/17 19:52 Room Air 03/25/17 19:52 95 Room Air 03/25/17 19:51 87 20 95 Room Air 21 03/25/17 16:00 82 Height (Feet): 5 Height (Inches): 7.00 Weight (Pounds): 280 General Appearance: WD/WN, no acute distress HEENT: normocephalic, atraumatic, anicteric, mucous membranes moist Respiratory/Chest: chest wall non-tender, no respiratory distress, no accessory muscle use, decreased breath sounds, expiratory wheezing Cardiovascular: normal peripheral pulses, normal rate, regular rhythm, no gallop/murmur, no JVD Abdomen: normal bowel sounds, soft, non tender, no organomegaly, non distended , no mass, no scars Extremities: no cyanosis, no clubbing Skin: no rash, no lesions, no ulcers Neurologic/Psychiatric: alert, oriented x 3 Microbiology Date/Time Source Procedure Growth Status 03/23/17 16:20 Urine,Clean Catch Urine Culture - Preliminary Mixed Gram Positive Organism Resulted Laboratory Tests Test 03/26/17 05:40 White Blood Count 14.5 K/UL (4.8-10.8) H Red Blood Count 4.53 M/UL (4.70-6.10) L Hemoglobin 13.2 G/DL (14.2-18.0) L Hematocrit 42.7 % (42.0-52.0) Mean Corpuscular Volume 94 FL (80-99) Mean Corpuscular Hemoglobin 29.0 PG (27.0-31.0) Mean Corpuscular Hemoglobin Concent 30.8 G/DL (32.0-36.0) L Red Cell Distribution Width 15.6 % (11.6-14.8) H Platelet Count 246 K/UL (150-450) Mean Platelet Volume 9.3 FL (6.5-10.1) Neutrophils (%) (Auto) % (45.0-75.0) Lymphocytes (%) (Auto) % (20.0-45.0) Monocytes (%) (Auto) % (1.0-10.0) Eosinophils (%) (Auto) % (0.0-3.0) Basophils (%) (Auto) % (0.0-2.0) Differential Total Cells Counted 100 Neutrophils % (Manual) 83 % (45-75) H Lymphocytes % (Manual) 5 % (20-45) L Monocytes % (Manual) 10 % (1-10) Eosinophils % (Manual) 0 % (0-3) Basophils % (Manual) 0 % (0-2) Band Neutrophils 2 % (0-8) Platelet Estimate Adequate Platelet Morphology Normal Anisocytosis 1+ Sodium Level 139 mEQ/L (135-145) Potassium Level 5.4 mEQ/L (3.4-4.9) H Chloride Level 99 mEQ/L (98-107) Carbon Dioxide Level 30 mEQ/L (20-30) Anion Gap 10 (5-15) Blood Urea Nitrogen 38 mg/dL (7-23) H Creatinine 2.2 mg/dL (0.7-1.2) H Estimat Glomerular Filtration Rate 37.7 mL/min (>60) Glucose Level 147 mg/dL (74-106) H Calcium Level 9.5 mg/dL (8.6-10.2) Current Medications Medications (Trade) Dose Ordered Sig/Alexis Route PRN Reason Start Time Stop Time Status Last Admin Dose Admin Albuterol/ Ipratropium (DuoNeb 0.5-3(2.5)mg/3ml) 3 ml Q4H PRN HHN dyspnea 03/25/17 21:00 03/30/17 20:59 Albuterol/ Ipratropium (DuoNeb 0.5-3(2.5)mg/3ml) 3 ml Q6HRT HHN 03/26/17 01:00 03/31/17 00:59 03/26/17 12:30 Amlodipine Besylate (Norvasc) 5 mg Q12HR ORAL 03/25/17 21:30 04/24/17 21:29 03/26/17 08:39 Aspirin (ASA) 81 mg DAILY ORAL 03/26/17 09:00 04/25/17 08:59 03/26/17 08:38 Clonidine HCl (Catapres) 0.1 mg Q6H PRN ORAL SBP>160 03/25/17 21:30 04/24/17 21:29 03/26/17 00:06 Dextrose (Dextrose 50%) STAT PRN IV Hypoglycemia 03/25/17 21:00 04/24/17 20:59 Heparin Sodium (Porcine) (Heparin 5000 units/ml) 5,000 units EVERY 12 HOURS SUBQ 03/25/17 21:30 04/24/17 21:29 03/26/17 08:45 Hydralazine HCl (Apresoline) 25 mg EVERY 8 HOURS ORAL 03/25/17 22:00 04/24/17 21:59 03/26/17 14:04 Hydromorphone HCl (Dilaudid) 1 mg Q4H PRN IVP Severe Pain (Pain Scale 7-10) 03/25/17 21:00 04/01/17 20:59 03/26/17 14:54 Ketorolac Tromethamine (Toradol 30mg) 30 mg Q8H PRN IV Moderate Pain (Pain Scale 4-6) 03/25/17 21:30 03/30/17 21:29 Levofloxacin (Levaquin) 50 ml @ 50 mls/hr Q24H IVPB 03/26/17 16:00 04/02/17 15:59 Lorazepam (Ativan 2mg/ml 1ml) 0.5 mg Q4H PRN IV For Anxiety 03/25/17 21:00 04/01/17 20:59 Methylprednisolone Sodium Succinate (Solu-MEDROL) 60 mg EVERY 12 HOURS IV 03/25/17 21:30 04/24/17 21:29 03/26/17 08:38 Nitroglycerin (Ntg) 0.4 mg Q5M X 3 DOSES PRN SL Prn Chest Pain 03/25/17 20:45 04/24/17 20:44 Ondansetron HCl (Zofran) 4 mg Q6H PRN IVP Nausea & Vomiting 03/25/17 21:30 04/24/17 21:29 Temazepam (Restoril) 15 mg HSPRN PRN ORAL Insomnia 03/25/17 21:00 04/01/17 20:59 Theophylline (Oscar-Dur) 100 mg EVERY 12 HOURS ORAL 03/25/17 21:30 04/24/17 21:29 03/26/17 08:39 Mihir Pan M.D. Mar 26, 2017 15:55
[2017-03-26 16:00] VITALS: BP 155/106
--- NOTE | 2017-03-26 16:49 | Pulmonology Progress Note ---
Assessment/Plan Problems: (1) Acute asthma exacerbation (2) CKD (chronic kidney disease) (3) COPD (chronic obstructive pulmonary disease) (4) Hypertension (5) Left groin pain (6) Inguinal hernia (7) Obstructive sleep apnea Assessment/Plan improving respiratory treatment iv abx taper IV steroids pain management DVT prophylaxis renal w/u\ all labs and meds reviewed. dc home when ok with other consultants Subjective ROS Limited/Unobtainable: No Constitutional: Reports: no symptoms HEENT: Repors: no symptoms Respiratory: Reports: no symptoms Allergies: Coded Allergies: MORPHINE (Unverified Allergy, Intermediate, Itching, 11/25/15) TETRACYCLINE (Verified Allergy, Unknown, 11/25/15) Uncoded Allergies: dairy products (Allergy, Intermediate, Shortness of Breath, 03/23/17) Objective Last 24 Hour Vital Signs Date Time Temp Pulse Resp B/P Pulse Ox O2 Delivery O2 Flow Rate FiO2 03/26/17 16:00 97.9 88 20 155/106 95 Room Air 03/26/17 15:24 97.7 03/26/17 14:04 160/100 03/26/17 12:42 82 22 96 Room Air 03/26/17 12:32 94 22 96 Room Air 03/26/17 12:00 97.7 84 20 160/100 93 Room Air 03/26/17 08:39 77 143/113 03/26/17 08:12 77 20 99 Room Air 03/26/17 08:00 97.5 82 20 143/113 95 Room Air 03/26/17 08:00 99 Room Air 03/26/17 08:00 Room Air 03/26/17 07:57 75 20 99 Room Air 03/26/17 05:52 133/101 03/26/17 04:00 97.0 83 20 133/108 94 Room Air 03/26/17 03:05 84 16 98 Facial 40 03/26/17 01:00 Room Air 03/26/17 01:00 Room Air 03/26/17 00:33 80 18 99 Facial 40 03/26/17 00:06 176/101 03/26/17 00:00 97.7 88 20 176/101 93 Room Air 03/25/17 21:21 170/105 03/25/17 21:20 92 170/105 03/25/17 21:03 97.7 89 20 93 Room Air 03/25/17 20:00 85 20 96 Room Air 21 03/25/17 20:00 97.0 88 24 163/108 93 Room Air 03/25/17 19:52 Room Air 03/25/17 19:52 95 Room Air 03/25/17 19:51 87 20 95 Room Air 21 Intake and Output 03/25/17 03/26/17 19:00 07:00 Intake Total 530 ml 540 ml Output Total 350 ml Balance 180 ml 540 ml Intake Oral 480 ml 540 ml IV Total 50 ml Output Urine Total 350 ml # Voids 1 1 General Appearance: WD/WN HEENT: normocephalic, atraumatic Respiratory/Chest: chest wall non-tender, lungs clear Cardiovascular: normal peripheral pulses, normal rate Abdomen: normal bowel sounds, soft, non tender, non distended Genitourinary: normal external genitalia Extremities: no clubbing Skin: no lesions Laboratory Tests 03/26/17 05:40: White Blood Count 14.5H, Red Blood Count 4.53L, Hemoglobin 13.2L, Hematocrit 42.7, Mean Corpuscular Volume 94, Mean Corpuscular Hemoglobin 29.0, Mean Corpuscular Hemoglobin Concent 30.8L, Red Cell Distribution Width 15.6H, Platelet Count 246, Mean Platelet Volume 9.3, Neutrophils (%) (Auto) , Lymphocytes (%) (Auto) , Monocytes (%) (Auto) , Eosinophils (%) (Auto) , Basophils (%) (Auto) , Differential Total Cells Counted 100, Neutrophils % ( Manual) 83H, Lymphocytes % (Manual) 5L, Monocytes % (Manual) 10, Eosinophils % ( Manual) 0, Basophils % (Manual) 0, Band Neutrophils 2, Platelet Estimate Adequate, Platelet Morphology Normal, Anisocytosis 1+, Sodium Level 139, Potassium Level 5.4H, Chloride Level 99, Carbon Dioxide Level 30, Anion Gap 10, Blood Urea Nitrogen 38H, Creatinine 2.2H, Estimat Glomerular Filtration Rate 37.7, Glucose Level 147H, Calcium Level 9.5 Current Medications Medications (Trade) Dose Ordered Sig/Alexis Route PRN Reason Start Time Stop Time Status Last Admin Dose Admin Albuterol/ Ipratropium (DuoNeb 0.5-3(2.5)mg/3ml) 3 ml Q4H PRN HHN dyspnea 03/25/17 21:00 8/21/17 20:59 Albuterol/ Ipratropium (DuoNeb 0.5-3(2.5)mg/3ml) 3 ml Q6HRT HHN 03/26/17 01:00 03/31/17 00:59 03/26/17 12:30 Amlodipine Besylate (Norvasc) 5 mg Q12HR ORAL 03/25/17 21:30 04/24/17 21:29 03/26/17 08:39 Aspirin (ASA) 81 mg DAILY ORAL 03/26/17 09:00 04/25/17 08:59 03/26/17 08:38 Clonidine HCl (Catapres) 0.1 mg Q6H PRN ORAL SBP>160 03/25/17 21:30 04/24/17 21:29 03/26/17 00:06 Dextrose (Dextrose 50%) STAT PRN IV Hypoglycemia 03/25/17 21:00 04/24/17 20:59 Heparin Sodium (Porcine) (Heparin 5000 units/ml) 5,000 units EVERY 12 HOURS SUBQ 03/25/17 21:30 04/24/17 21:29 03/26/17 08:45 Hydralazine HCl (Apresoline) 25 mg EVERY 8 HOURS ORAL 03/25/17 22:00 04/24/17 21:59 03/26/17 14:04 Hydromorphone HCl (Dilaudid) 1 mg Q4H PRN IVP Severe Pain (Pain Scale 7-10) 03/25/17 21:00 04/01/17 20:59 03/26/17 14:54 Ketorolac Tromethamine (Toradol 30mg) 30 mg Q8H PRN IV Moderate Pain (Pain Scale 4-6) 03/25/17 21:30 03/30/17 21:29 Levofloxacin (Levaquin) 50 ml @ 50 mls/hr Q24H IVPB 03/26/17 16:00 04/02/17 15:59 Lorazepam (Ativan 2mg/ml 1ml) 0.5 mg Q4H PRN IV For Anxiety 03/25/17 21:00 04/01/17 20:59 Methylprednisolone Sodium Succinate (Solu-MEDROL) 60 mg EVERY 12 HOURS IV 03/25/17 21:30 04/24/17 21:29 03/26/17 08:38 Nitroglycerin (Ntg) 0.4 mg Q5M X 3 DOSES PRN SL Prn Chest Pain 03/25/17 20:45 04/24/17 20:44 Ondansetron HCl (Zofran) 4 mg Q6H PRN IVP Nausea & Vomiting 03/25/17 21:30 04/24/17 21:29 Temazepam (Restoril) 15 mg HSPRN PRN ORAL Insomnia 03/25/17 21:00 04/01/17 20:59 Theophylline (Oscar-Dur) 100 mg EVERY 12 HOURS ORAL 03/25/17 21:30 04/24/17 21:29 03/26/17 08:39 ADDIS SANCHEZ Mar 26, 2017 16:49
[2017-03-26 19:58] VITALS: BP 163/101
--- NOTE | 2017-03-26 20:37 | General Progress Note ---
Progress Note Progress Note Chart reviewed, pt examined, consult dictated. Impression: asymptomatic left inguinal hernia ( fat containing bilateral inguinal hernias on CT scan ). In view of lack of pain and comorbidities, he does not require urgent surgery. We can follow him as an outpatient for elective LIH repair. Sekou Prescott MD Mar 26, 2017 20:37
--- NOTE | 2017-03-26 23:17 | Consultation ---
DATE OF CONSULTATION: 03/26/2017 SURGICAL CONSULTATION REASON FOR CONSULTATION: Evaluation of left inguinal hernia. HISTORY OF PRESENT ILLNESS: This is a 56-year-old male, was admitted to the hospital three days ago with an exacerbation of asthma. The patient presented with shortness of breath as well as left groin pain. He was found to have a left inguinal hernia. He denies any recent history of heavy lifting and although he used to do some weight lifting years ago. The patient presently denies any problems with groin pain. PAST MEDICAL HISTORY: Previous surgery includes a laparotomy 20 years ago for blunt trauma. He states he fell against a fence. Exploration did not reveal any hemorrhage. ALLERGIES: To morphine and tetracycline. MEDICATIONS: Include albuterol sulfate inhaler 18 g 2 puffs every six hours, Norvasc 5 mg b.i.d., aspirin 81 mg daily, clonidine 0.1 mg q.6 h. p.r.n. systolic blood pressure greater than 160, hydralazine 10 mg q.8 h., hydrochlorothiazide 25 mg b.i.d., Dulera 100 mcg/5 mcg inhaler 2 puffs q.12 h., Singulair 4 mg daily, Prilosec 20 mg, prednisone 20 mg daily, terbutaline sulfate 5 mg b.i.d., Oscar-Dur 100 mg b.i.d., and Spiriva 18 mcg 1 puff daily. SOCIAL HISTORY: Tobacco, none. Alcohol, occasional consumption. He denies any history of alcohol abuse or alcohol related health problems. FAMILY HISTORY: Positive for hypertension. The patient's grandparents had cancer possibly related to exposure to building materials. REVIEW OF SYSTEMS: Includes problems with shortness of breath. He denies any symptoms of chest pain. He denies any problems of dysuria. PHYSICAL EXAMINATION: GENERAL: Revealed a steel, obese, male, in no acute distress. VITAL SIGNS: Temperature 98.1 degrees, blood pressure 163/101, pulse 86, and respirations 20. HEENT: Normocephalic. Pupils are equal and reactive to light. There was no scleral icterus. NECK: Short. There were no masses or tenderness. LUNGS: Clear. HEART: Showed a regular rhythm. ABDOMEN: Abdomen was protuberant. There is a healed midline scar. There is an umbilical hernia present, which is partially reducible. Examination of the inguinal region shows testes descended bilaterally. There were no testicular masses. There is a small reducible left inguinal hernia. There was no evidence of a right inguinal hernia. EXTREMITIES: Showed no clubbing, cyanosis, or edema. LABORATORY AND DIAGNOSTIC DATA: Showed a white blood count of 14,500, hemoglobin 13.2 g%, hematocrit 42.7%, and platelet count 246,000. Serum electrolytes showed a sodium of 139, potassium 5.4, chloride 99, bicarbonate 30, BUN 38, and creatinine 2.2. Calcium 9.5. Urinalysis from admission showed 4+ protein, 1+ leukocyte esterase, 2 to 4 red cells per high power field, 10 to 15 white cells, and few bacteria. A CT scan taken 3 days ago on admission showed small fat containing bilateral inguinal hernias as well as a fat containing ventral hernia. There were surgical clips seen in the right lower quadrant. IMPRESSION: 1. Reducible asymptomatic, left inguinal hernia, small fat containing right inguinal hernia. 2. Asthma. 3. Hypertension. 4. Chronic renal insufficiency. PLAN: There is no pressing need for a left inguinal hernia repair at this time. If the pain symptoms recur we will arrange for a left inguinal hernia repair with mesh. Sekou Prescott M.D. DR: KEVIN JOB#: [id number] CC:
--- NOTE | 2017-03-26 23:26 | Cardiology Progress Note ---
Assessment/Plan Assessment/Plan 1. Dyspnea, most likely due to acute asthma exacerbation, form the cardiac standpoint, echo reveals normal LV systolic function with LVEF of about 65%, with normal intracardiac filling pressure. 2. Obesity, hypoventilation syndrome with normal pulmonary artery pressure determined in July 2016. 3. Clear from the cardiology standpoint for left inguinal hernia repair, if planned, with estimated risk of coronary artery events less than 1%. 4. Accelerated HTN, continue amlodipine,continue hydralazine to 25mg po tid. Extremities: No edema, clugging or cyanosis Subjective Subjective Sinus rhythm at 86-92. Denies chest pain. Objective Last 24 Hour Vital Signs Date Time Temp Pulse Resp B/P Pulse Ox O2 Delivery O2 Flow Rate FiO2 03/26/17 22:21 163/100 03/26/17 20:45 Nasal Cannula 2.0 28 03/26/17 20:45 89 20 91 Nasal Cannula 2.0 03/26/17 20:45 91 Room Air 21 03/26/17 20:06 86 163/100 03/26/17 19:58 98.1 86 20 163/101 94 Room Air 03/26/17 16:00 97.9 88 20 155/106 95 Room Air 03/26/17 15:24 97.7 03/26/17 14:04 160/100 03/26/17 12:42 82 22 96 Room Air 03/26/17 12:32 94 22 96 Room Air 03/26/17 12:00 97.7 84 20 160/100 93 Room Air 03/26/17 08:39 77 143/113 03/26/17 08:12 77 20 99 Room Air 03/26/17 08:00 97.5 82 20 143/113 95 Room Air 03/26/17 08:00 99 Room Air 03/26/17 08:00 Room Air 03/26/17 07:57 75 20 99 Room Air 03/26/17 05:52 133/101 03/26/17 04:00 97.0 83 20 133/108 94 Room Air 03/26/17 03:05 84 16 98 Facial 40 03/26/17 01:00 Room Air 03/26/17 01:00 Room Air 03/26/17 00:33 80 18 99 Facial 40 03/26/17 00:06 176/101 03/26/17 00:00 97.7 88 20 176/101 93 Room Air Intake and Output 03/25/17 03/26/17 19:00 07:00 Intake Total 530 ml 540 ml Output Total 350 ml Balance 180 ml 540 ml Intake Oral 480 ml 540 ml IV Total 50 ml Output Urine Total 350 ml # Voids 1 1 Laboratory Tests Test 03/26/17 05:40 White Blood Count 14.5 K/UL (4.8-10.8) H Red Blood Count 4.53 M/UL (4.70-6.10) L Hemoglobin 13.2 G/DL (14.2-18.0) L Hematocrit 42.7 % (42.0-52.0) Mean Corpuscular Volume 94 FL (80-99) Mean Corpuscular Hemoglobin 29.0 PG (27.0-31.0) Mean Corpuscular Hemoglobin Concent 30.8 G/DL (32.0-36.0) L Red Cell Distribution Width 15.6 % (11.6-14.8) H Platelet Count 246 K/UL (150-450) Mean Platelet Volume 9.3 FL (6.5-10.1) Neutrophils (%) (Auto) % (45.0-75.0) Lymphocytes (%) (Auto) % (20.0-45.0) Monocytes (%) (Auto) % (1.0-10.0) Eosinophils (%) (Auto) % (0.0-3.0) Basophils (%) (Auto) % (0.0-2.0) Differential Total Cells Counted 100 Neutrophils % (Manual) 83 % (45-75) H Lymphocytes % (Manual) 5 % (20-45) L Monocytes % (Manual) 10 % (1-10) Eosinophils % (Manual) 0 % (0-3) Basophils % (Manual) 0 % (0-2) Band Neutrophils 2 % (0-8) Platelet Estimate Adequate Platelet Morphology Normal Anisocytosis 1+ Sodium Level 139 mEQ/L (135-145) Potassium Level 5.4 mEQ/L (3.4-4.9) H Chloride Level 99 mEQ/L (98-107) Carbon Dioxide Level 30 mEQ/L (20-30) Anion Gap 10 (5-15) Blood Urea Nitrogen 38 mg/dL (7-23) H Creatinine 2.2 mg/dL (0.7-1.2) H Estimat Glomerular Filtration Rate 37.7 mL/min (>60) Glucose Level 147 mg/dL (74-106) H Calcium Level 9.5 mg/dL (8.6-10.2) Objective HEENT: Atraumatic and normocephalic. Anicteric. Pupils are equal, round, and reactive to light and accommodation. Extraocular muscles intact. NECK: Very short, cannot assess JVP. CARDIOVASCULAR: Normal S1 and S2. Regular rate and rhythm. No murmurs, gallops, or rubs. PMI is at fourth intercostal space in the midclavicular line. LUNGS: Diminished breath sounds in both lungs. ABDOMEN: Soft. Distended due to obesity. No hepatosplenomegaly. Positive bowel sounds. EXTREMITIES: Trace bilateral pulmonary edema. LORETTA MENDOZA Mar 26, 2017 23:26
[2017-03-27] VITALS: BP 185/110
[2017-03-27] MEDS: DuoNeb 0.5-3(2.5)mg/3ml neb HHN SCH ×3 (00:15→12:51)
[2017-03-27] MEDS: HYDROmorphone 1mg/ml Carpuject IVP PRN ×3 (02:20→11:35)
[2017-03-27 04:00] VITALS: BP 149/85
[2017-03-27] MEDS: HydrALAZINE 25mg tab ORAL SCH (06:14)
[2017-03-27 07:25] LABS: BASOPHILS % (AUTO) 0.6 % (0.0-2.0); LYMPHOCYTES % (AUTO) 9.5 % (20.0-45.0); MEAN CORPUSCULAR HEMOGLOBIN 29.4 PG (27.0-31.0); MEAN CORPUSCULAR HGB CONC 31.6 G/DL (32.0-36.0); MEAN CORPUSCULAR VOLUME 93 FL (80-99); MEAN PLATELET VOLUME 8.5 FL (6.5-10.1); MONOCYTES % (AUTO) 5.1 % (1.0-10.0); NEUTROPHILS % (AUTO) 84.8 % (45.0-75.0); PLATELET COUNT 238 K/UL (150-450); RED BLOOD COUNT 4.33 M/UL (4.70-6.10); RED CELL DISTRIBUTION WIDTH 15.3 % (11.6-14.8); WHITE BLOOD COUNT 11.4 K/UL (4.8-10.8)
[2017-03-27 07:38] LABS: CALCIUM 9.2 mg/dL (8.6-10.2); CREATININE 2.3 mg/dL (0.7-1.2); GLOMERULAR FILTRATION RATE 35.9 mL/min (>60); POTASSIUM 4.8 mEQ/L (3.4-4.9)
[2017-03-27 08:00] VITALS: BP 142/85
--- NOTE | 2017-03-27 08:10 | Pulmonology Progress Note ---
Assessment/Plan Assessment/Plan ASSESSMENT acute asthma exacerbation COPD Left groin pain 2 to left inguinal hernia asymptomatic Lt inguinal hernia HTN urgency-resolved CKD Proteinuria hyperkalemia [facility] floor O2 HHN prn currently on RA pulse oximetry stable no signs of repository distress steroids and taper, on dc Medrol dose pack continue Theophylline abx per ID sputum cx negative CXR no acute process antitussive prn DVT prophylaxis pain management CT A/P noted, bilateral inguinal hernia surgeon seen and evaluated : asymptomatic inguinal hernia, no need for urgent surgery, can be scheduled as elective LIH repair BiPAP at night DVT prophylaxis K stable after treatment BP management with CCB and Clonidine prn, monitor renal parameters, lytes avoid nephrotoxic, creat at the same range nephro follows 3 gm protein workup for nephrotic syndrome- as per nephro notes - can be done as outpatient stable for dc from pulmonary standpoint script provided for Medrol dose pack, rescue and maintenance inhalers and Theophylline case discussed and evaluated by supervising physician Subjective Allergies: Coded Allergies: MORPHINE (Unverified Allergy, Intermediate, Itching, 11/25/15) TETRACYCLINE (Verified Allergy, Unknown, 11/25/15) Uncoded Allergies: dairy products (Allergy, Intermediate, Shortness of Breath, 03/23/17) Subjective feeling better afebrile, leukocytosis trending down, mild on RA pulse oximetry stable no wheezing residual chest tightness occasional dry cough, no hemoptysis Objective Last 24 Hour Vital Signs Date Time Temp Pulse Resp B/P Pulse Ox O2 Delivery O2 Flow Rate FiO2 03/27/17 07:47 82 20 92 Room Air 03/27/17 07:46 Room Air 03/27/17 07:45 92 Room Air 21 03/27/17 06:14 149/85 03/27/17 04:56 83 16 99 Facial 40 03/27/17 04:00 96.8 72 20 149/85 99 Bi-pap 03/27/17 03:11 81 20 98 Facial 40 03/27/17 02:22 83 18 99 Bi-pap 40 03/27/17 02:21 79 23 98 Facial 40 03/27/17 00:15 40 03/27/17 00:15 79 18 98 Bi-pap 40 03/27/17 00:00 98.9 83 19 185/110 93 Room Air 03/26/17 23:45 85 23 99 Facial 40 03/26/17 23:43 195/110 03/26/17 22:21 163/100 03/26/17 20:45 Nasal Cannula 2.0 28 03/26/17 20:45 89 20 91 Nasal Cannula 2.0 28 03/26/17 20:45 91 Room Air 21 03/26/17 20:06 86 163/100 03/26/17 19:58 98.1 86 20 163/101 94 Room Air 03/26/17 16:00 97.9 88 20 155/106 95 Room Air 03/26/17 15:24 97.7 03/26/17 14:04 160/100 03/26/17 12:42 82 22 96 Room Air 03/26/17 12:32 94 22 96 Room Air 03/26/17 12:00 97.7 84 20 160/100 93 Room Air 03/26/17 08:39 77 143/113 03/26/17 08:12 77 20 99 Room Air Intake and Output 03/26/17 03/27/17 19:00 07:00 Intake Total 250 ml 500 ml Balance 250 ml 500 ml Intake Oral 250 ml 500 ml # Voids 1 1 General Appearance: no acute distress, other - A/A/O x 4 AA male in NAD , morbidly obese HEENT: normocephalic, atraumatic, anicteric, mucous membranes moist, PERRL Respiratory/Chest: no respiratory distress, no accessory muscle use, decreased breath sounds Cardiovascular: normal peripheral pulses, normal rate, regular rhythm, no JVD Abdomen: normal bowel sounds, soft, non tender - obese Extremities: pedal pulses normal, other - trace edema BLE Neurologic/Psychiatric: no motor/sensory deficits, alert, oriented x 3, responsive Musculoskeletal: normal muscle bulk Laboratory Tests 03/27/17 06:10: White Blood Count 11.4H, Red Blood Count 4.33L, Hemoglobin 12.7L, Hematocrit 40.4L, Mean Corpuscular Volume 93, Mean Corpuscular Hemoglobin 29.4, Mean Corpuscular Hemoglobin Concent 31.6L, Red Cell Distribution Width 15.3H, Platelet Count 238, Mean Platelet Volume 8.5, Neutrophils (%) (Auto) 84.8H, Lymphocytes (%) (Auto) 9.5L, Monocytes (%) (Auto) 5.1, Eosinophils (%) (Auto) 0.0, Basophils (%) (Auto) 0.6, Sodium Level 137, Potassium Level 4.8, Chloride Level 98, Carbon Dioxide Level 29, Anion Gap 10, Blood Urea Nitrogen 42H, Creatinine 2.3H, Estimat Glomerular Filtration Rate 35.9, Glucose Level 138H, Calcium Level 9.2 Current Medications Medications (Trade) Dose Ordered Sig/Alexis Route PRN Reason Start Time Stop Time Status Last Admin Dose Admin Albuterol/ Ipratropium (DuoNeb 0.5-3(2.5)mg/3ml) 3 ml Q4H PRN HHN dyspnea 03/25/17 21:00 03/30/17 20:59 Albuterol/ Ipratropium (DuoNeb 0.5-3(2.5)mg/3ml) 3 ml Q6HRT HHN 03/26/17 01:00 03/31/17 00:59 03/27/17 07:45 Amlodipine Besylate (Norvasc) 5 mg Q12HR ORAL 03/25/17 21:30 04/24/17 21:29 03/26/17 20:06 Aspirin (ASA) 81 mg DAILY ORAL 03/26/17 09:00 04/25/17 08:59 03/26/17 08:38 Clonidine HCl (Catapres) 0.1 mg Q6H PRN ORAL SBP>160 03/25/17 21:30 04/24/17 21:29 03/26/17 23:43 Dextrose (Dextrose 50%) STAT PRN IV Hypoglycemia 03/25/17 21:00 04/24/17 20:59 Heparin Sodium (Porcine) (Heparin 5000 units/ml) 5,000 units EVERY 12 HOURS SUBQ 03/25/17 21:30 04/24/17 21:29 03/26/17 20:11 Hydralazine HCl (Apresoline) 25 mg EVERY 8 HOURS ORAL 03/25/17 22:00 04/24/17 21:59 03/27/17 06:14 Hydromorphone HCl (Dilaudid) 1 mg Q4H PRN IVP Severe Pain (Pain Scale 7-10) 03/25/17 21:00 04/01/17 20:59 03/27/17 06:15 Ketorolac Tromethamine (Toradol 30mg) 30 mg Q8H PRN IV Moderate Pain (Pain Scale 4-6) 03/25/17 21:30 03/30/17 21:29 Levofloxacin (Levaquin) 50 ml @ 50 mls/hr Q24H IVPB 03/26/17 16:00 04/02/17 15:59 03/26/17 17:47 Lorazepam (Ativan 2mg/ml 1ml) 0.5 mg Q4H PRN IV For Anxiety 03/25/17 21:00 04/01/17 20:59 Methylprednisolone Sodium Succinate (Solu-MEDROL) 60 mg EVERY 12 HOURS IV 03/25/17 21:30 04/24/17 21:29 03/26/17 20:07 Nitroglycerin (Ntg) 0.4 mg Q5M X 3 DOSES PRN SL Prn Chest Pain 03/25/17 20:45 04/24/17 20:44 Ondansetron HCl (Zofran) 4 mg Q6H PRN IVP Nausea & Vomiting 03/25/17 21:30 04/24/17 21:29 Temazepam (Restoril) 15 mg HSPRN PRN ORAL Insomnia 03/25/17 21:00 04/01/17 20:59 Theophylline (Oscar-Dur) 100 mg EVERY 12 HOURS ORAL 03/25/17 21:30 04/24/17 21:29 03/26/17 20:05 Karri [facility]encesLong [facility] CenterKenia Pacheco NP Mar 27, 2017 08:10
[2017-03-27] MEDS: Theophylline ER 100mg ORAL SCH (08:42)
[2017-03-27] MEDS: Solu-MEDROL 125mg Inj IV SCH (08:42)
[2017-03-27] MEDS: Aspirin Baby 81mg ORAL SCH (08:42)
[2017-03-27] MEDS: Heparin 5000 units/ml inj SUBQ SCH (08:43)
[2017-03-27] MEDS ORDERED: NS 275ml ONE (11:29)
[2017-03-27] MEDS ORDERED: Tubing IV Secondary IV ONE (11:29)
[2017-03-27 12:00] VITALS: BP 154/106
[2017-03-27] MEDS ORDERED: HYDRALAZINE HCL25 M1 ORAL (12:21)
[2017-03-27] MEDS ORDERED: MEDROL4 MG ORAL (12:30)
--- NOTE | 2017-03-27 14:40 | General Progress Note ---
Assessment/Plan Problem List: (1) Acute asthma exacerbation ICD Codes: J45.901 - Asthma with exacerbation SNOMED: 857060104 (2) Inguinal hernia ICD Codes: K40.90 - Unilateral inguinal hernia, without obstruction or gangrene , not specified as recurrent SNOMED: 936259895 (3) Renal failure syndrome (4) COPD (chronic obstructive pulmonary disease) ICD Codes: J44.9 - Chronic obstructive pulmonary disease, unspecified SNOMED: 99267941 (5) HTN (hypertension) ICD Codes: I10 - Essential (primary) hypertension SNOMED: 08251722 (6) Anemia ICD Codes: D64.9 - Anemia, unspecified SNOMED: 791539889 Status: stable, progressing, tolerating diet Assessment/Plan dc w hh abx per id Subjective Constitutional: Reports: weakness Allergies: Coded Allergies: MORPHINE (Unverified Allergy, Intermediate, Itching, 11/25/15) TETRACYCLINE (Verified Allergy, Unknown, 11/25/15) Uncoded Allergies: dairy products (Allergy, Intermediate, Shortness of Breath, 03/23/17) All Systems: reviewed and negative except above Subjective calm in bed Objective Last 24 Hour Vital Signs Date Time Temp Pulse Resp B/P Pulse Ox O2 Delivery O2 Flow Rate FiO2 03/27/17 13:00 82 20 98 Room Air 03/27/17 12:50 95 22 92 Room Air 03/27/17 12:00 97.7 77 18 154/106 92 Room Air 03/27/17 08:42 84 142/85 03/27/17 08:00 97.9 84 18 142/85 92 Room Air 03/27/17 07:57 87 20 96 Room Air 03/27/17 07:47 82 20 92 Room Air 03/27/17 07:46 Room Air 03/27/17 07:45 92 Room Air 21 03/27/17 06:14 149/85 03/27/17 04:56 83 16 99 Facial 40 03/27/17 04:00 96.8 72 20 149/85 99 Bi-pap 03/27/17 03:11 81 20 98 Facial 40 03/27/17 02:22 83 18 99 Bi-pap 40 03/27/17 02:21 79 23 98 Facial 40 03/27/17 00:15 40 03/27/17 00:15 79 18 98 Bi-pap 40 03/27/17 00:00 98.9 83 19 185/110 93 Room Air 03/26/17 23:45 85 23 99 Facial 40 03/26/17 23:43 195/110 03/26/17 22:21 163/100 03/26/17 20:45 Nasal Cannula 2.0 28 03/26/17 20:45 89 20 91 Nasal Cannula 2.0 28 03/26/17 20:45 91 Room Air 21 03/26/17 20:06 86 163/100 03/26/17 19:58 98.1 86 20 163/101 94 Room Air 03/26/17 16:00 97.9 88 20 155/106 95 Room Air 03/26/17 15:24 97.7 Intake and Output 03/26/17 03/27/17 19:00 07:00 Intake Total 250 ml 500 ml Balance 250 ml 500 ml Intake Oral 250 ml 500 ml # Voids 1 1 Laboratory Tests 03/27/17 06:10: White Blood Count 11.4H, Red Blood Count 4.33L, Hemoglobin 12.7L, Hematocrit 40.4L, Mean Corpuscular Volume 93, Mean Corpuscular Hemoglobin 29.4, Mean Corpuscular Hemoglobin Concent 31.6L, Red Cell Distribution Width 15.3H, Platelet Count 238, Mean Platelet Volume 8.5, Neutrophils (%) (Auto) 84.8H, Lymphocytes (%) (Auto) 9.5L, Monocytes (%) (Auto) 5.1, Eosinophils (%) (Auto) 0.0, Basophils (%) (Auto) 0.6, Sodium Level 137, Potassium Level 4.8, Chloride Level 98, Carbon Dioxide Level 29, Anion Gap 10, Blood Urea Nitrogen 42H, Creatinine 2.3H, Estimat Glomerular Filtration Rate 35.9, Glucose Level 138H, Calcium Level 9.2 Height (Feet): 5 Height (Inches): 7.00 Weight (Pounds): 280 General Appearance: alert EENT: normal ENT inspection Neck: normal alignment Cardiovascular: normal peripheral pulses, normal rate, regular rhythm Respiratory/Chest: chest wall non-tender, lungs clear, normal breath sounds Abdomen: normal bowel sounds, non tender, soft Extremities: normal inspection Edema: no edema noted Arm (L), no edema noted Arm (R), no edema noted Leg (L), no edema noted Leg (R), no edema noted Pedal (L), no edema noted Pedal (R), no edema noted Generalized Neurologic: responsive, motor weakness Skin: normal pigmentation, warm/dry KADIE SO Mar 27, 2017 14:40
--- NOTE | 2017-03-27 15:18 | Nephrology Progress Note ---
Assessment/Plan Assessment 1. Acute versus 2. Chronic kidney with 3 gr of proteinuria (need nephrotic syndrome w/u ) 3. Asthma exacerbation. 4. hyperkalemia 5. Chronic obstructive pulmonary disease exacerbation. 6. Uncontrolled hypertension. 7. Non-reducible left inguinal hernia. Plan plan nephrotic syndrome w/u low k diet avoid NSAID or SAMIR replace monitoring electrolyte Subjective Constitutional: Reports: no symptoms HEENT: Reports: no symptoms Genitourinary: Reports: no symptoms Neurologic/Psychiatric: Reports: no symptoms Subjective alert and awake no complaints Objective Objective Last 24 Hour Vital Signs Date Time Temp Pulse Resp B/P Pulse Ox O2 Delivery O2 Flow Rate FiO2 03/27/17 13:00 82 20 98 Room Air 03/27/17 12:50 95 22 92 Room Air 03/27/17 12:00 97.7 77 18 154/106 92 Room Air 03/27/17 08:42 84 142/85 03/27/17 08:00 97.9 84 18 142/85 92 Room Air 03/27/17 07:57 87 20 96 Room Air 03/27/17 07:47 82 20 92 Room Air 03/27/17 07:46 Room Air 03/27/17 07:45 92 Room Air 03/27/17 06:14 149/85 03/27/17 04:56 83 16 99 Facial 40 03/27/17 04:00 96.8 72 20 149/85 99 Bi-pap 03/27/17 03:11 81 20 98 Facial 40 03/27/17 02:22 83 18 99 Bi-pap 40 03/27/17 02:21 79 23 98 Facial 40 03/27/17 00:15 40 03/27/17 00:15 79 18 98 Bi-pap 40 03/27/17 00:00 98.9 83 19 185/110 93 Room Air 03/26/17 23:45 85 23 99 Facial 40 03/26/17 23:43 195/110 03/26/17 22:21 163/100 03/26/17 20:45 Nasal Cannula 2.0 03/26/17 20:45 89 20 91 Nasal Cannula 2.0 03/26/17 20:45 91 Room Air 03/26/17 20:06 86 163/100 03/26/17 19:58 98.1 86 20 163/101 94 Room Air 03/26/17 16:00 97.9 88 20 155/106 95 Room Air 03/26/17 15:24 97.7 Intake and Output 03/26/17 03/27/17 19:00 07:00 Intake Total 250 ml 500 ml Balance 250 ml 500 ml Intake Oral 250 ml 500 ml # Voids 1 1 Laboratory Tests 03/27/17 06:10: White Blood Count 11.4H, Red Blood Count 4.33L, Hemoglobin 12.7L, Hematocrit 40.4L, Mean Corpuscular Volume 93, Mean Corpuscular Hemoglobin 29.4, Mean Corpuscular Hemoglobin Concent 31.6L, Red Cell Distribution Width 15.3H, Platelet Count 238, Mean Platelet Volume 8.5, Neutrophils (%) (Auto) 84.8H, Lymphocytes (%) (Auto) 9.5L, Monocytes (%) (Auto) 5.1, Eosinophils (%) (Auto) 0.0, Basophils (%) (Auto) 0.6, Sodium Level 137, Potassium Level 4.8, Chloride Level 98, Carbon Dioxide Level 29, Anion Gap 10, Blood Urea Nitrogen 42H, Creatinine 2.3H, Estimat Glomerular Filtration Rate 35.9, Glucose Level 138H, Calcium Level 9.2 Height (Feet): 5 Height (Inches): 7.00 Weight (Pounds): 280 Objective HEAD AND NECK: Unable to assess JVP due to the patient's body habitus. No LAD. Extraocular movement intact. Pupils are reactive to light and accommodation. LUNGS: He has bilateral wheezing. CARDIAC: Regular rate and rhythm. S1 and S2. No murmur. No rub. ABDOMEN: Obese, nontender, and nondistended. EXTREMITIES: Trace edema. No clubbing. No cyanosis. RILEY RAMIREZ Mar 27, 2017 15:18
--- NOTE | 2017-03-27 16:58 | Infectious Diseases Prog Note ---
Assessment/Plan Problems: (1) Acute asthma exacerbation Assessment & Plan: improving , on levaquin empiric treatment for bronchitis , will treat for another 5 days . continue inhalers, and taper steroids (2) UTI (urinary tract infection) Assessment & Plan: with mixed organisms on urine culture, most likely contaminant , already on levaquin empirically (3) COPD (chronic obstructive pulmonary disease) Assessment & Plan: continue inhalers and taper steroids (4) Acute respiratory failure Assessment & Plan: due to the above, improving, continue inhalers, and oxygen, taper steroids (5) CKD (chronic kidney disease) Assessment & Plan: monitor UOP, and renal function , avoid nephrotoxic meds . consult renal (6) Leukocytosis Assessment & Plan: suspect due to steroids , recommend to taper steroids Subjective Constitutional: Reports: no symptoms HEENT: Reports: no symptoms Respiratory: Reports: no symptoms Breasts: Reports: no symptoms Cardiovascular: Reports: no symptoms Gastrointestinal/Abdominal: Reports: no symptoms Genitourinary: Reports: no symptoms Neurologic: Reports: no symptoms Psychiatric: Reports: no symptoms Skin: Reports: no symptoms Endocrine: Reports: no symptoms Hematologic: Reports: no symptoms Allergies: Coded Allergies: MORPHINE (Unverified Allergy, Intermediate, Itching, 11/25/15) TETRACYCLINE (Verified Allergy, Unknown, 11/25/15) Uncoded Allergies: dairy products (Allergy, Intermediate, Shortness of Breath, 03/23/17) Objective Vital Signs Last 24 Hour Vital Signs Date Time Temp Pulse Resp B/P Pulse Ox O2 Delivery O2 Flow Rate FiO2 03/27/17 13:00 82 20 98 Room Air 03/27/17 12:50 95 22 92 Room Air 03/27/17 12:00 97.7 77 18 154/106 92 Room Air 03/27/17 08:42 84 142/85 03/27/17 08:00 97.9 84 18 142/85 92 Room Air 03/27/17 07:57 87 20 96 Room Air 03/27/17 07:47 82 20 92 Room Air 03/27/17 07:46 Room Air 03/27/17 07:45 92 Room Air 21 03/27/17 06:14 149/85 03/27/17 04:56 83 16 99 Facial 40 03/27/17 04:00 96.8 72 20 149/85 99 Bi-pap 03/27/17 03:11 81 20 98 Facial 40 8/18/17 02:22 83 18 99 Bi-pap 40 03/27/17 02:21 79 23 98 Facial 40 03/27/17 00:15 40 03/27/17 00:15 79 18 98 Bi-pap 40 03/27/17 00:00 98.9 83 19 185/110 93 Room Air 03/26/17 23:45 85 23 99 Facial 40 03/26/17 23:43 195/110 03/26/17 22:21 163/100 03/26/17 20:45 Nasal Cannula 2.0 28 03/26/17 20:45 89 20 91 Nasal Cannula 2.0 28 03/26/17 20:45 91 Room Air 21 03/26/17 20:06 86 163/100 03/26/17 19:58 98.1 86 20 163/101 94 Room Air Height (Feet): 5 Height (Inches): 7.00 Weight (Pounds): 280 General Appearance: WD/WN, no acute distress HEENT: normocephalic, atraumatic, anicteric, mucous membranes moist, PERRL Respiratory/Chest: chest wall non-tender, normal breath sounds, no respiratory distress, no accessory muscle use, decreased breath sounds Breasts: no masses Cardiovascular: normal peripheral pulses, normal rate, regular rhythm, no gallop/murmur, no JVD Abdomen: normal bowel sounds, soft, non tender, no organomegaly, non distended , no mass, no scars Extremities: no cyanosis, no clubbing Skin: no rash, no lesions, no ulcers Neurologic/Psychiatric: alert, oriented x 3 Lymphatic: no neck adenopathy, no groin adenopathy Laboratory Tests Test 03/27/17 06:10 White Blood Count 11.4 K/UL (4.8-10.8) H Red Blood Count 4.33 M/UL (4.70-6.10) L Hemoglobin 12.7 G/DL (14.2-18.0) L Hematocrit 40.4 % (42.0-52.0) L Mean Corpuscular Volume 93 FL (80-99) Mean Corpuscular Hemoglobin 29.4 PG (27.0-31.0) Mean Corpuscular Hemoglobin Concent 31.6 G/DL (32.0-36.0) L Red Cell Distribution Width 15.3 % (11.6-14.8) H Platelet Count 238 K/UL (150-450) Mean Platelet Volume 8.5 FL (6.5-10.1) Neutrophils (%) (Auto) 84.8 % (45.0-75.0) H Lymphocytes (%) (Auto) 9.5 % (20.0-45.0) L Monocytes (%) (Auto) 5.1 % (1.0-10.0) Eosinophils (%) (Auto) 0.0 % (0.0-3.0) Basophils (%) (Auto) 0.6 % (0.0-2.0) Sodium Level 137 mEQ/L (135-145) Potassium Level 4.8 mEQ/L (3.4-4.9) Chloride Level 98 mEQ/L (98-107) Carbon Dioxide Level 29 mEQ/L (20-30) Anion Gap 10 (5-15) Blood Urea Nitrogen 42 mg/dL (7-23) H Creatinine 2.3 mg/dL (0.7-1.2) H Estimat Glomerular Filtration Rate 35.9 mL/min (>60) Glucose Level 138 mg/dL (74-106) H Calcium Level 9.2 mg/dL (8.6-10.2) Current Medications Medications (Trade) Dose Ordered Sig/Alexis Route PRN Reason Start Time Stop Time Status Last Admin Dose Admin Albuterol/ Ipratropium (DuoNeb 0.5-3(2.5)mg/3ml) 3 ml Q4H PRN HHN dyspnea 03/25/17 21:00 03/30/17 20:59 Albuterol/ Ipratropium (DuoNeb 0.5-3(2.5)mg/3ml) 3 ml Q6HRT N 03/26/17 01:00 03/31/17 00:59 03/27/17 12:51 Amlodipine Besylate (Norvasc) 5 mg Q12HR ORAL 03/25/17 21:30 04/24/17 21:29 03/27/17 08:42 Aspirin (ASA) 81 mg DAILY ORAL 03/26/17 09:00 04/25/17 08:59 03/27/17 08:42 Clonidine HCl (Catapres) 0.1 mg Q6H PRN ORAL SBP>160 03/25/17 21:30 04/24/17 21:29 03/26/17 23:43 Dextrose (Dextrose 50%) STAT PRN IV Hypoglycemia 03/25/17 21:00 04/24/17 20:59 Heparin Sodium (Porcine) (Heparin 5000 units/ml) 5,000 units EVERY 12 HOURS SUBQ 03/25/17 21:30 04/24/17 21:29 03/27/17 08:43 Hydralazine HCl (Apresoline) 25 mg EVERY 8 HOURS ORAL 03/25/17 22:00 04/24/17 21:59 03/27/17 06:14 Hydromorphone HCl (Dilaudid) 1 mg Q4H PRN IVP Severe Pain (Pain Scale 7-10) 03/25/17 21:00 04/01/17 20:59 03/27/17 11:35 Ketorolac Tromethamine (Toradol 30mg) 30 mg Q8H PRN IV Moderate Pain (Pain Scale 4-6) 03/25/17 21:30 03/30/17 21:29 Levofloxacin (Levaquin) 50 ml @ 50 mls/hr Q24H IVPB 03/26/17 16:00 04/02/17 15:59 03/26/17 17:47 Lorazepam (Ativan 2mg/ml 1ml) 0.5 mg Q4H PRN IV For Anxiety 03/25/17 21:00 04/01/17 20:59 Methylprednisolone Sodium Succinate (Solu-MEDROL) 60 mg EVERY 12 HOURS IV 03/25/17 21:30 04/24/17 21:29 03/27/17 08:42 Nitroglycerin (Ntg) 0.4 mg Q5M X 3 DOSES PRN SL Prn Chest Pain 03/25/17 20:45 04/24/17 20:44 Ondansetron HCl (Zofran) 4 mg Q6H PRN IVP Nausea & Vomiting 03/25/17 21:30 04/24/17 21:29 Temazepam (Restoril) 15 mg HSPRN PRN ORAL Insomnia 03/25/17 21:00 04/01/17 20:59 Theophylline (Oscar-Dur) 100 mg EVERY 12 HOURS ORAL 03/25/17 21:30 04/24/17 21:29 03/27/17 08:42 Mihir Pan M.D. Mar 27, 2017 16:58
--- NOTE | 2017-03-30 08:37 | Discharge Summary ---
Discharge Summary Hospital Course Date of Admission Mar 23, 2017 at 13:32 Date of Discharge Mar 27, 2017 at 16:15 Admitting Diagnosis asthma/L inguinal hernia HPI Jean Pierre Marks is a 56 year old male who was admitted on Mar 23, 2017 at 13:32 for Asthma, Left Inguinal Hernia Hospital Course dc summary #[id number] Discharge Medications New Medications: Methylprednisolone* (Medrol*) 4 Mg Tablet 4 MG ORAL DAILY, #10 TAB 0 Refills Continued Medications: Albuterol Sulfate (Ventolin Hfa) 18 Gm Hfa.aer.ad 2 PUFFS INH EVERY 6 HOURS, #2 INH 0 Refills Amlodipine Besylate (Norvasc) 5 Mg Tab 5 MG ORAL BID, #1 TAB Aspirin* (Aspirin*) 81 Mg Tab.chew 81 MG ORAL DAILY, #30 TAB 0 Refills Clonidine HCl (Clonidine HCl) 0.1 Mg Tab 0.1 MG ORAL Q6H PRN for SBP>160, #1 TAB Hydralazine Hcl* (Hydralazine Hcl*) 25 Mg Tablet 25 MG ORAL EVERY 8 HOURS, TAB 0 Refills Theophylline (Theodur*) 100 Mg Tab.er.12h 100 MG ORAL TWICE A DAY, #30 TAB 0 Refills Discharge Condition Upon Discharge: stable Discharge Disposition Patient was discharged to Home with Home Health(06) Discharge Diagnoses: Karri (Flavioselvin)Kenia NP Mar 30, 2017 08:37
--- NOTE | 2017-03-31 01:45 | Discharge Summary 2 SIG ---
DATE OF ADMISSION: 03/23/2017 DATE OF DISCHARGE: 03/27/2017 REASON FOR ADMISSION: This is a 56-year-old male with history of asthma, chronic kidney disease, morbid obesity, and hypertension presented to emergency room with shortness of breath and left inguinal pain. CT of the abdomen and pelvis revealed bilateral inguinal hernia. The patient was diagnosed with asthma exacerbation. Chest x-ray was negative. The patient was given nebulizing treatment and admitted for further management. ADMITTING DIAGNOSES: 1. Acute asthma exacerbation. 2. Abdominal pain. 3. Left inguinal hernia. 4. Chronic kidney disease. HOSPITAL COURSE: The patient admitted. The patient started on supplemental oxygen to keep saturation above 92%. Chest x-ray revealed no acute cardiopulmonary pathology. Respiratory treatment as nebulizing provided as needed. Prior to discharge, the patient on room air, pulse oximetry was stable without signs of respiratory distress. The patient started on IV steroids and taper and was discharged on Medrol Dosepak. The patient started on theophylline, to continue an additional two weeks as outpatient. The patient was on empiric antibiotics. Sputum culture was negative. Antibiotics stopped prior to discharge. Antitussive provided as needed. DVT prophylaxis provided. Pain management provided. CT of the abdomen and pelvis revealed bilateral inguinal hernia. Surgery consult was requested. Surgeon seen and evaluated the patient and stated that the patient has asymptomatic inguinal hernia and no need for urgent surgery. The patient can be scheduled as elective left inguinal hernia repair. Information referral provided. BiPAP provided at night. and was stable. Communications Technician followed. The patient has evidence of chronic kidney disease. Renal parameters and electrolytes were closely monitored. Nephrotoxics were avoided. The patient noted to have 3 g of random urine protein. Workup for nephrotic syndrome recommended by car carder as outpatient. Creatinine stayed at the same rate. Blood pressure was managed with a calcium channel edilberto and clonidine on as needed basis. Blood pressure normalized. Respiratory status stable. The patient was stable for discharge. Prescription provided for Medrol Dosepak, maintenance inhaler along with theophylline. DISCHARGE DIAGNOSES: 1. Acute asthma exacerbation. 2. Chronic obstructive pulmonary disease. 3. Left groin pain secondary to asymptomatic left inguinal hernia. 4. Hypertensive urgency, resolved. 5. Chronic kidney disease. 6. Proteinuria, possible nephrotic syndrome. 7. Hyperkalemia, resolved. 8. Obstructive sleep apnea. DISCHARGE MEDICATIONS: See medication reconciliation list. DISCHARGE INSTRUCTIONS: The patient discharged home. Follow up with the primary medical doctor. The patient will schedule appointment with the surgeon as an outpatient along with need a referral to urologist per PMD for workup for proteinuria and possible nephrotic syndrome. Jason Ivy D.O. I have been assigned to dictate discharge summary on this account and I was not involved in the patient's management. Kenia Zeng N.P. (vanchtein) DR: KM JOB#: [id number] CC:
== END 2017-03-27 16:15 | disposition home health service (06) | DRG 190 ==
LOC: EMR 12:49 → 2E 13:32 → EDBEDREQSVC 15:23 → EDBEDREQ 15:38 → 2E 03-24 00:08 → 4E 03-25 20:23
PROC: 5A09357 Assistance with Respiratory Ventilation, Less than 24 Consecutive Hours, Continuous Positive Airway Pressure (ICD-10-PCS; principal; 2017-03-27)
DX: J44.1 Chronic obstructive pulmonary disease with (acute) exacerbation (principal); J96.00 Acute respiratory failure, unspecified whether with hypoxia or hypercapnia; N17.9 Acute kidney failure, unspecified; Z68.42 Body mass index [BMI] 45.0-49.9, adult; N39.0 Urinary tract infection, site not specified; E66.01 Morbid (severe) obesity due to excess calories; K40.90 Unilateral inguinal hernia, without obstruction or gangrene, not specified as recurrent; J44.9 Chronic obstructive pulmonary disease, unspecified; I12.9 Hypertensive chronic kidney disease with stage 1 through stage 4 chronic kidney disease, or unspecified chronic kidney disease; N18.9 Chronic kidney disease, unspecified; G47.33 Obstructive sleep apnea (adult) (pediatric); I25.10 Atherosclerotic heart disease of native coronary artery without angina pectoris; E78.5 Hyperlipidemia, unspecified; Z88.6 Allergy status to analgesic agent; Z88.8 Allergy status to other drugs, medicaments and biological substances
CPT/HCPCS: 36415; 71010; 71020; 74176; 80048; 80053; 80061; 81001; 81003; 82043; 82044; 82570; 83605; 83690; 84153; 84300; 84443; 84484; 85007; 85025; 85610; 85730; 86850; 86900; 86901; 87086; 89050; 93005; 94640; 94660; 94664; 94760; 97803; J2405; J7620